=== PATIENT | male | born 1970 | race African-American/Black ===

== ENCOUNTER 2018-12-15 03:52 | Emergency (ER) | payer OTHER, SELFPAY ==
[2018-12-15] MEDS ORDERED: CYCLOBENZAPRINE 10 MG TAB ONE (04:42)
[2018-12-15] MEDS ORDERED: MEPERIDINE HCL 50 MG/ML ONE (04:42)
[2018-12-15] MEDS ORDERED: dexAMETHasone 10 MG/ML VIAL ONE (04:43)
--- NOTE | 2018-12-15 05:56 | ER ---
Nurse's Notes [facility] Name: Al Rawls Age: 48 yrs Sex: Male : 1970 Arrival Date: 12/15/2018 Time: 03:55 Bed 6 Private MD: Diagnosis: Low back pain;Muscle spasm of back Presentation: 12/15 04:19 Presenting complaint: Patient states: low back pain x 4 days. Denies injury. Transition aa1 of care: patient was not received from another setting of care. Onset of symptoms was December 11, 2018. Risk Assessment: Do you want to hurt yourself or someone else? Patient reports no desire to harm self or others. Initial Sepsis Screen: Does the patient meet any 2 criteria? No. Patient's initial sepsis screen is negative. Does the patient have a suspected source of infection? No. Patient's initial sepsis screen is negative. Care prior to arrival: None. 04:19 Method Of Arrival: Ambulatory aa1 04:19 Acuity: BRANDYN 4 aa1 Triage Assessment: 04:19 General: Appears in no apparent distress. comfortable, Behavior is calm, cooperative, aa1 appropriate for age. Historical: - Allergies: 04:26 Lisinopril; aa1 - PMHx: 04:26 chronic bronchitis; Hypertension; Rheumatoid Arthritis; Atrial Fib; aa1 - PSHx: 04:26 Left Knee; Hernia repair; aa1 - Immunization history:: Flu vaccine is not up to date. - Social history:: Smoking status: Patient/guardian denies using tobacco. - Ebola Screening: : No symptoms or risks identified at this time. - Family history:: not pertinent. - Hospitalizations: : Patient was recently seen at. Screenin:30 Abuse screen: Denies threats or abuse. Nutritional screening: No deficits noted. ea Tuberculosis screening: No symptoms or risk factors identified. Fall Risk None identified. Assessment: 04:27 Reassessment: pt stated his girlfriend dropped him off at the ER, Dr. Scott informed. . ak1 04:37 General: Appears uncomfortable, Behavior is calm, cooperative, appropriate for age. ea Pain: Complains of pain in coccyx, left lower back and right lower back. Neuro: Level of Consciousness is awake, alert, obeys commands, Oriented to person, place, time, situation. Cardiovascular: Patient's skin is warm and dry. Respiratory: Airway is patent Respiratory effort is even, unlabored, Respiratory pattern is regular, symmetrical. GI: No signs and/or symptoms were reported involving the gastrointestinal system. Derm: Skin is pink, warm \T\ dry. 05:08 Reassessment: Patient and/or family updated on plan of care and expected duration. Pain ea level reassessed. Patient is alert, oriented x 3, equal unlabored respirations, skin warm/dry/pink. 06:06 Reassessment: Patient and/or family updated on plan of care and expected duration. Pain ea level reassessed. Patient is alert, oriented x 3, equal unlabored respirations, skin warm/dry/pink. Discharge instruction given to patient, verbalized the understanding of instruction. Pt awaiting on to pick him up. Vital Signs: 04:19 BP 113 / 90; Pulse 50; Resp 20; Temp 97; Pulse Ox 98% on R/A; Weight 122.92 kg; Height aa1 6 ft. 0 in. (182.88 cm); Pain 10/10; 06:01 BP 111 / 99; Pulse 79; Resp 18; Pulse Ox 98% on R/A; ak1 04:19 Body Mass Index 36.75 (122.92 kg, 182.88 cm) aa1 ED Course: 03:55 Patient arrived in ED. es 04:00 Jefferson Scott MD is Attending Physician. rn 04:19 Arm band placed on right wrist. Patient placed in an exam room, on a stretcher. aa1 04:20 Triage completed. aa1 04:30 Patty Parikh, KIRSTEN is Primary Nurse. ea 04:38 Patient has correct armband on for positive identification. Bed in low position. Call ea light in reach. 06:07 No provider procedures requiring assistance completed. Patient did not have IV access ea during this emergency room visit. Administered Medications: 04:51 Drug: Demerol 50 mg {Note: RASS 0.} Route: IM; Site: right gluteus; ea 05:53 Follow up: Response: No adverse reaction; Pain is decreased; RASS: Alert and Calm (0) ea 04:51 Drug: Flexeril 10 mg Route: PO; ea 05:54 Follow up: Response: No adverse reaction ea 04:51 Drug: Decadron 10 mg Route: IM; Site: left gluteus; ea 05:54 Follow up: Response: No adverse reaction ea Outcome: 05:56 Discharge ordered by . rn 06:07 Condition: stable ea 06:07 Discharge instructions given to patient, Instructed on discharge instructions, follow up and referral plans. medication usage, Demonstrated understanding of instructions, follow-up care, medications. 06:09 Discharged to home via wheelchair, with significant other. ea 06:10 Patient left the ED. ea Signatures: Bruna Mccall RN RN aa1 Dorie Riley Roman, MD MD rn Krenek, Amber, RN RN ak1 Patty Parikh RN RN ea
--- NOTE | 2018-12-15 05:56 | EDPHYS ---
Physician Documentation [facility] Name: Al Rawls Age: 48 yrs Sex: Male : 1970 Arrival Date: 12/15/2018 Time: 03:55 Bed 6 Private MD: ED Physician Jefferson Scott HPI: 12/15 04:26 This 48 yrs old Black Male presents to ER via Ambulatory with complaints of Low Back rn Pain. 04:26 The patient presents with pain that is acute. The symptoms are located in the low back. rn The pain does not radiate. The problem was sustained from unknown cause. Onset: The symptoms/episode began/occurred 3 day(s) ago. Modifying factors: The patient symptoms are alleviated by remaining still, rest, specific position, the patient symptoms are aggravated by any movement, bending. Associated signs and symptoms: Pertinent positives: none Pertinent negatives: abdominal pain, dysuria, fever, hematuria, incontinence, nausea, numbness, tingling, urinary retention, vomiting, weakness. Severity of symptoms: At their worst the symptoms were moderate, in the emergency department the symptoms are unchanged. The patient has experienced a previous episode. The patient has been recently seen by a physician:. Reports low back pain, began 3 days ago, no known injury, slow coming, now moderate pain, worse with movement and walking, better when laying down and not moving. No fever/chest pain/sob/abd pain. NO bowel/bladder incontinence or retention. No radiation to legs. No weakness. . Historical: - Allergies: 04:26 Lisinopril; aa1 - PMHx: 04:26 chronic bronchitis; Hypertension; Rheumatoid Arthritis; Atrial Fib; aa1 - PSHx: 04:26 Left Knee; Hernia repair; aa1 - Immunization history:: Flu vaccine is not up to date. - Social history:: Smoking status: Patient/guardian denies using tobacco. - Ebola Screening: : No symptoms or risks identified at this time. - Family history:: not pertinent. - Hospitalizations: : Patient was recently seen at. ROS: 04:26 Constitutional: Negative for fever, chills, and weight loss, Eyes: Negative for injury, rn pain, redness, and discharge, Neck: Negative for injury, pain, and swelling, Cardiovascular: Negative for chest pain, palpitations, and edema, Respiratory: Negative for shortness of breath, cough, wheezing, and pleuritic chest pain, Abdomen/GI: Negative for abdominal pain, nausea, vomiting, diarrhea, and constipation, Back: + low back pain MS/Extremity: Negative for injury and deformity, Skin: Negative for injury, rash, and discoloration, Neuro: Negative for headache, weakness, numbness, tingling, and seizure. Exam: 04:26 Constitutional: This is a well developed, well nourished patient who is awake, alert, rn appears uncomfortable, but ambulatory to room without assistance. Head/Face: Normocephalic, atraumatic. Eyes: Pupils equal round and reactive to light, extra-ocular motions intact. Lids and lashes normal. Conjunctiva and sclera are non-icteric and not injected. Cornea within normal limits. Periorbital areas with no swelling, redness, or edema. ENT: MMM Cardiovascular: Irregularly irregular, no murmur, distal pulses equal and intact Respiratory: No increased work of breathing, no retractions or nasal flaring. Abdomen/GI: soft, non-tender, no masses or pulsatile masses Back: No spinal tenderness, + painful twisting and palpation or perilumbar muscles. MS/ Extremity: Pulses equal, no cyanosis. Neurovascular intact. Full, normal range of motion. Equal circumference. Neuro: Awake and alert, GCS 15, oriented to person, place, time, and situation. Cranial nerves II-XII grossly intact. Motor strength 5/5 in all extremities. Sensory grossly intact. Cerebellar exam normal. Normal gait. Vital Signs: 04:19 BP 113 / 90; Pulse 50; Resp 20; Temp 97; Pulse Ox 98% on R/A; Weight 122.92 kg; Height aa1 6 ft. 0 in. (182.88 cm); Pain 10/10; 06:01 BP 111 / 99; Pulse 79; Resp 18; Pulse Ox 98% on R/A; ak1 04:19 Body Mass Index 36.75 (122.92 kg, 182.88 cm) aa1 MDM: 04:00 Patient medically screened. rn 05:01 ED course: Reports has happened once before and attributes back pain to bad bed, rn reports uses bricks and broken box spring to keep mattress off of floor. Denies drug use. No focal spinal tenderness. Some improvement with meds, seems more comfortable. . 05:55 Differential diagnosis: arthritis, sciatica, Herniated disc UTI, muscle spasm. Data rn reviewed: vital signs, nurses notes, lab test result(s), and as a result, I will discharge patient. Counseling: I had a detailed discussion with the patient and/or guardian regarding: the historical points, exam findings, and any diagnostic results supporting the discharge/admit diagnosis, lab results, the need for outpatient follow up, to return to the emergency department if symptoms worsen or persist or if there are any questions or concerns that arise at home. Response to treatment: the patient's symptoms have mildly improved after treatment, and as a result, I will discharge patient. 12/15 05:51 Order name: Urine Dipstick--Ancillary (enter results) [facility] 12/15 04:25 Order name: Urine Dipstick-Ancillary (obtain specimen); Complete Time: 05:54 rn Administered Medications: 04:51 Drug: Demerol 50 mg {Note: RASS 0.} Route: IM; Site: right gluteus; ea 05:53 Follow up: Response: No adverse reaction; Pain is decreased; RASS: Alert and Calm (0) ea 04:51 Drug: Flexeril 10 mg Route: PO; ea 05:54 Follow up: Response: No adverse reaction ea 04:51 Drug: Decadron 10 mg Route: IM; Site: left gluteus; ea 05:54 Follow up: Response: No adverse reaction ea Disposition: 12/15/18 05:56 Discharged to Home. Impression: Low back pain, Muscle spasm of back. - Condition is Stable. - Discharge Instructions: Back Pain, Adult, Muscle Cramps and Spasms, Back Exercises, [id number]. - Prescriptions for Tylenol- Codeine #3 300-30 mg Oral Tablet - take 2 tablets by ORAL route every 6 hours As needed; 20 tablet. Cyclobenzaprine 10 mg Oral Tablet - take 1 tablet by ORAL route every 8 hours As needed; 20 tablet. Medrol (Nuno) 4 mg Oral Tablets, Dose Pack - take 1 tablet by ORAL route as directed - follow package instructions; 1 packet. - Medication Reconciliation Form, Thank You Letter, Antibiotic Education, Prescription Opioid Use form. - Follow up: Private Physician; When: As needed; Reason: Recheck today's complaints, Re-evaluation by your physician. - Problem is new. - Symptoms have improved. Signatures: Dispatcher [employer] Bruna Coronado RN RN aa1 Jefferson Scott MD MD rn Antunez, Elena, RN RN ea Corrections: (The following items were deleted from the chart) 06:10 05:56 12/15/2018 05:56 Discharged to Home. Impression: Low back pain; Muscle spasm of ea back. Condition is Stable. Forms are Medication Reconciliation Form, Thank You Letter, Antibiotic Education, Prescription Opioid Use. Follow up: Private Physician; When: As needed; Reason: Recheck today's complaints, Re-evaluation by your physician. Problem is new. Symptoms have improved. rn
[2018-12-15 06:17] VITALS: TEMP 97; O2SAT 98
[2018-12-15 06:18] VITALS: BP 111/99
[2018-12-15 06:43] LABS: Urine Blood NEGATIVE (NEG); Urine Glucose NEGATIVE (NEG); Urine Protein NEGATIVE (NEG)
== END 2018-12-15 06:10 | disposition home or self-care (01) ==
LOC: ER 03:52
DX: M62.830 Muscle spasm of back (principal); I10 Essential (primary) hypertension; Z88.8 Allergy status to other drugs, medicaments and biological substances
CPT/HCPCS: 81003; 96372; 99283; J1100; J2175

== ENCOUNTER 2019-03-06 14:59 | Emergency (ER) | payer OTHER ==
--- OUTSIDE RECORDS SUMMARY | 2019-03-06 15:02 | XMS REPORT ---
:1970 Author Organization [facility] Address [address] [place] [address] Dr. Blackburn [address] [place] [id number] Care Team Providers Name Role Phone Unavailable Unavailable Unavailable Problems This patient has no known problems. Allergies, Adverse Reactions, Alerts This patient has no known allergies or adverse reactions. Medications This patient has no known medications.
--- NOTE | 2019-03-06 16:17 | RAD REPORT ---
EXAM DESCRIPTION: Grecia Pa And Lat (2 Views)03/06/2019 3:49 pm CLINICAL HISTORY: Cough COMPARISON: 2018 FINDINGS: Patchy right lateral basilar opacity. Left lung is clear. The heart is normal size IMPRESSION: Patchy right lateral basilar opacity likely pneumonia. This should be followed until it is clear to exclude a post obstructive process/underlying mass
[2019-03-06] MEDS ORDERED: IPRATROPIUM BROM 0.5MG/2.5ML ONE (16:25)
[2019-03-06] MEDS ORDERED: LEVALBUTEROL 1.25 MG/3 ML NEB ONE (16:25)
[2019-03-06] MEDS ORDERED: METOPROLOL TARTRATE 5 MG/5 ML INJ IV ONE (16:26)
[2019-03-06] MEDS ORDERED: NA CHLORIDE 0.9% 1,000 ML ONE (16:26)
[2019-03-06 17:03] LABS: Absolute Lymphocytes (CBC) 2.6 K/uL (0.7-4.9); Lymphocytes % 60.8 % (15.3-44.8); RBC Red Blood Cell Count 4.34 M/uL (4.33-5.43)
[2019-03-06 17:21] LABS: Potassium 4.1 mmol/L (3.5-5.1)
[2019-03-06] MEDS ORDERED: CEFTRIAXONE/SWI 1gm 1 GM/10 ML SYR ONE (17:31)
--- NOTE | 2019-03-06 17:31 | EDPHYS ---
Physician Documentation [facility] Name: Al Rawls Age: 48 yrs Sex: Male : 1970 Arrival Date: 03/06/2019 Time: 15:01 Bed 15 Private MD: ED Physician Stanley Hernandez HPI: 03/06 16:45 This 48 yrs old Black Male presents to ER via Ambulatory with complaints of Flu kb Symptoms. 16:45 The patient or guardian reports cough, that is intermittent, described as moderate, kb with no sputum, flu symptoms, low-grade fever, myalgias. Onset: The symptoms/episode began/occurred 5 day(s) ago. Severity of symptoms: At their worst the symptoms were moderate, in the emergency department the symptoms are unchanged. Modifying factors: The symptoms are alleviated by nothing, the symptoms are aggravated by nothing. Associated signs and symptoms: Pertinent positives: fever. The patient has not experienced similar symptoms in the past. The patient has not recently seen a physician. Historical: - Allergies: 15:22 Lisinopril; tw2 - Home Meds: 15:22 clonidine HCl 0.1 mg Oral tab 1 tab 2 times per day [Active]; Hydrochlorothiazide Oral tw2 [Active]; "a bunch of other medicines i cant think of" [Active]; - PMHx: 15:22 Atrial Fib; chronic bronchitis; Hypertension; Rheumatoid Arthritis; tw2 - PSHx: 15:22 Left Knee; Hernia repair; tw2 - Immunization history:: Adult Immunizations. - Social history:: Smoking status: Smoking status: Patient/guardian denies using tobacco, the patient reports quitting approximately .5 years ago. - Ebola Screening: : Patient denies travel to an Ebola-affected area in the 21 days before illness onset. ROS: 16:41 ENT: Negative for injury, pain, and discharge, Neck: Negative for injury, pain, and kb swelling, Cardiovascular: Negative for chest pain, palpitations, and edema, Abdomen/GI: Negative for abdominal pain, nausea, vomiting, diarrhea, and constipation, Back: Negative for injury and pain, MS/Extremity: Negative for injury and deformity, Skin: Negative for injury, rash, and discoloration, Neuro: Negative for headache, weakness, numbness, tingling, and seizure. 16:41 Constitutional: Positive for body aches, chills, fatigue, fever, malaise. 16:41 Respiratory: Positive for cough, with no reported sputum. Exam: 16:42 Constitutional: This is a well developed, well nourished patient who is awake, alert, kb and in no acute distress. Head/Face: Normocephalic, atraumatic. Neck: Trachea midline, no thyromegaly or masses palpated, and no cervical lymphadenopathy. Supple, full range of motion without nuchal rigidity, or vertebral point tenderness. No Meningismus. Chest/axilla: Normal chest wall appearance and motion. Nontender with no deformity. No lesions are appreciated. Respiratory: Lungs have equal breath sounds bilaterally, clear to auscultation and percussion. No rales, rhonchi or wheezes noted. No increased work of breathing, no retractions or nasal flaring. Abdomen/GI: Soft, non-tender, with normal bowel sounds. No distension or tympany. No guarding or rebound. No evidence of tenderness throughout. Back: No spinal tenderness. No costovertebral tenderness. Full range of motion. Skin: Warm, dry with normal turgor. Normal color with no rashes, no lesions, and no evidence of cellulitis. MS/ Extremity: Pulses equal, no cyanosis. Neurovascular intact. Full, normal range of motion. Neuro: Awake and alert, GCS 15, oriented to person, place, time, and situation. Cranial nerves II-XII grossly intact. Motor strength 5/5 in all extremities. Sensory grossly intact. Cerebellar exam normal. Normal gait. 16:42 ENT: Posterior pharynx: Airway: normal, Uvula: normal, midline, swelling, is not appreciated, erythema, that is moderate. 16:42 Cardiovascular: Rate: tachycardic, Rhythm: irregularly irregular, Pulses: no pulse deficits are appreciated. 16:43 ECG was reviewed by the Attending Physician. kb Vital Signs: 15:20 BP 132 / 99; Pulse 133; Resp 18; Temp 97.4(TE); Pulse Ox 96% on R/A; Weight 108.86 kg tw2 (R); Height 6 ft. 0 in. (182.88 cm); Pain 10/10; 15:55 BP 133 / 106; Pulse 123; Resp 16 S; Pulse Ox 99% on R/A; ca1 16:32 BP 139 / 94; Pulse 125; Resp 15 S; Pulse Ox 95% on R/A; ca1 16:56 BP 124 / 89; Pulse 127; Resp 16 S; Pulse Ox 96% on R/A; ca1 17:32 BP 111 / 74; Pulse 122; Resp 18 S; Temp 98.3(O); Pulse Ox 98% on R/A; ca1 15:20 Body Mass Index 32.55 (108.86 kg, 182.88 cm) tw2 MDM: 15:38 Patient medically screened. kb 16:41 Data reviewed: vital signs, nurses notes. Data interpreted: Pulse oximetry: on room air kb is 96 %. Interpretation: normal. 16:44 ED course: Heart rate 120s to 140s. Pt has history of a.fib and is scheduled for an kb ablasion on 03/14/19. . 17:26 Counseling: I had a detailed discussion with the patient and/or guardian regarding: the kb historical points, exam findings, and any diagnostic results supporting the discharge/admit diagnosis, lab results, radiology results, the need for outpatient follow up, a family practitioner, to return to the emergency department if symptoms worsen or persist or if there are any questions or concerns that arise at home. ED course: Pt reports he is feeling better. States his heart rate is always high and that is why he is going to have the ablasion. Now reports he has been using his son's albuterol at home as well. Rate is now in the 120s. 03/06 15:28 Order name: Flu; Complete Time: 16:40 kb 03/06 16:10 Order name: Strep kb 03/06 16:10 Order name: CBC with Diff kb 03/06 16:10 Order name: Basic Metabolic Panel; Complete Time: 17:21 kb 03/06 17:16 Order name: CBC Smear Scan EDMS 03/06 15:28 Order name: Chest Pa And Lat (2 Views) XRAY; Complete Time: 17:01 kb 03/06 16:10 Order name: IV Start; Complete Time: 16:51 kb 03/06 16:10 Order name: EKG; Complete Time: 16:11 kb 03/06 16:10 Order name: EKG - Nurse/Tech; Complete Time: 16:45 kb EC:43 Rate is 129 beats/min. Rhythm is irregularly irregular. QRS [place] is Normal. QRS kb interval is normal at 100 msec. QT interval is normal at 272 msec. Administered Medications: 16:25 Drug: Xopenex (3) 1.25 mg Route: Inhalation; ca1 16:25 Drug: AtroVENT Aerosol 0.5 mg Route: Inhalation; ca1 16:30 Drug: NS 0.9% 1000 ml Route: IV; Rate: 1000 ml; Site: right antecubital; ca1 17:32 Follow up: Response: No adverse reaction; IV Status: Completed infusion ca1 16:31 Drug: Lopressor 5 mg Route: IVP; Site: right antecubital; ca1 17:27 Follow up: Response: No adverse reaction ca1 17:31 Drug: Rocephin 1 grams Route: IV; Rate: calculated rate; Site: right antecubital; ca1 17:42 Follow up: Response: No adverse reaction; IV Status: Completed infusion ca1 Disposition: 03/07 07:04 Co-signature as Attending Physician, Stanley Hernandez MD I agree with the assessment and abbi plan of care. Disposition: 03/06/19 17:27 Discharged to Home. Impression: Influenza due to identified novel influenza A virus, Pneumonia, unspecified organism. - Condition is Stable. - Discharge Instructions: Community-Acquired Pneumonia, Adult, [id number], Influenza, Adult, [id number]. - Prescriptions for Albuterol Sulfate 90 mcg/actuation - inhale 1-2 puff by INHALATION route every 4-6 hours; 1 Inhaler. Zithromax 500 mg Oral Tablet - take 1 tablet by ORAL route once daily for 5 days; 5 tablet. - Medication Reconciliation Form, Thank You Letter, Antibiotic Education, Prescription Opioid Use form. - Follow up: Emergency Department; When: As needed; Reason: Worsening of condition. Follow up: Private Physician; When: 2 - 3 days; Reason: Recheck today's complaints, Continuance of care, Re-evaluation by your physician. Signatures: Dispatcher [employer] Esperanza Cui, Stanley George MD MD cha Wise, Tara, RN RN tw2 Chayito Cid RN RN ca1 Corrections: (The following items were deleted from the chart) 03/06 17:48 17:27 03/06/2019 17:27 Discharged to Home. Impression: Influenza due to identified ca1 novel influenza A virus; Pneumonia, unspecified organism. Condition is Stable. Forms are Medication Reconciliation Form, Thank You Letter, Antibiotic Education, Prescription Opioid Use. Follow up: Emergency Department; When: As needed; Reason: Worsening of condition. Follow up: Private Physician; When: 2 - 3 days; Reason: Recheck today's complaints, Continuance of care, Re-evaluation by your physician. kb
--- NOTE | 2019-03-06 17:31 | ER ---
Nurse's Notes [facility] Name: Al Rawls Age: 48 yrs Sex: Male : 1970 Arrival Date: 03/06/2019 Time: 15:01 Bed 15 Private MD: Diagnosis: Influenza due to identified novel influenza A virus;Pneumonia, unspecified organism Presentation: 03/06 15:18 Presenting complaint: Patient states: i have chills and body aches and at night i start tw2 coughing real bad, this has been going on 5 days now. Transition of care: patient was not received from another setting of care. Onset of symptoms was March 06, 2019. Risk Assessment: Do you want to hurt yourself or someone else? Patient reports no desire to harm self or others. Initial Sepsis Screen: Does the patient meet any 2 criteria? No. Patient's initial sepsis screen is negative. Does the patient have a suspected source of infection? No. Patient's initial sepsis screen is negative. Care prior to arrival: None. 15:18 Method Of Arrival: Ambulatory tw2 15:18 Acuity: BRANDYN 3 tw2 Triage Assessment: 15:19 General: Appears in no apparent distress. obese, Behavior is calm, cooperative, tw2 appropriate for age. Pain: Complains of pain in body aches. Historical: - Allergies: 15:22 Lisinopril; tw2 - Home Meds: 15:22 clonidine HCl 0.1 mg Oral tab 1 tab 2 times per day [Active]; Hydrochlorothiazide Oral tw2 [Active]; "a bunch of other medicines i cant think of" [Active]; - PMHx: 15:22 Atrial Fib; chronic bronchitis; Hypertension; Rheumatoid Arthritis; tw2 - PSHx: 15:22 Left Knee; Hernia repair; tw2 - Immunization history:: Adult Immunizations. - Social history:: Smoking status: Smoking status: Patient/guardian denies using tobacco, the patient reports quitting approximately .5 years ago. - Ebola Screening: : Patient denies travel to an Ebola-affected area in the 21 days before illness onset. Screenin:50 Abuse screen: Denies threats or abuse. Denies injuries from another. Nutritional ca1 screening: No deficits noted. Tuberculosis screening: No symptoms or risk factors identified. Fall Risk None identified. Assessment: 15:50 General: Appears in no apparent distress. comfortable, Behavior is calm, cooperative, ca1 appropriate for age. Pain: Denies pain. Neuro: Level of Consciousness is awake, alert, obeys commands, Oriented to person, place, time, situation, Appropriate for age. Cardiovascular: Heart tones S1 S2 present Capillary refill < 3 seconds Patient's skin is warm and dry. Respiratory: Reports cough that is dry, since 5 days ago Airway is patent Respiratory effort is even, unlabored, Respiratory pattern is regular, symmetrical, Breath sounds are clear bilaterally. GI: Abdomen is round non-distended, Bowel sounds present X 4 quads. Abd is soft and non tender X 4 quads. : No deficits noted. No signs and/or symptoms were reported regarding the genitourinary system. EENT: Throat is pink has enlarged tonsils bilaterally Reports nasal congestion since 5 days ago. Derm: Skin is intact, is healthy with good turgor, Skin is pink, warm \\T\\ dry. Musculoskeletal: Circulation, motion, and sensation intact. Capillary refill < 3 seconds, Range of motion: intact in all extremities. 16:56 Reassessment: Patient appears in no apparent distress at this time. Patient is alert, ca1 oriented x 3, equal unlabored respirations, skin warm/dry/pink. Cardiovascular: Rhythm is atrial fibrillation. 17:32 Reassessment: Patient appears in no apparent distress at this time. Patient is alert, ca1 oriented x 3, equal unlabored respirations, skin warm/dry/pink. Vital Signs: 15:20 BP 132 / 99; Pulse 133; Resp 18; Temp 97.4(TE); Pulse Ox 96% on R/A; Weight 108.86 kg tw2 (R); Height 6 ft. 0 in. (182.88 cm); Pain 10/10; 15:55 BP 133 / 106; Pulse 123; Resp 16 S; Pulse Ox 99% on R/A; ca1 16:32 BP 139 / 94; Pulse 125; Resp 15 S; Pulse Ox 95% on R/A; ca1 16:56 BP 124 / 89; Pulse 127; Resp 16 S; Pulse Ox 96% on R/A; ca1 17:32 BP 111 / 74; Pulse 122; Resp 18 S; Temp 98.3(O); Pulse Ox 98% on R/A; ca1 15:20 Body Mass Index 32.55 (108.86 kg, 182.88 cm) tw2 ED Course: 15:01 Patient arrived in ED. as 15:03 Esperanza Steele [facility]C [facility]. kb 15:03 Stanley Hernandez MD is Attending Physician. kb 15:18 Triage completed. tw2 15:20 Arm band placed on. tw2 15:50 Patient has correct armband on for positive identification. Bed in low position. Call ca1 light in reach. Side rails up X 1. Pulse ox on. NIBP on. Warm blanket given. 15:50 No provider procedures requiring assistance completed. ca1 15:52 Chayito Cid, RN is Primary Nurse. ca1 16:01 Chest Pa And Lat (2 Views) XRAY In Process Unspecified. EDMS 16:28 Initial lab(s) drawn, by me, sent to lab. Inserted saline lock: 20 gauge in right ca1 antecubital area, using aseptic technique. Blood collected. 16:45 EKG done, by ED staff, reviewed by Esperanza DALE. em1 17:47 IV discontinued, intact, bleeding controlled, No redness/swelling at site. Pressure ca1 dressing applied. Administered Medications: 16:25 Drug: Xopenex (3) 1.25 mg Route: Inhalation; ca1 16:25 Drug: AtroVENT Aerosol 0.5 mg Route: Inhalation; ca1 16:30 Drug: NS 0.9% 1000 ml Route: IV; Rate: 1000 ml; Site: right antecubital; ca1 17:32 Follow up: Response: No adverse reaction; IV Status: Completed infusion ca1 16:31 Drug: Lopressor 5 mg Route: IVP; Site: right antecubital; ca1 17:27 Follow up: Response: No adverse reaction ca1 17:31 Drug: Rocephin 1 grams Route: IV; Rate: calculated rate; Site: right antecubital; ca1 17:42 Follow up: Response: No adverse reaction; IV Status: Completed infusion ca1 Outcome: 17:27 Discharge ordered by . kb 17:47 Discharged to home ambulatory. ca1 17:47 Condition: stable 17:47 Discharge instructions given to patient, Instructed on discharge instructions, follow up and referral plans. medication usage, Demonstrated understanding of instructions, follow-up care, medications, Prescriptions given X 2. 17:48 Patient left the ED. ca1 Signatures: Dispatcher [employer] EDMS Cedric Esperanza, FORMULA MAKER-C FORMULA MAKER-Marni Sow Eric em1 Nuvia Valadez RN RN tw2 Chayito Cid RN RN ca1 Corrections: (The following items were deleted from the chart) 15:19 15:18 Acuity: BRANDYN 4 tw tw
[2019-03-06 18:29] VITALS: BP 111/74
[2019-03-06 18:35] VITALS: TEMP 98.1; O2SAT 100
[2019-03-06 19:33] LABS: Platelet Estimate ADEQ; Urine White Blood Cell Casts OK
[2019-03-06 19:34] LABS: Blood Morphology Comment NOT SEEN (NOT SEEN)
--- NOTE | 2019-03-07 09:00 | EKG ---
Test Date: 2019-03-06 Test Time: 16:42:46 Psych Rn: ARIANNA MEASUREMENT RESULTS: Intervals: Rate: 129 MI: QRSD: 100 QT: 272 QTc: 398 [place]: P: MI: QRS: 5 T: -15 INTERPRETIVE STATEMENTS: Atrial fibrillation with rapid ventricular response Nonspecific ST and T wave abnormality, probably digitalis effect Abnormal ECG Compared to ECG 05/07/2017 19:02:30 ST (T wave) deviation now present Sinus tachycardia no longer present Atrial abnormality no longer present Incomplete right bundle-branch block no longer present T-wave abnormality no longer present Electronically Signed On 03-07-19 08:58:00 ICER MACHINE by Stanford Posada
== END 2019-03-06 17:48 | disposition home or self-care (01) ==
LOC: ER 14:59
DX: J09.X1 Influenza due to identified novel influenza A virus with pneumonia (principal); I10 Essential (primary) hypertension; I48.91 Unspecified atrial fibrillation
CPT/HCPCS: 96361; 93005; 85025; 80048; 36415; 87081; 87804 ×2; 71046; 96375; 96374; 99285; J0696; J7030; 87070

== ENCOUNTER 2019-12-24 11:30 | Emergency (ER) | payer OTHER ==
--- OUTSIDE RECORDS SUMMARY | 2019-12-24 11:33 | XMS REPORT | Continuity of Care Document ---
:1970 Author Organization [facility] t Address [address] [place] [address] [address] [place] [address] Care Team Providers Name Role Phone Doctor Unassigned, Name Attending Clinician Unavailable Van FILM OR TAPE LIBRARIAN Attending Clinician Problems This patient has no known problems. Allergies, Adverse Reactions, Alerts This patient has no known allergies or adverse reactions. Medications This patient has no known medications. Procedures This patient has no known procedures. Encounters Start End Encounter Admission Attending Care Care Encounter Source Date/Time Date/Time Type Type Clinicians Facility Department ID 2019-06-22 2019-06-22 Orders Doctor MYAH [id number] 00:00:00 00:00:00 Only UnassignedMOSHE [id number] [place] [facility] [id number] 2019-05-22 2019-05-22 Telephone Alia Araujo [facility] [id number] 00:00:00 00:00:00 SPECIAL[facility] [id number] [place] [id number] [place] [id number] Results This patient has no known results.
[2019-12-24] MEDS ORDERED: METOPROLOL TAR 50 MG TAB ONE (12:11)
--- NOTE | 2019-12-24 12:20 | RAD REPORT ---
EXAM DESCRIPTION: RAD - Chest Single View - 12/24/2019 12:12 pm CLINICAL HISTORY: COUGH, chronic since March COMPARISON: Two-view chest March 2019 TECHNIQUE: AP portable chest image was obtained 12/24/2019 12:12 pm . FINDINGS: Lungs are clear. Heart and vasculature are normal. No measurable pleural effusion and no p neumothorax. No acute bony abnormality seen. No acute aortic findings suspected. IMPRESSION: No acute cardiopulmonary process. No worrisome change from comparison.
[2019-12-24 12:57] LABS: Absolute Lymphocytes (CBC) 1.4 K/uL (0.7-4.9); Basophils % 1.2 % (0-1.3); Hematocrit 46.9 % (39.6-49.0); Lymphocytes % 29.2 % (15.3-44.8); MPV 10.1 fL (7.6-11.3); RBC Red Blood Cell Count 5.13 M/uL (4.33-5.43)
[2019-12-24 13:24] LABS: Potassium 4.6 mmol/L (3.5-5.1)
[2019-12-24] MEDS ORDERED: NA CHLORIDE 0.9% 500 ML ONE (13:53)
[2019-12-24] MEDS ORDERED: INSULIN -REGULAR HUMAN 50 UNIT/0.5 ML ML ONE ×2 (13:53→15:54)
--- NOTE | 2019-12-24 16:54 | ER ---
Nurse's Notes [facility] Name: Al Rawls Age: 49 yrs Sex: Male : 1970 Arrival Date: 12/24/2019 Time: 11:33 Bed 17 Private MD: Diagnosis: Hyperglycemia, unspecified;Bronchitis, not specified as acute or chronic;Tachycardia, unspecified Presentation: 12/23 11:48 Chief complaint: Cough since March, worse over the last month. Coronavirus screen: hb cough unrelated to allergies, Client presents with at least one sign or symptom that may indicate coronavirus-19. Standard/surgical mask placed on the client. Provider contacted for isolation considerations. Ebola Screen: No symptoms or risks identified at this time. Initial Sepsis Screen: Does the patient meet any 2 criteria? No. Patient's initial sepsis screen is negative. Does the patient have a suspected source of infection? No. Patient's initial sepsis screen is negative. Risk Assessment: Do you want to hurt yourself or someone else? Patient reports no desire to harm self or others. Onset of symptoms is unknown. 11:48 Method Of Arrival: Ambulatory hb 11:48 Acuity: BRANDYN 3 hb 11:54 Acuity: BRANDYN 2 hb Historical: - Allergies: 11:52 Lisinopril; hb - Home Meds: 11:52 "a bunch of other medicines i cant think of" [Active]; clonidine HCl 0.1 mg Oral tab 1 hb tab 2 times per day [Active]; Hydrochlorothiazide Oral [Active]; - PMHx: 11:52 Atrial Fib; chronic bronchitis; Hypertension; Rheumatoid Arthritis; hb - PSHx: 11:52 Left Knee; Hernia repair; hb - Immunization history:: Adult Immunizations up to date. - Social history:: Smoking status: Patient denies any tobacco usage or history of. - Family history:: not pertinent. - Hospitalizations: : No recent hospitalization is reported. Screenin:22 Abuse screen: Denies threats or abuse. Denies injuries from another. Nutritional ph screening: No deficits noted. Tuberculosis screening: No symptoms or risk factors identified. Fall Risk None identified. Assessment: 12:16 Reassessment: upon obtaining triage vitals pt noted to be tachycardic at \\T\\ 140 bpm, pt ph asymptomatic, denies palpations, chest pain or SOB. Pt states, " My heart rate is always high, I take a lot of medicine for my heart rate and blood pressure." When questioned about what HR is normally pt states, " I don't know but it's always high." Reports that he takes Metoprolol and other unknown medications. ERP aware of HR and pt hx. General: Appears in no apparent distress. comfortable, Behavior is calm, cooperative, appropriate for age, Denies fever. Pain: Denies pain. Neuro: Level of Consciousness is awake, alert, obeys commands, Oriented to person, place, time, situation. Cardiovascular: Capillary refill < 3 seconds in bilateral fingers Patient's skin is warm and dry. Respiratory: Reports cough that is since March Airway is patent Respiratory effort is even, unlabored, Respiratory pattern is regular, symmetrical, Denies labored breathing, pain with cough. GI: No signs and/or symptoms were reported involving the gastrointestinal system. Derm: Skin is intact, is healthy with good turgor, Skin is pink, warm \\T\\ dry. Musculoskeletal: Circulation, motion, and sensation intact. Range of motion: intact in all extremities. 13:32 Reassessment: Patient appears in no apparent distress at this time. Patient and/or ph family updated on plan of care and expected duration. Pain level reassessed. Patient is alert, oriented x 3, equal unlabored respirations, skin warm/dry/pink. Lab results show that glucose level is high, pt states that he has not taken his Metformin for 2 days, see MAR for orders. 15:30 Reassessment: Patient and/or family updated on plan of care and expected duration. Pain zb level reassessed. Patient is alert, oriented x 3, equal unlabored respirations, skin warm/dry/pink. 16:47 Reassessment: Patient and/or family updated on plan of care and expected duration. Pain zb level reassessed. Patient is alert, oriented x 3, equal unlabored respirations, skin warm/dry/pink. Pt BGL rechecked. Vital Signs: 11:48 BP 157 / 118; Pulse 142; Resp 18; Temp 97.3(TE); Pulse Ox 95% on R/A; Pain 0/10; hb 12:55 BP 127 / 99; Pulse 140; Resp 16; Pulse Ox 95% on R/A; zb 13:48 BP 115 / 79; Pulse 136; Resp 20; Pulse Ox 97% on R/A; zb 14:50 BP 122 / 87; Pulse 136; Resp 16 S; Pulse Ox 97% on R/A; zb 15:30 BP 132 / 106; Pulse 150; Resp 16; Pulse Ox 98% ; zb 16:47 BP 144 / 113; Pulse 143; Resp 14; Pulse Ox 97% ; zb 17:14 BP 145 / 93; Pulse 124; Resp 18; Temp 97.8; Pulse Ox 99% on R/A; ph ED Course: 11:33 Patient arrived in ED. ds1 11:40 Elba Schroeder, RN is Primary Nurse. sv 11:41 Jefferson Scott MD is Attending Physician. rn 11:41 Lou Chase, RN is Primary Nurse. ph 11:50 Triage completed. hb 11:54 Arm band placed on. EKG completed in triage. Results shown to MD. EKG completed in hb triage. Results shown to MD. 12:05 EKG done, by ED staff, reviewed by Jefferson Scott MD. jp3 12:05 Patient maintains SpO2 saturation greater than 95% on room air. jp3 12:10 Flu and/or RSV swab sent to lab. X-ray(s) taken. Pt swabbed for COVID-19. jp3 12:11 XRAY Chest (1 view) In Process Unspecified. EDMS 12:22 Patient has correct armband on for positive identification. Bed in low position. Call ph light in reach. Side rails up X 1. quality assurance monitor final on. Pulse ox on. NIBP on. Door closed. Noise minimized. Warm blanket given. 12:36 Inserted saline lock: 20 gauge in right antecubital area, using aseptic technique. zb 15:17 Notified ED physician of a critical lab result(s). fingerstick BGL reading high. zb notified MD scott. 17:13 No provider procedures requiring assistance completed. IV discontinued, intact, ph bleeding controlled, No redness/swelling at site. Pressure dressing applied. Administered Medications: 12:13 Drug: Metoprolol TARTRATE (Lopressor) 50 mg Route: PO; zb 13:47 Follow up: Response: No adverse reaction; Blood pressure is lowered ph 13:46 Drug: Insulin Regular Human 10 units {Co-Signature: kayla (Tatum Brown RN).} Route: ph IVP; Site: right antecubital; 14:30 Follow up: Response: No adverse reaction ph 13:46 Drug: NS 0.9% 500 ml Route: IV; Rate: bolus; Site: right antecubital; ph 15:00 Follow up: Response: No adverse reaction; IV Status: Completed infusion; IV Intake: ph 500ml 13:47 Drug: Insulin Regular Human 10 units {Co-Signature: kayla (Tatum Huitron RN).} Route: ph Sub-Q; Site: right lower abdomen; 14:30 Follow up: Response: No adverse reaction ph 15:45 Drug: Insulin Regular Human 10 units {Co-Signature: mt (Kim Garcia RN).} Route: ph Sub-Q; Site: right upper arm; 16:30 Follow up: Response: No adverse reaction ph Intake: 15:00 IV: 500ml; Total: 500ml. ph Outcome: 16:54 Discharge ordered by MD. rn 17:13 Discharged to home ambulatory. ph 17:13 Condition: improved 17:13 Discharge instructions given to patient, Instructed on discharge instructions, follow up and referral plans. medication usage, Demonstrated understanding of instructions, follow-up care, medications, Prescriptions given X 2. 17:15 Patient left the ED. ph Addendum: 12/27/2019 13:05 Addendum: COVID-19 Result: Negative result given to RN to notify pt. Notified pt of s s negative COVID 19 swab results. Pt advised that even with a negative test result they should remain in isolation until symptom free for 3 days without medication. Pt also advised to return to the ED for worsening symptoms. Signatures: Dispatcher [employer] EDMS Elba Schroeder RN Cyndy Tyler ds1 Jefferson Scott MD MD rn Smirch, Shelby, RN RN ss Hall, Patricia, RN RN ph Baxter, Heather, RN RN hb Pisarski, Jacob jp3 Tatum Huitron RN RN zb Zipporah Brown RN zb Heather Baxter RN hb Corrections: (The following items were deleted from the chart) 12/23 11:54 11:48 BP 157 / 118; Resp 18bpm; Pulse Ox 95%; Temp 97.3F Temporal; Pain 0/10; hb hb
--- NOTE | 2019-12-24 16:54 | EDPHYS ---
Physician Documentation [facility] Name: Al Rawls Age: 49 yrs Sex: Male : 1970 Arrival Date: 12/24/2019 Time: 11:33 Bed 17 Private MD: ED Physician Jefferson Scott HPI: 12/23 12:06 This 49 yrs old Black Male presents to ER via Ambulatory with complaints of Cough. rn 12:06 The patient or guardian reports cough, described as mild, with no sputum. Onset: The rn symptoms/episode began/occurred 1 month(s) ago. Severity of symptoms: At their worst the symptoms were mild, in the emergency department the symptoms are unchanged. Modifying factors: The symptoms are alleviated by nothing, the symptoms are aggravated by nothing. The patient has experienced similar episodes in the past. Reports cough for about a month, no fever, doesn't think he has COVID, reports compliant with BP and CHF meds, but cannot tell me names of them. No hemoptysis. Reports feels similar to when had bronchitis. Requests that he be given abx. . Historical: - Allergies: 11:52 Lisinopril; hb - Home Meds: 11:52 "a bunch of other medicines i cant think of" [Active]; clonidine HCl 0.1 mg Oral tab 1 hb tab 2 times per day [Active]; Hydrochlorothiazide Oral [Active]; - PMHx: 11:52 Atrial Fib; chronic bronchitis; Hypertension; Rheumatoid Arthritis; hb - PSHx: 11:52 Left Knee; Hernia repair; hb - Immunization history:: Adult Immunizations up to date. - Social history:: Smoking status: Patient denies any tobacco usage or history of. - Family history:: not pertinent. - Hospitalizations: : No recent hospitalization is reported. ROS: 12:06 Constitutional: Negative for fever, chills, and weight loss, Eyes: Negative for injury, rn pain, redness, and discharge, Cardiovascular: Negative for chest pain, palpitations, and edema, Respiratory: + cough Abdomen/GI: Negative for abdominal pain, nausea, vomiting, diarrhea, and constipation, MS/Extremity: Negative for injury and deformity, Skin: Negative for injury, rash, and discoloration, Neuro: Negative for headache, weakness, numbness, tingling, and seizure. Exam: 12:06 Constitutional: Overweight male, no acute distress Head/Face: Normocephalic, rn atraumatic. ENT: No stridor Cardiovascular: Tachycardic, regular Respiratory: Speaking full sentences, unlabored Abdomen/GI: soft, non-tender Skin: Warm, dry MS/ Extremity: Pulses equal, no cyanosis. Neurovascular intact. Full, normal range of motion. Equal circumference. Neuro: Awake and alert, GCS 15, oriented to person, place, time, and situation. Cranial nerves II-XII grossly intact. Motor strength 5/5 in all extremities. Sensory grossly intact. Cerebellar exam normal. Normal gait. 13:08 ECG was reviewed by the Attending Physician. rn Vital Signs: 11:48 BP 157 / 118; Pulse 142; Resp 18; Temp 97.3(TE); Pulse Ox 95% on R/A; Pain 0/10; hb 12:55 BP 127 / 99; Pulse 140; Resp 16; Pulse Ox 95% on R/A; zb 13:48 BP 115 / 79; Pulse 136; Resp 20; Pulse Ox 97% on R/A; zb 14:50 BP 122 / 87; Pulse 136; Resp 16 S; Pulse Ox 97% on R/A; zb 15:30 BP 132 / 106; Pulse 150; Resp 16; Pulse Ox 98% ; zb 16:47 BP 144 / 113; Pulse 143; Resp 14; Pulse Ox 97% ; zb 17:14 BP 145 / 93; Pulse 124; Resp 18; Temp 97.8; Pulse Ox 99% on R/A; ph MDM: 11:41 Patient medically screened. rn 12:51 ED course: Pt reports that his "heart rate is always high". Looked back at last several rn visits and seems like he is right, averaging 120s-130s each visit. Given his metoprolol and BP improved but HR did not change much. No chest pain or cardiac symptoms. Will continue evaluation for infectious etiology and anticipate dc home if everything looks ok, even with tachycardia. . 13:32 Differential Diagnosis: Bronchitis Influenza Upper Respiratory Infection Viral Syndrome rn Pneumonia. Data reviewed: vital signs, nurses notes, lab test result(s), radiologic studies. ED course: Pt with elevated blood glucose, no acidosis, reports hasn't been taking his metformin, has run out. . 16:53 Counseling: I had a detailed discussion with the patient and/or guardian regarding: the rn historical points, exam findings, and any diagnostic results supporting the discharge/admit diagnosis, lab results, radiology results, the need for outpatient follow up, to return to the emergency department if symptoms worsen or persist or if there are any questions or concerns that arise at home. Response to treatment: the patient's symptoms have mildly improved after treatment, and as a result, I will discharge patient. 16:53 ED course: Glucose < 400, still tachycardic, but seems to stay that way every visit, rn will refill metformin. . 12/23 11:50 Order name: Flu; Complete Time: 13:25 rn 12/23 11:50 Order name: Strep; Complete Time: 13:25 rn 12/23 11:50 Order name: COVID-19 rn 12/23 12:04 Order name: CBC with Diff; Complete Time: 13:25 rn 12/23 12:04 Order name: Basic Metabolic Panel; Complete Time: 13:28 rn 12/23 12:04 Order name: Procalcitonin; Complete Time: 14:56 rn 12/23 11:50 Order name: XRAY Chest (1 view); Complete Time: 12:25 rn 12/23 12:04 Order name: BNP; Complete Time: 13:28 rn 12/23 12:44 Order name: Throat Culture EDUT 12/23 15:17 Order name: Glucose; Complete Time: 16:27 ph 12/23 15:27 Order name: Glucose, Ancillary Testing; Complete Time: 15:48 EDUT 12/23 16:39 Order name: Glucose, Ancillary Testing EDUT 12/23 12:03 Order name: EKG - Nurse/Tech; Complete Time: 12:08 rn 12/23 12:04 Order name: IV Start; Complete Time: 13:13 rn EC:08 Rate is 142 beats/min. Rhythm is regular. QRS [place] is Normal. TN interval is normal. No rn Q waves. T waves are Normal. No ST changes noted. Clinical impression: Sinus tachycardia. Interpreted by me. Reviewed by me. Administered Medications: 12:13 Drug: Metoprolol TARTRATE (Lopressor) 50 mg Route: PO; zb 13:47 Follow up: Response: No adverse reaction; Blood pressure is lowered ph 13:46 Drug: Insulin Regular Human 10 units {Co-Signature: kayla Huitron RN).} Route: ph IVP; Site: right antecubital; 14:30 Follow up: Response: No adverse reaction ph 13:46 Drug: NS 0.9% 500 ml Route: IV; Rate: bolus; Site: right antecubital; ph 15:00 Follow up: Response: No adverse reaction; IV Status: Completed infusion; IV Intake: ph 500ml 13:47 Drug: Insulin Regular Human 10 units {Co-Signature: kayla Huitron RN).} Route: ph Sub-Q; Site: right lower abdomen; 14:30 Follow up: Response: No adverse reaction ph 15:45 Drug: Insulin Regular Human 10 units {Co-Signature: mt Garcia RN).} Route: ph Sub-Q; Site: right upper arm; 16:30 Follow up: Response: No adverse reaction ph Disposition: 12/24/19 16:54 Discharged to Home. Impression: Hyperglycemia, unspecified, Bronchitis, not specified as acute or chronic, Tachycardia, unspecified. - Condition is Stable. - Discharge Instructions: Hyperglycemia, Blood Glucose Monitoring, Adult, Cough, Adult. - Prescriptions for Metformin 1,000 mg Oral Tablet - take 1 tablet by ORAL route every 12 hours with morning and evening meals; 60 tablet. Zithromax Z- Nuno 250 mg Oral Tablet - take 1 tablet by ORAL route as directed for 5 days Day 1 - take two (2) tablets one time. Day 2, 3, 4 , 5 take one (1) tablet once daily.; 6 tablet. - Medication Reconciliation Form, Thank You Letter, Antibiotic Education, Prescription Opioid Use form. - Follow up: Private Physician; When: As needed; Reason: Recheck today's complaints, Re-evaluation by your physician. - Problem is new. - Symptoms have improved. Signatures: Dispatcher [employer] EDMS Jefferson Scott MD MD rn Hall, Patricia, RN RN ph Baxter, Heather, RN RN hb Brown, Zipporah, RN RN zb Zipporah Brown RN zb Heather Baxter RN hb Corrections: (The following items were deleted from the chart) 17:15 16:54 12/24/2019 16:54 Discharged to Home. Impression: Hyperglycemia, unspecified; ph Bronchitis, not specified as acute or chronic; Tachycardia, unspecified. Condition is Stable. Discharge Instructions: Hyperglycemia, Blood Glucose Monitoring, Adult, Cough, Adult. Prescriptions for Metformin 1,000 mg Oral Tablet - take 1 tablet by ORAL route every 12 hours with morning and evening meals; 60 tablet, Zithromax Z-Nuno 250 mg Oral Tablet - take 1 tablet by ORAL route as directed for 5 days Day 1 - take two (2) tablets one time. Day 2, 3, 4 , 5 take one (1) tablet once daily.; 6 tablet. and Forms are Medication Reconciliation Form, Thank You Letter, Antibiotic Education, Prescription Opioid Use. Follow up: Private Physician; When: As needed; Reason: Recheck today's complaints, Re-evaluation by your physician. Problem is new. Symptoms have improved. rn
[2019-12-24 17:37] VITALS: BP 145/93; TEMP 97.8; O2SAT 99
--- NOTE | 2019-12-26 10:11 | EKG ---
Test Date: 2019-12-24 Test Time: 12:03:16 Geology Professor: FRENCH MEASUREMENT RESULTS: Intervals: Rate: 142 MI: 128 QRSD: 168 QT: 312 QTc: 479 [place]: P: MI: 128 QRS: -27 T: 264 INTERPRETIVE STATEMENTS: Sinus tachycardia Left ventricular hypertrophy with QRS widening Abnormal ECG Compared to ECG 03/06/2019 16:42:46 Left ventricular hypertrophy now present Atrial fibrillation no longer present ST (T wave) deviation no longer present Electronically Signed On 12-26-19 10:06:58 CDT by Stanford Posada
== END 2019-12-24 17:15 | disposition home or self-care (01) ==
LOC: ER 11:30
DX: J40 Bronchitis, not specified as acute or chronic (principal); Z20.828 Contact with and (suspected) exposure to other viral communicable diseases; R73.9 Hyperglycemia, unspecified; R00.0 Tachycardia, unspecified; I10 Essential (primary) hypertension; Z88.8 Allergy status to other drugs, medicaments and biological substances
CPT/HCPCS: 96361; 93005; 87070; 85025; 80048; 36415; 82947 ×3; 87081; 84145; 83880; 87804 ×2; 71045; 96372; 96374; 99285; U0002; J7040

== ENCOUNTER 2019-12-28 13:13 | Inpatient (IN) | payer OTHER ==
--- OUTSIDE RECORDS SUMMARY | 2019-12-28 13:51 | XMS REPORT | Continuity of Care Document ---
:1970 Author Organization [facility] t Address [address] [place] [address] Care Team Providers Name Role Phone Doctor Unassigned, Name Attending Clinician Unavailable Van PARKING ENFORCEMENT OFFICER Attending Clinician Problems This patient has no known problems. Allergies, Adverse Reactions, Alerts This patient has no known allergies or adverse reactions. Medications This patient has no known medications. Procedures This patient has no known procedures. Encounters Start End Encounter Admission Attending Care Care Encounter Source Date/Time Date/Time Type Type Clinicians Facility Department ID 2019-06-22 2019-06-22 Orders Doctor MYAH [id number] 00:00:00 00:00:00 Only UnassignedMOSHE [id number] [facility] [id number] 2019-05-22 2019-05-22 Telephone Alia Araujo [id number] 00:00:00 00:00:00 SPECIALTY [id number] [place] [id number] [place] [id number] Results This patient has no known results.
[2019-12-28 14:11] LABS: Arterial Blood Carboxyhemoglob 1.6 % (0-1.5); Blood Gas Oxyhemoglobin 92.9 % (94-97); Blood O2 Saturation 95.4 % (92-98.5)
[2019-12-28 14:16] LABS: Absolute Lymphocytes (CBC) 1.8 K/uL (0.7-4.9); Basophils % 1.2 % (0-1.3); Hematocrit 47.6 % (39.6-49.0); Lymphocytes % 46.6 % (15.3-44.8); MPV 10.1 fL (7.6-11.3); RBC Red Blood Cell Count 5.22 M/uL (4.33-5.43)
[2019-12-28] MEDS ORDERED: INSULIN -REGULAR HUMAN 50 UNIT/0.5 ML ML ONE ×2 (14:29→20:55)
[2019-12-28] MEDS ORDERED: NA CHLORIDE 0.9% 1,000 ML ONE ×2 (14:29→20:56)
[2019-12-28 14:42] LABS: Albumin 4.1 g/dL (3.4-5.0); Bilirubin Total 1.1 mg/dL (0.2-1.0); Potassium 4.1 mmol/L (3.5-5.1)
--- NOTE | 2019-12-28 15:18 | EDPHYS ---
Physician Documentation [facility] Name: Al Rawls Age: 49 yrs Sex: Male : 1970 Arrival Date: 12/28/2019 Time: 13:14 Bed 2 Private MD: ED Physician Dhiraj Vogel HPI: 12/27 13:48 This 49 yrs old Black Male presents to ER via Wheelchair with complaints of High Blood jmm Sugar. 13:48 Onset: The symptoms/episode began/occurred gradually, 4 day(s) ago. Associated signs jmm and symptoms: Pertinent positives: polydipsia. This is a 49 year old male with a history of atrial fibrillation, RA, HTN that presents to the ED with complaints of elevated blood glucose. Patient states having a cough which was evaluated this past Wednesday. Patient stated he was prescribed metformin and has been taking it as directed. Patient states he is unable to get BGL down. Denies chest pain, shortness of breath, abdominal pain. . Historical: - Allergies: 13:24 Lisinopril; sv - PMHx: 13:24 Atrial Fib; chronic bronchitis; Hypertension; Rheumatoid Arthritis; Diabetes - NIDDM; sv - PSHx: 13:24 Left Knee; Hernia repair; sv - Immunization history:: Adult Immunizations up to date. - Social history:: Smoking status: Patient denies any tobacco usage or history of. ROS: 13:48 Constitutional: Negative for fever, chills, and weight loss, Cardiovascular: Negative jmm for chest pain, palpitations, and edema, Respiratory: Negative for shortness of breath, cough, wheezing, and pleuritic chest pain, Abdomen/GI: Negative for abdominal pain, nausea, vomiting, diarrhea, and constipation, Neuro: Negative for headache, weakness, numbness, tingling, and seizure. 13:48 All other systems are negative. Exam: 13:48 Constitutional: This is a well developed, well nourished patient who is awake, alert, jmm and in no acute distress. Head/Face: atraumatic. Eyes: EOMI, no conjunctival erythema appreciated ENT: Moist Mucus Membranes Neck: Trachea midline, Supple Chest/axilla: Normal chest wall appearance and motion. Cardiovascular: Regular rate and rhythm. No edema appreciated Respiratory: Normal respirations, no respiratory distress appreciated 13:48 Back: Normal ROM Skin: General appearance color normal MS/ Extremity: Moves all extremities, no obvious deformities appreciated, no edema noted to the lower extremities Neuro: Awake and alert, normal gait Psych: Behavior is normal, Mood is normal, Patient is cooperative and pleasant 13:48 Abdomen/GI: Inspection: abdomen appears normal, Bowel sounds: normal, Palpation: soft, nontender, in all quadrants. Vital Signs: 13:21 BP 94 / 61; Pulse 103; Resp 20; Temp 98.7; Pulse Ox 99% ; Height 5 ft. 11 in. (180.34 sv cm); 15:12 BP 110 / 74; Pulse 90; Resp 20; Pulse Ox 98% on R/A; ph 16:28 BP 116 / 77; Pulse 82; Resp 16; Pulse Ox 98% on R/A; ph 17:59 BP 119 / 97; Pulse 95; Resp 18; Temp 98.2; Pulse Ox 98% on R/A; ph MDM: 13:42 Patient medically screened. [facility] 15:08 Data reviewed: vital signs, nurses notes. Counseling: I had a detailed discussion with trina the patient and/or guardian regarding: the historical points, exam findings, and any diagnostic results supporting the discharge/admit diagnosis, lab results, the need for outpatient follow up, to return to the emergency department if symptoms worsen or persist or if there are any questions or concerns that arise at home. ED course: Patient is alert and non toxi. 12/27 13:48 Order name: CBC with Diff; Complete Time: 15:04 [facility] 12/27 13:48 Order name: CMP; Complete Time: 15:04 [facility] 12/27 13:48 Order name: ABG; Complete Time: 14:29 [facility] 12/27 13:49 Order name: Glucose, Ancillary Testing; Complete Time: 13:51 EDMS 12/27 16:12 Order name: Glucose, Ancillary Testing; Complete Time: 16:30 EDKS 12/27 18:10 Order name: Glucose, Ancillary Testing; Complete Time: 18:14 EDMS 12/27 13:48 Order name: Saline Lock; Complete Time: 13:58 [facility] 12/27 17:56 Order name: RAD; Complete Time: 17:59 EDMS Administered Medications: 14:20 Drug: NS 0.9% 1000 ml Route: IV; Rate: 1 bolus; Site: left antecubital; ph 18:52 Follow up: Response: No adverse reaction; IV Status: Completed infusion; IV Intake: ph 1000ml 14:20 Drug: Insulin Regular Human 10 units {Co-Signature: ll1 (Mario Vargas RN).} Route: IVP; ph Site: left antecubital; 18:52 Follow up: Response: No adverse reaction ph Disposition: 12/28 15:58 Co-signature as Attending Physician, Dhiraj Vogel MD I agree with the assessment and kdr plan of care. Disposition: 12/28/19 15:16 Hospitalization ordered by Sid Scott for Inpatient Admission. Preliminary diagnosis is Diabetes mellitus due to underlying condition with ketoacidosis. - Bed requested for Telemetry/MedSurg (Inpatient). - Status is Inpatient Admission. hb - Condition is Stable. - Problem is new. - Symptoms are unchanged. Signatures: Dispatcher [employer] EDMS Elba Schroeder RN RN sv Rittger, Kevin, MD MD [facility] Lawson Felton PA PA [facility] Lou Chase RN RN Kim Garcia RN RN Mario Vargas RN ll1 Corrections: (The following items were deleted from the chart) 12/27 18:43 15:16 Hospitalization Ordered by Sid Scott MD for Inpatient Admission. Preliminary hb diagnosis is Diabetes mellitus due to underlying condition with ketoacidosis. Bed requested for Telemetry/MedSurg (Inpatient). Status is Inpatient Admission. Condition is Stable. Problem is new. Symptoms are unchanged. nurys
--- NOTE | 2019-12-28 15:18 | ER ---
Nurse's Notes [facility] Name: Al Rawls Age: 49 yrs Sex: Male : 1970 Arrival Date: 12/28/2019 Time: 13:14 Bed 2 Private MD: Diagnosis: Diabetes mellitus due to underlying condition with ketoacidosis Presentation: 12/27 13:21 Chief complaint: Patient states: hyperglycemia since Wednesday. Was seen here on Wednesday sv for a cough and they found his BS was in the 600s. His friend next door gave him a injection of their fast acting insulin c/o fatigue. Coronavirus screen: Client denies travel out of the [place] in the last 14 days. At this time, the client does not indicate any symptoms associated with coronavirus-19. Ebola Screen: No symptoms or risks identified at this time. Risk Assessment: Do you want to hurt yourself or someone else? Patient reports no desire to harm self or others. Onset of symptoms was December 24, 2019. 13:21 Method Of Arrival: Wheelchair sv 13:21 Acuity: BRANDYN 2 sv 13:21 Initial Sepsis Screen: Does the patient meet any 2 criteria? HR > 90 bpm. No. Patient's sv initial sepsis screen is negative. Does the patient have a suspected source of infection? No. Patient's initial sepsis screen is negative. Historical: - Allergies: 13:24 Lisinopril; sv - PMHx: 13:24 Atrial Fib; chronic bronchitis; Hypertension; Rheumatoid Arthritis; Diabetes - NIDDM; sv - PSHx: 13:24 Left Knee; Hernia repair; sv - Immunization history:: Adult Immunizations up to date. - Social history:: Smoking status: Patient denies any tobacco usage or history of. Screenin:11 Abuse screen: Denies threats or abuse. Denies injuries from another. Nutritional ph screening: No deficits noted. Tuberculosis screening: No symptoms or risk factors identified. Fall Risk None identified. Assessment: 14:30 General: Appears in no apparent distress. comfortable, Behavior is calm, cooperative, ph appropriate for age, Reports fatigue for 1-2 days, Denies fever. Pain: Denies pain. Neuro: Level of Consciousness is awake, alert, obeys commands, Oriented to person, place, time, situation, Reports weakness in "all over". Cardiovascular: Reports fatigue, nausea, Denies chest pain, shortness of breath, vomiting, Capillary refill < 3 seconds in bilateral fingers Patient's skin is warm and dry. Respiratory: Airway is patent Respiratory effort is even, unlabored, Respiratory pattern is regular, symmetrical, Denies shortness of breath. GI: Abdomen is round non-distended, Reports nausea, Patient currently denies abdominal pain, diarrhea, vomiting. Derm: Skin is intact, is healthy with good turgor, Skin is pink, warm \\T\\ dry. Musculoskeletal: Circulation, motion, and sensation intact. Range of motion: intact in all extremities. 15:31 Reassessment: Patient appears in no apparent distress at this time. Patient and/or ph family updated on plan of care and expected duration. Pain level reassessed. Patient is alert, oriented x 3, equal unlabored respirations, skin warm/dry/pink. Dr Scott at bedside to speak w/ pt, awaiting d/c orders. 16:26 Reassessment: Patient appears in no apparent distress at this time. Patient and/or ph family updated on plan of care and expected duration. Pain level reassessed. Patient is alert, oriented x 3, equal unlabored respirations, skin warm/dry/pink. Pt resting comfortably, awaiting room assignment. 17:30 Reassessment: Patient appears in no apparent distress at this time. Patient and/or ph family updated on plan of care and expected duration. Pain level reassessed. Patient is alert, oriented x 3, equal unlabored respirations, skin warm/dry/pink. 18:41 Reassessment: Patient appears in no apparent distress at this time. Patient and/or ph family updated on plan of care and expected duration. Pain level reassessed. Patient is alert, oriented x 3, equal unlabored respirations, skin warm/dry/pink. Vital Signs: 13:21 BP 94 / 61; Pulse 103; Resp 20; Temp 98.7; Pulse Ox 99% ; Height 5 ft. 11 in. (180.34 sv cm); 15:12 BP 110 / 74; Pulse 90; Resp 20; Pulse Ox 98% on R/A; ph 16:28 BP 116 / 77; Pulse 82; Resp 16; Pulse Ox 98% on R/A; ph 17:59 BP 119 / 97; Pulse 95; Resp 18; Temp 98.2; Pulse Ox 98% on R/A; ph ED Course: 13:14 Patient arrived in ED. ds1 13:21 Arm band placed on. sv 13:23 Triage completed. 13:26 Lawson Felton PA is PHCP. [facility] 13:26 Dhiraj Vogel MD is Attending Physician. [facility] 13:45 Initial lab(s) drawn, by ma, sent to lab. Inserted saline lock: 20 gauge in left dh3 antecubital area, using aseptic technique. Blood collected. 14:11 Lou Chase, RN is Primary Nurse. ph 14:11 Patient has correct armband on for positive identification. Placed in gown. Bed in low ph position. Call light in reach. Side rails up X 1. music specialist on. Pulse ox on. NIBP on. Door closed. Noise minimized. Warm blanket given. 15:15 No provider procedures requiring assistance completed. Patient admitted, IV remains in ph place. 15:16 Sid Scott MD is Hospitalizing Provider. [facility] Administered Medications: 14:20 Drug: NS 0.9% 1000 ml Route: IV; Rate: 1 bolus; Site: left antecubital; ph 18:52 Follow up: Response: No adverse reaction; IV Status: Completed infusion; IV Intake: ph 1000ml 14:20 Drug: Insulin Regular Human 10 units {Co-Signature: ll1 (Mario Vargas RN).} Route: IVP; ph Site: left antecubital; 18:52 Follow up: Response: No adverse reaction ph Intake: 18:52 IV: 1000ml; Total: 1000ml. ph Outcome: 15:16 Decision to Hospitalize by Provider. [facility] 18:41 Admitted to ICU accompanied by nurse, accompanied by tech, room 10, on monitor, with ph chart. 18:41 Condition: stable 18:41 Instructed on the need for admit. 18:43 Patient left the ED. hb Signatures: Elba Schroeder RN RN Lawson Felton PA PA Cyndy Peralta ds1 Lou Chase RN RN Kim Garcia RN RN [place]a George [facility] Mario Vargas RN ll1 Corrections: (The following items were deleted from the chart) 13:28 13:21 Chief complaint: Patient states: hyperglycemia since Wednesday. Was seen here on wednesday for a cough and they found his BS was in the 600s. His friend next door gave him a injection of their fast acting insulin sv 13:28 13:21 Acuity: BRANDYN 3
--- NOTE | 2019-12-28 16:01 | P.HP ---
Certification for Inpatient Patient admitted to: Inpatient With expected LOS: >2 Midnights Practitioner: I am a practitioner with admitting privileges, knowledge of patient current condition, hospital course, and medical plan of care. Services: Services provided to patient in accordance with Admission requirements found in Title 42 Section 412.3 of the Code of Federal Regulations Patient History Date of Service: 12/28/19 Primary Care Provider: Dr. Oneal Reason for admission: DKA History of Present Illness: 49yo male, PMH: DM2 (non-insulin dependent), HTN, Afib on Eliquis, RA who presents to ED with several days of progressively worsening fatigue, dizziness, and increased urination. He presented to ED a few days ago for cough, was noted to have hyperglycemia - pt stated at that time he ran out of metformin and was drinking lots of soda and juice. He was given insulin with improvement and discharged home with azithromycin. At home, he continued to have elevated glucose readings despite taking metformin and trying to avoid soda/juice. He states his cough has improved over the past few days, denies any fevers/chills, abdominal pain. In the ED, patient was noted to be acidotic) 7.29), bicarb 17, glucose: 456, elevated creatinine of 2.31 with anion gap of 16. He was given IV fluids. Potassium and IV insulin. Allergies No Known Allergies Allergy (Unverified 10/26/14 14:13) - Past Medical/Surgical History -: HTN -: DM2 - noninsulin dependent -: Afib -: RA -: L knee surgery - Family History Family History: Reviewed- Non-Contributory - Social History Smoking Status: Never smoker Place of Residence: Home Review of Systems 10-point ROS is otherwise unremarkable Physical Examination - Physical Exam General: Alert, In no apparent distress, Oriented x3 HEENT: Other (dry mucous membrane), Sclerae nonicteric Neck: Supple Respiratory: Clear to auscultation bilaterally Cardiovascular: No edema, Normal S1 S2 Gastrointestinal: Soft and benign, Non-distended, No tenderness Musculoskeletal: No tenderness Integumentary: No rashes Neurological: Normal speech, Normal affect - Studies Laboratory Data (last 24 hrs) 12/28/19 13:45: Sodium 131 L, Potassium 4.1, BUN 35 H, Creatinine 2.31 H, Glucose 456 H*, Total Bilirubin 1.1 H, AST 14 L, ALT 36, Alkaline Phosphatase 71 12/28/19 13:45: WBC 3.9 L D, Hgb 16.0, Hct 47.6, Plt Count 336 Assessment and Plan - Advance Directives Does patient have a Living Will: No Does patient have a Durable POA for Healthcare: No Physician Review Additional Text: Hyperglycemia, DKA DM2 - non-insulin dependent HTN Afib RA -admit to ICU, Insulin drip, D51/2NS + KCL -monitor closely, glc q1hr -BMP/electrolytes q4hr -no evidence of infection / sepsis -check CXR, UA -obtain and continue home medications -hypotensive / borderline, in ED, pt does report h/o difficult to control HTN, will restart as appropriate -nephrology consulted for BRIANNA - likely prerenal, but possibility of some CKD, baseline Cr: ~1.2 VTE: home eliquis Code: Full Dispo: anticipate dc home, hospitalization > 2days Time Spent Managing Pts Care (In Minutes): 55
[2019-12-28] MEDS ORDERED: INSULIN -REGULAR HUMAN 100 UNIT in NA CHLORIDE 0.9% 100 ML IV SCH (16:59)
[2019-12-28] MEDS ORDERED: NACHLORIDE 0.45% 1,000 ML with POTASSIUM CL 20 MEQ IV SCH ×2 (16:59)
--- NOTE | 2019-12-28 17:53 | RAD REPORT ---
EXAM DESCRIPTION: RAD - Chest Single View - 12/28/2019 5:22 pm CLINICAL HISTORY: chronic cough COMPARISON: Portable December 23 TECHNIQUE: AP portable chest image was obtained 12/28/2019 5:22 pm . FINDINGS: Lungs are clear. Heart and vasculature are normal. No measurable pleural effusion and no p neumothorax. No acute bony abnormality seen. No acute aortic findings suspected. IMPRESSION: No acute cardiopulmonary process. No significant interval change.
[2019-12-28] MEDS ORDERED: GLUCAGON 1 MG/VIAL IM PRN (20:21)
[2019-12-28] MEDS ORDERED: D50W 25 GM/50 ML SYRINGE/VIAL IV PRN (20:21)
[2019-12-28] MEDS ORDERED: NA CHLORIDE 0.9% 1,000 ML IV ONE (20:26)
[2019-12-28] MEDS: INSULIN -REGULAR HUMAN 50 UNIT/0.5 ML ML SQ SCH (20:48)
[2019-12-28] MEDS: INSULIN GLARGINE 100 UNITS/ML SQ SCH (20:48)
[2019-12-28] MEDS ORDERED: INSULIN GLARGINE 100 UNITS/ML SQ ONE (20:54)
[2019-12-28] MEDS ORDERED: NACHLORIDE 0.45% 1,000 ML IV ONE (20:56)
[2019-12-28] MEDS: NACHLORIDE 0.45% 1,000 ML IV SCH (22:26)
[2019-12-29] MEDS: INSULIN -REGULAR HUMAN 50 UNIT/0.5 ML ML SQ SCH ×13 (00:19→22:36)
[2019-12-29] MEDS ORDERED: INSULIN -REGULAR HUMAN 50 UNIT/0.5 ML ML ONE ×5 (00:31→20:42)
[2019-12-29 00:58] LABS: Urine Appearance CLEAR; Urine Blood NEGATIVE (NEG); Urine Color YELLOW; Urine Glucose 3+ (NEG); Urine Protein TRACE (NEG); Urine Specific Gravity 1.025 (1.005-1.030); Urine Urobilinogen 0.2 mg/dL (0.2-1.0); Urine pH 5.5 (5.0-7.0)
[2019-12-29 01:10] LABS: Urine Bilirubin NEGATIVE (NEG); Urine Microscopic Reflex ORDER UMIC
[2019-12-29 01:24] LABS: Potassium 4.2 mmol/L (3.5-5.1)
[2019-12-29 01:28] LABS: Urine Bacteria 20-50 /HPF (NONE SEEN); Urine Culture Reflex Order REFLEXED; Urine Mucus 2+ /HPF (NONE SEEN); Urine RBC <5 /HPF (NONE SEEN)
[2019-12-29] MEDS ORDERED: NACHLORIDE 0.45% 1,000 ML IV ONE (01:57)
[2019-12-29] MEDS: NACHLORIDE 0.45% 1,000 ML IV SCH ×3 (04:46→10:47)
[2019-12-29 05:19] LABS: Absolute Lymphocytes (CBC) 1.9 K/uL (0.7-4.9); Basophils % 1.4 % (0-1.3); Hematocrit 44.2 % (39.6-49.0); Lymphocytes % 55.5 % (15.3-44.8); MPV 9.5 fL (7.6-11.3); RBC Red Blood Cell Count 4.88 M/uL (4.33-5.43)
[2019-12-29 05:41] LABS: Albumin 3.6 g/dL (3.4-5.0); Bilirubin Total 0.9 mg/dL (0.2-1.0); Magnesium 1.9 mg/dL (1.8-2.4); Phosphorus 2.7 mg/dL (2.5-4.9); Potassium 3.3 mmol/L (3.5-5.1); Protein, Total 7.2 g/dL (6.4-8.2)
[2019-12-29] MEDS ORDERED: POTASSIUM 25 MEQ EFFERV TAB PO ONE (06:02)
[2019-12-29] MEDS ORDERED: INSULIN GLARGINE 100 UNITS/ML SQ ONE ×2 (08:07→20:41)
--- NOTE | 2019-12-29 08:16 | P.PN ---
Subjective Date of Service: 12/29/19 Primary Care Provider: Dr. Oneal Chief Complaint: DKA Subjective: Improving (Patient reports feeling much better today, denies cough, denies shortness of breath, denies dizziness No acute events overnight. Patient was never started on insulin drip) Review of Systems 10-point ROS is otherwise unremarkable Physical Examination - Vital Signs Temperature: 98.0 F Blood Pressure: 125/85 Pulse: 84 Respirations: 15 Pulse Ox (%): 96 - Physical Exam General: Alert, In no apparent distress, Oriented x3 HEENT: Sclerae nonicteric Respiratory: Clear to auscultation bilaterally Cardiovascular: No edema, Regular rate/rhythm Gastrointestinal: Soft and benign, Non-distended, No tenderness Musculoskeletal: No tenderness Integumentary: No rashes Neurological: Normal speech, Normal affect - Studies Laboratory Data (last 24 hrs) 12/28/19 13:45: Sodium 131 L, Potassium 4.1, BUN 35 H, Creatinine 2.31 H, Glucose 456 H*, Total Bilirubin 1.1 H, AST 14 L, ALT 36, Alkaline Phosphatase 71 12/28/19 13:45: WBC 3.9 L D, Hgb 16.0, Hct 47.6, Plt Count 336 Assessment & Plan Physician Review Additional Text: Hyperglycemia, DKA DM2 - non-insulin dependent HTN Afib -never received insulin drip, anion gap corrected after IV insulin was given in the ED, so he was started on subcutaneous insulin -insulin increasing now, will add additional 10 mg Lantus this morning with breakfast continue aggressive sliding scale and frequent glucose checks -no evidence of infection / sepsis -hypotensive / borderline, in ED, pt does report h/o difficult to control HTN, restarted on partial medications -nephrology consulted for BRIANNA - likely prerenal, but possibility of some CKD, baseline Cr: ~1.2; improving with IV fluid hydration -A1c 11.7, patient will need insulin on discharge VTE: home eliquis Code: Full Dispo: anticipate dc home in 24 - 48 hrs Time Spent Managing Pts Care (In Minutes): 35
[2019-12-29] MEDS: HYDRALAZINE HCL 25 MG TABLET PO SCH ×3 (09:36→20:30)
[2019-12-29] MEDS: APIXABAN 5 MG TABLET PO SCH ×2 (09:36→20:31)
[2019-12-29] MEDS: AMLODIPINE 10 MG TAB PO SCH (09:36)
[2019-12-29] MEDS ORDERED: INFLUENZA VACCINE (for 3y+) 0.5 ML DOSE IMVAC ONE (10:00)
[2019-12-29] MEDS ORDERED: PNEUMOCOCCAL VACCINE 0.5 ML IMVAC ONE (10:00)
[2019-12-29] MEDS ORDERED: POTASSIUM CL SA 10 MEQ TAB PO ONE (10:24)
[2019-12-29] MEDS ORDERED: D50W 25 GM/50 ML SYRINGE/VIAL IV PRN ×2 (10:34→13:47)
[2019-12-29] MEDS ORDERED: GLUCAGON 1 MG/VIAL IM PRN ×2 (10:34→13:47)
[2019-12-29] MEDS ORDERED: INSULIN -REGULAR HUMAN 50 UNIT/0.5 ML ML SQ SCH (10:45)
--- NOTE | 2019-12-29 11:03 | CON ---
Date of Consultation: 12/29/2019 Reason For Consult: Acute renal failure. History Of Present Illness: Mr. Rawls is a 49-year-old male with past medical hist ory significant for history of diabetes, hypertension, and congestive heart failure, who presented to [facility] after he was found to have severe hyperglycemia. The patient sta ann that he was previously diabetic and was on metformin, but he reports some noncompliance with it s econdary to some financial issues. He presented to the hospital with severe hypertension, shortness of breath as well as increased polyuria and polydipsia. He was found to have severe diabetic ketoaci dosis with blood sugar in the 456 range. He was admitted to the hospital for further evaluation and started on IV fluids with potassium. The patient states that he feels much better at this time. He was noted to have acute renal failure with creatinine of 2.31, which is improving to 1.46. Nephrolog y is being consulted for further evaluation. Past Medical History: Significant for history of type 2 diabetes on metformin, history of chronic co ngestive heart failure, hypertension and hyperlipidemia, history of left knee surgery, atrial fibrill ation. Family History: Significant for history of diabetes in some of his family members. Social History: The patient lives at home with his . Denies any history of smoking, alcohol use . Physical Examination: Vital Signs: At this time are showing temperature of 98.0, pulse rate of 84, respiratory rate of 15, and blood pressure 125/85. General: He appears in no acute distress. Lungs: Clear to auscultation with diminished breath sounds at bases. Abdomen: Soft and nontender. Extremities: Showed no evidence of edema. Laboratory Data: At this time are showing sodium of 136, potassium of 3.3, chloride of 101, BUN of 2 3, and creatinine of 1.46. Anion gap has improved and triglycerides were elevated to 298 and total c holesterol of 210. Current medications have been reviewed. CBC showed stable hemoglobin, hematocrit , and platelet count. Current Medications: Have been reviewed in detail. Impression: 1.Acute renal failure secondary to dehydration from diabetic ketoacidosis. 2.Acute diabetic ketoacidosis secondary to noncompliance with diet and medication. The patient was counseled on good diabetes control in order to prevent further worsening of his renal insufficiency. 3.Hypokalemia. 4.Chronic congestive heart failure, seems compensated. 5.Atrial fibrillation. Currently on anticoagulation with Xarelto. Plan: Overall patient is doing okay. We will decrease the rate of his IV fluids to prevent volume o verload and also we will give him potassium supplementation. Renal function is improving. The patie nt will possibly need a better diabetic control as an outpatient. He may benefit from SGLT2 inhibito rs or Victoza to improve his cardiac output. However, at this time most likely he will be unable to afford any other medication. He possibly would benefit from discharge on insulin. Continue to monit or closely. VV/MODL Voice ID: [id number] Report ID: [id number]
[2019-12-29] MEDS ORDERED: INSULIN -REGULAR HUMAN 50 UNIT/0.5 ML ML IV ONE (13:47)
[2019-12-29] MEDS: INSULIN GLARGINE 100 UNITS/ML SQ SCH (20:31)
[2019-12-29 21:51] VITALS: O2SAT 98
[2019-12-30] MEDS: INSULIN -REGULAR HUMAN 50 UNIT/0.5 ML ML SQ SCH ×2 (02:18→05:55)
[2019-12-30] MEDS: NACHLORIDE 0.45% 1,000 ML IV SCH (02:18)
[2019-12-30] MEDS ORDERED: NACHLORIDE 0.45% 1,000 ML IV ONE (02:30)
[2019-12-30 04:40] LABS: Absolute Lymphocytes (CBC) 2.1 K/uL (0.7-4.9); Basophils % 0.6 % (0-1.3); Hematocrit 43.7 % (39.6-49.0); Lymphocytes % 51.3 % (15.3-44.8); MPV 9.6 fL (7.6-11.3); RBC Red Blood Cell Count 4.89 M/uL (4.33-5.43)
[2019-12-30 04:57] LABS: Phosphorus 3.7 mg/dL (2.5-4.9); Potassium 3.2 mmol/L (3.5-5.1)
[2019-12-30 05:59] VITALS: BMI 37.4
[2019-12-30 06:02] VITALS: TEMP 98
[2019-12-30] MEDS ORDERED: INSULIN -REGULAR HUMAN 50 UNIT/0.5 ML ML ONE (06:08)
[2019-12-30] MEDS ORDERED: POTASSIUM 25 MEQ EFFERV TAB PO ONE (08:00)
[2019-12-30] MEDS: AMLODIPINE 10 MG TAB PO SCH (08:42)
[2019-12-30] MEDS: HYDRALAZINE HCL 25 MG TABLET PO SCH (08:43)
[2019-12-30] MEDS: APIXABAN 5 MG TABLET PO SCH (08:43)
[2019-12-30] MEDS ORDERED: INSULIN GLARGINE 100 UNITS/ML SQ ONE (08:52)
[2019-12-30] MEDS ORDERED: POTASSIUM 25 MEQ EFFERV TAB ONE (08:53)
[2019-12-30] MEDS ORDERED: AMLODIPINE 10 MG TAB ONE (08:53)
--- NOTE | 2019-12-30 08:59 | P.PN ---
Subjective Date of Service: 12/30/19 Primary Care Provider: Dr. Oneal Chief Complaint: DKA Subjective: Improving (transferred to ICU yesteday due to elevated glc (>400) for more frequent checks / insulin feeling better now, glc better controlled, without complaints) Review of Systems 10-point ROS is otherwise unremarkable Physical Examination - Vital Signs Temperature: 98 F Blood Pressure: 104/65 Pulse: 80 Respirations: 20 Pulse Ox (%): 98 - Physical Exam General: Alert, In no apparent distress, Oriented x3 HEENT: Mucous membr. moist/pink, Sclerae nonicteric Neck: Supple Respiratory: Clear to auscultation bilaterally, Normal air movement Cardiovascular: No edema, Regular rate/rhythm, Normal S1 S2 Gastrointestinal: Soft and benign, Non-distended, No tenderness Musculoskeletal: No tenderness Integumentary: No rashes Neurological: Normal speech, Normal affect Assessment & Plan Physician Review Additional Text: Hyperglycemia, DKA DM2 - non-insulin dependent HTN Afib -anion gap corrected after IV insulin x1 was given in the ED, so he was started on subcutaneous insulin -glc increased yesterday, difficult to manage and requiring q1hr, so was transferred to ICU for closer monitoring/adjustments -on lantus 10u BID -no evidence of infection / sepsis -hypotensive / borderline, in ED, pt does report h/o difficult to control HTN, restarted on partial medications -nephrology consulted for BRIANNA - likely prerenal, but possibility of some CKD, baseline Cr: ~1.2; improved, dc IVF -A1c 11.7, patient will need insulin on discharge VTE: home eliquis Code: Full Dispo: possible dc home today, pending continued glc control Time Spent Managing Pts Care (In Minutes): 35
[2019-12-30] MEDS ORDERED: INSULIN GLARGINE 100 UNITS/ML SQ SCH (09:00)
[2019-12-30 09:16] VITALS: BP 128/88
[2019-12-30] MEDS ORDERED: INSULIN -REGULAR HUMAN 50 UNIT/0.5 ML ML SQ SCH (11:30)
--- NOTE | 2019-12-30 12:44 | P.DS ---
Admission Date: 12/28/19 Discharge Date: 12/30/19 Primary Care Provider: Dr. Oneal Disposition: ROUTINE DISCHARGE Discharge Condition: GOOD Reason for Admission: DKA Procedures: CXR (12/27): No acute cardiopulmonary process. Problem List Hyperglycemia, DKA, resolved DM2 - previously non-insulin dependent BRIANNA, resolved HTN Paroxysmal Afib Brief History of Present Illness: 49yo male, PMH: DM2 (non-insulin dependent), HTN, Afib on Eliquis, RA who presents to ED with several days of progressively worsening fatigue, dizziness, and increased urination. He presented to ED a few days ago for cough, was noted to have hyperglycemia - pt stated at that time he ran out of metformin and was drinking lots of soda and juice. He was given insulin with improvement and discharged home with azithromycin. At home, he continued to have elevated glucose readings despite taking metformin and trying to avoid soda/juice. He states his cough has improved over the past few days, denies any fevers/chills, abdominal pain. In the ED, patient was noted to be acidotic) 7.29), bicarb 17, glucose: 456, elevated creatinine of 2.31 with anion gap of 16. He was given IV fluids. Potassium and IV insulin. Hospital Course: Patient was given IV insulin in the ED and had quick improvement of his hyperglycemia, so insulin drip was never started. He was transferred to the floor where his glucose continued to increase up to ~400. He was then restarted on q1hr checks and transferred to the ICU, where he again quickly improved with a significant amount of insulin. His A1c was 11.7. On day of discharge his glucose remained <250, he was tolerating a diabetic diet, and felt back to his normal self. He was discharged with NPH (Novolin) 25units BID. He was instructed to f/u with his PCP within 3-5 days, to check his glucose BID and keep a log to take to his PCP's office. He presented with an BRIANNA that quickly resolved with IVF resuscitation and returned to baseline. Patient's BP ranged from 100-130/60-70s during his hospitalization (continued on norvasc and hydralazine), but his losartan and HCTZ were held and he was advised to continue to hold them until he follow's up with his PCP. Vital Signs/Physical Exam: Temp Pulse Resp BP Pulse Ox 98 F 88 17 128/88 98 12/30/19 08:59 12/30/19 09:00 12/30/19 09:00 12/30/19 09:00 12/30/19 08:59 General: Alert, In no apparent distress, Oriented x3 HEENT: Mucous membr. moist/pink, Sclerae nonicteric Respiratory: Clear to auscultation bilaterally, Normal air movement Cardiovascular: No edema, Regular rate/rhythm, Normal S1 S2 Gastrointestinal: Soft and benign, Non-distended, No tenderness Musculoskeletal: No tenderness Integumentary: No rashes Neurological: Normal speech, Normal affect Laboratory Data at Discharge: WBC 4.2 K/uL (4.3-10.9) L D 12/30/19 04:16 Hgb 15.1 g/dL (13.6-17.9) 12/30/19 04:16 Hct 43.7 % (39.6-49.0) 12/30/19 04:16 Plt Count 287 K/uL (152-406) 12/30/19 04:16 Sodium 139 mmol/L (136-145) 12/30/19 04:16 Potassium 3.2 mmol/L (3.5-5.1) L 12/30/19 04:16 BUN 17 mg/dL (7-18) 12/30/19 04:16 Creatinine 1.18 mg/dL (0.55-1.3) 12/30/19 04:16 Glucose 138 mg/dL (74-106) H 12/30/19 04:16 Phosphorus 3.7 mg/dL (2.5-4.9) 12/30/19 04:16 Magnesium 2.0 mg/dL (1.8-2.4) 12/30/19 04:16 Total Bilirubin 0.9 mg/dL (0.2-1.0) 12/29/19 04:53 AST 16 U/L (15-37) 12/29/19 04:53 ALT 32 U/L (12-78) 12/29/19 04:53 Alkaline Phosphatase 56 U/L (45-117) 12/29/19 04:53 Triglycerides 298 mg/dL (<150) H 12/29/19 04:53 Cholesterol 210 mg/dL (<200) H 12/29/19 04:53 HDL Cholesterol 31 mg/dL (40-60) L 12/29/19 04:53 Cholesterol/HDL Ratio 6.77 12/29/19 04:53 Home Medications: Amlodipine [Norvasc*] 10 mg PO DAILY 12/28/19 Apixaban [Eliquis] 5 mg PO BID 12/28/19 Hydralazine HCl [Apresoline] 100 mg PO TID 30 Days #90 12/30/19 NPH, Human Insulin Isophane [Humulin N] 25 unit SQ BID #10 ml 12/30/19 New Medications: Hydralazine HCl [Apresoline] 100 mg PO TID 30 Days #90 NPH, Human Insulin Isophane [Humulin N] 25 unit SQ BID #10 ml Patient Discharge Instructions: Follow up with PCP within 3-5 days. New Medications: Insulin NPH: take 25 units twice a day (morning and bedtime). increase your dose by 2 units if your fasting blood glucose in the morning is > 200 Diet: ADA Activity: Ad deedee Followup: SASCHA CAICEDO [Primary Care Provider] - Time spent managing pt's care (in minutes): 35
== END 2019-12-30 14:15 | disposition home or self-care (01) | DRG 638 ==
LOC: ER 13:13 → ERHOLD 16:14 → 2ND 12-29 05:48 → ERHOLD 12-29 14:54
PROVIDERS: ADMIT Hospitalist; ATTEND Hospitalist
DX: E11.10 Type 2 diabetes mellitus with ketoacidosis without coma (principal); N17.9 Acute kidney failure, unspecified; I10 Essential (primary) hypertension; I48.0 Paroxysmal atrial fibrillation; M06.9 Rheumatoid arthritis, unspecified; E78.5 Hyperlipidemia, unspecified; E86.0 Dehydration; E87.6 Hypokalemia; T38.3X6A Underdosing of insulin and oral hypoglycemic [antidiabetic] drugs, initial encounter; Z79.899 Other long term (current) drug therapy; Z91.11 Patient's noncompliance with dietary regimen; Z91.120 Patient's intentional underdosing of medication regimen due to financial hardship; Z79.01 Long term (current) use of anticoagulants; Z88.8 Allergy status to other drugs, medicaments and biological substances; Z23 Encounter for immunization
CPT/HCPCS: 36415; 71045; 80048; 80053; 80061; 81003; 81015; 82805; 82947; 83036; 83735; 83930; 84100; 84132; 85025; 87086; 87088; 90471; 90732; 96361; 96374; 99285; J1815; J3480; J7030; Q2035

== ENCOUNTER 2020-04-22 23:10 | Observation (INO) | payer OTHER ==
--- OUTSIDE RECORDS SUMMARY | 2020-04-22 23:12 | XMS REPORT | Continuity of Care Document ---
:1970 Author Organization [facility] t Address [address] [place] [address] Care Team Providers Name Role Phone Lab, Fam Pob I Attending Clinician Unavailable Lab, Covid Attending Clinician Unavailable Doctor Unassigned, Name Attending Clinician Unavailable Van WAGNER Attending Clinician Problems This patient has no known problems. Allergies, Adverse Reactions, Alerts This patient has no known allergies or adverse reactions. Medications This patient has no known medications. Procedures This patient has no known procedures. Encounters Start End Encounter Admission Attending Care Care Encounter Source Date/Time Date/Time Type Type Clinicians Facility Department ID 2020-04-22 2020-04-22 Laboratory Lab, Adc [facility] [id number] 09:42:08 10:02:08 Only Fam Pob I Health [id number] [place] [id number] Professio [phone] nal [address] 2020-04-22 2020-04-22 Letter Lab, Pcp [facility] [id number] 00:00:00 00:00:00 (Out) Covid Health [id number] [place] [id number] Professio [phone] nal [address] 2020-04-22 2020-04-22 Letter Doctor MYAH [id number] 00:00:00 00:00:00 (Out) [facility]ass[facility] field [id number] Tea [facility] [id number] 2020-03-29 2020-03-29 Telephone Alia Araujo [place] [id number] 00:00:00 [address]:00:[id number] [facility] [id number] UNIT [id number] 2020-03-08 2020-03-08 Telephone Alia Araujo [place] [id number] 00:00:00 [address]:00:[id number] [facility] [id number] UNIT [id number] Results This patient has no known results.
[2020-04-23] MEDS ORDERED: ONDANSETRON 4 MG/2 ML VIAL ONE (00:11)
[2020-04-23] MEDS ORDERED: NA CHLORIDE 0.9% 1,000 ML ONE (00:12)
[2020-04-23 00:23] LABS: Absolute Lymphocytes (CBC) 1.6 K/uL (0.7-4.9); Basophils % 1.5 % (0-1.3); Hematocrit 41.8 % (39.6-49.0); Lymphocytes % 30.6 % (15.3-44.8); MPV 9.3 fL (7.6-11.3); RBC Red Blood Cell Count 4.46 M/uL (4.33-5.43)
[2020-04-23 00:38] LABS: Bilirubin Direct 0.3 mg/dL (0-0.2); Bilirubin Total 0.7 mg/dL (0.2-1.0); Potassium 3.6 mmol/L (3.5-5.1); Protein, Total 5.9 g/dL (6.4-8.2)
[2020-04-23] MEDS ORDERED: dilTIAZem HCL 25 MG/5 ML VIAL IV ONE ×2 (01:24→05:07)
--- NOTE | 2020-04-23 04:46 | EDPHYS ---
Physician Documentation [facility] Name: Al Rawls Age: 49 yrs Sex: Male : 1970 Arrival Date: 04/22/2020 Time: 23:13 Bed 26 Private MD: ED Physician Davin Grove HPI: 04/23 00:33 This 49 yrs old Black Male presents to ER via Ambulatory with complaints of Vomiting, tw4 unable to sleep, FEELS DEHYDRATED. 00:33 The patient presents to the emergency department with nausea, that is moderate, tw4 vomiting, that is intermittent. Onset: The symptoms/episode began/occurred 3 day(s) ago. Possible causes: unknown. The symptoms are aggravated by nothing. The symptoms are alleviated by nothing. Associated signs and symptoms: The patient has no apparent associated signs or symptoms. The patient has not experienced similar symptoms in the past. Historical: - Allergies: 04/22 23:29 Lisinopril; bb - Home Meds: 23:29 hydralazine 100 mg Oral tab 1 tab 3 times per day [Active]; Eliquis 5 mg oral tab 1 tab bb 2 times per day [Active]; metoprolol tartrate 100 mg Oral tab 1 tab 2 times per day [Active]; amlodipine 10 mg tab 1 tab once daily [Active]; - PMHx: 23:29 Atrial Fib; chronic bronchitis; Diabetes - NIDDM; Hypertension; Rheumatoid Arthritis; bb - PSHx: 23:29 Left Knee; Hernia repair; bb - Immunization history:: Adult Immunizations up to date. - Social history:: Smoking status: Patient/guardian denies using tobacco, Patient uses alcohol, but reports only rare drinking. ROS: 04/23 00:33 Constitutional: Negative for fever, chills, and weight loss, Eyes: Negative for injury, tw4 pain, redness, and discharge, Cardiovascular: Negative for chest pain, palpitations, and edema, Respiratory: Negative for shortness of breath, cough, wheezing, and pleuritic chest pain. MS/Extremity: Negative for injury and deformity, Skin: Negative for injury, rash, and discoloration, Neuro: Negative for headache, weakness, numbness, tingling, and seizure. Abdomen/GI: Positive for nausea, vomiting, Negative for abdominal pain, nausea and vomiting, nausea, vomiting, and diarrhea, diarrhea, constipation, abdominal cramps, abdominal distension, anorexia, dysphagia, hematemesis, black/tarry stool, rectal pain, rectal bleeding. Exam: 00:33 Constitutional: This is a well developed, well nourished patient who is awake, alert, tw4 and in no acute distress. Head/Face: Normocephalic, atraumatic. Chest/axilla: Normal chest wall appearance and motion. Nontender with no deformity. No lesions are appreciated. Cardiovascular: Regular rate and rhythm with a normal S1 and S2. No gallops, murmurs, or rubs. Normal PMI, no JVD. No pulse deficits. Respiratory: Lungs have equal breath sounds bilaterally, clear to auscultation and percussion. No rales, rhonchi or wheezes noted. No increased work of breathing, no retractions or nasal flaring. Abdomen/GI: Soft, non-tender, with normal bowel sounds. No distension or tympany. No guarding or rebound. No evidence of tenderness throughout. Back: No spinal tenderness. No costovertebral tenderness. Full range of motion. Skin: Warm, dry with normal turgor. Normal color with no rashes, no lesions, and no evidence of cellulitis. MS/ Extremity: Pulses equal, no cyanosis. Neurovascular intact. Full, normal range of motion. Neuro: Awake and alert, GCS 15, oriented to person, place, time, and situation. Cranial nerves II-XII grossly intact. Motor strength 5/5 in all extremities. Sensory grossly intact. Cerebellar exam normal. Normal gait. Vital Signs: 04/22 23:25 BP 134 / 77; Pulse 140; Resp 16 S; Temp 97.9(O); Pulse Ox 100% on R/A; Weight 108.86 kg bb (R); Height 6 ft. 0 in. (182.88 cm) (R); Pain 8/10; 04/23 00:00 BP 108 / 86; Pulse 135; Resp 16; Pulse Ox 95% on R/A; jb4 01:00 BP 106 / 83; Pulse 136; Resp 16; Pulse Ox 96% on R/A; jb4 01:28 Pulse 105; jb4 02:30 BP 105 / 93; Pulse 100; Resp 12; Pulse Ox 98% on R/A; jb4 03:30 BP 100 / 73; Pulse 113; Resp 20; Pulse Ox 98% on R/A; jb4 04:30 BP 120 / 86; Pulse 120; Resp 19; Pulse Ox 96% on R/A; jb4 05:00 BP 98 / 83; Pulse 109; Resp 17; Pulse Ox 97% on R/A; jb4 06:00 BP 141 / 87; Pulse 113; Resp 18; Pulse Ox 98% on R/A; jb4 04/22 23:25 Body Mass Index 32.55 (108.86 kg, 182.88 cm) bb MDM: 04/22 23:43 Patient medically screened. tw4 04/23 04:47 Data reviewed: vital signs, nurses notes. Data interpreted: Pulse oximetry: tw4 Interpretation:. Counseling: I had a detailed discussion with the patient and/or guardian regarding: the historical points, exam findings, and any diagnostic results supporting the discharge/admit diagnosis, lab results, radiology results. Physician consultation: Mirella Negrete MD regarding admission, to the telemetry unit. patient's condition, and will see patient in ED. 04/22 23:42 Order name: Basic Metabolic Panel [facility] 04/22 23:42 Order name: CBC with Diff tw 04/22 23:42 Order name: Hepatic Function tw 04/22 23:42 Order name: Lipase tw 04/22 23:43 Order name: Basic Metabolic Panel [facility] 04/22 23:43 Order name: CBC with Automated Diff [facility] 04/23 01:49 Order name: Troponin (emerg Dept Use Only) [facility] 04/23 01:50 Order name: Troponin (Emerg Dept Use Only) [facility] 04/23 05:46 Order name: Comprehensive Metabolic Panel [facility] 04/23 05:46 Order name: Comprehensive Metabolic Panel [facility] 04/23 05:47 Order name: Digoxin Level [facility] 04/23 05:47 Order name: NT PRO-BNP [facility] 04/23 05:47 Order name: CBC with Automated Diff [facility] 04/23 05:47 Order name: CBC with Automated Diff [facility] 04/23 05:47 Order name: Lipid Profile [facility] 04/23 05:47 Order name: Lipid Profile [facility] 04/23 05:47 Order name: Troponin I [facility] 04/23 05:47 Order name: Troponin I [facility] 04/23 05:47 Order name: Troponin I [facility] 04/23 06:26 Order name: COVID-19 : Document "Date of Symptom Onset" if Symptomatic. [facility] 04/23 08:10 Order name: Glucose, Ancillary Testing [facility] 04/23 08:59 Order name: Hemoglobin A1c [facility] 04/23 09:13 Order name: US [facility] 04/23 09:36 Order name: CORONAVIRUS [facility] 04/23 10:16 Order name: SARS-COV-2 RT PCR [facility] 04/22 23:42 Order name: IV Saline Lock; Complete Time: 00:12 tw4 04/22 23:42 Order name: Labs collected and sent; Complete Time: 00:12 tw4 04/23 01:01 Order name: EKG - Nurse/Tech; Complete Time: 01:01 jb4 04/23 05:47 Order name: CONS Pharmacy Consult [facility] 04/23 05:47 Order name: CONS Physician Consult [facility] 04/23 05:47 Order name: CONS Physician Consult [facility] 04/23 05:47 Order name: Consistent Carb (ADA) [address] [facility] Administered Medications: 00:10 Drug: NS 0.9% 1000 ml Route: IV; Rate: 1 bolus; Site: right forearm; jb4 01:00 Follow up: Response: No adverse reaction; IV Status: Completed infusion; IV Intake: jb4 1000ml 00:10 Drug: Zofran (Ondansetron) 4 mg Route: IVP; Site: right forearm; jb4 00:40 Follow up: Response: No adverse reaction; Nausea is decreased; Vomiting decreased jb4 01:12 Drug: Cardizem 20 mg Route: IVP; Site: right forearm; jb4 01:28 Follow up: Pulse 105 bpm; Response: No adverse reaction jb4 04:51 Not Given (Other Intervention Used): Cardizem 20 mg IVP once; Over 2 minutes jb4 04:57 Drug: Cardizem 10 mg Route: IVP; Site: right forearm; jb4 06:27 Not Given (Hemodynamic Parameters): Lopressor 5 mg IVP once; Hold for SBP <100 or HR jb4 <60. Disposition: 04/23/20 04:45 Hospitalization ordered by Mirella Negrete for Inpatient Admission. Preliminary diagnosis are Non-ST elevation (NSTEMI) myocardial infarction, Atrial fibrillation and flutter. - Bed requested for Telemetry/MedSurg (Inpatient). - Status is Inpatient Admission. tw2 - Condition is Stable. - Problem is new. - Symptoms have improved. Signatures: Dispatcher [employer] [facility] Jennyfer Dick, RN RN Yamileth Meredith, RN RN ss Nuvia Valadez, RN RN tw2 Daniel Hurtado, RN RN jb4 Emmanuel Cherry, RN RN ja1 Davin Grove MD MD tw4 Corrections: (The following items were deleted from the chart) 01:55 01:50 Troponin (Emerg Dept Use Only) ordered. [facility] 03:53 01:55 Troponin (Emerg Dept Use Only) ordered. [facility] 09:20 04:45 Hospitalization Ordered by Mirella Negrete MD for Inpatient Admission. Preliminary ss diagnosis is Non-ST elevation (NSTEMI) myocardial infarction; Atrial fibrillation and flutter. Bed requested for Telemetry/MedSurg (Inpatient). Status is Inpatient Admission. Condition is Stable. Problem is new. Symptoms have improved. tw4 10:55 09:20 04/23/2020 04:45 Hospitalization Ordered by Mirella Negrete MD for Inpatient ja1 Admission. Preliminary diagnosis is Non-ST elevation (NSTEMI) myocardial infarction; Atrial fibrillation and flutter. Bed requested for [facility] ER HOLD. Status is Inpatient Admission. Condition is Stable. Problem is new. Symptoms have improved. 12:10 10:55 04/23/2020 04:45 Hospitalization Ordered by Mirella Negrete MD for Inpatient tw2 Admission. Preliminary diagnosis is Non-ST elevation (NSTEMI) myocardial infarction; Atrial fibrillation and flutter. Bed requested for Telemetry/MedSurg (Inpatient). Status is Inpatient Admission. Condition is Stable. Problem is new. Symptoms have improved. ja1
--- NOTE | 2020-04-23 04:46 | ER ---
Nurse's Notes [facility] Name: Al Rawls Age: 49 yrs Sex: Male : 1970 Arrival Date: 04/22/2020 Time: 23:13 Bed 26 Private MD: Diagnosis: Non-ST elevation (NSTEMI) myocardial infarction;Atrial fibrillation and flutter Presentation: 04/22 23:25 Chief complaint: Patient states: "I am dehydrated" he is vomiting x 2 days and has not bb been able to sleep x 3 nights. Coronavirus screen: vomiting. Client presents with at least one sign or symptom that may indicate coronavirus-19. Standard/surgical mask placed on the client. The client indicates previous COVID test results are pending. Date of collection: April 22, 2020. Ebola Screen: No symptoms or risks identified at this time. Initial Sepsis Screen: Does the patient meet any 2 criteria? No. Patient's initial sepsis screen is negative. Does the patient have a suspected source of infection? No. Patient's initial sepsis screen is negative. Risk Assessment: Do you want to hurt yourself or someone else? Patient reports no desire to harm self or others. Onset of symptoms was April 22, 2020. 23:25 Method Of Arrival: Ambulatory bb 23:25 Acuity: BRANDYN 2 bb Triage Assessment: 23:29 General: Appears in no apparent distress. uncomfortable, Behavior is calm, cooperative. bb Pain: Complains of pain in abdomen Pain currently is 8 out of 10 on a pain scale. Respiratory: Airway is patent Respiratory effort is even, unlabored, Respiratory pattern is regular. GI: Abdomen is obese, Reports lower abdominal pain, vomiting. Musculoskeletal: Circulation, motion, and sensation intact. Historical: - Allergies: 23:29 Lisinopril; bb - Home Meds: 23:29 hydralazine 100 mg Oral tab 1 tab 3 times per day [Active]; Eliquis 5 mg oral tab 1 tab bb 2 times per day [Active]; metoprolol tartrate 100 mg Oral tab 1 tab 2 times per day [Active]; amlodipine 10 mg tab 1 tab once daily [Active]; - PMHx: 23:29 Atrial Fib; chronic bronchitis; Diabetes - NIDDM; Hypertension; Rheumatoid Arthritis; bb - PSHx: 23:29 Left Knee; Hernia repair; bb - Immunization history:: Adult Immunizations up to date. - Social history:: Smoking status: Patient/guardian denies using tobacco, Patient uses alcohol, but reports only rare drinking. Screenin:45 Abuse screen: Denies threats or abuse. Nutritional screening: No deficits noted. jb4 Tuberculosis screening: No symptoms or risk factors identified. Fall Risk None identified. Assessment: 23:45 General: Appears in no apparent distress. uncomfortable, Behavior is calm, cooperative, jb4 appropriate for age. Pain: Complains of pain in abdomen Pain does not radiate. Pain currently is 8 out of 10 on a pain scale. Neuro: Level of Consciousness is awake, alert, obeys commands, Oriented to person, place, time, situation. Cardiovascular: Patient's skin is warm and dry. Respiratory: Airway is patent Respiratory effort is even, unlabored, Respiratory pattern is regular, symmetrical. GI: Abdomen is non-distended, obese, Reports lower abdominal pain, nausea, vomiting. : No signs and/or symptoms were reported regarding the genitourinary system. EENT: No signs and/or symptoms were reported regarding the EENT system. Derm: Skin is intact, Skin is pink, warm \\T\\ dry. Musculoskeletal: Circulation, motion, and sensation intact. Range of motion: intact in all extremities. 04/23 01:01 Reassessment: Patient appears in no apparent distress at this time. Patient and/or jb4 family updated on plan of care and expected duration. Pain level reassessed. Patient is alert, oriented x 3, equal unlabored respirations, skin warm/dry/pink. Informed provider that the pt's heart rate remains 136-150 , recived verbal order for EKG. 02:30 Reassessment: Patient appears in no apparent distress at this time. Patient and/or jb4 family updated on plan of care and expected duration. Pain level reassessed. Patient is alert, oriented x 3, equal unlabored respirations, skin warm/dry/pink. 03:30 Reassessment: Patient appears in no apparent distress at this time. Patient and/or jb4 family updated on plan of care and expected duration. Pain level reassessed. Patient is alert, oriented x 3, equal unlabored respirations, skin warm/dry/pink. 04:36 Reassessment: Patient appears in no apparent distress at this time. Patient and/or jb4 family updated on plan of care and expected duration. Pain level reassessed. Patient is alert, oriented x 3, equal unlabored respirations, skin warm/dry/pink. Provider notified of troponin of 1.09. 05:00 Reassessment: Patient appears in no apparent distress at this time. Patient and/or jb4 family updated on plan of care and expected duration. Pain level reassessed. Patient is alert, oriented x 3, equal unlabored respirations, skin warm/dry/pink. Hospitalist at the bedside discussing POC. 06:27 Reassessment: Patient appears in no apparent distress at this time. Patient and/or jb4 family updated on plan of care and expected duration. Pain level reassessed. Patient is alert, oriented x 3, equal unlabored respirations, skin warm/dry/pink. Vital Signs: 04/22 23:25 BP 134 / 77; Pulse 140; Resp 16 S; Temp 97.9(O); Pulse Ox 100% on R/A; Weight 108.86 kg bb (R); Height 6 ft. 0 in. (182.88 cm) (R); Pain 8/10; 04/23 00:00 BP 108 / 86; Pulse 135; Resp 16; Pulse Ox 95% on R/A; jb4 01:00 BP 106 / 83; Pulse 136; Resp 16; Pulse Ox 96% on R/A; jb4 01:28 Pulse 105; jb4 02:30 BP 105 / 93; Pulse 100; Resp 12; Pulse Ox 98% on R/A; jb4 03:30 BP 100 / 73; Pulse 113; Resp 20; Pulse Ox 98% on R/A; jb4 04:30 BP 120 / 86; Pulse 120; Resp 19; Pulse Ox 96% on R/A; jb4 05:00 BP 98 / 83; Pulse 109; Resp 17; Pulse Ox 97% on R/A; jb4 06:00 BP 141 / 87; Pulse 113; Resp 18; Pulse Ox 98% on R/A; jb4 04/22 23:25 Body Mass Index 32.55 (108.86 kg, 182.88 cm) bb ED Course: 04/22 23:13 Patient arrived in ED. cf2 23:27 Triage completed. bb 23:29 Arm band placed on Patient placed in an exam room, on a stretcher, on pulse oximetry. bb 23:42 Davin Grove MD is Attending Physician. tw4 23:45 Patient has correct armband on for positive identification. Bed in low position. Call jb4 light in reach. Side rails up X 1. Pulse ox on. NIBP on. 23:45 Initial lab(s) drawn, by me, sent to lab. Inserted saline lock: 18 gauge in right jb4 forearm, using aseptic technique. Blood collected. Missed attempt(s): 18 gauge in right antecubital area. Bleeding controlled, band aid applied, catheter tip intact. 23:48 Daniel Hurtado, RN is Primary Nurse. jb4 04/23 04:43 Mirella Negrete MD is Hospitalizing Provider. tw4 07:17 Primary Nurse role handed off by Daniel Hurtado RN 08:37 Nuvia Valadez, KIRSTEN is Primary Nurse. tw2 Administered Medications: 00:10 Drug: NS 0.9% 1000 ml Route: IV; Rate: 1 bolus; Site: right forearm; jb4 01:00 Follow up: Response: No adverse reaction; IV Status: Completed infusion; IV Intake: jb4 1000ml 00:10 Drug: Zofran (Ondansetron) 4 mg Route: IVP; Site: right forearm; jb4 00:40 Follow up: Response: No adverse reaction; Nausea is decreased; Vomiting decreased jb4 01:12 Drug: Cardizem 20 mg Route: IVP; Site: right forearm; jb4 01:28 Follow up: Pulse 105 bpm; Response: No adverse reaction jb4 04:51 Not Given (Other Intervention Used): Cardizem 20 mg IVP once; Over 2 minutes jb4 04:57 Drug: Cardizem 10 mg Route: IVP; Site: right forearm; jb4 06:27 Not Given (Hemodynamic Parameters): Lopressor 5 mg IVP once; Hold for SBP <100 or HR jb4 <60. Intake: 01:00 IV: 1000ml; Total: 1000ml. jb4 Outcome: 04:45 Decision to Hospitalize by Provider. tw4 12:10 Patient left the ED. tw2 Signatures: Inge Morales Brenda, RN RN bb Nuvia Valadez RN RN tw2 Daniel Hurtado RN RN jb4 Davin Grove MD MD tw4 Joseph Daly cf2 Corrections: (The following items were deleted from the chart) 04:02 04/22 23:25 Acuity: BRANDYN 3 bb bb
[2020-04-23] MEDS ORDERED: METOPROLOL TARTRATE 5 MG/5 ML INJ IV ONE (05:06)
--- NOTE | 2020-04-23 05:30 | P.HP ---
Certification for Inpatient Patient admitted to: Observation With expected LOS: <2 Midnights Patient will require the following post-hospital care: None Practitioner: I am a practitioner with admitting privileges, knowledge of patient current condition, hospital course, and medical plan of care. Services: Services provided to patient in accordance with Admission requirements found in Title 42 Section 412.3 of the Code of Federal Regulations Patient History Date of Service: 04/23/20 Reason for admission: Palpitation, chest congestion and vomiting History of Present Illness: 49-year-old male past medical history of hypertension, atrial fibrillation paroxysmal status post for 3 episodes of cardiac shock in the past, ski scheduled for cardiac ablation next month follows with Cardiology Dr. bernal in [place], recently diagnosed diabetes mellitus on insulin, admitted because of onset of palpitation with feeling of chest flutter. Patient denies any shortness of breath but felt some nausea and 1 episode of vomiting after drinking Gatorade. He also felt some abdominal cramps. He presented to the ED where he was noted with elevated heart rate to the 140s. His cardiac rhythm was atrial fibrillation. He was given IV Cardizem with improvement in his rate to 95. His rate is fluctuating 110-1 120s now. He states his nausea abdominal cramps and chest discomfort has all resolved. He denies cardiac catheterization in the past. but state he has a stress test about a year ago that was negative. His initial troponin was elevated at 1.09. He has been admitted for AFib with RVR with rule out acute coronary syndrome. There is no family history of CAD. He admits to occasional tobacco use. Allergies lisinopril Allergy (Verified 12/28/19 23:50) Shortness of breath Home medications list reviewed: Yes Home Medications: Amlodipine [Norvasc*] 10 mg PO DAILY 12/28/19 Apixaban [Eliquis] 5 mg PO BID 12/28/19 Hydralazine HCl [Apresoline] 100 mg PO TID 30 Days #90 12/30/19 NPH, Human Insulin Isophane [Humulin N] 25 unit SQ BID #10 ml 12/30/19 - Past Medical/Surgical History Diabetic: Yes -: HTN -: DM2 - noninsulin dependent -: Afib -: RA -: L knee surgery -: Hernia surgery - Social History Smoking Status: Current some day smoker Counseled patient to stop smoking for: less than 10 minutes Smoking therapy provided: Yes Patient receptive to therapy: Yes Alcohol use: No CD- Drugs: No Caffeine use: No Place of Residence: Home Review of Systems 10-point ROS is otherwise unremarkable Physical Examination - Physical Exam General: Alert, In no apparent distress, Oriented x3 HEENT: Atraumatic, Normocephalic, PERRLA Neck: Supple, 2+ carotid pulse no bruit, JVD not distended Respiratory: Clear to auscultation bilaterally, Normal air movement Cardiovascular: Normal pulses, Normal S1 S2, Edema, Irregular heart rate/rhythm Capillary refill: <2 Seconds Gastrointestinal: Normal bowel sounds, Soft and benign, Non-distended, No ascites Musculoskeletal: No clubbing, No swelling Integumentary: No rashes, No breakdown Neurological: Normal gait, Normal speech, Normal strength at 5/5 x4 extr, Normal tone - Studies Laboratory Data (last 24 hrs) 04/22/20 23:59: WBC 5.30, Hgb 13.6, Hct 41.8, Plt Count 278 04/22/20 23:59: Sodium 144, Potassium 3.6, BUN 28 H, Creatinine 1.39 H, Glucose 121 H, Total Bilirubin 0.7, AST 71 H, ALT 133 H, Alkaline Phosphatase 58, Lipase 107 Assessment and Plan - Problems (Diagnosis) (1) Paroxysmal A-fib Current Visit: Yes Status: Acute (2) Atrial fibrillation with RVR Current Visit: Yes Status: Acute (3) Hypertension Current Visit: Yes Status: Acute (4) Diabetes mellitus Current Visit: Yes Status: Acute (5) Elevated troponin Current Visit: Yes Status: Acute - Advance Directives Does patient have a Living Will: No Does patient have a Durable POA for Healthcare: No Physician Review: Patient Assessed, Agree with Above Assessment and Plan Physician Review Additional Text: Atrial fib with RVR-Suman mild elevated heart rates -blood pressure trending down with Cardizem doses -we do digoxin loading -will consult Cardiology -RVR may be etiology of demand mediated ischemia -follow troponin trend post ventricular rate control -obtain magnesium, tsh # elevated troponin-may be demand mediated from AFib -follow serial set of cardiac enzyme -start statin/continue metoprolol/Lovenox Q 12 -obtain lipid profile, start empirical statin Follow cardiology consult # Acute kidney injury-Renal consults Address for contrast nephropathy if cardiac catheterization is done need renal prophylaxis # diabetes mellitus-start insulin sliding scale with Levemir # DVT prophylaxis-as above # advanced directives-full code # tobacco use-counseling done, start nicotine patch Disposition-possible hospital stay for 24-48 hr Time Spent Managing Pts Care (In Minutes): 70
[2020-04-23] MEDS ORDERED: ALBUTEROL 2.5 MG/3 ML NEB SOL NEB PRN (05:35)
[2020-04-23] MEDS ORDERED: ONDANSETRON 4 MG/2 ML VIAL IV PRN (05:35)
[2020-04-23] MEDS ORDERED: ZOLPIDEM TARTRATE 5 MG TABLET PO PRN (05:35)
[2020-04-23] MEDS ORDERED: ACETAMINOPHEN 500 MG TAB PO PRN (05:35)
[2020-04-23] MEDS ORDERED: ASPIRIN 325 MG TAB PO ONE (05:35)
[2020-04-23] MEDS ORDERED: MORPHINE 2 MG/ML SYR IV PRN (05:35)
[2020-04-23] MEDS: DILTIAZEM HCL 60 MG TAB PO SCH ×3 (06:00→17:34)
[2020-04-23] MEDS: METOPROLOL XL 100 MG TAB PO SCH ×2 (06:00→17:36)
[2020-04-23] MEDS: DIGOXIN 0.25 MG/ML AMP IV SCH ×2 (06:00→12:47)
[2020-04-23] MEDS: FUROSEMIDE 40 MG/4 ML VIAL IV SCH ×2 (06:00→17:35)
[2020-04-23] MEDS ORDERED: ASPIRIN 325 MG TAB ONE (06:47)
[2020-04-23] MEDS ORDERED: DIGOXIN 0.25 MG/ML AMP ONE (06:47)
[2020-04-23] MEDS ORDERED: METOPROLOL XL 50 MG TAB PO ONE (06:47)
[2020-04-23] MEDS ORDERED: FUROSEMIDE 40 MG/4 ML VIAL ONE (06:47)
[2020-04-23] MEDS: INSULIN -REGULAR HUMAN 50 UNIT/0.5 ML ML SQ SCH ×4 (07:30→21:00)
--- NOTE | 2020-04-23 07:39 | P.CNS ---
Date of Consult: 04/23/20 Reason for Consult: evaluation of CKD and contrast exposure prophylaxis. Requesting Physician: Mirella Negrete Chief Complaint: Palpitation, chest congestion and vomiting History of Present Illness: 49 y o male pt with hx of HTN, DM type 2, HLD, A fib admitted for management of rapid A fib. He also had congestion in the lung saini. he was found to have elevatd troponin and he was deemed to have ACS. His labs also showed elevated creatinine of 1.35 and he was asked to be evaluated for possible contrast exposure insetting of priyanka vs ckd due to possible LHC procedure. he denied NSAIDs use. he feels better since rate control meds and diuretics were started. Allergies lisinopril Allergy (Verified 12/28/19 23:50) Shortness of breath Home Medications: Amlodipine [Norvasc*] 10 mg PO DAILY 12/28/19 Apixaban [Eliquis] 5 mg PO BID 12/28/19 Hydralazine HCl [Apresoline] 100 mg PO TID 30 Days #90 12/30/19 NPH, Human Insulin Isophane [Humulin N] 25 unit SQ BID #10 ml 12/30/19 - Past Medical/Surgical History Diabetic: Yes -: HTN -: DM2 - noninsulin dependent -: Afib -: RA -: L knee surgery -: Hernia surgery - Social History Smoking Status: Current some day smoker Alcohol use: No CD- Drugs: No Caffeine use: No Place of Residence: Home Review of Systems General: Unremarkable Eyes: Unremarkable ENT: Unremarkable Respiratory: Shortness of Breath, SOB with Excertion Cardiovascular: Palpitations, Orthopnea, Paroxysmal Noc. Dyspnea, Edema Gastrointestinal: Unremarkable Genitourinary: Unremarkable Musculoskeletal: Unremarkable Neurological: Unremarkable Physical Examination Temp Pulse Resp BP Pulse Ox 123 H 123/92 H 04/23/20 06:00 04/23/20 06:00 General: Alert, Oriented x3 HEENT: Atraumatic, Normocephalic, PERRLA Neck: Supple Respiratory: Diminished Cardiovascular: Normal S1 S2, Edema, Irregular heart rate/rhythm Gastrointestinal: Soft and benign Musculoskeletal: Swelling Integumentary: No rashes Neurological: Normal speech, Normal strength at 5/5 x4 extr, Cranial nerves 3-12 intact Laboratory Data (last 24 hrs) 04/22/20 23:59: WBC 5.30, Hgb 13.6, Hct 41.8, Plt Count 278 04/22/20 23:59: Sodium 144, Potassium 3.6, BUN 28 H, Creatinine 1.39 H, Glucose 121 H, Total Bilirubin 0.7, AST 71 H, ALT 133 H, Alkaline Phosphatase 58, Lipase 107 Conclusions/Impression: 1.CKD stage 2/3-eGFR of 50 -70s in the last few years. we will dose meds for eGFR and avoid nephrotoxin exposure. we will obtain urine protein/creatinine and renal US to evaluate. in view of possible contrast exposure, we will have him on mucomyst at 600mg PO BID for 2 days. we have discussed issues related to contrast exposure with him and he verbalized understanding. 2.Elevated troponin-maybe due to demand from tachycardia. cardiology to evaluate. we will follow trend closely. 3.Hypertension-antihypertensive meds to be continued. 4.Diabetes type 2-will obtain A1C and use SSI for glucose control. 5.A fib-on rate control with diltiazem.w e will continue telemetry. cardiology following. 6.Volume overload-lasix 40mg IV BID started. we will monitor i/O closely. low sodium diet to be continued.
[2020-04-23 08:11] VITALS: BMI 32.5
[2020-04-23] MEDS: APIXABAN 5 MG TABLET PO SCH ×2 (09:00→21:06)
[2020-04-23] MEDS: ASPIRIN EC 81 MG TAB PO SCH (09:00)
[2020-04-23] MEDS: DIGOXIN 0.25 MG TABLET PO SCH (09:00)
[2020-04-23] MEDS: NPH (HUMAN) 100 UNITS/ML INSULIN SQ SCH ×2 (09:00→21:00)
[2020-04-23] MEDS: ACETYLCYST 6,000 MG/30 ML VIAL PO SCH ×2 (09:00→21:00)
--- NOTE | 2020-04-23 09:13 | RAD REPORT ---
EXAM DESCRIPTION: US - Renal Ultrasound-Complete - 04/23/2020 8:47 am CLINICAL HISTORY: Abdominal pain/chronic renal disease COMPARISON: None FINDINGS: The right kidney measures 10 cm with a normal echotexture. . 4 centimeter cyst The left kidney measures 12 cm with a normal echotexture. Hydronephrosis is not seen. Bladder is distended IMPRESSION: A 4 centimeter right renal cyst. Bladder distention
[2020-04-23] MEDS ORDERED: ASPIRIN EC 81 MG TAB PO ONE (09:42)
[2020-04-23] MEDS ORDERED: APIXABAN 5 MG TABLET ONE (09:42)
[2020-04-23] MEDS ORDERED: DIGOXIN 0.25 MG TABLET ONE (09:42)
[2020-04-23] MEDS ORDERED: NPH (HUMAN) 100 UNITS/ML INSULIN SQ ONE (09:43)
[2020-04-23] MEDS ORDERED: HOME MED 1 EA UNK (Metoprolol Tartrate [Lopressor] 100 MG Tablet) PO SCH (14:00)
--- NOTE | 2020-04-23 17:47 | P.PN ---
Date of Service: 04/23/20 Patient seen and examined. He currently has no complain. Heart rate is in the low 100s. Troponin elevated to 0.6. Patient has a history of cardiac ablation. Diagosis: Elevated troponin Atrial fibrillation with RVR DM type 2 Chronic kidney disease stage III. Plan: Continue Eliquis, digoxin, Cardizem and metoprolol. Cardiology to evaluate. Echocardiogram is pending. Patient has an appointment with his pigment pusher at [facility], tomorrow at 1 pm.
[2020-04-23] MEDS ORDERED: ATORVASTATIN 20 MG TAB PO SCH (21:00)
--- NOTE | 2020-04-23 23:58 | EKG ---
Test Date: 2020-04-23 Test Time: 01:37:24 Hydro Plant Technician: NIKOLE MEASUREMENT RESULTS: Intervals: Rate: 92 LA: QRSD: 106 QT: 396 QTc: 489 [place]: P: LA: QRS: -19 T: 235 INTERPRETIVE STATEMENTS: Atrial fibrillation T wave abnormality, consider anterolateral ischemia Prolonged QT Abnormal ECG Compared to ECG 04/23/2020 00:56:38 Prolonged QT interval now present T-wave abnormality still present Possible ischemia still present Electronically Signed On 04-23-20 23:57:42 DIRECTOR DIGITAL SALES by Stanford Posada
--- NOTE | 2020-04-23 23:58 | EKG ---
Test Date: 2020-04-23 Test Time: 00:56:38 Final Expense Agent: NIKOLE MEASUREMENT RESULTS: Intervals: Rate: 136 [place]: QRSD: 100 QT: 350 QTc: 526 [place]: P: IA: QRS: -25 T: 236 INTERPRETIVE STATEMENTS: Atrial fibrillation with rapid ventricular response T wave abnormality, consider lateral ischemia Abnormal ECG Compared to ECG 12/24/2019 12:03:16 T-wave abnormality now present Possible ischemia now present Sinus tachycardia no longer present Left ventricular hypertrophy no longer present Electronically Signed On 04-23-20 23:57:46 INDUSTRIAL GAS SERVICER HELPER by Stanford Posada
--- NOTE | 2020-04-24 01:07 | CON ---
Date of Consultation: 04/23/2020 Reason For Admission: Atrial fibrillation, vomiting, and dehydration. History Of Present Illness: Mr. Rawls is a 49-year-old male with history of atrial fibrillation, th at is chronic. He takes Eliquis for that. He has a history of hypertension, diabetes, rheumatoid ar thritis, has had an ablation for his atrial fibrillation in the past at [facility]. He takes Norvasc, insu gris, and hydralazine for his hypertension and diabetes respectively. Came in with vomiting, rapid ve ntricular response, atrial fibrillation, thought to be dehydrated. His creatinine is 1.39. He had a n elevated troponin of 1.09. His heart rate was 140. He is now asymptomatic. He has received dilti azem, digoxin, metoprolol, inhalers, and Lasix upon admission. He is anxious to go home. Past Medical History: As stated above. Allergies: HE IS ALLERGIC TO LISINOPRIL. Review of Systems: Negative. Social History: Negative. Family History: Negative. Medications: As listed earlier. Physical Examination: Vital Signs: Stable. Afebrile. He is in atrial fibrillation at a rate of 80. HEENT: Negative. Neck: Supple with no bruit. Chest: Clear. Cardiac: Atrial fibrillation. Abdomen: Benign. Extremities: No clubbing, cyanosis, or edema. Diagnostic Data: As stated earlier. Impression And Plan: Paroxysmal atrial fibrillation, status post ablation. I think he should be goi ng home on Norvasc, Eliquis, insulin, hydralazine. He should be on metoprolol, but not metoprolol, d igoxin, and diltiazem. He should be on metoprolol only in addition to his home medicine. I think a low dose Lasix is reasonable, inhalers are reasonable. His blood pressure, diabetes, and rheumatoid arthritis are fairly stable. An echocardiogram is pending. We will see what that shows before risa shirley further decisions, but from my standpoint, he can go home on his home medication plus metoprolol, a nd he will follow up with the [facility] Cardiology as soon as he possibly can. SUE/MICHELINEL Voice ID: [id number] Report ID: [id number]
[2020-04-24 04:27] VITALS: O2SAT 94
[2020-04-24 04:59] LABS: Absolute Lymphocytes (CBC) 1.7 K/uL (0.7-4.9); Basophils % 1.4 % (0-1.3); Hematocrit 41.9 % (39.6-49.0); Lymphocytes % 36.1 % (15.3-44.8); RBC Red Blood Cell Count 4.55 M/uL (4.33-5.43)
[2020-04-24 05:12] LABS: Bilirubin Total 0.9 mg/dL (0.2-1.0); Potassium 3.7 mmol/L (3.5-5.1); Protein, Total 5.7 g/dL (6.4-8.2)
[2020-04-24] MEDS: FUROSEMIDE 40 MG/4 ML VIAL IV SCH (06:08)
[2020-04-24] MEDS: METOPROLOL XL 100 MG TAB PO SCH (06:09)
[2020-04-24] MEDS: DILTIAZEM HCL 60 MG TAB PO SCH ×2 (06:09)
[2020-04-24] MEDS: INSULIN -REGULAR HUMAN 50 UNIT/0.5 ML ML SQ SCH (07:30)
[2020-04-24 08:17] VITALS: BP 125/111; TEMP 97.3
--- NOTE | 2020-04-24 08:40 | ECHO ---
HEIGHT: 6 ft 0 in WEIGHT: 239 lb 15.923 oz DATE OF STUDY: 04/23/[address]: Stanford Posada MD 2-DIMENSIONAL: YES M.MODE: YES DOPPLER: YES COLOR FLOW: YES TDS: NO PORTABLE: NO DEFINITY: NO BUBBLE STUDY: NO DIAGNOSIS: ATRIAL FIBRILLATION CARDIAC HISTORY: CATHERIZATION: SURGERY: PROSTHETIC VALVE: PACEMAKER: MEASUREMENTS (cm) DIASTOLIC (NORMALS) SYSTOLIC (NORMALS) IVSd 1.2 (0.6-1.2) LA Diam 4.8 (1.9-4.0) LVEF 46% LVIDd 5.9 (3.5-5.7) LVIDs 4.6 (2.0-3.5) %FS 23% LVPWd 1.3 (0.6-1.2) Ao Diam 3.4 (2.0-3.7) 2 DIMENSIONAL ASSESSMENT: RIGHT ATRIUM: NORMAL LEFT ATRIUM: DILATED RIGHT VENTRICLE: NORMAL LEFT VENTRICLE: LEFT VENTRICULAR HYPERTROPHY, LEFT VENTRICULAR DILATATION TRICUSPID VALVE: NORMAL MITRAL VALVE: NORMAL PULMONIC VALVE: NORMAL AORTIC VALVE: NORMAL PERICARDIAL EFFUSION: NONE AORTIC ROOT: NORMAL LEFT VENTRICULAR WALL MOTION: MILD GLOBAL HYPOKINESIS. DOPPLER/COLOR FLOW: MILD TRICUSPID REGURGITATION - NORMAL RIGHT VENTRICULAR SYSTOLIC PRESSURE. COMMENTS: LEFT VENTRICULAR HYPERTROPHY, LEFT ATRIAL ENLARGEMENT, LEFT VENTRICULAR DILATATION. MILD TRICUSPID REGURGITATION - NORMAL RIGHT VENTRICULAR SYSTOLIC PRESSURE. MILD GLOBAL HYPOKINESIS. EJECTION FRACTION 46%. TECHNOLOGIST: LOU COLIN
[2020-04-24] MEDS: ASPIRIN EC 81 MG TAB PO SCH (08:47)
[2020-04-24] MEDS: APIXABAN 5 MG TABLET PO SCH (08:47)
[2020-04-24] MEDS: NPH (HUMAN) 100 UNITS/ML INSULIN SQ SCH (08:47)
[2020-04-24] MEDS: DIGOXIN 0.25 MG TABLET PO SCH (08:48)
[2020-04-24] MEDS: ACETYLCYST 6,000 MG/30 ML VIAL PO SCH (08:49)
--- NOTE | 2020-04-24 09:22 | P.DS ---
Admission Date: 04/23/20 Discharge Date: 04/24/20 Disposition: ROUTINE DISCHARGE Discharge Condition: GOOD Reason for Admission: Palpitation, chest congestion and vomiting Brief History of Present Illness: 49-year-old male with past medical history hypertension, paroxysmal AFib status post Dc cardioversion previously and also scheduled for cardiac ablation next month with [facility] physicians, diagnosed with diabetes mellitus on insulin admitted with palpitations and chest discomfort and fluttering associated with nausea and vomiting after drinking Gatorade. Patient was seen to be in AFib with RVR and was treated with Cardizem with improvement of heart rate Hospital Course: Patient was assessed and monitor under telemetry. cardiology was consulted who recommended adding on beta keanu. patient responded well to the treatment and wanted to go home. 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 Vital Signs/Physical Exam: Temp Pulse Resp BP Pulse Ox 97.3 F 99 H 20 125/111 H 96 04/24/20 08:00 04/24/20 08:00 04/24/20 08:00 04/24/20 08:00 04/24/20 08:00 General: Alert, In no apparent distress HEENT: Atraumatic, Normocephalic Neck: Supple Respiratory: Clear to auscultation bilaterally, Normal air movement Cardiovascular: No edema, Regular rate/rhythm, Normal S1 S2 Capillary refill: <2 Seconds Gastrointestinal: Soft and benign, W/out hepatosplenomegaly Musculoskeletal: No swelling Laboratory Data at Discharge: WBC 4.80 K/uL (4.3-10.9) 04/24/20 04:31 Hgb 14.2 g/dL (13.6-17.9) 04/24/20 04:31 Hct 41.9 % (39.6-49.0) 04/24/20 04:31 Plt Count 266 K/uL (152-406) 04/24/20 04:31 Sodium 143 mmol/L (136-145) 04/24/20 04:31 Potassium 3.7 mmol/L (3.5-5.1) 04/24/20 04:31 BUN 20 mg/dL (7-18) H 04/24/20 04:31 Creatinine 1.14 mg/dL (0.55-1.3) 04/24/20 04:31 Glucose 95 mg/dL (74-106) 04/24/20 04:31 Total Bilirubin 0.9 mg/dL (0.2-1.0) 04/24/20 04:31 AST 52 U/L (15-37) H 04/24/20 04:31 ALT 113 U/L (12-78) H 04/24/20 04:31 Alkaline Phosphatase 50 U/L (45-117) 04/24/20 04:31 Troponin I 0.51 ng/mL (0.0-0.045) H* 04/23/20 12:28 Triglycerides 117 mg/dL (<150) 04/24/20 04:31 Cholesterol 146 mg/dL (<200) 04/24/20 04:31 HDL Cholesterol 27 mg/dL (40-60) L 04/24/20 04:31 Cholesterol/HDL Ratio 5.41 04/24/20 04:31 Lipase 107 U/L (73-393) 04/22/20 23:59 Home Medications: Amlodipine [Norvasc*] 10 mg PO DAILY 12/28/19 Apixaban [Eliquis] 5 mg PO BID 12/28/19 Hydralazine HCl [Apresoline] 100 mg PO TID 30 Days #90 12/30/19 NPH, Human Insulin Isophane [Humulin N] 25 unit SQ BID #10 ml 12/30/19 Metoprolol Tartrate [Lopressor] 100 mg PO BID* #60 04/24/20 New Medications: Metoprolol Tartrate [Lopressor] 100 mg PO BID* #60 Followup: Stanford Posada MD [ACTIVE - CAN ADMIT] - (call to schedule appointment) Time spent managing pt's care (in minutes): 39
--- NOTE | 2020-04-24 09:51 | P.PN ---
Subjective Date of Service: 04/24/20 Chief Complaint: Palpitation, chest congestion and vomiting Subjective: No new changes, Improving Physical Examination - Vital Signs Temperature: 97.3 F Blood Pressure: 125/111 Pulse: 99 Respirations: 20 Pulse Ox (%): 96 - Physical Exam General: Alert, In no apparent distress, Oriented x3, Cooperative HEENT: Atraumatic, Normocephalic Neck: Supple Respiratory: Clear to auscultation bilaterally Cardiovascular: No edema Gastrointestinal: Soft and benign Neurological: Normal speech, Normal strength at 5/5 x4 extr, Sensation intact, Cranial nerves 3-12 intact Assessment And Plan - Plan .CKD stage 2/3-resolved priyanka episode. creatinine is 1.13 today from 1.4 yesterday we will dose meds for eGFR and avoid nephrotoxin exposure. 2.Elevated troponin-still elevated troponin but deemed due to demand ischemia from tachycardia episode. cardiology to evaluate.. 3.Hypertension-antihypertensive meds to be continued. 4.Diabetes type 2-will obtain A1C and use SSI for glucose control. 5.A fib-on rate control with diltiazem.w e will continue telemetry. cardiology following. 6.Volume overload-improved. he will continue low salt diet and follow up with cardiology. Physician Review: Patient Assessed, Agree with Above Assessment and Plan Physician Review Additional Text: Atrial fib with RVR-Suman mild elevated heart rates -blood pressure trending down with Cardizem doses -we do digoxin loading -will consult Cardiology -RVR may be etiology of demand mediated ischemia -follow troponin trend post ventricular rate control -obtain magnesium, tsh # elevated troponin-may be demand mediated from AFib -follow serial set of cardiac enzyme -start statin/continue metoprolol/Lovenox Q 12 -obtain lipid profile, start empirical statin Follow cardiology consult # Acute kidney injury-Renal consults Address for contrast nephropathy if cardiac catheterization is done need renal prophylaxis # diabetes mellitus-start insulin sliding scale with Levemir # DVT prophylaxis-as above # advanced directives-full code # tobacco use-counseling done, start nicotine patch Disposition-possible hospital stay for 24-48 hr
== END 2020-04-24 12:00 | disposition home or self-care (01) ==
LOC: ER 23:10 → ERHOLD 04-23 05:49 → 4TH 04-23 11:28
PROVIDERS: ADMIT Internal Medicine; ATTEND Internal Medicine
DX: I48.0 Paroxysmal atrial fibrillation (principal); I12.9 Hypertensive chronic kidney disease with stage 1 through stage 4 chronic kidney disease, or unspecified chronic kidney disease; E11.22 Type 2 diabetes mellitus with diabetic chronic kidney disease; N18.30 Chronic kidney disease, stage 3 unspecified; N17.9 Acute kidney failure, unspecified; I48.92 Unspecified atrial flutter; R00.0 Tachycardia, unspecified; E87.70 Fluid overload, unspecified; M06.9 Rheumatoid arthritis, unspecified; E78.5 Hyperlipidemia, unspecified; F17.200 Nicotine dependence, unspecified, uncomplicated; Z71.6 Tobacco abuse counseling; Z79.01 Long term (current) use of anticoagulants; Z79.4 Long term (current) use of insulin; Z88.8 Allergy status to other drugs, medicaments and biological substances; Z20.822 Contact with and (suspected) exposure to COVID-19
CPT/HCPCS: 96361; 93005 ×2; 93306; 85025 ×2; 80048; 36415 ×3; 80061; 80162; 82947 ×6; 80076; 83036; 84484 ×3; 83690; 80053; 83880; 82043 ×2; 76770; 96375; 96374; 99284; U0003; J1160 ×2; J1815 ×2; J1940 ×3; G0378 ×3

== ENCOUNTER 2022-08-17 11:54 | Emergency (ER) | payer OTHER ==
--- NOTE | 2022-08-17 12:19 | RAD REPORT ---
EXAM DESCRIPTION: [place] Single View08/17/2022 12:14 pm CLINICAL HISTORY: Abdominal pain COMPARISON: 2019 FINDINGS: The lungs appear clear of acute infiltrate. The heart is normal size IMPRESSION: No acute abnormalities displayed
--- OUTSIDE RECORDS SUMMARY | 2022-08-17 12:36 | XMS REPORT | Continuity of Care Document ---
:1970 Author Organization [facility] t Address [address] [facility] [address] [place] [address] Care Team Providers Name Role Phone Shirley Del Valle Primary Care Physician SHIRLEY ANDERS Attending Clinician Unavailable Ernestina Hidalgo MD Attending Clinician Doctor Unassigned, [place] Attending Clinician Unavailable Shirley Del Valle Attending Clinician Lab, Ang - Db Attending Clinician Unavailable Valery Church RN Attending Clinician GAYLE HARDING Attending Clinician Unavailable GAYLE HARDING Attending Clinician Unavailable Jolynn Rodriguez Attending Clinician Unavailable ERNESTINA HIDALGO Attending Clinician Unavailable Ricky Beasley MD Attending Clinician RICKY BEASLEY Attending Clinician Unavailable Terri Pineda Attending Clinician Pob, Ad[facility] Lab Main Attending Clinician Unavailable DOROTEO CORDERO Attending Clinician Unavailable DOROTEO CORDERO Attending Clinician Unavailable [facility] Attending Clinician Unavailable Jose Becerra DO Attending Clinician JOSE BECERRA Attending Clinician Unavailable Cherelle Parker DO Attending Clinician Jessy Sarah Attending Clinician Unavailable 2, Adc Lab Attending Clinician Unavailable Harpreet Quintanilla MD Attending Clinician HARPREET QUINTANILLA Attending Clinician Unavailable NAT FISCHER Attending Clinician Unavailable DAISHA SHETH Attending Clinician Unavailable WENDY CAMPOS Attending Clinician Unavailable Ana MINOR, Didier Attending Clinician Saad Tim MD, Mariaa Attending Clinician Wendy Campos MD Attending Clinician DIDIER PEREZ Attending Clinician Unavailable Nii Rae MD, Emmanuel Attending Clinician Moreno MINOR, Lita Vizcaino Attending Clinician Elvin MINOR, Katherine Attending Clinician KATHERINE OCONNOR Attending Clinician Unavailable Moni Hilliard LVN Attending Clinician HERMES DE LA VEGA Attending Clinician Unavailable Laney Vilchis DO Attending Clinician Rehan Macias MD Attending Clinician Hermes De La Vega MD Attending Clinician Yeny Mitchell RN Attending Clinician Unavailable DONAL FAUSTIN Attending Clinician Unavailable Ramin Guzman DO Attending Clinician Donal Faustin MD Attending Clinician MAHSA CALIX Attending Clinician Unavailable CALLY PEPE Attending Clinician Unavailable LUIS FERNANDO SMITH Attending Clinician Unavailable HERMINIO CONWAY Attending Clinician Unavailable Lab, Adc Fam Pob I Attending Clinician Unavailable Lab, Pcp Covid Attending Clinician Unavailable Luis Fernando Bolanos Attending Clinician COURTNEY HERNANDEZ Attending Clinician Unavailable AD LEES Attending Clinician Unavailable RICKY BEASLEY Admitting Clinician Unavailable DIDIER PEREZ Admitting Clinician Unavailable Ana MINOR, Didier Admitting Clinician HERMES DE LAV EGA Admitting Clinician Unavailable Hermes De La Vega MD Admitting Clinician ADEN, QIANGJUN Admitting Clinician Unavailable DONAL FAUSTIN Admitting Clinician Unavailable Donal Faustin MD Admitting Clinician AD LEES Admitting Clinician Unavailable Payers Payer Name Policy Type Policy Number Effective Date Expiration Date Anita CALLEJAS [id number] 2020 CARE 00:00:00 Problems Condition Condition Condition Status Onset Resolution Last Treating Co mments Source Name Details Category Date Date Treatment Clinician Date AF AF Disease Active 2021-03 Univers (paroxysma (paroxysma 0-04 it y of l atrial l atrial 00:00: [place] fibrillati fibrillati 00 Me dical on) on) Branch Persistent Persistent Disease Active 2021-03 U nivers atrial atrial 0-04 [place] of fibr[place] fibr[place] Atrial Atrial Disease Active Univers fibrillati fibrillati 4-10 it y of on with on with 00:00: [place] tachycardi tachycardi 00 Me dical c c Branch ventricula ventricula r rate r rate Chronic Chronic Disease Active 2020-03 Univers diastolic diastolic 2-01 ity of heart heart 00:00: [place] failure failure 00 Medical Branch Acute Acute Disease Active 2020-03 Univers right-side right-side 2-01 it y of d CHF d CHF 00:00: [place] (congestiv (congestiv 00 Me dical e heart e heart Branch failure) failure) Morbid Morbid Disease Active 2020-03 Univers obesity obesity 2-01 ity of with body with body 00:00: [facility] s mass index mass index 00 Me dical of of Branch 40.0-49.9 40.0-49.9 A-fib A-fib Disease Active Univers 3-31 ity of 00:00: [place] 00 Medical Branch Hypertensi Hypertensi Disease Active U nivers on on -14 ity of 00:00: [place] 00 Medical Branch Stage 3 Stage 3 Disease Active Univers chronic chronic 9-17 ity of kidney kidney 00:00: [place] disease disease 00 Medical Branch Stage 3a Stage 3a Disease Active Unive rs chronic chronic 9-17 ity of kidney kidney 00:00: [place] disease disease 00 Medical Branch Atrial Atrial Disease Active Univers fibrillati fibrillati 9-16 it y of on with on with 00:00: [place] RVR RVR 00 Medical Branch Cardiomyop Cardiomyop Disease Active U nivers athy athy 9-16 ity of 00:00: [place] 00 Medical Branch Obesity Obesity Disease Active Univers (BMI (BMI 9-16 ity of 30-39.9) 30-39.9) 00:00: [place] 00 Medical Branch Ruptured Ruptured Disease Active Overview: Un loi patellar patellar 09-29 Formattin ity of tendon, tendon, 00:00: g of this [place] right, right, 00 note Medical subsequent subsequent might be Branch encounter encounter different from the original. Added automatic ally from request for surgery [id number] Acquired Acquired Disease Active Unive rs hypothyroi hypothyroi 07-05 it y of dism dism 00:00: [place] 00 Medical Branch Essential Essential Disease Active Uni vers hypertensi hypertensi 06-30 it y of on on 00:00: 00 Medical Branch Bilateral Bilateral Disease Active Uni vers chronic chronic 06-30 it[place] of knee pain knee pain 00:[place] Umbilical Umbilical Disease Active Uni vers hernia hernia 06-30 ity of without without 00:00: [place] obstructio obstructio 00 Me dical n and n and Branch without without gangrene gangrene Allergies, Adverse Reactions, Alerts Allergy Allergy Status Severity Reaction(s) Onset Inactive Treating Comm ents Source Name Type Date Date Clinician LISINOPR DRUG Active COUGH Univers IL INGREDI 06-30 ity of 00:00: [place] [facility] Lisinopr Propensi Active Cough Univer s il ty to 06-30 ity of adverse 00:00: [place] reaction 00 Medical s Branch Social History Social Habit Start Date Stop Date Quantity Comments Source History of Passive smoker University of tobacco use [place] [facility] History [facility] o f Alcohol Frequency [place] M edical Branch History [facility] o f Alcohol Std [place] [facility] Drinks Branch History [facility] o f Alcohol Binge [place] [facility] al Branch Exposure to 2022-06-15 2022-06-25 Not sure [facility] SARS-CoV-2 00:00:00 13:43:00 [place] [facility] (event) Branch Alcohol intake 2022-06-25 2022-06-25 Ex-drinker University of 00:00:00 00:00:00 (finding) [place] [facility] Tobacco use and 2021-12-02 2021-12-02 Former smokeless Uni versity of exposure 00:00:00 00:00:00 tobacco user [place] [facility] l [facility] Tobacco Comment 2021-10-09 2021-10-09 occasional smoker Un iversity of 00:00:00 00:00:00 only when [place] [facility] drinking Branch History [facility] 2019-03-14 2019-03-14 3 University o f Financial 00:00:00 00:00:00 [place] [facility] History [facility] Food 2019-03-14 2019-03-14 1 Univers ity of Worry 00:00:00 00:00:00 [place] [facility] History [facility] Food 2019-03-14 2019-03-14 1 Univers ity of Scarcity 00:00:00 00:00:00 [place] [facility] History [facility] 2019-03-14 2019-03-14 2 University o f Transport Med 00:00:00 00:00:00 [place] Medic al Branch History [facility] 2019-03-14 2019-03-14 2 University o f Transport Non-Med 00:00:00 00:00:00 [facility] edical Branch Education 2019-03-14 2019-03-14 21 [place] of 00:00:00 00:00:00 [facility] Alcohol Comment 2018-10-06 2018-10-06 Occasional Universit y of 00:00:00 00:00:00 Drinker [facility] Sex [birth year] At [birth year] Universit y of 00:00:00 00:00:00 [facility] Smoking Status Start Date Stop Date Source Ex-smoker 2021-12-02 00:00:00 2021-12-02 00:00:00 [facility] of [facility] Medications Ordered Filled Start Stop Current Ordering Indication Dosage Frequency Signature Comments Components Source Medication Medication Date Date Medication? Clinician (SIG) Name Name spironolact Yes [id number] 50mg Take 1 Univers one 50 mg 6-14 tablet by ity o f tablet 00:00: mouth in [place] 00 the Medical morning. Branch metFORMIN Yes [id number] 1000mg Take 1 Univers 1,000 mg 6-14 tablet by ity of tablet 00:00: mouth in [place] 00 the Medical morning Branch and 1 tablet in the evening. Take with meals. empaglifloz 2023-0 Yes [id number] 10mg Take 1 Univers in 4-27 tablet by ity of ([place] 00:[place] 10 [place] 00 the Medical morning. Branch metoprolol 2023-0 Yes [id number] 100mg Take 1 Univers succinate 4-27 tablet by ity o f XL 100 mg 00:00[place] 00 the Medical tablet morning. Branch furosemide 2023-0 Yes [id number] 40mg Take 1 Univers 40 mg 4-27 tablet by ity of tablet 00:00: mouth in [place] 00 the Medical morning. Branch metFORMIN 2023-0 Yes [id number] 1000mg Take 1 Univers 1,000 mg 4-27 tablet by ity of tablet 00:00: mouth in [place] 00 the Medical morning Branch and 1 tablet in the evening. Take with meals. empaglifloz 2023-0 Yes [id number] 10mg Take 1 Univers in 4-27 tablet by ity of ([place]) 00:[place] 10 mg 00 the Medical morning. Branch metoprolol 2023-0 Yes [id number] 100mg Take 1 Univers succinate 4-27 tablet by ity o f XL 100 mg 00:00: [place] the Medical tablet morning. Branch furosemide 2023-0 Yes [id number] 40mg Take 1 Univers 40 mg 4-27 tablet by ity of tablet 00:00: mouth in [place] 00 the Medical morning. Branch metFORMIN 2023-0 Yes [id number] 1000mg Take 1 Univers 1,000 mg 4-27 tablet by ity of tablet 00:00: mouth in [place] 00 the Medical morning Branch and 1 tablet in the evening. Take with meals. empaglifloz 2023-0 Yes [id number] 10mg Take 1 Univers in 4-27 tablet by ity of ([place]) 00:00: [place] 10 mg 00 the Medical morning. Branch metoprolol 2023-0 Yes [id number] 100mg Take 1 Univers succinate 4-27 tablet by ity o f XL 100 mg 00:00: [place] 00 the Medical tablet morning. Branch furosemide 2023-0 Yes [id number] 40mg Take 1 Univers 40 mg 4-27 tablet by ity of tablet 00:00: mouth in [place] 00 the Medical morning. Branch metFORMIN 2023-0 Yes [id number] 1000mg Take 1 Univers 1,000 mg 4-27 tablet by ity of tablet 00:00: mouth in [place] the Medical morning Branch and 1 tablet in the evening. Take with meals. empaglifloz 2023-0 Yes [id number] 10mg Take 1 Univers in 4-27 tablet by ity of ([place]) 00:[place]: [place] 10 [place] 00 the Medical morning. Branch metoprolol 2023-0 Yes [id number] 100mg Take 1 Univers succinate 4-27 tablet by ity o f XL 100 mg 00:00: mouth in [facility] [place] 24 hr 00 the Medical tablet morning. Branch furosemide 2023-0 Yes [id number] 40mg Take 1 Univers 40 mg 4-27 tablet by ity of tablet 00:00: mouth in [place] the Medical morning. Branch metFORMIN 2023-0 Yes [id number] 1000mg Take 1 Univers 1,000 mg 4-27 tablet by ity of tablet 00:00: mouth in [place] the Medical morning Branch and 1 tablet in the evening. Take with meals. empaglifloz 2023-0 Yes [id number] 10mg Take 1 Univers in 4-27 tablet by ity of ([place]) 00:00: [place] 10 mg 00 the Medical morning. Branch metoprolol 2023-0 Yes [id number] 100mg Take 1 Univers succinate 4-27 tablet by ity o f XL 100 mg 00:00: mouth in [facility] [place] 24 hr 00 the Medical tablet morning. Branch furosemide 2023-0 Yes [id number] 40mg Take 1 Univers 40 mg 4-27 tablet by ity of tablet 00:00: mouth in [place] the Medical morning. Branch metFORMIN 2023-0 Yes [id number] 1000mg Take 1 Univers 1,000 mg 4-27 tablet by ity of tablet 00:00: mouth in [place] the Medical morning Branch and 1 tablet in the evening. Take with meals. empaglifloz 2023-0 Yes [id number] 10mg Take 1 Univers in 4-27 tablet by ity of ([place]) 00:00: [place] 10 mg 00 the Medical morning. Branch metoprolol 2023-0 Yes [id number] 100mg Take 1 Univers succinate 4-27 tablet by ity o f XL 100 mg 00:00: [place] 00 the Medical tablet morning. Branch furosemide 2023-0 Yes [id number] 40mg Take 1 Univers 40 mg 4-27 tablet by ity of tablet 00:00: mouth in [place] 00 the Medical morning. Branch metFORMIN 2023-0 Yes [id number] 1000mg Take 1 Univers 1,000 mg 4-27 tablet by ity of tablet 00:00: mouth in [place] 00 the Medical morning Branch and 1 tablet in the evening. Take with meals. empaglifloz 2023-0 Yes [id number] 10mg Take 1 Univers in 4-27 tablet by ity of ([place]) 00:00: [place] 10 mg 00 the Medical morning. Branch metoprolol 2023-0 Yes [id number] 100mg Take 1 Univers succinate 4-27 tablet by ity o f XL 100 mg 00:00: mouth in [facility] [place] 24 hr 00 the Medical tablet morning. Branch furosemide 2023-0 Yes [id number] 40mg Take 1 Univers 40 mg 4-27 tablet by ity of tablet 00:00: mouth in [place] 00 the Medical morning. Branch metFORMIN 2023-0 Yes [id number] 1000mg Take 1 Univers 1,000 mg 4-27 tablet by ity of tablet 00:00: mouth in [place] the Medical morning Branch and 1 tablet in the evening. Take with meals. empaglifloz 2023-0 Yes [id number] 10mg Take 1 Univers in 4-27 tablet by ity of ([place]) 00:00: [place] 10 mg 00 the Medical morning. Branch metoprolol 2023-0 Yes [id number] 100mg Take 1 Univers succinate 4-27 tablet by ity o f XL 100 mg 00:00: [place] 00 the Medical tablet morning. Branch furosemide 2023-0 Yes [id number] 40mg Take 1 Univers 40 mg 4-27 tablet by ity of tablet 00:00: mouth in [place] 00 the Medical morning. Branch metFORMIN 2023-0 Yes [id number] 1000mg Take 1 Univers 1,000 mg 4-27 tablet by ity of tablet 00:00: mouth in [place] the Medical morning Branch and 1 tablet in the evening. Take with meals. empaglifloz 2023-0 Yes [id number] 10mg Take 1 Univers in 4-27 tablet by ity of ([place]) 00:00: [place] 10 [place] 00 the Medical morning. Branch metoprolol Yes [id number] 100mg Take 1 Univers succinate 4-27 tablet by ity o f XL 100 mg 00:00: mouth in [facility] [place] 24 hr 00 the Medical tablet morning. Branch furosemide 2022- Yes [id number] 40mg Take 1 Univers 40 mg 4-27 tablet by ity of tablet 00:00: mouth in [place] 00 the Medical morning. Branch metFORMIN 2022- No [id number] 1000mg Take 1 Univers 1,000 mg 4-27 06-14 tablet by ity o f tablet 00:00: 00:00 mouth in [place] 00 :00 the Medical morning Branch and 1 tablet in the evening. Take with meals. metFORMIN 2022- Yes [id number] 1000mg Take 1 Univers 1,000 mg 4-19 tablet by ity of tablet 00:00: mouth in [place] 00 the Medical morning Branch and 1 tablet in the evening. Take with meals. metFORMIN 2022- Yes [id number] 1000mg Take 1 Univers 1,000 mg 4-19 tablet by ity of tablet 00:00: mouth in [place] 00 the Medical morning Branch and 1 tablet in the evening. Take with meals. metFORMIN 2022-2022- No [id number] 1000mg Take 1 Univers 1,000 mg 4-19 04-27 tablet by ity o f tablet 00:00: 00:00 mouth in [place] 00 :00 the Medical morning Branch and 1 tablet in the evening. Take with meals. metFORMIN 2022- No [id number] 1000mg Take 1 Univers 1,000 mg 4-19 04-27 tablet by ity o f tablet 00:00: 00:00 mouth in [place] 00 :00 the Medical morning Branch and 1 tablet in the evening. Take with meals. insulin NPH Yes inject Univ ers hum/reg 2-15 under the ity of insulin hm 15:24: skin. [place] (INSULIN 11 Medical NPH/REG Branch 70-30 INNOLET SC) insulin NPH Yes inject Univ ers hum/reg 2-15 under the ity of insulin hm 15:24: skin. [place] (INSULIN 11 Medical NPH/REG Branch 70-30 INNOLET SC) insulin NPH Yes inject Univ ers hum/reg 2-15 under the ity of insulin hm 15:24: skin. [place] (INSULIN 11 Medical NPH/REG Branch 70-30 INNOLET SC) insulin NPH 0 Yes inject Univ ers hum/reg 2-15 under the ity of insulin hm 15:24: skin. [place] (INSULIN 11 Medical NPH/REG Branch 70-30 INNOLET SC) insulin NPH Yes inject Univ ers hum/reg 2-15 under the ity of insulin hm 15:24: skin. [place] (INSULIN 11 Medical NPH/REG Branch 70-30 INNOLET SC) insulin NPH 0 Yes inject Univ ers hum/reg 2-15 under the ity of insulin hm 15:24: skin. [place] (INSULIN 11 Medical NPH/REG Branch 70-30 INNOLET SC) insulin NPH Yes inject Univ ers hum/reg 2-15 under the ity of insulin hm 15:24: skin. [place] (INSULIN 11 Medical NPH/REG Branch 70-30 INNOLET SC) insulin NPH Yes inject Univ ers hum/reg 2-15 under the ity of insulin hm 15:24: skin. [place] (INSULIN 11 Medical NPH/REG Branch 70-30 INNOLET SC) insulin NPH Yes inject Univ ers hum/reg 2-15 under the ity of insulin hm 15:24: skin. [place] (INSULIN 11 Medical NPH/REG Branch 70-30 INNOLET SC) insulin NPH Yes inject Univ ers hum/reg 2-15 under the ity of insulin hm 15:24: skin. [place] (INSULIN 11 Medical NPH/REG Branch 70-30 INNOLET SC) insulin NPH Yes inject Univ ers hum/reg 2-15 under the ity of insulin hm 15:24: skin. [place] (INSULIN 11 Medical NPH/REG Branch 70-30 INNOLET SC) insulin NPH 0 Yes inject Univ ers hum/reg 2-15 under the ity of insulin hm 15:24: skin. [place] (INSULIN 11 Medical NPH/REG Branch 70-30 INNOLET SC) insulin NPH 0 Yes inject Univ ers hum/reg 2-15 under the ity of insulin hm 15:24: skin. [place] (INSULIN 11 Medical NPH/REG Branch 70-30 INNOLET SC) insulin NPH 0 Yes inject Univ ers hum/reg 2-15 under the ity of insulin hm 15:24: skin. [place] (INSULIN 11 Medical NPH/REG Branch 70-30 INNOLET SC) insulin NPH Yes inject Univ ers hum/reg 2-15 under the ity of insulin hm 15:24: skin. [place] (INSULIN 11 Medical NPH/REG Branch 70-30 INNOLET SC) insulin NPH Yes inject Univ ers hum/reg 2-15 under the ity of insulin hm 15:24: skin. [place] (INSULIN 11 Medical NPH/REG Branch 70-30 INNOLET SC) insulin NPH Yes inject Univ ers hum/reg 2-15 under the ity of insulin hm 15:24: skin. [place] (INSULIN 11 Medical NPH/REG Branch 70-30 INNOLET SC) insulin NPH Yes inject Univ ers hum/reg 2-15 under the ity of insulin hm 15:24: skin. [place] (INSULIN 11 Medical NPH/REG Branch 70-30 INNOLET SC) insulin NPH Yes inject Univ ers hum/reg 2-15 under the ity of insulin hm 15:24: skin. [place] (INSULIN 11 Medical NPH/REG Branch 70-30 INNOLET SC) insulin NPH Yes inject Univ ers hum/reg 2-15 under the ity of insulin hm 15:24: skin. [place] (INSULIN 11 Medical NPH/REG Branch 70-30 INNOLET SC) insulin NPH Yes inject Univ ers hum/reg 2-15 under the ity of insulin hm 15:24: skin. [place] (INSULIN 11 Medical NPH/REG Branch 70-30 INNOLET SC) insulin NPH Yes inject Univ ers hum/reg 2-15 under the ity of insulin hm 15:24: skin. [place] (INSULIN 11 Medical NPH/REG Branch 70-30 INNOLET SC) insulin NPH Yes inject Univ ers hum/reg 2-15 under the ity of insulin hm 15:24: skin. [place] (INSULIN 11 Medical NPH/REG Branch 70-30 INNOLET SC) insulin NPH 0 Yes inject Univ ers hum/reg 2-15 under the ity of insulin hm 15:24: skin. [place] (INSULIN 11 Medical NPH/REG Branch 70-30 INNOLET SC) insulin NPH Yes inject Univ ers hum/reg 2-15 under the ity of insulin hm 15:24: skin. [place] (INSULIN 11 Medical NPH/REG Branch 70-30 INNOLET SC) insulin NPH 0 Yes inject Univ ers hum/reg 2-15 under the ity of insulin hm 15:24: skin. [place] (INSULIN 11 Medical NPH/REG Branch 70-30 INNOLET SC) insulin NPH 0 Yes inject Univ ers hum/reg 2-15 under the ity of insulin hm 15:24: skin. [place] (INSULIN 11 Medical NPH/REG Branch 70-30 INNOLET SC) insulin NPH 0 Yes inject Univ ers hum/reg 2-15 under the ity of insulin hm 15:24: skin. [place] (INSULIN 11 Medical NPH/REG Branch 70-30 INNOLET SC) insulin NPH 0 Yes inject Univ ers hum/reg 2-15 under the ity of insulin hm 15:24: skin. [place] (INSULIN 11 Medical NPH/REG Branch 70-30 INNOLET SC) insulin NPH Yes inject Univ ers hum/reg 2-15 under the ity of insulin hm 15:24: skin. [place] (INSULIN 11 Medical NPH/REG Branch 70-30 INNOLET SC) insulin NPH Yes inject Univ ers hum/reg 2-15 under the ity of insulin hm 15:24: skin. [place] (INSULIN 11 Medical NPH/REG Branch 70-30 INNOLET SC) insulin NPH 0 Yes inject Univ ers hum/reg 2-15 under the ity of insulin hm 15:24: skin. [place] (INSULIN 11 Medical NPH/REG Branch 70-30 INNOLET SC) insulin NPH Yes inject Univ ers hum/reg 2-15 under the ity of insulin hm 15:24: skin. [place] (INSULIN 11 Medical NPH/REG Branch 70-30 INNOLET SC) insulin NPH 0 Yes inject Univ ers hum/reg 2-15 under the ity of insulin hm 15:24: skin. [place] (INSULIN 11 Medical NPH/REG Branch 70-30 INNOLET SC) furosemide 2022-0 Yes [id number] 40mg Take 1 Univers 40 mg 1-06 tablet by ity of tablet 00:00: mouth in [place] 00 the Medical morning. Branch furosemide 2022-0 Yes [id number] 40mg Take 1 Univers 40 mg 1-06 tablet by ity of tablet 00:00: mouth in [place] 00 the Medical morning. Branch furosemide 2023-0 Yes [id number] 40mg Take 1 Univers 40 mg 1-06 tablet by ity of tablet 00:00: mouth in [place] 00 the Medical morning. Branch furosemide 2023-0 Yes [id number] 40mg Take 1 Univers 40 mg 1-06 tablet by ity of tablet 00:00: mouth in [place] 00 the Medical morning. Branch furosemide 2023-0 Yes [id number] 40mg Take 1 Univers 40 mg 1-06 tablet by ity of tablet 00:00: mouth in [place] the Medical morning. Branch furosemide 2023-0 Yes [id number] 40mg Take 1 Univers 40 mg 1-06 tablet by ity of tablet 00:00: mouth in [place] the Medical morning. Branch furosemide 2023-0 Yes [id number] 40mg Take 1 Univers 40 mg 1-06 tablet by ity of tablet 00:00: mouth in [place] the Medical morning. Branch furosemide 2023-0 Yes [id number] 40mg Take 1 Univers 40 mg 1-06 tablet by ity of tablet 00:00: mouth in [place] the Medical morning. Branch furosemide 2023-0 Yes [id number] 40mg Take 1 Univers 40 mg 1-06 tablet by ity of tablet 00:00: mouth in [place] the Medical morning. Branch furosemide 2023-0 Yes [id number] 40mg Take 1 Univers 40 mg 1-06 tablet by ity of tablet 00:00: mouth in [place] the Medical morning. Branch furosemide 2023-0 Yes [id number] 40mg Take 1 Univers 40 mg 1-06 tablet by ity of tablet 00:00: mouth in [place] the Medical morning. Branch furosemide 2023-0 Yes [id number] 40mg Take 1 Univers 40 mg 1-06 tablet by ity of tablet 00:00: mouth in [place] 00 the Medical morning. Branch furosemide 2023-0 Yes [id number] 40mg Take 1 Univers 40 mg 1-06 tablet by ity of tablet 00:00: mouth in [place] 00 the Medical morning. Branch furosemide 2023-0 Yes [id number] 40mg Take 1 Univers 40 mg 1-06 tablet by ity of tablet 00:00: mouth in [place] 00 the Medical morning. Branch furosemide 2023-0 Yes [id number] 40mg Take 1 Univers 40 mg 1-06 tablet by ity of tablet 00:00: mouth in [place] 00 the Medical morning. Branch furosemide 2023-0 Yes [id number] 40mg Take 1 Univers 40 mg 1-06 tablet by ity of tablet 00:00: mouth in [place] 00 the Medical morning. Branch furosemide 2023-0 Yes [id number] 40mg Take 1 Univers 40 mg 1-06 tablet by ity of tablet 00:00: mouth in [place] 00 the Medical morning. Branch furosemide 2023-0 Yes [id number] 40mg Take 1 Univers 40 mg 1-06 tablet by ity of tablet 00:00: mouth in [place] 00 the Medical morning. Branch furosemide 2023-0 Yes [id number] 40mg Take 1 Univers 40 mg 1-06 tablet by ity of tablet 00:00: mouth in [place] 00 the Medical morning. Branch furosemide 2023-0 Yes [id number] 40mg Take 1 [facility] 40 mg 1-06 tablet by ity of tablet 00:00: mouth in [place] 00 the Medical morning. Branch furosemide 2023-0 Yes [id number] 40mg Take 1 [facility] 40 mg 1-06 tablet by ity of tablet 00:00: mouth in [place] the Medical morning. Branch furosemide 2023-0 Yes [id number] 40mg Take 1 [facility] 40 mg 1-06 tablet by ity of tablet 00:00: mouth in [place] 00 the Medical morning. Branch furosemide 2023-0 Yes [id number] 40mg Take 1 [facility] 40 mg 1-06 tablet by ity of tablet 00:00: mouth in [place] 00 the Medical morning. Branch furosemide 2023-0 Yes [id number] 40mg Take 1 Univers 40 mg 1-06 tablet by ity of tablet 00:00: mouth in [place] 00 the Medical morning. Branch furosemide 2023-0 Yes [id number] 40mg Take 1 [facility] 40 mg 1-06 tablet by [facility] tablet 00:00: mouth in [place] 00 the Medical morning. Branch furosemide 2023-0 Yes [id number] 40mg Take 1 [facility] 40 mg 1-06 tablet by [facility] tablet 00:00: mouth in [place] 00 the Medical morning. Branch furosemide 2023-0 Yes [id number] 40mg Take 1 [facility] 40 mg 1-06 tablet by [facility] tablet 00:00: mouth in [place] 00 the Medical morning. Branch furosemide 2023-0 Yes [id number] 40mg Take 1 [facility] 40 mg 1-06 tablet by [facility] tablet 00:00: mouth in [place] 00 the Medical morning. Branch furosemide 2023-0 Yes [id number] 40mg Take 1 [facility] 40 mg 1-06 tablet by [facility] tablet 00:00: mouth in [place] 00 the Medical morning. Branch furosemide 2023-0 Yes [id number] 40mg Take 1 [facility] 40 mg 1-06 tablet by [facility] tablet 00:00: mouth in [place] 00 the Medical morning. Branch furosemide 2023-0 Yes [id number] 40mg Take 1 [facility] 40 mg 1-06 tablet by [facility] tablet 00:00: mouth in [place] 00 the Medical morning. Branch furosemide 2023-0 Yes [id number] 40mg Take 1 [facility] 40 mg 1-06 tablet by [facility] tablet 00:00: mouth in [place] 00 the Medical morning. Branch furosemide 2023-0 Yes [id number] 40mg Take 1 [facility] 40 mg 1-06 tablet by [facility] tablet 00:00: mouth in [place] 00 the Medical morning. Branch furosemide 2023-0 Yes [id number] 40mg Take 1 [facility] 40 mg 1-06 tablet by [facility] tablet 00:00: mouth in [place] the Medical morning. Branch furosemide 2023-0 Yes [id number] 40mg Take 1 [facility] 40 mg 1-06 tablet by [facility] tablet 00:00: mouth in [place] 00 the Medical morning. Branch furosemide 2023-0 Yes [id number] 40mg Take 1 [facility] 40 mg 1-06 tablet by [facility] tablet 00:00: mouth in [place] 00 the Medical morning. Branch furosemide 2023-0 Yes [id number] 40mg Take 1 [facility] 40 mg 1-06 tablet by [facility] tablet 00:00: mouth in [place] 00 the Medical morning. Branch furosemide 2023-0 Yes [id number] 40mg Take 1 [facility] 40 mg 1-06 tablet by [facility] tablet 00:00: mouth in [place] 00 the Medical morning. Branch furosemide 2023-0 Yes [id number] 40mg Take 1 [facility] 40 mg 1-06 tablet by [facility] tablet 00:00: mouth in [place] 00 the Medical morning. Branch furosemide 2023-0 2023- No [id number] 40mg Take 1 [facility] 40 mg 1-06 04-27 tablet by [facility] tablet 00:00: 00:00 mouth in [place] 00 :00 the Medical morning. [place] furosemide 2022-0 3- No [id number] 40mg Take 1 [facility] 40 mg 03-06 04-27 tablet by [facility] tablet 00:00: 00:00 mouth in [place] 00 :00 the Medical morning. Branch metoprolol 2022-0 Yes [id number] 100mg Take 1 [facility] succinate 1-03 tablet by [facility] o f XL 100 mg 00:00: mouth in [place] 24 hr 00 the Medical tablet morning. Branch metoprolol 2022-0 Yes [id number] 100mg Take 1 [facility] succinate 1-03 tablet by [facility] o f XL 100 mg 00:00: mouth in [place] 24 hr 00 the Medical tablet morning. Branch metoprolol 2022-0 Yes [id number] 100mg Take 1 [facility] succinate 1-03 tablet by [facility] o f XL 100 mg 00:00: mouth in [place] 24 hr 00 the Medical tablet morning. Branch metoprolol 2022-0 Yes [id number] 100mg Take 1 [facility] succinate 1-03 tablet by [facility] o f XL 100 mg 00:00: mouth in [place] 24 hr 00 the Medical tablet morning. Branch metoprolol 2022-0 Yes [id number] 100mg Take 1 [facility] succinate 1-03 tablet by [facility] o f XL 100 mg 00:00: mouth in [place] 24 hr 00 the Medical tablet morning. Branch metoprolol 2022-0 Yes [id number] 100mg Take 1 [facility] succinate 1-03 tablet by [facility] o f XL 100 mg 00:00: mouth in [place] 24 hr 00 the Medical tablet morning. Branch metoprolol 2022-0 Yes [id number] 100mg Take 1 [facility] succinate 1-03 tablet by [facility] o f XL 100 mg 00:00: mouth in [place] 24 hr 00 the Medical tablet morning. Branch metoprolol 2022-0 Yes [id number] 100mg Take 1 [facility] succinate 1-03 tablet by [facility] f XL 100 mg 00:00: mouth [place] 24 [place] 00 the Medical tablet morning. Branch metoprolol 2022-0 Yes [id number] 100mg Take 1 [facility] succinate 1-03 tablet by [facility] o f XL 100 mg 00:00: mouth in [place] 24 hr 00 the Medical tablet morning. Branch metoprolol 2022-0 Yes [id number] 100mg Take 1 [facility] succinate 1-03 tablet by [facility] o f XL 100 mg 00:00: mouth [place] 24 hr 00 the Medical tablet morning. Branch metoprolol 2022-0 Yes [id number] 100mg Take 1 [facility] succinate 1-03 tablet by [facility] o f XL 100 mg 00:00: mouth [place] 24 hr 00 the Medical tablet morning. Branch metoprolol 2022-0 Yes [id number] 100mg Take 1 [facility] succinate 1-03 tablet by [facility] o f XL 100 mg 00:00: mouth [place] 24 hr 00 the Medical tablet morning. Branch metoprolol 2022-0 Yes [id number] 100mg Take 1 [facility] succinate 1-03 tablet by [facility] o f XL 100 mg 00:00: mouth [place] 24 hr 00 the Medical tablet morning. Branch metoprolol 2022-0 Yes [id number] 100mg Take 1 [facility] succinate 1-03 tablet by [facility] o f XL 100 mg 00:00: mouth [place] 24 hr 00 the Medical tablet morning. Branch metoprolol 2022-0 Yes [id number] 100mg Take 1 [facility] succinate 1-03 tablet by [facility] o f XL 100 mg 00:00: mouth [place] 24 hr 00 the Medical tablet morning. Branch metoprolol 2022-0 Yes [id number] 100mg Take 1 [facility] succinate 1-03 tablet by [facility] o f XL 100 mg 00:00: mouth [place] 24 hr 00 the Medical tablet morning. Branch metoprolol 2022-0 Yes [id number] 100mg Take 1 [facility] succinate 1-03 tablet by [facility] o f XL 100 mg 00:00: mouth [place] 24 hr 00 the Medical tablet morning. Branch metoprolol 2022-0 Yes [id number] 100mg Take 1 [facility] succinate 1-03 tablet by [facility] o f XL 100 mg 00:00: mouth [place] 24 hr 00 the Medical tablet morning. Branch metoprolol 2022-0 Yes [id number] 100mg Take 1 [facility] succinate 1-03 tablet by [facility] o f XL 100 mg 00:00: mouth [place] 24 hr 00 the Medical tablet morning. Branch metoprolol 2022-0 Yes [id number] 100mg Take 1 [facility] succinate 1-03 tablet by [facility] o f XL 100 mg 00:00: mouth [place] 24 hr 00 the Medical tablet morning. Branch metoprolol 3-0 Yes [id number] 100mg Take 1 [facility] succinate 1-03 tablet by [facility] o f XL 100 mg 00:00: mouth [place] 24 hr 00 the Medical tablet morning. Branch metoprolol 3-0 Yes [id number] 100mg Take 1 [facility] succinate 1-03 tablet by [facility] o f XL 100 mg 00:00: mouth [place] 24 hr 00 the Medical tablet morning. Branch metoprolol 3-0 Yes [id number] 100mg Take 1 [facility] succinate 1-03 tablet by [facility] o f XL 100 mg 00:00: mouth [place] 24 hr 00 the Medical tablet morning. Branch metoprolol 2022-0 Yes [id number] 100mg Take 1 [facility] succinate 1-03 tablet by [facility] o f XL 100 mg 00:00: mouth [place] 24 hr 00 the Medical tablet morning. Branch metoprolol 2022-0 Yes [id number] 100mg Take 1 [facility] succinate 1-03 tablet by [facility] o f XL 100 mg 00:00: mouth [place] 24 hr 00 the Medical tablet morning. Branch metoprolol 2022-0 Yes [id number] 100mg Take 1 [facility] succinate 1-03 tablet by [facility] o f XL 100 mg 00:00: mouth [place] 24 hr 00 the Medical tablet morning. Branch metoprolol 2022-0 Yes [id number] 100mg Take 1 [facility] succinate 1-03 tablet by [facility] o f XL 100 mg 00:00: mouth [place] 24 hr 00 the Medical tablet morning. Branch metoprolol 3-0 Yes [id number] 100mg Take 1 [facility] succinate 1-03 tablet by [facility] o f XL 100 mg 00:00: mouth [place] 24 hr 00 the Medical tablet morning. Branch metoprolol 3-0 Yes [id number] 100mg Take 1 [facility] succinate 1-03 tablet by [facility] o f XL 100 mg 00:00: mouth [place] 24 hr 00 the Medical tablet morning. Branch metoprolol 3-0 Yes [id number] 100mg Take 1 [facility] succinate 1-03 tablet by [facility] o f XL 100 mg 00:00: mouth [place] 24 hr 00 the Medical tablet morning. Branch metoprolol 2022-0 Yes [id number] 100mg Take 1 [facility] succinate 1-03 tablet by [facility] o f XL 100 mg 00:00: mouth [place] 24 hr 00 the Medical tablet morning. Branch metoprolol 2022-0 Yes [id number] 100mg Take 1 [facility] succinate 1-03 tablet by [facility] o f XL 100 mg 00:00: mouth [place] 24 hr 00 the Medical tablet morning. Branch metoprolol 2022-0 Yes [id number] 100mg Take 1 [facility] succinate 1-03 tablet by [facility] o f XL 100 mg 00:00: mouth [place] 24 hr 00 the Medical tablet morning. Branch metoprolol 2022-0 Yes [id number] 100mg Take 1 [facility] succinate 1-03 tablet by [facility] o f XL 100 mg 00:00: mouth [place] 24 hr 00 the Medical tablet morning. Branch metoprolol 2022-0 Yes [id number] 100mg Take 1 [facility] succinate 1-03 tablet by [facility] o f XL 100 mg 00:00: mouth [place] 24 hr 00 the Medical tablet morning. Branch metoprolol 2022-0 Yes [id number] 100mg Take 1 [facility] succinate 1-03 tablet by [facility] o f XL 100 mg 00:00: mouth [place] 24 hr 00 the Medical tablet morning. Branch metoprolol 2022-0 Yes [id number] 100mg Take 1 [facility] succinate 1-03 tablet by [facility] o f XL 100 mg 00:00: mouth [place] 24 hr 00 the Medical tablet morning. Branch metoprolol 2022-0 Yes [id number] 100mg Take 1 [facility] succinate 1-03 tablet by [facility] o f XL 100 mg 00:00: mouth [place] 24 hr 00 the Medical tablet morning. Branch metoprolol 2022-0 Yes [id number] 100mg Take 1 [facility] succinate 1-03 tablet by [facility] o f XL 100 mg 00:00: mouth [place] 24 hr 00 the Medical tablet morning. Branch metoprolol 2022-0 Yes [id number] 100mg Take 1 [facility] succinate 1-03 tablet by [facility] o f XL 100 mg 00:00: mouth [place] 24 hr 00 the Medical tablet morning. Branch metoprolol 2022-0 Yes [id number] 100mg Take 1 [facility] succinate 1-03 tablet by [facility] o f XL 100 mg 00:00: mouth [place] 24 hr 00 the Medical tablet morning. Branch metoprolol 2022-0 Yes [id number] 100mg Take 1 [facility] succinate 1-03 tablet by [facility] o f XL 100 mg 00:00: mouth [place] 24 hr 00 the Medical tablet morning. Branch metoprolol 2022-0 Yes [id number] 100mg Take 1 [facility] succinate 1-03 tablet by [facility] o f XL 100 mg 00:00: mouth [place] 24 hr 00 the Medical tablet morning. Branch metoprolol 2022-0 Yes [id number] 100mg Take 1 [facility] succinate 1-03 tablet by [facility] o f XL 100 mg 00:00: mouth [place] 24 hr 00 the Medical tablet morning. Branch metoprolol 2022-0 Yes [id number] 100mg Take 1 [facility] succinate 1-03 tablet by [facility] o f XL 100 mg 00:00: mouth [place] 24 hr 00 the Medical tablet morning. Branch metoprolol 2022-0 Yes [id number] 100mg Take 1 [facility] succinate 1-03 tablet by [facility] o f XL 100 mg 00:00: mouth [place] 24 hr 00 the Medical tablet morning. Branch metoprolol 2022-0 3- No [id number] 100mg Take 1 [facility] succinate 1-03 04-27 tablet by [facility] of XL 100 mg 00:00: 00:00 mouth in [place] 24 hr 00 :00 the Medical tablet morning. Branch metoprolol 2022-0 3- No [id number] 100mg Take 1 [facility] succinate 1-03 04-27 tablet by [facility] of XL 100 mg 00:00: 00:00 mouth in [place] 24 hr 00 :00 the Medical tablet morning. Branch furosemide 2021-03 Yes [id number] 40mg Take 1 [facility] 40 mg 1-04 tablet by [facility] of tablet 00:00: mouth [place] 00 every Medical morning Branch and evening. metFORMIN 2021-03 Yes [id number] 1000mg Take 1 [facility] 1,000 mg 1-04 tablet by [facility] of tablet 00:00: mouth in [place] 00 the Medical morning Branch and 1 tablet in the evening. Take with meals. furosemide 2021-03 Yes [id number] 40mg Take 1 [facility] 40 mg 1-04 tablet by [facility] of tablet 00:00: mouth [place] 00 every Medical morning Branch and evening. metFORMIN 2021- Yes [id number] 1000mg Take 1 [facility] 1,000 mg 1-04 tablet by [facility] of tablet 00:00: mouth in [place] 00 the Medical morning Branch and 1 tablet in the evening. Take with meals. furosemide 2021-03 Yes [id number] 40mg Take 1 [facility] 40 mg 1-04 tablet by [facility] of tablet 00:00: mouth [place] 00 every Medical morning Branch and evening. metFORMIN 2021-03 Yes [id number] 1000mg Take 1 [facility] 1,000 mg 1-04 tablet by [facility] of tablet 00:00: mouth in [place] 00 the Medical morning Branch and 1 tablet in the evening. Take with meals. furosemide 2021-03 Yes [id number] 40mg Take 1 [facility] 40 mg 1-04 tablet by [facility] of tablet 00:00: mouth [place] 00 every Medical morning Branch and evening. metFORMIN 2021-03 Yes [id number] 1000mg Take 1 [facility] 1,000 mg 1-04 tablet by [facility] of tablet 00:00: mouth in [place] 00 the Medical morning Branch and 1 tablet in the evening. Take with meals. furosemide 2021-03 Yes [id number] 40mg Take 1 [facility] 40 mg 1-04 tablet by [facility] of tablet 00:00: mouth [place] 00 every Medical morning Branch and evening. metFORMIN 2021-03 Yes [id number] 1000mg Take 1 [facility] 1,000 mg 1-04 tablet by [facility] of tablet 00:00: mouth in [place] 00 the Medical morning Branch and 1 tablet in the evening. Take with meals. furosemide 2021- Yes [id number] 40mg Take 1 [facility] 40 mg 1-04 tablet by [facility] of tablet 00:00: mouth [place] 00 every Medical morning Branch and evening. metFORMIN 2021-03 Yes [id number] 1000mg Take 1 [facility] 1,000 mg 1-04 tablet by [facility] of tablet 00:00: mouth in [place] 00 the Medical morning Branch and 1 tablet in the evening. Take with meals. furosemide 2021- Yes [id number] 40mg Take 1 [facility] 40 mg 1-04 tablet by [facility] tablet 00:00: mouth [place] 00 every Medical morning Branch and evening. metFORMIN 2021- Yes [id number] 1000mg Take 1 [facility] 1,000 mg 1-04 tablet by [facility] of tablet 00:00: mouth in [place] 00 the Medical morning Branch and 1 tablet in the evening. Take with meals. furosemide 2021-03 Yes [id number] 40mg Take 1 [facility] 40 mg 1-04 tablet by [facility] of tablet 00:00: mouth [place] 00 every Medical morning Branch and evening. metFORMIN 2021-03 Yes [id number] 1000mg Take 1 [facility] 1,000 mg 1-04 tablet by [facility] of tablet 00:00: mouth in [place] 00 the Medical morning Branch and 1 tablet in the evening. Take with meals. furosemide 2021-03 Yes [id number] 40mg Take 1 [facility] 40 mg 1-04 tablet by [facility] of tablet 00:00: mouth [place] 00 every Medical morning Branch and evening. metFORMIN 2021-03 Yes [id number] 1000mg Take 1 [facility] 1,000 mg 1-04 tablet by [facility] of tablet 00:00: mouth in [place] 00 the Medical morning Branch and 1 tablet in the evening. Take with meals. furosemide 2021-03 Yes [id number] 40mg Take 1 [facility] 40 mg 1-04 tablet by [facility] of tablet 00:00: mouth [place] 00 every Medical morning Branch and evening. metFORMIN 2021-03 Yes [id number] 1000mg Take 1 [facility] 1,000 mg 1-04 tablet by [facility] of tablet 00:00: mouth in [place] 00 the Medical morning Branch and 1 tablet in the evening. Take with meals. metFORMIN 2021-03 Yes [id number] 1000mg Take 1 [facility] 1,000 mg 1-04 tablet by [facility] of tablet 00:00: mouth in [place] 00 the Medical morning Branch and 1 tablet in the evening. Take with meals. metFORMIN 2021-03 Yes [id number] 1000mg Take 1 [facility] 1,000 mg 1-04 tablet by [facility] of tablet 00:00: mouth in [place] 00 the Medical morning Branch and 1 tablet in the evening. Take with meals. metFORMIN 2021-03 Yes [id number] 1000mg Take 1 [facility] 1,000 mg 1-04 tablet by [facility] of tablet 00:00: mouth in [place] 00 the Medical morning Branch and 1 tablet in the evening. Take with meals. metFORMIN 2021-03 Yes [id number] 1000mg Take 1 [facility] 1,000 mg 1-04 tablet by [facility] of tablet 00:00: mouth in [place] [address] the Medical morning Branch and 1 tablet in the evening. Take with meals. metFORMIN 2021- Yes [id number] 1000mg Take 1 [facility] 1,000 mg 1-04 tablet by [facility] of tablet 00:00: mouth in [address] morning [place] and 1 tablet in the evening. Take with meals. metFORMIN 2021- Yes [id number] 1000mg Take 1 [facility] 1,000 mg 1-04 tablet by [facility] of tablet 00:00: mouth in [address] and 1 tablet in the evening. Take with meals. metFORMIN 2021-1 Yes [id number] 1000mg Take 1 [facility] 1,000 mg 1-04 tablet by [facility] of tablet 00:00: mouth in [address] and 1 tablet in the evening. Take with meals. metFORMIN 2021- Yes [id number] 1000mg Take 1 [facility] 1,000 mg 1-04 tablet by [facility] of tablet 00:00: mouth in [address] and 1 tablet in the evening. Take with meals. metFORMIN 2021-1 Yes [id number] 1000mg Take 1 [facility] 1,000 mg 1-04 tablet by [facility] of tablet 00:00: mouth in [address] and 1 tablet in the evening. Take with meals. metFORMIN 2021- Yes [id number] 1000mg Take 1 [facility] 1,000 mg 1-04 tablet by [facility] of tablet 00:00: mouth in [address] and 1 tablet in the evening. Take with meals. metFORMIN 2021-1 Yes [id number] 1000mg Take 1 [facility] 1,000 mg 1-04 tablet by [facility] of tablet 00:00: mouth in [address] and 1 tablet in the evening. Take with meals. metFORMIN 2021-1 Yes [id number] 1000mg Take 1 [facility] 1,000 mg 1-04 tablet by [facility] of tablet 00:00: mouth in [address] and 1 tablet in the evening. Take with meals. metFORMIN 2021-1 Yes [id number] 1000mg Take 1 [facility] 1,000 mg 1-04 tablet by [facility] of tablet 00:00: mouth in [address] and 1 tablet in the evening. Take with meals. metFORMIN 2021-1 Yes [id number] 1000mg Take 1 [facility] 1,000 mg 1-04 tablet by [facility] of tablet 00:00: mouth in [address] and 1 tablet in the evening. Take with meals. metFORMIN 2021-1 Yes [id number] 1000mg Take 1 [facility] 1,000 mg 1-04 tablet by [facility] of tablet 00:00: mouth in [address] morning [place] and 1 tablet in the evening. Take with meals. metFORMIN 2021- Yes [id number] 1000mg Take 1 [facility] 1,000 mg 1-04 tablet by [facility] of tablet 00:00: mouth in [address] and 1 tablet in the evening. Take with meals. metFORMIN 2021-1 Yes [id number] 1000mg Take 1 [facility] 1,000 mg 1-04 tablet by [facility] of tablet 00:00: mouth in [address] and 1 tablet in the evening. Take with meals. metFORMIN 2021- Yes [id number] 1000mg Take 1 [facility] 1,000 mg 1-04 tablet by [facility] of tablet 00:00: mouth in [address] and 1 tablet in the evening. Take with meals. metFORMIN 2021-1 Yes [id number] 1000mg Take 1 [facility] 1,000 mg 1-04 tablet by [facility] of tablet 00:00: mouth in [address] and 1 tablet in the evening. Take with meals. metFORMIN 2021- Yes [id number] 1000mg Take 1 [facility] 1,000 mg 1-04 tablet by [facility] of tablet 00:00: mouth in [address] and 1 tablet in the evening. Take with meals. metFORMIN 2021-1 Yes [id number] 1000mg Take 1 [facility] 1,000 mg 1-04 tablet by [facility] of tablet 00:00: mouth in [address] and 1 tablet in the evening. Take with meals. metFORMIN 2021-1 Yes [id number] 1000mg Take 1 [facility] 1,000 mg 1-04 tablet by [facility] of tablet 00:00: mouth in [address] and 1 tablet in the evening. Take with meals. metFORMIN 2021-1 Yes [id number] 1000mg Take 1 [facility] 1,000 mg 1-04 tablet by [facility] of tablet 00:00: mouth in [address] and 1 tablet in the evening. Take with meals. metFORMIN 2021-1 Yes [id number] 1000mg Take 1 [facility] 1,000 mg 1-04 tablet by [facility] of tablet 00:00: mouth in [address] and 1 tablet in the evening. Take with meals. metFORMIN 2021-1 Yes [id number] 1000mg Take 1 [facility] 1,000 mg 1-04 tablet by [facility] of tablet 00:00: mouth in [address] morning [place] and 1 tablet in the evening. Take with meals. metFORMIN 2021- Yes [id number] 1000mg Take 1 [facility] 1,000 mg 1-04 tablet by [facility] of tablet 00:00: mouth in [address] and 1 tablet in the evening. Take with meals. metFORMIN 2021-1 Yes [id number] 1000mg Take 1 [facility] 1,000 mg 1-04 tablet by [facility] of tablet 00:00: mouth in [address] and 1 tablet in the evening. Take with meals. metFORMIN 2021- Yes [id number] 1000mg Take 1 [facility] 1,000 mg 1-04 tablet by [facility] of tablet 00:00: mouth in [address] and 1 tablet in the evening. Take with meals. metFORMIN 2021-1 Yes [id number] 1000mg Take 1 [facility] 1,000 mg 1-04 tablet by [facility] of tablet 00:00: mouth in [address] and 1 tablet in the evening. Take with meals. metFORMIN 2021- Yes [id number] 1000mg Take 1 [facility] 1,000 mg 1-04 tablet by [facility] of tablet 00:00: mouth in [address] and 1 tablet in the evening. Take with meals. metFORMIN 2021-1 Yes [id number] 1000mg Take 1 [facility] 1,000 mg 1-04 tablet by [facility] of tablet 00:00: mouth in [address] and 1 tablet in the evening. Take with meals. metFORMIN 2021-1 Yes [id number] 1000mg Take 1 [facility] 1,000 mg 1-04 tablet by [facility] of tablet 00:00: mouth in [address] and 1 tablet in the evening. Take with meals. metFORMIN 2021-1 Yes [id number] 1000mg Take 1 [facility] 1,000 mg 1-04 tablet by [facility] of tablet 00:00: mouth in [address] and 1 tablet in the evening. Take with meals. metFORMIN 2021-1 Yes [id number] 1000mg Take 1 [facility] 1,000 mg 1-04 tablet by [facility] of tablet 00:00: mouth in [address] and 1 tablet in the evening. Take with meals. metFORMIN 2021-1 Yes [id number] 1000mg Take 1 [facility] 1,000 mg 1-04 tablet by [facility] of tablet 00:00: mouth in [place] 00 the Medical morning Branch and 1 tablet in the evening. Take with meals. metFORMIN 2021-03 Yes [id number] 1000mg Take 1 [facility] 1,000 mg 1-04 tablet by [facility] of tablet 00:00: mouth in [place] 00 the Medical morning Branch and 1 tablet in the evening. Take with meals. metFORMIN 2021-03 Yes [id number] 1000mg Take 1 [facility] 1,000 mg 1-04 tablet by [facility] of tablet 00:00: mouth in [place] 00 the Medical morning Branch and 1 tablet in the evening. Take with meals. metFORMIN 2021-03 Yes [id number] 1000mg Take 1 [facility] 1,000 mg 1-04 tablet by [facility] of tablet 00:00: mouth in [place] 00 the Medical morning Branch and 1 tablet in the evening. Take with meals. metFORMIN 2021-03- No [id number] 1000mg Take 1 [facility] 1,000 mg 1-04 04-19 tablet by [facility] o f tablet 00:00: 00:00 mouth in [place] 00 :00 the Medical morning Branch and 1 tablet in the evening. Take with meals. furosemide 2021-03- No [id number] 40mg Take 1 [facility] 40 mg 1-04 01-06 tablet by [facility] of tablet 00:00: 00:00 mouth [place] 00 :00 every Medical morning Branch and evening. furosemide 2021-03- No [id number] 40mg Take 1 [facility] 40 mg 1-04 01-06 tablet by [facility] of tablet 00:00: 00:00 mouth [place] 00 :00 every Medical morning Branch and evening. furosemide 2021-03- No [id number] 40mg Take 1 [facility] 40 mg 1-04 01-06 tablet by [facility] of tablet 00:00: 00:00 mouth [place] 00 :00 every Medical morning Branch and evening. empaglifloz 2021- Yes [id number] 10mg Take 1 [facility] in 0-10 tablet by [facility] of ([place]) 00:00: mouth in [place] 10 mg 00 the Medical morning. Branch empaglifloz 2021- Yes [id number] 10mg Take 1 [facility] in 0-10 tablet by [facility] of ([place]) 00:00: mouth in [place] 10 mg 00 the Medical morning. Branch empaglifloz 2022-1 Yes [id number] 10mg Take 1 [facility] in 0-10 tablet by [facility] of ([place]) 00:00: mouth in [place] 10 mg 00 the Medical morning. Branch empaglifloz 2021- Yes [id number] 10mg Take 1 [facility] in 0-10 tablet by [facility] of ([place]) 00:00: mouth in [place] 10 mg 00 the Medical morning. Branch empaglifloz 2021- Yes [id number] 10mg Take 1 [facility] in 0-10 tablet by [facility] of ([place]) 00:00: mouth in [place] 10 mg 00 the Medical morning. Branch empaglifloz 2021- Yes [id number] 10mg Take 1 [facility] in 0-10 tablet by [facility] of ([place]) 00:00: mouth in [place] 10 mg 00 the Medical morning. Branch empaglifloz 2021- Yes [id number] 10mg Take 1 [facility] in 0-10 tablet by [facility] of ([place]) 00:00: mouth in [place] 10 mg 00 the Medical morning. Branch empaglifloz 2021- Yes [id number] 10mg Take 1 [facility] in 0-10 tablet by [facility] of ([place]) 00:00: mouth in [place] 10 mg 00 the Medical morning. Branch empaglifloz 2021- Yes [id number] 10mg Take 1 [facility] in 0-10 tablet by [facility] of ([place]) 00:00: mouth in [place] 10 mg 00 the Medical morning. Branch empaglifloz 2- Yes [id number] 10mg Take 1 [facility] in 0-10 tablet by [facility] of ([place]) 00:00: mouth in [place] 10 mg 00 the Medical morning. Branch empaglifloz 2021- Yes [id number] 10mg Take 1 [facility] in 0-10 tablet by [facility] of ([place]) 00:00: mouth in [place] 10 mg 00 the Medical morning. Branch empaglifloz 2-1 Yes [id number] 10mg Take 1 [facility] in 0-10 tablet by [facility] of ([place]) 00:00: mouth in [place] 10 mg 00 the Medical morning. Branch empaglifloz 2- Yes [id number] 10mg Take 1 [facility] in 0-10 tablet by [facility] of ([place]) 00:00: mouth in [place] 10 mg 00 the Medical morning. Branch empaglifloz 2021- Yes [id number] 10mg Take 1 [facility] in 0-10 tablet by [facility] of ([place]) 00:00: mouth in [place] 10 mg 00 the Medical morning. Branch empaglifloz 2-1 Yes [id number] 10mg Take 1 [facility] in 0-10 tablet by [facility] of ([place]) 00:00: mouth in [place] 10 mg 00 the Medical morning. Branch empaglifloz 2- Yes [id number] 10mg Take 1 [facility] in 0-10 tablet by [facility] of ([place]) 00:00: mouth in [place] 10 mg 00 the Medical morning. Branch empaglifloz 2021- Yes [id number] 10mg Take 1 [facility] in 0-10 tablet by [facility] of ([place]) 00:00: mouth in [place] 10 mg 00 the Medical morning. Branch empaglifloz 2021- Yes [id number] 10mg Take 1 [facility] in 0-10 tablet by [facility] of ([place]) 00:00: mouth in [place] 10 mg 00 the Medical morning. Branch empaglifloz 2- Yes [id number] 10mg Take 1 [facility] in 0-10 tablet by [facility] of ([place]) 00:00: mouth in [place] 10 mg 00 the Medical morning. Branch empaglifloz 2-1 Yes [id number] 10mg Take 1 [facility] in 0-10 tablet by [facility] of (JARDIANCE) 00:00: mouth in [place] 10 mg 00 the Medical morning. Branch empaglifloz 2-1 Yes [id number] 10mg Take 1 [facility] in 0-10 tablet by ity of (JARDIANCE) 00:00: mouth in [place] 10 mg 00 the Medical morning. Branch empaglifloz 2-1 Yes [id number] 10mg Take 1 [facility] in 0-10 tablet by ity of (JARDIANCE) 00:00: mouth in [place] 10 mg 00 the Medical morning. Branch empaglifloz 2-1 Yes [id number] 10mg Take 1 [facility] in 0-10 tablet by ity of (JARDIANCE) 00:00: mouth in [place] 10 mg 00 the Medical morning. Branch empaglifloz 2021- Yes [id number] 10mg Take 1 [facility] in 0-10 tablet by ity of (JARDIANCE) 00:00: mouth in [place] 10 mg 00 the Medical morning. Branch empaglifloz 2-1 Yes [id number] 10mg Take 1 [facility] in 0-10 tablet by ity of (JARDIANCE) 00:00: mouth in [place] 10 mg 00 the Medical morning. Branch empaglifloz 2-1 Yes [id number] 10mg Take 1 [facility] in 0-10 tablet by ity of (JARDIANCE) 00:00: mouth in [place] 10 mg 00 the Medical morning. Branch empaglifloz 2021- Yes [id number] 10mg Take 1 [facility] in 0-10 tablet by ity of (JARDIANCE) 00:00: mouth in [place] 10 mg 00 the Medical morning. Branch empaglifloz 2- Yes [id number] 10mg Take 1 [facility] in 0-10 tablet by ity of (JARDIANCE) 00:00: mouth in [place] 10 mg 00 the Medical morning. Branch empaglifloz 2021- Yes [id number] 10mg Take 1 [facility] in 0-10 tablet by ity of (JARDIANCE) 00:00: mouth in [place] 10 mg 00 the Medical morning. Branch empaglifloz 2021- Yes [id number] 10mg Take 1 [facility] in 0-10 tablet by ity of (JARDIANCE) 00:00: mouth in [place] 10 mg 00 the Medical morning. Branch empaglifloz 2-1 Yes [id number] 10mg Take 1 [facility] in 0-10 tablet by ity of (JARDIANCE) 00:00: mouth in [place] 10 mg 00 the Medical morning. Branch empaglifloz 2-1 Yes [id number] 10mg Take 1 [facility] in 0-10 tablet by ity of (JARDIANCE) 00:00: mouth in [place] 10 mg 00 the Medical morning. Branch empaglifloz 2-1 Yes [id number] 10mg Take 1 [facility] in 0-10 tablet by ity of (JARDIANCE) 00:00: mouth in [place] 10 mg 00 the Medical morning. Branch empaglifloz 2-1 Yes [id number] 10mg Take 1 [facility] in 0-10 tablet by ity of (J[place]IANCE) 00:00: mouth in [place] 10 mg 00 the Medical morning. Branch empaglifloz 2021- Yes [id number] 10mg Take 1 [facility] in 0-10 tablet by ity of (JARDIANCE) 00:00: mouth in [place] 10 mg 00 the Medical morning. Branch empaglifloz 2-1 Yes [id number] 10mg Take 1 [facility] in 0-10 tablet by ity of (J[place]IANCE) 00:00: mouth in [place] 10 mg 00 the Medical morning. Branch empaglifloz 2- Yes [id number] 10mg Take 1 [facility] in 0-10 tablet by ity of (J[facility]IANCE) 00:00: mouth in [place] 10 mg 00 the Medical morning. Branch empaglifloz 2-1 Yes [id number] 10mg Take 1 [facility] in 0-10 tablet by ity of (J[facility]IANCE) 00:00: mouth in [place] 10 mg 00 the Medical morning. Branch empaglifloz 2-1 Yes [id number] 10mg Take 1 [facility] in 0-10 tablet by ity of (J[facility]IANCE) 00:00: mouth in [place] 10 mg 00 the Medical morning. Branch empaglifloz 2021-1 Yes [id number] 10mg Take 1 [facility] in 0-10 tablet by ity of (J[facility]IANCE) 00:00: mouth in [place] 10 mg 00 the Medical morning. Branch empaglifloz 2-1 Yes [id number] 10mg Take 1 [facility] in 0-10 tablet by ity of (J[place]IANCE) 00:00: mouth in [place] 10 mg 00 the Medical morning. Branch empaglifloz 2-1 Yes [id number] 10mg Take 1 [facility] in 0-10 tablet by ity of ([facility]) 00:00: mouth in [place] 10 mg 00 the Medical morning. Branch empaglifloz 2-1 Yes [id number] 10mg Take 1 [facility] in 0-10 tablet by ity of (JARDIANCE) 00:00: mouth in [place] 10 mg 00 the Medical morning. Branch empaglifloz 2-1 Yes [id number] 10mg Take 1 [facility] in 0-10 tablet by ity of (J[facility]IANCE) 00:00: mouth in [place] 10 mg 00 the Medical morning. Branch empaglifloz 2-1 Yes [id number] 10mg Take 1 [facility] in 0-10 tablet by ity of (J[facility]IANCE) 00:00: mouth in [place] 10 mg 00 the Medical morning. Branch empaglifloz 2-1 Yes [id number] 10mg Take 1 [facility] in 0-10 tablet by ity of ([facility]IANCE) 00:00: mouth in [place] 10 mg 00 the Medical morning. Branch empaglifloz 2-1 Yes [id number] 10mg Take 1 [facility] in 0-10 tablet by ity of (J[facility]IANCE) 00:00: mouth in [place] 10 mg 00 the Medical morning. Branch empaglifloz 2-1 Yes [id number] 10mg Take 1 [facility] in 0-10 tablet by ity of (J[facility]IANCE) 00:00: mouth in [place] 10 mg 00 the Medical morning. Branch empaglifloz 2-1 Yes [id number] 10mg Take 1 [facility] in 0-10 tablet by ity of ([facility]) 00:00: mouth in [place] 10 mg 00 the Medical morning. Branch empaglifloz 2021- Yes [id number] 10mg Take 1 [facility] in 0-10 tablet by ity of ([facility]) 00:00: mouth in [place] 10 mg 00 the Medical morning. Branch empaglifloz 2-1 Yes [id number] 10mg Take 1 [facility] in 0-10 tablet by ity of (J[facility]IANCE) 00:00: mouth in [place] 10 mg 00 the Medical morning. Branch empaglifloz 2-1 Yes [id number] 10mg Take 1 [facility] in 0-10 tablet by ity of (J[facility]IANCE) 00:00: mouth in [place] 10 mg 00 the Medical morning. Branch empaglifloz 2-1 Yes [id number] 10mg Take 1 [facility] in 0-10 tablet by ity of (J[facility]IANCE) 00:00: mouth in [place] 10 mg 00 the Medical morning. Branch empaglifloz 2-1 Yes [id number] 10mg Take 1 [facility] in 0-10 tablet by ity of ([facility]IANCE) 00:00: mouth in [place] 10 mg 00 the Medical morning. Branch empaglifloz 2-1 Yes [id number] 10mg Take 1 [facility] in 0-10 tablet by ity of ([facility]) 00:00: mouth in [place] 10 mg 00 the Medical morning. Branch empaglifloz 2021-03 Yes [id number] 10mg Take 1 [facility] in 0-10 tablet by ity of ([facility]) 00:00: mouth in [place] 10 mg 00 the Medical morning. Branch empaglifloz 2021-03 Yes [id number] 10mg Take 1 [facility] in 0-10 tablet by ity of ([facility]) 00:00: mouth in [place] 10 mg 00 the Medical morning. Branch empaglifloz 2021-03 Yes [id number] 10mg Take 1 [facility] in 0-10 tablet by ity of ([facility]) 00:00: mouth in [place] 10 mg 00 the Medical morning. Branch empaglifloz 2021-03 Yes [id number] 10mg Take 1 [facility] in 0-10 tablet by ity of ([facility]) 00:00: mouth in [place] 10 mg 00 the Medical morning. Branch empaglifloz 2021-03 Yes [id number] 10mg Take 1 [facility] in 0-10 tablet by ity of ([facility]) 00:00: mouth in [place] 10 mg 00 the Medical morning. Branch empaglifloz 2021-03- No [id number] 10mg Take 1 [facility] in 0-10 04-27 tablet by ity of (JARDIANCE) 00:00: 00:00 mouth in [place] 10 mg 00 :00 the Medical morning. Branch empaglifloz 2021-03- No [id number] 10mg Take 1 [facility] in 0-10 04-27 tablet by ity of (JARDIANCE) 00:00: 00:00 mouth in [place] 10 mg 00 :00 the Medical morning. Branch metoprolol 2021-03 Yes 100mg 100 mg, Uni vers succinate 0-06 Oral, ity of XL (TOPROL 14:00: DAILY, [place] XL) tablet 00 First dose Med ical 100 mg (after Branch last modificati on) on [place] 12/04/21 at 0900, Until Discontinu ed, Routine metoprolol 2021-03- No 100mg 100 mg, Un loi succinate 0-06 10-05 Oral, ity of XL (TOPROL 14:00: 21:30 DAILY, [place] XL[place] tablet 00 :57 First dose Med ical 100 mg (after Branch last modificati on) on Wed12/04/21 at 0900, Until Discontinu ed, Routine diltiazem 2021-03 Yes 120mg 120 mg, Univ ers XR 0-06 Oral, BID, ity of (DILT-XR) 01:00: First dose [place] capsule 120 00 (after Medica l mg last Branch modificati on) on Wed12/03/21 at 2000, Until Discontinu ed, Routine diltiazem 2021-03- No 120mg 120 mg, Uni vers XR 0-06 10-05 Oral, BID, ity of (DILT-XR) 01:00: 21:30 First dose [place] capsule 120 00 :57 (after Medica l mg last Branch modificati on) on Wed12/03/21 at 1999, Until Discontinu ed, Routine metoprolol 2021-03- No [id number] 100mg Take 1 [facility] succinate 0-06 12-06 tablet by ity of XL 100 mg 00:00: 05:59 mouth in [place] 24 hr 00 :00 the Medical tablet morning Branch for 60 days. metoprolol 2021-03- No [id number] 100mg Take 1 [facility] succinate 0-06 12-06 tablet by ity of XL 100 mg 00:00: 05:59 mouth in [place] 24 hr 00 :00 the Medical tablet morning Branch for 60 days. metoprolol 2021-03- No [id number] 100mg Take 1 [facility] succinate 0-06 12-06 tablet by ity of XL 100 mg 00:00: 05:59 mouth in [place] 24 hr 00 :00 the Medical tablet morning Branch for 60 days. metoprolol 2021-03- No [id number] 100mg Take 1 [facility] succinate 0-06 12-06 tablet by ity of XL 100 mg 00:00: 05:59 mouth in [place] 24 hr 00 :00 the Medical tablet morning Branch for 60 days. metoprolol 2021-03- No [id number] 100mg Take 1 [facility] succinate 0-06 12-06 tablet by ity of XL 100 mg 00:00: 05:59 mouth in [place] 24 hr 00 :00 the Medical tablet morning Branch for 60 days. metoprolol 2021-03- No [id number] 100mg Take 1 [facility] succinate 0-06 12-06 tablet by ity of XL 100 mg 00:00: 05:59 mouth in [place] 24 hr 00 :00 the Medical tablet morning Branch for 60 days. metoprolol 2021-03- No [id number] 100mg Take 1 [facility] succinate 0-06 12-06 tablet by ity of XL 100 mg 00:00: 05:59 mouth in [place] 24 hr 00 :00 the Medical tablet morning Branch for 60 days. metoprolol 2021-03- No [id number] 100mg Take 1 [facility] succinate 0-06 12-06 tablet by ity of XL 100 mg 00:00: 05:59 mouth in [place] 24 hr 00 :00 the Medical tablet morning Branch for 60 days. metoprolol 2021-03- No [id number] 100mg Take 1 [facility] succinate 0-06 12-06 tablet by ity of XL 100 mg 00:00: 05:59 mouth in [place] 24 hr 00 :00 the Medical tablet morning Branch for 60 days. metoprolol 2021-03- No [id number] 100mg Take 1 [facility] succinate 0-06 12-06 tablet by ity of XL 100 mg 00:00: 05:59 mouth in [place] 24 hr 00 :00 the Medical tablet morning Branch for 60 days. metoprolol 2021-03- No [id number] 100mg Take 1 [facility] succinate 0-06 12-06 tablet by ity of XL 100 mg 00:00: 05:59 mouth in [place] 24 hr 00 :00 the Medical tablet morning Branch for 60 days. metoprolol 2021-03- No [id number] 100mg Take 1 [facility] succinate 0-06 12-06 tablet by ity of XL 100 mg 00:00: 05:59 mouth in [place] 24 hr 00 :00 the Medical tablet morning Branch for 60 days. metoprolol 2021-03- No [id number] 100mg Take 1 [facility] succinate 0-06 12-06 tablet by ity of XL 100 mg 00:00: 05:59 mouth in [place] 24 hr 00 :00 the Medical tablet morning Branch for 60 days. metoprolol 2021-03- No [id number] 100mg Take 1 [facility] succinate 0-06 12-06 tablet by ity of XL 100 mg 00:00: 05:59 mouth in [place] 24 hr 00 :00 the Medical tablet morning Branch for 60 days. metoprolol 2021-03- No [id number] 100mg Take 1 [facility] succinate 0-06 12-06 tablet by ity of XL 100 mg 00:00: 05:59 mouth in [place] 24 hr 00 :00 the Medical tablet morning Branch for 60 days. metoprolol 2021-03- No [id number] 100mg Take 1 [facility] succinate 0-06 12-06 tablet by ity of XL 100 mg 00:00: 05:59 mouth in [place] 24 hr 00 :00 the Medical tablet morning Branch for 60 days. metoprolol 2021-03- No [id number] 100mg Take 1 [facility] succinate 0-06 12-06 tablet by ity of XL 100 mg 00:00: 05:59 mouth in [place] 24 hr 00 :00 the Medical tablet morning Branch for 60 days. omeprazole 2021-03- No [id number] 40mg Take 1 Univers 40 mg 0-06 11-06 capsule by ity of capsule 00:00: 04:59 mouth in [place] 00 :00 the Medical morning Branch for 30 days. omeprazole 2021-03- No [id number] 40mg Take 1 Univers 40 mg 0-06 11-06 capsule by ity of capsule 00:00: 04:59 mouth in [place] 00 :00 the Medical morning Branch for 30 days. omeprazole 2021-03- No [id number] 40mg Take 1 Univers 40 mg 0-06 11-06 capsule by ity of capsule 00:00: 04:59 mouth in [place] 00 :00 the Medical morning Branch for 30 days. omeprazole 2021-03- No [id number] 40mg Take 1 [facility] 40 mg 0-06 11-06 capsule by ity of capsule 00:00: 04:59 mouth in [place] 00 :00 the Medical morning Branch for 30 days. omeprazole 2021-03- No [id number] 40mg Take 1 [facility] 40 mg 0-06 11-06 capsule by ity of capsule 00:00: 04:59 mouth in [place] 00 :00 the Medical morning Branch for 30 days. omeprazole 2021-03- No [id number] 40mg Take 1 [facility] 40 mg 0-06 11-06 capsule by ity of capsule 00:00: 04:59 mouth in [place] 00 :00 the [facility] morning Branch for 30 days. omeprazole 2021-03- No [id number] 40mg Take 1 Univers 40 mg 0-06 11-06 capsule by ity of capsule 00:00: 04:59 mouth in [place] 00 :00 the [facility] morning Branch for 30 days. omeprazole 2021-03- No [id number] 40mg Take 1 Univers 40 mg 0-06 11-06 capsule by ity of capsule 00:00: 04:59 mouth in [place] 00 :00 the [facility] morning Branch for 30 days. omeprazole 2021-03- No [id number] 40mg Take 1 Univers 40 mg 0-06 11-06 capsule by ity of capsule 00:00: 04:59 mouth in [place] 00 :00 the [facility] morning Branch for 30 days. omeprazole 2021-03- No [id number] 40mg Take 1 Univers 40 mg 0-06 11-06 capsule by ity of capsule 00:00: 04:59 mouth in [place] 00 :00 the [facility] morning [place] for 30 days. omeprazole 2021-03- No [id number] 40mg Take 1 Univers 40 mg 0-06 11-06 capsule by ity of capsule 00:00: 04:59 mouth in [place] 00 :00 the [facility] morning Branch for 30 days. omeprazole 2021-03- No [id number] 40mg Take 1 Univers 40 mg 0-06 11-06 capsule by ity of capsule 00:00: 04:59 mouth in [place] 00 :00 the [facility] morning [place] for 30 days. omeprazole 2021-03- No [id number] 40mg Take 1 Univers 40 mg 0-06 11-06 capsule by ity of capsule 00:00: 04:59 mouth in [place] 00 :00 the [facility] morning Branch for 30 days. omeprazole 2021-03- No [id number] 40mg Take 1 Univers 40 mg 0-06 11-06 capsule by ity of capsule 00:00: 04:59 mouth in [place] 00 :00 the [facility] morning Branch for 30 days. spironolact 2022-1 Yes 50mg 50 mg, Univ ers one 0-05 Oral, ity of (ALDACTONE) 14:00: [place]ILY, [place] tablet 50 00 First dose Medi steve mg on Wed Branch 12/03/21 at 0900, Until Discontinu ed, Routine sennosides- 2021-03 Yes 1{tbl} 1 tablet, Univers docusate 0-05 Oral, ity of sodium 14:00: DAILY, [place] (SENOKOT-S) 00 First dose Me dical 8.6-50 mg on Wed Branch per tablet 12/03/21 at 1 tablet 0900, Until Discontinu ed, Routine digoxin 2021-03- No 125ug 125 mcg, [facility] ers (LANOXIN) 0-05 10-05 Oral, ity of tablet 125 14:00: 13:48 DAILY, [place] mcg 00 :31 First dose Medical on Wed Branch 12/03/21 at 0900, Until Discontinu ed spironolact 2021-03- No 50mg 50 mg, [facility] vers one 0-05 10-05 Oral, ity of (ALDACTONE) 14:00: 21:30 DAILY, [place] tablet 50 00 :57 First dose Medi steve mg on Wed Branch 12/03/21 at 0900, Until Discontinu ed, Routine digoxin 2021-03- No 125ug 125 mcg, [facility] (LANOXIN) 0-05 10-05 Oral, ity of tablet 125 14:00: 13:48 DAILY, [place] mcg 00 :31 First dose Medical on Wed Branch 12/03/21 at 0900, Until Discontinu ed sennosides- 2021-03- No 1{tbl} 1 tablet, Univers docusate 0-05 10-05 Oral, ity of sodium 14:00: 21:30 DAILY, [place] (SENOKOT-S) 00 :57 First dose Me dical 8.6-50 mg on Wed per tablet 12/03/21 at 1 tablet 0900, Until Discontinu ed, Routine sucralfate 2021-03 Yes 1g 1 g, Oral, U nivers (CARAFATE) 0-05 AC+HS, ity of tablet 1 g 02:00: First dose [place] 00 on [facility] 12/02/21 at Branch 2100, Until Discontinu ed, Routine Sliding 2021-03 Yes Subcutaneo Univ ers Scale 0-05 us, TID ity of Insulin - 02:00: MEALS+HS, [place] Lispro 00 First dose Medical (HumaLOG) + on [facility] 12/02/21 at Testing 2100, Until Discontinu ed, Routine apixaban 2021-03 Yes 1358 5mg 5 mg, Univers (ELIQUIS) 0-05 Oral, BID, ity of tablet 5 mg 02:00: First dose [place] 00 on [facility] 12/02/21 at Branch 2100, Until Discontinu ed, Routine
Indicatio ns: Non-Valvul ar Atrial Fibrillati on sucralfate 2021-03- No 1g 1 g, Oral, Univers (CARAFATE) 0-05 10-05 AC+HS, ity of tablet 1 g 02:00: 21:30 First dose [place] 00 :57 on [facility] 12/02/21 at Branch 2100, Until Discontinu ed, Routine Sliding 2021-03 No Subcutaneo Uni vers Scale 0-05 10-05 us, TID ity of Insulin - 02:00: 21:30 MEALS+HS, [place] Lispro 00 :57 First dose Medical (HumaLOG) + on [facility] 12/02/21 at Testing 2100, Until Discontinu ed, Routine apixaban 2021-03- No 1358 5mg 5 mg, Univers (ELIQUIS) 0-05 10-05 Oral, BID, ity of tablet 5 mg 02:00: 21:30 First dose [place] 00 :57 on [facility] 12/02/21 at Branch 2100, Until Discontinu ed, Routine
Indicatio ns: Non-Valvul ar Atrial Fibrillati on amiodarone 2021-03 Yes 200mg 200 mg, Uni vers (PACERONE) 0-05 Oral, BID, ity of tablet 200 01:00: First dose [place] mg 00 on [facility] 12/02/21 at Branch 2000, Until Discontinu ed, Routine diltiazem 2021-03- No 180mg 180 mg, Uni vers XR 0-05 10-05 Oral, BID, ity of (DILT-XR) 01:00: 16:28 First dose [place] capsule 180 00 :22 on [facility] Medica l mg 12/02/21 at [place] [address], Until Discontinu ed, Routine metoprolol 2021-03 No 125mg 125 mg, Un loi succinate 0-05 10-05 Oral, BID, ity of XL (TOPROL 01:00: 16:28 First dose [place] XL) tablet 00 :22 on On License Of [facility] Medical 125 mg 12/02/21 at [place] [address], Until Discontinu ed, Routine amiodarone 2021-03 No 200mg 200 mg, Un loi (PACERONE) 0-05 10-05 Oral, BID, it y of tablet 200 01:00: 21:30 First dose [place] mg 00 :57 on On License Of [facility] Medical 12/02/21 at [place] 1999, Until Discontinu ed, Routine diltiazem 2021-03 No 180mg 180 mg, Uni vers XR 0-05 10-05 Oral, BID, ity of (DILT-XR) 01:00: 16:28 First dose [place] capsule 180 00 :22 on Tue Medica l mg 12/02/21 at [place] 1999, Until Discontinu ed, Routine metoprolol 2021-03 No 125mg 125 mg, Un loi succinate 0-05 10-05 Oral, BID, ity of XL (TOPROL 01:00: 16:28 First dose [place] XL) tablet 00 :22 on On License Of [facility] Medical 125 mg 12/02/21 at [place] 1999, Until Discontinu ed, Routine diltiazem 2021-03- No [id number] 120mg Take 1 Univers XR 120 mg 0-05 12-05 capsule by ity of 24 hr 00:00: 05:59 mouth in [place] capsule 00 :00 the [facility] and 1 capsule in the evening. Do all this for 60 days. diltiazem 2021-03- No [id number] 120mg Take 1 Univers XR 120 mg 0-05 12-05 capsule by ity of 24 hr 00:00: 05:59 mouth in [place] capsule 00 :00 the [place] and 1 capsule in the evening. Do all this for 60 days. diltiazem 2021-03- No [id number] 120mg Take 1 Univers XR 120 mg 0-05 12-05 capsule by ity of 24 hr 00:00: 05:59 mouth in [place] capsule 00 :00 the Medical morning Branch and 1 capsule in the evening. Do all this for 60 days. diltiazem 2021-03- No [id number] 120mg Take 1 Univers XR 120 mg 0-05 12-05 capsule by ity of 24 hr 00:00: 05:59 mouth in [place] capsule 00 :00 the Medical morning Branch and 1 capsule in the evening. Do all this for 60 days. diltiazem 2021-03- No [id number] 120mg Take 1 Univers XR 120 mg 0-05 12-05 capsule by ity of 24 hr 00:00: 05:59 mouth in [place] capsule 00 :00 the Medical morning Branch and 1 capsule in the evening. Do all this for 60 days. diltiazem 2021-03- No [id number] 120mg Take 1 Univers XR 120 mg 0-05 12-05 capsule by ity of 24 hr 00:00: 05:59 mouth in [place] capsule 00 :00 the Medical morning Branch and 1 capsule in the evening. Do all this for 60 days. diltiazem 2021-03- No [id number] 120mg Take 1 Univers XR 120 mg 0-05 12-05 capsule by ity of 24 hr 00:00: 05:59 mouth in [place] capsule 00 :00 the Medical morning Branch and 1 capsule in the evening. Do all this for 60 days. diltiazem 2021-03- No [id number] 120mg Take 1 Univers XR 120 mg 0-05 12-05 capsule by ity of 24 hr 00:00: 05:59 mouth in [place] capsule 00 :00 the Medical morning Branch and 1 capsule in the evening. Do all this for 60 days. diltiazem 2021-03- No [id number] 120mg Take 1 Univers XR 120 mg 0-05 12-05 capsule by ity of 24 hr 00:00: 05:59 mouth in [place] capsule 00 :00 the Medical morning Branch and 1 capsule in the evening. Do all this for 60 days. diltiazem 2021-03- No [id number] 120mg Take 1 Univers XR 120 mg 0-05 12-05 capsule by ity of 24 hr 00:00: 05:59 mouth in [place] capsule 00 :00 the Medical morning Branch and 1 capsule in the evening. Do all this for 60 days. diltiazem 2021-03- No [id number] 120mg Take 1 Univers XR 120 mg 0-05 12-05 capsule by ity of 24 hr 00:00: 05:59 mouth in [place] capsule 00 :00 the Medical morning Branch and 1 capsule in the evening. Do all this for 60 days. diltiazem 2021-03- No [id number] 120mg Take 1 Univers XR 120 mg 0-05 12-05 capsule by ity of 24 hr 00:00: 05:59 mouth in [place] capsule 00 :00 the Medical morning Branch and 1 capsule in the evening. Do all this for 60 days. diltiazem 2021-03- No [id number] 120mg Take 1 Univers XR 120 mg 0-05 12-05 capsule by ity of 24 hr 00:00: 05:59 mouth in [place] capsule 00 :00 the Medical morning Branch and 1 capsule in the evening. Do all this for 60 days. diltiazem 2021-03- No [id number] 120mg Take 1 Univers XR 120 mg 0-05 12-05 capsule by ity of 24 hr 00:00: 05:59 mouth in [place] capsule 00 :00 the Medical morning Branch and 1 capsule in the evening. Do all this for 60 days. diltiazem 2021-03- No [id number] 120mg Take 1 Univers XR 120 mg 0-05 12-05 capsule by ity of 24 hr 00:00: 05:59 mouth in [place] capsule 00 :00 the Medical morning Branch and 1 capsule in the evening. Do all this for 60 days. diltiazem 2021-03- No [id number] 120mg Take 1 Univers XR 120 mg 0-05 12-05 capsule by ity of 24 hr 00:00: 05:59 mouth in [place] capsule 00 :00 the Medical morning Branch and 1 capsule in the evening. Do all this for 60 days. diltiazem 2021-03- No [id number] 120mg Take 1 Univers XR 120 mg 0-05 12-05 capsule by ity of 24 hr 00:00: 05:59 mouth in [place] capsule 00 :00 the Medical morning Branch and 1 capsule in the evening. Do all this for 60 days. amiodarone 2021-03- No [id number] 200mg Take 1 Univers 200 mg 0-05 11-05 tablet by ity of tablet 00:00: 04:59 mouth in [place] 00 :00 the Medical morning Branch for 30 days. sucralfate 2021-03- No [id number] 1g Take 1 Univers 1 gram 0-05 11-05 tablet by ity of tablet 00:00: 04:59 mouth [place] 00 :00 before Medical meals and Branch at bedtime for 30 days. insulin NPH 2021-03- No [id number] 15U inject 15 Univers and regular 0-05 11-05 Units ity of human 70-30 00:00: 04:59 under the [place] 100 unit/mL 00 :00 skin 2 Medica l (70-30) (two) Branch injection times daily before breakfast and dinner for 30 days. furosemide 2021-03- No [id number] 40mg Take 1 Univers 40 mg 0-05 11-05 tablet by ity of tablet 00:00: 04:59 mouth [place] 00 :00 every Medical morning Branch and evening for 30 days. amiodarone 2021-03- No [id number] 200mg Take 1 Univers 200 mg 0-05 11-05 tablet by ity of tablet 00:00: 04:59 mouth in [place] 00 :00 the Medical morning Branch for 30 days. sucralfate 2021-03- No [id number] 1g Take 1 Univers 1 gram 0-05 11-05 tablet by ity of tablet 00:00: 04:59 mouth [place] 00 :00 before Medical meals and Branch at bedtime for 30 days. insulin NPH 2021-03- No [id number] 15U inject 15 Univers and regular 0-05 11-05 Units ity of human 70-30 00:00: 04:59 under the [place] 100 unit/mL 00 :00 skin 2 Medica l (70-30) (two) Branch injection times daily before breakfast and dinner for 30 days. furosemide 2021-03- No [id number] 40mg Take 1 Univers 40 mg 0-05 11-05 tablet by ity of tablet 00:00: 04:59 mouth [place] 00 :00 every Medical morning Branch and evening for 30 days. amiodarone 2021-03- No [id number] 200mg Take 1 Univers 200 mg 0-05 11-05 tablet by ity of tablet 00:00: 04:59 mouth in [place] 00 :00 the Medical morning Branch for 30 days. sucralfate 2021-03- No [id number] 1g Take 1 Univers 1 gram 0-05 11-05 tablet by ity of tablet 00:00: 04:59 mouth [place] 00 :00 before Medical meals and Branch at bedtime for 30 days. insulin NPH 2021-03- No [id number] 15U inject 15 Univers and regular 0-05 11-05 Units ity of human 70-30 00:00: 04:59 under the [place] 100 unit/mL 00 :00 skin 2 Medica l (70-30) (two) Branch injection times daily before breakfast and dinner for 30 days. furosemide 2021-03 No [id number] 40mg Take 1 Univers 40 mg 0-05 11-05 tablet by ity of tablet 00:00: 04:59 mouth [place] 00 :00 every Medical morning Branch and evening for 30 days. amiodarone 2021-03 No [id number] 200mg Take 1 Univers 200 mg 0-05 11-05 tablet by ity of tablet 00:00: 04:59 mouth in [place] 00 :00 the Medical morning Branch for 30 days. sucralfate 2021-03- No [id number] 1g Take 1 Univers 1 gram 0-05 11-05 tablet by ity of tablet 00:00: 04:59 mouth [place] 00 :00 before Medical meals and Branch at bedtime for 30 days. insulin NPH 2021-03- No [id number] 15U inject 15 Univers and regular 0-05 11-05 Units ity of human 70-30 00:00: 04:59 under the [place] 100 unit/mL 00 :00 skin 2 Medica l (70-30) (two) Branch injection times daily before breakfast and dinner for 30 days. furosemide 2021-03- No [id number] 40mg Take 1 [facility] 40 mg 0-05 11-05 tablet by ity of tablet 00:00: 04:59 mouth [place] 00 :00 every Medical morning Branch and evening for 30 days. amiodarone 2021-03- No [id number] 200mg Take 1 [facility] 200 mg 0-05 11-05 tablet by ity of tablet 00:00: 04:59 mouth in [place] 00 :00 the Medical morning Branch for 30 days. sucralfate 2021-03- No [id number] 1g Take 1 [facility] 1 gram 0-05 11-05 tablet by ity of tablet 00:00: 04:59 mouth [place] 00 :00 before Medical meals and Branch at bedtime for 30 days. insulin NPH 2021-03- No [id number] 15U inject 15 [facility] and regular 0-05 11-05 Units ity of human 70-30 00:00: 04:59 under the [place] 100 unit/mL 00 :00 skin 2 Medica l (70-30) (two) Branch injection times daily before breakfast and dinner for 30 days. furosemide 2021-03- No [id number] 40mg Take 1 [facility] 40 mg 0-05 11-05 tablet by ity of tablet 00:00: 04:59 mouth [place] 00 :00 every Medical morning Branch and evening for 30 days. amiodarone 2021-03- No [id number] 200mg Take 1 [facility] 200 mg 0-05 11-05 tablet by ity of tablet 00:00: 04:59 mouth in [place] 00 :00 the Medical morning Branch for 30 days. sucralfate 2021-03- No [id number] 1g Take 1 [facility] 1 gram 0-05 11-05 tablet by ity of tablet 00:00: 04:59 mouth [place] 00 :00 before Medical meals and Branch at bedtime for 30 days. insulin NPH 2021-03- No [id number] 15U inject 15 [facility] and regular 0-05 11-05 Units ity of human 70-30 00:00: 04:59 under the [place] 100 unit/mL 00 :00 skin 2 Medica l (70-30) (two) Branch injection times daily before breakfast and dinner for 30 days. furosemide 2021-03- No [id number] 40mg Take 1 [facility] 40 mg 0-05 11-05 tablet by ity of tablet 00:00: 04:59 mouth [place] 00 :00 every Medical morning Branch and evening for 30 days. amiodarone 2021-03- No [id number] 200mg Take 1 [facility] 200 mg 0-05 11-05 tablet by ity of tablet 00:00: 04:59 mouth in [place] 00 :00 the Medical morning Branch for 30 days. sucralfate 2021-03- No [id number] 1g Take 1 [facility] 1 gram 0-05 11-05 tablet by ity of tablet 00:00: 04:59 mouth [place] 00 :00 before Medical meals and Branch at bedtime for 30 days. insulin NPH 2021-03- No [id number] 15U inject 15 [facility] and regular 0-05 11-05 Units ity of human 70-30 00:00: 04:59 under the [place] 100 unit/mL 00 :00 skin 2 Medica l (70-30) (two) Branch injection times daily before breakfast and dinner for 30 days. furosemide 2021-03- No [id number] 40mg Take 1 [facility] 40 mg 0-05 11-05 tablet by ity of tablet 00:00: 04:59 mouth [place] 00 :00 every Medical morning Branch and evening for 30 days. amiodarone 2021-03- No [id number] 200mg Take 1 [facility] 200 mg 0-05 11-05 tablet by ity of tablet 00:00: 04:59 mouth in [place] 00 :00 the Medical morning Branch for 30 days. sucralfate 2021-03- No [id number] 1g Take 1 [facility] 1 gram 0-05 11-05 tablet by ity of tablet 00:00: 04:59 mouth [place] 00 :00 before Medical meals and Branch at bedtime for 30 days. insulin NPH 2021-03- No [id number] 15U inject 15 [facility] and regular 0-05 11-05 Units ity of human 70-30 00:00: 04:59 under the [place] 100 unit/mL 00 :00 skin 2 Medica l (70-30) (two) Branch injection times daily before breakfast and dinner for 30 days. furosemide 2021-03- No [id number] 40mg Take 1 [facility] 40 mg 0-05 11-05 tablet by ity of tablet 00:00: 04:59 mouth [place] 00 :00 every Medical morning Branch and evening for 30 days. amiodarone 2021-03- No [id number] 200mg Take 1 [facility] 200 mg 0-05 11-05 tablet by ity of tablet 00:00: 04:59 mouth in [place] 00 :00 the Medical morning Branch for 30 days. sucralfate 2021-03- No [id number] 1g Take 1 [facility] 1 gram 0-05 11-05 tablet by ity of tablet 00:00: 04:59 mouth [place] 00 :00 before Medical meals and Branch at bedtime for 30 days. insulin NPH 2021-03- No [id number] 15U inject 15 [facility] and regular 0-05 11-05 Units ity of human 70-30 00:00: 04:59 under the [place] 100 unit/mL 00 :00 skin 2 Medica l (70-30) (two) Branch injection times daily before breakfast and dinner for 30 days. furosemide 2021-03- No [id number] 40mg Take 1 [facility] 40 mg 0-05 11-05 tablet by ity of tablet 00:00: 04:59 mouth [place] 00 :00 every Medical morning Branch and evening for 30 days. amiodarone 2021-03- No [id number] 200mg Take 1 [facility] 200 mg 0-05 11-05 tablet by ity of tablet 00:00: 04:59 mouth in [place] 00 :00 the Medical morning Branch for 30 days. sucralfate 2021-03- No [id number] 1g Take 1 [facility] 1 gram 0-05 11-05 tablet by ity of tablet 00:00: 04:59 mouth [place] 00 :00 before Medical meals and Branch at bedtime for 30 days. insulin NPH 2021-03- No [id number] 15U inject 15 [facility] and regular 0-05 11-05 Units ity of human 70-30 00:00: 04:59 under the [place] 100 unit/mL 00 :00 skin 2 Medica l (70-30) (two) Branch injection times daily before breakfast and dinner for 30 days. furosemide 2021-03- No [id number] 40mg Take 1 [facility] 40 mg 0-05 11-05 tablet by ity of tablet 00:00: 04:59 mouth [place] 00 :00 every Medical morning Branch and evening for 30 days. amiodarone 2021-03- No [id number] 200mg Take 1 [facility] 200 mg 0-05 11-05 tablet by ity of tablet 00:00: 04:59 mouth in [place] 00 :00 the Medical morning Branch for 30 days. sucralfate 2021-03- No [id number] 1g Take 1 [facility] 1 gram 0-05 11-05 tablet by ity of tablet 00:00: 04:59 mouth [place] 00 :00 before Medical meals and Branch at bedtime for 30 days. insulin NPH 2021-03- No [id number] 15U inject 15 [facility] and regular 0-05 11-05 Units ity of human 70-30 00:00: 04:59 under the [place] 100 unit/mL 00 :00 skin 2 Medica l (70-30) (two) Branch injection times daily before breakfast and dinner for 30 days. furosemide 2021-03- No [id number] 40mg Take 1 [facility] 40 mg 0-05 11-05 tablet by ity of tablet 00:00: 04:59 mouth [place] 00 :00 every Medical morning Branch and evening for 30 days. amiodarone 2021-03- No [id number] 200mg Take 1 [facility] 200 mg 0-05 11-05 tablet by ity of tablet 00:00: 04:59 mouth in [place] 00 :00 the Medical morning Branch for 30 days. sucralfate 2021-03- No [id number] 1g Take 1 [facility] 1 gram 0-05 11-05 tablet by ity of tablet 00:00: 04:59 mouth [place] 00 :00 before Medical meals and Branch at bedtime for 30 days. insulin NPH 2021-03- No [id number] 15U inject 15 [facility] and regular 0-05 11-05 Units ity of human 70-30 00:00: 04:59 under the [place] 100 unit/mL 00 :00 skin 2 Medica l (70-30) (two) Branch injection times daily before breakfast and dinner for 30 days. furosemide 2021-03- No [id number] 40mg Take 1 [facility] 40 mg 0-05 11-05 tablet by ity of tablet 00:00: 04:59 mouth [place] 00 :00 every Medical morning Branch and evening for 30 days. amiodarone 2021-03- No [id number] 200mg Take 1 [facility] 200 mg 0-05 11-05 tablet by ity of tablet 00:00: 04:59 mouth in [place] 00 :00 the Medical morning Branch for 30 days. sucralfate 2021-03- No [id number] 1g Take 1 [facility] 1 gram 0-05 11-05 tablet by ity of tablet 00:00: 04:59 mouth [place] 00 :00 before Medical meals and Branch at bedtime for 30 days. insulin NPH 2021-03- No [id number] 15U inject 15 [facility] and regular 0-05 11-05 Units ity of human 70-30 00:00: 04:59 under the [place] 100 unit/mL 00 :00 skin 2 Medica l (70-30) (two) Branch injection times daily before breakfast and dinner for 30 days. amiodarone 2021-03- No [id number] 200mg Take 1 [facility] 200 mg 0-05 11-05 tablet by ity of tablet 00:00: 04:59 mouth in [place] 00 :00 the Medical morning Branch for 30 days. sucralfate 2021-03- No [id number] 1g Take 1 [facility] 1 gram 0-05 11-05 tablet by ity of tablet 00:00: 04:59 mouth [place] 00 :00 before Medical meals and Branch at bedtime for 30 days. insulin NPH 2021-03- No [id number] 15U inject 15 [facility] and regular 0-05 11-05 Units ity of human 70-30 00:00: 04:59 under the [place] 100 unit/mL 00 :00 skin 2 Medica l (70-30) (two) Branch injection times daily before breakfast and dinner for 30 days. furosemide 2021-03- No [id number] 40mg Take 1 [facility] 40 mg 0-05 11-05 tablet by ity of tablet 00:00: 04:59 mouth [place] 00 :00 every Medical morning Branch and evening for 30 days. furosemide 2021-03- No [id number] 40mg Take 1 [facility] 40 mg 0-05 11-04 tablet by ity of tablet 00:00: 00:00 mouth [place] 00 :00 every Medical morning Branch and evening for 30 days. metoprolol 2021-03- No [id number] 100mg Take 1 [facility] succinate 0-05 10-05 tablet by ity of XL 100 mg 00:00: 00:00 mouth in [place] 24 hr 00 :00 the Medical tablet morning Branch and 1 tablet in the evening. Do all this for 60 days. metoprolol 2021-03 No [id number] 100mg Take 1 [facility] succinate 0-05 10-05 tablet by ity of XL 100 mg 00:00: 00:00 mouth in [place] 24 hr 00 :00 the Medical tablet morning Branch and 1 tablet in the evening. Do all this for 60 days. omeprazole 2021-03 Yes 40mg 40 mg, Unive rs (PRILOSEC) 0-04 Oral, ity of capsule 40 23:30: DAILY, [place] mg 00 First dose Medical on [facility] 12/02/21 at 1830, Until Discontinu ed, Routine insulin NPH 2021-03 Yes 15U 15 Units, U nivers and regular 0-04 Subcutaneo it y of human 7030 23:30: [place], [place] (7030 00 First dose Medical U-100 (after Branch INSULIN) last 100 unit/mL modificati (70-30) on) on injection 12/02/21 at 15 Units 1830, Until Discontinu ed, Routine furosemide 2021-03 Yes 40mg 40 mg, Unive rs (LASIX) 0-04 Oral, ity of tablet 40 23:30: QAM+PM, [place] mg 00 First dose Medical on [facility] 12/02/21 at 1830, Until Discontinu ed, Routine omeprazole 2021-03 No 40mg 40 mg, Univ ers (PRILOSEC) 0-04 10-05 Oral, ity of capsule 40 23:30: 21:30 DAILY, [place] mg 00 :57 First dose Medical on [facility] 12/02/21 at 1830, Until Discontinu ed, Routine insulin NPH 2021-03 No 15U 15 Units, Univers and regular 0-04 10-05 Subcutaneo i ty of human 7030 23:30: 21:30 , [place], [place] (30 00 :57 First dose Medical U-100 (after Branch INSULIN) last 100 unit/mL modificati (70-30) on) on injection 12/02/21 at 15 Units 1830, Until Discontinu ed, Routine furosemide 2021-03 No 40mg 40 mg, Univ ers (LASIX) 0-04 10-05 Oral, ity of tablet 40 23:30: 21:30 QAM+PM, [place] mg 00 :57 First dose Medical on 12/02/21 at 1830, Until Discontinu ed, Routine dextrose 2021-03 Yes 250mL 250 mL, IV Un loi 10% (D10W) 0-04 Infusion, ity of bolus 23:20: PRN - SEE [place] infusion 32 INSTRUCTIO Medic al 250 mL NS, Branch Administer over 60 Minutes, Other, If blood glucose is < or = 70 mg/dL and patient is unable to swallow or has mental status changes, Starting on Wed12/02/21 at 1820
If blood glucose is < or = 70 mg/dL and patient is unable to swallow or has mental status changes (Give glucagon order if patient needs fluid restrictio n): IF IV access available: Dextrose 10%. 1. 125 mL (? bag) of D10W IV infusion - equivalent to 12.5 g dextrose 2. Blood glucose - draw blood glucose 15 minutes after D10W Administra tion. 3. If blood glucose is < 80 mg/dL, repeat.
dextrose 2021-03- No 250mL 250 mL, IV U nivers 10% (D10W) 0-04 10-05 Infusion, ity of bolus 23:20: 21:30 PRN - SEE [place] infusion 32 :57 INSTRUCTIO Medic al 250 mL NS, Branch Administer over 60 Minutes, Other, If blood glucose is < or = 70 mg/dL and patient is unable to swallow or has mental status changes, Starting on Wed12/02/21 at 1820
If blood glucose is < or = 70 mg/dL and patient is unable to swallow or has mental status changes (Give glucagon order if patient needs fluid restrictio n): IF IV access available: Dextrose 10%. 1. 125 mL (? bag) of D10W IV infusion - equivalent to 12.5 g dextrose 2. Blood glucose - draw blood glucose 15 minutes after D10W Administra tion. 3. If blood glucose is < 80 mg/dL, repeat.
glucagon 2021-03 Yes 1mg 1 mg, Univers (GLUCAGEN 0-04 Intramuscu ity of DIAGNOSTIC 23:20: [place], PRN, [place] KIT) 30 Starting Medical injection 1 on [facility] mg 12/02/21 at 1820, Until Discontinu ed, EUSEBIO, Blood Glucose < or = 70 mg/dL and patient is unable to swallow or has mental changes. glucagon 2021-03- No 1mg 1 mg, Univers (GLUCAGEN 0-04 10-05 Intramuscu ity of DIAGNOSTIC 23:20: 21:30 lar, PRN, [place] KIT) 30 :57 Starting Medical injection 1 on [facility] Branch mg 12/02/21 at 1820, Until Wed12/03/21 at 1630, EUSEBIO, Blood Glucose < or = 70 mg/dL and patient is unable to swallow or has mental changes. acetaminoph 2021-03 Yes 650mg 650 mg, Un oli en 0-04 Oral, ity of (TYLENOL) 23:13: Q6HPRN, [place] tablet 650 43 Starting Medic al mg on [facility] 12/02/21 at 1813, Until Discontinu ed, Routine, Pain (scale 1-3) acetaminoph 2021-03- No 650mg 650 mg, U nivers en 0-04 1005 Oral, ity of (TYLENOL) 23:13: 21:30 Q6HPRN, [place] tablet 650 43 :57 Starting Medic al mg on [facility] 12/02/21 at 1813, Until Wed12/03/21 at 1630, Routine, Pain (scale 1-3) lidocaine 2021-03- No ONCE INTRA U nivers 1% (PF) 0-04 10 PROCEDURE, ity o f (XYLOCAINE) 17:46: 22:10 Starting [place] injection 08 :29 on [facility] 12/02/21 at Branch 1246, Until Wed12/02/21 at 1710, Routine, CV Intraproce dure iopamidol 2021-03- No [id number] 80mL 80 mL, Univers (ISOVUE 0-04 10- Intravenou ity o f 370-500 mL) 13:49: 13:49 s, ONCE, 1 [place] injection 00 :00 dose, On Medica l 80 mL Keyno Ardon 12/02/21 at 0915, Routine digoxin 125 2022-0 Yes .125mg Take 1 Un loi mcg tablet 9-06 tablet by ity of 00:00: mouth in [place] 00 the Medical morning. Branch digoxin 125 2022-0 Yes .125mg Take 1 Un loi mcg tablet 9-06 tablet by ity of 00:00: mouth in [place] 00 the Medical morning. Branch digoxin 125 2022-0 Yes .125mg Take 1 Un loi mcg tablet 9-06 tablet by ity of 00:00: mouth in [place] 00 the Medical morning. Branch digoxin 125 2022-0 Yes .125mg Take 1 Un loi mcg tablet 9-06 tablet by ity of 00:00: mouth in [place] 00 the Medical morning. Branch digoxin 125 2022-0 Yes .125mg Take 1 Un loi mcg tablet 9-06 tablet by ity of 00:00: mouth in [place] 00 the Medical morning. Branch digoxin 125 2022-0 Yes .125mg Take 1 Un loi mcg tablet 9-06 tablet by ity of 00:00: mouth in [place] 00 the Medical morning. Branch digoxin 125 2022-0 Yes .125mg Take 1 Un loi mcg tablet 9-06 tablet by ity of 00:00: mouth in [place] 00 the Medical morning. Branch digoxin 125 2022-0 Yes .125mg Take 1 Un loi mcg tablet 9-06 tablet by ity of 00:00: mouth in [place] 00 the Medical morning. Branch digoxin 125 2022-0 Yes .125mg Take 1 Un loi mcg tablet 9-06 tablet by ity of 00:00: mouth in [place] 00 the Medical morning. Branch digoxin 125 2022-0 Yes .125mg Take 1 Un loi mcg tablet 9-06 tablet by ity of 00:00: mouth in [place] 00 the Medical morning. Branch digoxin 125 2022-0 Yes .125mg Take 1 Un loi mcg tablet 9-06 tablet by ity of 00:00: mouth in [place] 00 the Medical morning. Branch digoxin 125 2022-0 Yes .125mg Take 1 Un loi mcg tablet 9-06 tablet by ity of 00:00: mouth in [place] 00 the Medical morning. Branch digoxin 125 2022-0 Yes .125mg Take 1 Un loi mcg tablet 9-06 tablet by ity of 00:00: mouth in [place] 00 the Medical morning. Branch digoxin 125 2022-0 2022- No .125mg Take 1 U nivers mcg tablet 11-04 10-05 tablet by ity of 00:00: 00:00 mouth in [place] 00 :00 the Medical morning. Branch metFORMIN 2-0 Yes [id number] 1000mg Take 1 [facility] 1,000 mg 6-06 tablet by ity of tablet 00:00: mouth [place] (two) Medical times Branch daily with meals. metFORMIN 2022-0 Yes [id number] 1000mg Take 1 [facility] 1,000 mg 6-06 tablet by ity of tablet 00:00: mouth [place] ([facility]) Medical times Branch daily with meals. metFORMIN 2022-0 Yes [id number] 1000mg Take 1 [facility] 1,000 mg 6-06 tablet by ity of tablet 00:00: mouth [place] ([facility]) Medical times Branch daily with meals. metFORMIN 2021-0 Yes [id number] 1000mg Take 1 [facility] 1,000 mg 6-06 tablet by ity of tablet 00:00: mouth [place] ([facility]) Medical times Branch daily with meals. metFORMIN 2-0 Yes [id number] 1000mg Take 1 [facility] 1,000 mg 6-06 tablet by ity of tablet 00:00: mouth [place] ([facility]) Medical times Branch daily with meals. metFORMIN 2022-0 Yes [id number] 1000mg Take 1 [facility] 1,000 mg 6-06 tablet by ity of tablet 00:00: mouth [place] ([facility]) Medical times Branch daily with meals. metFORMIN 2022-0 Yes [id number] 1000mg Take 1 [facility] 1,000 mg 6-06 tablet by ity of tablet 00:00: mouth [place] ([facility]) Medical times Branch daily with meals. metFORMIN 2022-0 Yes [id number] 1000mg Take 1 [facility] 1,000 mg 6-06 tablet by ity of tablet 00:00: mouth [place] ([facility]) Medical times Branch daily with meals. metFORMIN 2022-0 Yes [id number] 1000mg Take 1 [facility] 1,000 mg 6-06 tablet by ity of tablet 00:00: mouth [place] ([facility]) Medical times Branch daily with meals. metFORMIN 2022-0 Yes [id number] 1000mg Take 1 [facility] 1,000 mg 6-06 tablet by ity of tablet 00:00: mouth (two) Medical times Branch daily with meals. metFORMIN 2022-0 Yes [id number] 1000mg Take 1 [facility] 1,000 mg 6-06 tablet by ity of tablet 00:00: mouth (two) Medical times Branch daily with meals. metFORMIN 2022-0 Yes [id number] 1000mg Take 1 [facility] 1,000 mg 6-06 tablet by ity of tablet 00:00: mouth (two) Medical times Branch daily with meals. metFORMIN 2022-0 Yes [id number] 1000mg Take 1 [facility] 1,000 mg 6-06 tablet by ity of tablet 00:00: mouth (two) Medical times Branch daily with meals. metFORMIN 2022-0 Yes [id number] 1000mg Take 1 [facility] 1,000 mg 6-06 tablet by ity of tablet 00:00: mouth (two) Medical times Branch daily with meals. metFORMIN 2022-0 Yes [id number] 1000mg Take 1 [facility] 1,000 mg 6-06 tablet by ity of tablet 00:00: mouth (two) Medical times Branch daily with meals. metFORMIN 2022-0 Yes [id number] 1000mg Take 1 [facility] 1,000 mg 6-06 tablet by ity of tablet 00:00: mouth (two) Medical times Branch daily with meals. metFORMIN 2022-0 Yes [id number] 1000mg Take 1 [facility] 1,000 mg 6-06 tablet by ity of tablet 00:00: mouth (two) Medical times Branch daily with meals. metFORMIN 2022-0 Yes [id number] 1000mg Take 1 [facility] 1,000 mg 6-06 tablet by ity of tablet 00:00: mouth (two) Medical times Branch daily with meals. metFORMIN 2022-0 Yes [id number] 1000mg Take 1 [facility] 1,000 mg 6-06 tablet by ity of tablet 00:00: mouth (two) Medical times Branch daily with meals. metFORMIN 2022-0 Yes [id number] 1000mg Take 1 [facility] 1,000 mg 6-06 tablet by ity of tablet 00:00: mouth (two) Medical times Branch daily with meals. metFORMIN 2022-0 Yes [id number] 1000mg Take 1 [facility] 1,000 mg 6-06 tablet by ity of tablet 00:00: mouth (two) Medical times Branch daily with meals. metFORMIN 2022-0 Yes [id number] 1000mg Take 1 [facility] 1,000 mg 6-06 tablet by ity of tablet 00:00: mouth (two) Medical times Branch daily with meals. metFORMIN 2022-0 Yes [id number] 1000mg Take 1 [facility] 1,000 mg 6-06 tablet by ity of tablet 00:00: mouth (two) Medical times Branch daily with meals. metFORMIN 2022-0 Yes [id number] 1000mg Take 1 [facility] 1,000 mg 6-06 tablet by ity of tablet 00:00: mouth (two) Medical times Branch daily with meals. metFORMIN 2022-0 Yes [id number] 1000mg Take 1 [facility] 1,000 mg 6-06 tablet by ity of tablet 00:00: mouth (two) Medical times Branch daily with meals. metFORMIN 2022-0 Yes [id number] 1000mg Take 1 [facility] 1,000 mg 6-06 tablet by ity of tablet 00:00: mouth (two) Medical times Branch daily with meals. metFORMIN 2022-0 Yes [id number] 1000mg Take 1 [facility] 1,000 mg 6-06 tablet by ity of tablet 00:00: mouth (two) Medical times Branch daily with meals. metFORMIN 2022-0 Yes [id number] 1000mg Take 1 [facility] 1,000 mg 6-06 tablet by ity of tablet 00:00: mouth (two) Medical times Branch daily with meals. metFORMIN 2022-0 Yes [id number] 1000mg Take 1 [facility] 1,000 mg 6-06 tablet by ity of tablet 00:00: mouth (two) Medical times Branch daily with meals. metFORMIN 2022-0 Yes [id number] 1000mg Take 1 [facility] 1,000 mg 6-06 tablet by ity of tablet 00:00: mouth (two) Medical times Branch daily with meals. metFORMIN 2022-0 Yes [id number] 1000mg Take 1 [facility] 1,000 mg 6-06 tablet by ity of tablet 00:00: mouth (two) Medical times Branch daily with meals. metFORMIN 2022-0 Yes [id number] 1000mg Take 1 [facility] 1,000 mg 6-06 tablet by ity of tablet 00:00: mouth 2 [place] 00 (two) Medical times Branch daily with meals. metFORMIN 2021-0 Yes [id number] 1000mg Take 1 [facility] 1,000 mg 6-06 tablet by ity of tablet 00:00: mouth 2 00 (two) Medical times Branch daily with meals. metFORMIN 2021-0 Yes [id number] 1000mg Take 1 [facility] 1,000 mg 6-06 tablet by ity of tablet 00:00: mouth 2 [place] 00 (two) Medical times Branch daily with meals. metFORMIN 2021-0 2021- No [id number] 1000mg Take 1 [facility] 1,000 mg 6-06 11-04 tablet by ity o f tablet 00:00: 00:00 mouth 2 [place] 00 :00 (two) Medical times Branch daily with meals. metoprolol Yes [id number] 125mg Take 2.5 [facility] succinate 5-24 tablets by ity of XL 50 mg 24 00:00: mouth 2 [place] hr tablet 00 (two) Medical times Branch daily. digoxin 125 0 Yes .125mg Take 1 Un loi mcg tablet 5-24 tablet by ity of 00:00: mouth 00 daily. Medical Branch diltiazem 0 Yes [id number] 180mg Take 1 U nivers (CARDIZEM 5-24 capsule by ity of CD) 180 mg 00:00: mouth 2 [place] 24 [place] 00 (two) Medical capsule times Branch daily. spironolact 0 Yes [id number] 50mg Take 1 [facility] one 50 mg 5-24 tablet by ity o f tablet 00:00: mouth 00 daily. Medical Branch furosemide 2021-0 Yes [id number] 40mg in AM Univers 40 mg 5-24 02 20mg in PM ity of tablet 00:00: [place] 00 Medical Branch metoprolol 2021-0 Yes [id number] 125mg Take 2.5 [facility] succinate 5-24 tablets by ity of XL 50 mg 24 00:00: mouth 2 [place] hr tablet 00 (two) Medical times Branch daily. digoxin 125 2021-0 Yes .125mg Take 1 Un loi mcg tablet 5-24 tablet by ity of 00:00: mouth [place] 00 daily. Medical Branch diltiazem 0 Yes [id number] 180mg Take 1 U nivers (CARDIZEM 5-24 capsule by ity of CD) 180 mg 00:00: mouth 2 [place] 24 [place] 00 (two) Medical capsule times Branch daily. spironolact 2021-0 Yes [id number] 50mg Take 1 [facility] one 50 mg 5-24 tablet by ity o f tablet 00:00: mouth [place] 00 daily. Medical Branch furosemide 2021-0 Yes [id number] 40mg in AM Univers 40 mg 5-24 02 20mg in PM ity of tablet 00:00: [place] 00 Medical Branch metoprolol 2021-0 Yes [id number] 125mg Take 2.5 [facility] succinate 5-24 tablets by ity of XL 50 mg 24 00:00: mouth 2 [place] hr tablet 00 (two) Medical times Branch daily. digoxin 125 2021-0 Yes .125mg Take 1 Un loi mcg tablet 5-24 tablet by ity of 00:00: mouth [place] 00 daily. Medical Branch diltiazem 2021-0 Yes [id number] 180mg Take 1 U nivers (CARDIZEM 5-24 capsule by ity of CD) 180 mg 00:00: mouth 2 [place] 24 [place] 00 (two) Medical capsule times Branch daily. spironolact 2021-0 Yes [id number] 50mg Take 1 [facility] one 50 mg 5-24 tablet by ity o f tablet 00:00: mouth 00 daily. Medical Branch furosemide 2021-0 Yes [id number] 40mg in AM Univers 40 mg 5-24 02 20mg in PM ity of tablet 00:00: [place] 00 Medical Branch metoprolol 2021-0 Yes [id number] 125mg Take 2.5 [facility] succinate 5-24 tablets by ity of XL 50 mg 24 00:00: mouth 2 [place] hr tablet 00 (two) Medical times Branch daily. digoxin 125 2021-0 Yes .125mg Take 1 Un loi mcg tablet 5-24 tablet by ity of 00:00: mouth [place] 00 daily. Medical Branch diltiazem 2021-0 Yes [id number] 180mg Take 1 U nivers (CARDIZEM 5-24 capsule by ity of CD) 180 mg 00:00: mouth 2 [place] 24 [place] 00 (two) Medical capsule times Branch daily. spironolact 2021-0 Yes [id number] 50mg Take 1 [facility] one 50 mg 5-24 tablet by ity o f tablet 00:00: mouth [place] 00 daily. Medical Branch furosemide 2021-0 Yes [id number] 40mg in AM Univers 40 mg 5-24 02 20mg in PM ity of tablet 00:00: 00 Medical Branch metoprolol 2021-0 Yes [id number] 125mg Take 2.5 [facility] succinate 5-24 tablets by ity of XL 50 mg 24 00:00: mouth 2 [place] hr tablet 00 (two) Medical times Branch daily. diltiazem 2021-0 Yes [id number] 180mg Take 1 U nivers (CARDIZEM 5-24 capsule by ity of CD) 180 mg 00:00: mouth 2 [place] 24 [place] 00 (two) Medical capsule times Branch daily. spironolact 2021-0 Yes [id number] 50mg Take 1 [facility] one 50 mg 5-24 tablet by ity o f tablet 00:00: mouth daily. Medical Branch furosemide 2021-0 Yes [id number] 40mg in AM [facility] 40 mg 5-24 02 20mg in PM ity of tablet 00:00: Medical Branch metoprolol 2021-0 Yes [id number] 125mg Take 2.5 [facility] succinate 5-24 tablets by ity of XL 50 mg 24 00:00: mouth 2 [place] hr tablet 00 (two) Medical times Branch daily. diltiazem 2021-0 Yes [id number] 180mg Take 1 U nivers (CARDIZEM 5-24 capsule by ity of CD) 180 mg 00:00: mouth 2 [place] 24 [place] 00 (two) Medical capsule times Branch daily. spironolact 2021-0 Yes [id number] 50mg Take 1 [facility] one 50 mg 5-24 tablet by [facility] o f tablet 00:00: mouth daily. [facility] furosemide 2021-0 Yes [id number] 40mg in AM [facility] 40 mg 5-24 02 20mg in PM [facility] tablet 00:00: 00 [facility] metoprolol 2021-0 Yes [id number] 125mg Take 2.5 [facility] succinate 5-24 tablets by [facility] of XL 50 mg 24 00:00: mouth 2 [place] tablet 00 (two) Medical times [facility] daily. diltiazem 2021-0 Yes [id number] 180mg Take 1 [facility] (CARDIZEM 5-24 capsule by [facility] CD) 180 mg 00:00: [place] 00 (two) [facility] capsule times [facility] daily. spironolact 2021-0 Yes [id number] 50mg Take 1 [facility] one 50 mg 5-24 tablet by [facility] o f tablet 00:00: mouth [place] 00 daily. [facility] furosemide 2021-0 Yes [id number] 40mg in AM [facility] 40 mg 5-24 02 20mg in PM [facility] tablet 00:00: 00 [facility] metoprolol 2021-0 Yes [id number] 125mg Take 2.5 [facility] succinate 5-24 tablets by [facility] of XL 50 mg 24 00:00: mouth 2 [place] tablet 00 (two) Medical times [facility] daily. diltiazem 2021-0 Yes [id number] 180mg Take 1 [facility] (CARDIZEM 5-24 capsule by [facility] ) 180 mg 00:00: mouth [place] 00 (two) [facility] capsule times [facility] daily. spironolact 2021-0 Yes [id number] 50mg Take 1 [facility] one 50 mg 5-24 tablet by [facility] o f tablet 00:00: mouth 00 daily. [facility] furosemide 2021-0 Yes [id number] 40mg in AM [facility] 40 mg 5-24 02 20mg in PM [facility] tablet 00:00: 00 [facility] metoprolol 2021-0 Yes [id number] 125mg Take 2.5 [facility] succinate 5-24 tablets by [facility] of XL 50 mg 24 00:00: mouth 2 [place] tablet 00 (two) Medical times [facility] daily. diltiazem 2021-0 Yes [id number] 180mg Take 1 [facility] (CARDIZEM 5-24 capsule by [facility] ) 180 mg 00:00: mouth 2 [place] 00 (two) [facility] capsule times [facility] daily. spironolact 2021-0 Yes [id number] 50mg Take 1 [facility] one 50 mg 5-24 tablet by [facility] o f tablet 00:00: mouth 00 daily. [facility] furosemide 2021-0 Yes [id number] 40mg in AM [facility] 40 mg 5-24 02 20mg in PM [facility] tablet 00:00: 00 [facility] metoprolol 2021-0 Yes [id number] 125mg Take 2.5 [facility] succinate 5-24 tablets by [facility] of XL 50 mg 24 00:00: mouth 2 [place] tablet 00 (two) Medical times [facility] daily. diltiazem 2021-0 Yes [id number] 180mg Take 1 [facility] (CARDIZEM 5-24 capsule by [facility] CD) 180 mg 00:00: mouth 2 [place] 00 (two) [facility] capsule times [facility] daily. spironolact 2021-0 Yes [id number] 50mg Take 1 [facility] one 50 mg 5-24 tablet by [facility] o f tablet 00:00: mouth [place] 00 daily. [facility] furosemide 2021-0 Yes [id number] 40mg in AM [facility] 40 mg 5-24 02 20mg in PM [facility] tablet 00:00: 00 [facility] metoprolol 2021-0 Yes [id number] 125mg Take 2.5 [facility] succinate 5-24 tablets by [facility] of XL 50 mg 24 00:00: mouth 2 [place] tablet 00 (two) Medical times [facility] daily. diltiazem 2021-0 Yes [id number] 180mg Take 1 [facility] (CARDIZEM 5-24 capsule by [facility] CD) 180 mg 00:00: mouth 2 [place] 00 (two) [facility] capsule times [facility] daily. spironolact 2021-0 Yes [id number] 50mg Take 1 [facility] one 50 mg 5-24 tablet by [facility] o f tablet 00:00: mouth 00 daily. [facility] furosemide 2021-0 Yes [id number] 40mg in AM [facility] 40 mg 5-24 02 20mg in PM [facility] tablet 00:00: 00 [facility] metoprolol 2021-0 Yes [id number] 125mg Take 2.5 [facility] succinate 5-24 tablets by [facility] XL 50 mg 24 00:00: mouth 2 [place] tablet 00 (two) Medical times [facility] daily. diltiazem 2021-0 Yes [id number] 180mg Take 1 [facility] (CARDIZEM 5-24 capsule by [facility] CD) 180 mg 00:00: mouth 2 [place] 24 [place] 00 (two) Medical capsule times [facility] daily. spironolact 2021-0 Yes [id number] 50mg Take 1 [facility] one 50 mg 5-24 tablet by [facility] o f tablet 00:00: mouth [place] 00 daily. [facility] furosemide 2021-0 Yes [id number] 40mg in AM [facility] 40 mg 5-24 02 20mg in PM [facility] tablet 00:00: 00 [facility] metoprolol 2021-0 Yes [id number] 125mg Take 2.5 [facility] succinate 5-24 tablets by [facility] of XL 50 mg 24 00:00: mouth 2 [place] tablet 00 (two) Medical times [facility] daily. diltiazem 2021-0 Yes [id number] 180mg Take 1 [facility] (CARDIZEM 5-24 capsule by [facility] of CD) 180 mg 00:00: mouth 2 [place] 24 [place] 00 (two) Medical capsule times [facility] daily. spironolact 2021-0 Yes [id number] 50mg Take 1 [facility] one 50 mg 5-24 tablet by [facility] o f tablet 00:00: mouth 00 daily. [facility] furosemide 2021-0 Yes [id number] 40mg in AM [facility] 40 mg 5-24 02 20mg in PM [facility] tablet 00:00: 00 [facility] metoprolol 2021-0 Yes [id number] 125mg Take 2.5 [facility] succinate 5-24 tablets by [facility] of XL 50 mg 24 00:00: mouth 2 [place] tablet 00 (two) Medical times [facility] daily. diltiazem 2021-0 Yes [id number] 180mg Take 1 [facility] (CARDIZEM 5-24 capsule by [facility] of CD) 180 mg 00:00: mouth 2 [place] 00 (two) Medical capsule times [facility] daily. spironolact 2021-0 Yes [id number] 50mg Take 1 [facility] one 50 mg 5-24 tablet by [facility] o f tablet 00:00: mouth daily. [facility] furosemide 2021-0 Yes [id number] 40mg in AM [facility] 40 mg 5-24 02 20mg in PM [facility] tablet 00:00: 00 [facility] metoprolol 2021-0 Yes [id number] 125mg Take 2.5 [facility] succinate 5-24 tablets by [facility] of XL 50 mg 24 00:00: mouth 2 [place] tablet 00 (two) Medical times [facility] daily. diltiazem 2021-0 Yes [id number] 180mg Take 1 [facility] (CARDIZEM 5-24 capsule by [facility] of CD) 180 mg 00:00: mouth 2 [place] 24 [place] 00 (two) Medical capsule times [facility] daily. spironolact 2021-0 Yes [id number] 50mg Take 1 [facility] one 50 mg 5-24 tablet by [facility] o f tablet 00:00: mouth 00 daily. [facility] furosemide 2021-0 Yes [id number] 40mg in AM [facility] 40 mg 5-24 02 20mg in PM [facility] tablet 00:00: 00 [facility] metoprolol 2021-0 Yes [id number] 125mg Take 2.5 [facility] succinate 5-24 tablets by [facility] of XL 50 mg 24 00:00: mouth 2 [place] hr tablet 00 (two) Medical times [facility] daily. diltiazem 2021-0 Yes [id number] 180mg Take 1 [facility] (CARDIZEM 5-24 capsule by [facility] of CD) 180 mg 00:00: mouth 2 [place] 24 [place] 00 (two) Medical capsule times [facility] daily. spironolact 2021-0 Yes [id number] 50mg Take 1 [facility] one 50 mg 5-24 tablet by [facility] o f tablet 00:00: mouth 00 daily. [facility] furosemide 2021-0 Yes [id number] 40mg in AM [facility] 40 mg 5-24 02 20mg in PM [facility] of tablet 00:00: 00 [facility] metoprolol 2021-0 Yes [id number] 125mg Take 2.5 [facility] succinate 5-24 tablets by [facility] of XL 50 mg 24 00:00: mouth 2 [place] hr tablet 00 (two) Medical times [facility] daily. diltiazem 2021-0 Yes [id number] 180mg Take 1 [facility] (CARDIZEM 5-24 capsule by [facility] of CD) 180 mg 00:00: mouth 2 [place] 24 [place] 00 (two) Medical capsule times [facility] daily. spironolact 2021-0 Yes [id number] 50mg Take 1 [facility] one 50 mg 5-24 tablet by [facility] o f tablet 00:00: mouth 00 daily. [facility] furosemide 2021-0 Yes [id number] 40mg in AM [facility] 40 mg 5-24 02 20mg in PM [facility] of tablet 00:00: 00 [facility] metoprolol 2021-0 Yes [id number] 125mg Take 2.5 [facility] succinate 5-24 tablets by [facility] of XL 50 mg 24 00:00: mouth 2 [place] hr tablet 00 (two) Medical times [facility] daily. diltiazem 2021-0 Yes [id number] 180mg Take 1 [facility] (CARDIZEM 5-24 capsule by [facility] of CD) 180 mg 00:00: mouth 2 [place] 24 [place] 00 (two) Medical capsule times [facility] daily. spironolact 2021-0 Yes [id number] 50mg Take 1 [facility] one 50 mg 5-24 tablet by [facility] o f tablet 00:00: mouth [place] 00 daily. [facility] furosemide 2021-0 Yes [id number] 40mg in AM [facility] 40 mg 5-24 02 20mg in PM [facility] of tablet 00:00: [place] 00 [facility] metoprolol 2021-0 Yes [id number] 125mg Take 2.5 [facility] succinate 5-24 tablets by [facility] of XL 50 mg 24 00:00: mouth 2 [place] hr tablet 00 (two) Medical times [facility] daily. diltiazem 2021-0 Yes [id number] 180mg Take 1 [facility] (CARDIZEM 5-24 capsule by [facility] of ) 180 mg 00:00: mouth 2 [place] 24 hr 00 (two) Medical capsule times Branch daily. spironolact 2021-0 Yes [id number] 50mg Take 1 [facility] one 50 mg 5-24 tablet by [facility] o f tablet 00:00: mouth [place] 00 daily. [facility] furosemide 2021-0 Yes [id number] 40mg in AM [facility] 40 mg 5-24 02 20mg in PM [facility] of tablet 00:00: [place] 00 [facility] spironolact 2021-0 Yes [id number] 50mg Take 1 [facility] one 50 mg 5-24 tablet by [facility] o f tablet 00:00: mouth [place] 00 daily. [facility] spironolact 2021-0 Yes [id number] 50mg Take 1 [facility] one 50 mg 5-24 tablet by it[facility] o f tablet 00:00: mouth [place] 00 daily. [facility] spironolact 2021-0 Yes [id number] 50mg Take 1 [facility] one 50 mg 5-24 tablet by [facility] o f tablet 00:00: mouth [place] 00 daily. [facility] spironolact 2021-0 Yes [id number] 50mg Take 1 [facility] one 50 mg 5-24 tablet by ity o f tablet 00:00: mouth [place] 00 daily. [facility] spironolact 2021-0 Yes [id number] 50mg Take 1 [facility] one 50 mg 5-24 tablet by ity o f tablet 00:00: mouth [place] 00 daily. [facility] spironolact 2021-0 Yes [id number] 50mg Take 1 [facility] one 50 mg 5-24 tablet by ity o f tablet 00:00: mouth [place] 00 daily. [facility] spironolact 2021-0 Yes [id number] 50mg Take 1 [facility] one 50 mg 5-24 tablet by ity o f tablet 00:00: mouth [place] 00 daily. [facility] spironolact 2021-0 Yes [id number] 50mg Take 1 [facility] one 50 mg 5-24 tablet by ity o f tablet 00:00: mouth [place] 00 daily. [facility] spironolact 2021-0 Yes [id number] 50mg Take 1 [facility] one 50 mg 5-24 tablet by ity o f tablet 00:00: mouth [place] 00 daily. [facility] spironolact Yes [id number] 50mg Take 1 [facility] one 50 mg 5-24 tablet by ity o f tablet 00:00: mouth [place] 00 daily. [facility] spironolact 0 Yes [id number] 50mg Take 1 [facility] one 50 mg 5-24 tablet by ity o f tablet 00:00: mouth [place] 00 daily. [facility] spironolact 2021-0 Yes [id number] 50mg Take 1 [facility] one 50 mg 5-24 tablet by ity o f tablet 00:00: mouth [place] 00 daily. [facility] spironolact 2021-0 Yes [id number] 50mg Take 1 [facility] one 50 mg 5-24 tablet by ity o f tablet 00:00: mouth [place] 00 daily. [facility] spironolact 2021-0 Yes [id number] 50mg Take 1 [facility] one 50 mg 5-24 tablet by ity o f tablet 00:00: mouth [place] 00 daily. [facility] spironolact 2021-0 Yes [id number] 50mg Take 1 [facility] one 50 mg 5-24 tablet by ity o f tablet 00:00: mouth [place] 00 daily. [facility] spironolact 2021-0 Yes [id number] 50mg Take 1 [facility] one 50 mg 5-24 tablet by ity o f tablet 00:00: mouth [place] 00 daily. [facility] spironolact 2021-0 Yes [id number] 50mg Take 1 [facility] one 50 mg 5-24 tablet by ity o f tablet 00:00: mouth [place] 00 daily. [facility] spironolact 2021-0 Yes [id number] 50mg Take 1 [facility] one 50 mg 5-24 tablet by ity o f tablet 00:00: mouth [place] 00 daily. [facility] spironolact 2021-0 Yes [id number] 50mg Take 1 [facility] one 50 mg 5-24 tablet by ity o f tablet 00:00: mouth [place] 00 daily. [facility] spironolact 2021-0 Yes [id number] 50mg Take 1 [facility] one 50 mg 5-24 tablet by ity o f tablet 00:00: mouth [place] 00 daily. [facility] spironolact 2021-0 Yes [id number] 50mg Take 1 [facility] one 50 mg 5-24 tablet by ity o f tablet 00:00: mouth [place] 00 daily. [facility] spironolact 0 Yes [id number] 50mg Take 1 [facility] one 50 mg 5-24 tablet by ity o f tablet 00:00: mouth [place] 00 daily. [facility] spironolact 0 Yes [id number] 50mg Take 1 [facility] one 50 mg 5-24 tablet by ity o f tablet 00:00: mouth [place] 00 daily. [facility] spironolact 2021-0 Yes [id number] 50mg Take 1 [facility] one 50 mg 5-24 tablet by ity o f tablet 00:00: mouth [place] 00 daily. [facility] spironolact 2021-0 Yes [id number] 50mg Take 1 [facility] one 50 mg 5-24 tablet by ity o f tablet 00:00: mouth [place] 00 daily. [facility] spironolact 2021-0 Yes [id number] 50mg Take 1 [facility] one 50 mg 5-24 tablet by ity o f tablet 00:00: mouth [place] 00 daily. [facility] spironolact 2021-0 Yes [id number] 50mg Take 1 [facility] one 50 mg 5-24 tablet by ity o f tablet 00:00: mouth [place] 00 daily. [facility] spironolact 2021-0 Yes [id number] 50mg Take 1 [facility] one 50 mg 5-24 tablet by ity o f tablet 00:00: mouth [place] 00 daily. [facility] spironolact 2021-0 Yes [id number] 50mg Take 1 [facility] one 50 mg 5-24 tablet by ity o f tablet 00:00: mouth [place] 00 daily. [facility] spironolact 2021-0 Yes [id number] 50mg Take 1 [facility] one 50 mg 5-24 tablet by ity o f tablet 00:00: mouth [place] 00 daily. [facility] spironolact 2021-0 Yes [id number] 50mg Take 1 [facility] one 50 mg 5-24 tablet by ity o f tablet 00:00: mouth [place] 00 daily. [facility] spironolact 2021-0 Yes [id number] 50mg Take 1 [facility] one 50 mg 5-24 tablet by ity o f tablet 00:00: mouth [place] 00 daily. [facility] spironolact 2021-0 Yes [id number] 50mg Take 1 [facility] one 50 mg 5-24 tablet by ity o f tablet 00:00: mouth [place] 00 daily. [facility] spironolact 2021-0 Yes [id number] 50mg Take 1 [facility] one 50 mg 5-24 tablet by ity o f tablet 00:00: mouth [place] 00 daily. [facility] spironolact 2021-0 Yes [id number] 50mg Take 1 [facility] one 50 mg 5-24 tablet by ity o f tablet 00:00: mouth [place] 00 daily. [facility] spironolact 2021-0 Yes [id number] 50mg Take 1 [facility] one 50 mg 5-24 tablet by ity o f tablet 00:00: mouth [place] 00 daily. [facility] spironolact 2021-0 Yes [id number] 50mg Take 1 [facility] one 50 mg 5-24 tablet by ity o f tablet 00:00: mouth [place] 00 daily. [facility] spironolact 2021-0 Yes [id number] 50mg Take 1 [facility] one 50 mg 5-24 tablet by ity o f tablet 00:00: mouth [place] 00 daily. [facility] spironolact 2021-0 Yes [id number] 50mg Take 1 [facility] one 50 mg 5-24 tablet by ity o f tablet 00:00: mouth [place] 00 daily. [facility] spironolact 2021-0 Yes [id number] 50mg Take 1 [facility] one 50 mg 5-24 tablet by ity o f tablet 00:00: mouth [place] 00 daily. [facility] spironolact 2021-0 Yes [id number] 50mg Take 1 [facility] one 50 mg 5-24 tablet by ity o f tablet 00:00: mouth [place] 00 daily. [facility] spironolact 2021-0 Yes [id number] 50mg Take 1 [facility] one 50 mg 5-24 tablet by ity o f tablet 00:00: mouth [place] 00 daily. [facility] spironolact 2021-0 Yes [id number] 50mg Take 1 [facility] one 50 mg 5-24 tablet by ity o f tablet 00:00: mouth [place] 00 daily. [facility] spironolact 2021-0 Yes [id number] 50mg Take 1 [facility] one 50 mg 5-24 tablet by ity o f tablet 00:00: mouth [place] 00 daily. [facility] spironolact 2021-0 Yes [id number] 50mg Take 1 [facility] one 50 mg 5-24 tablet by ity o f tablet 00:00: mouth [place] 00 daily. [facility] spironolact 2021-0 Yes [id number] 50mg Take 1 [facility] one 50 mg 5-24 tablet by ity o f tablet 00:00: mouth [place] 00 daily. [facility] spironolact 2021-0 Yes [id number] 50mg Take 1 [facility] one 50 mg 5-24 tablet by ity o f tablet 00:00: mouth [place] 00 daily. [facility] spironolact 2021-0 Yes [id number] 50mg Take 1 [facility] one 50 mg 5-24 tablet by ity o f tablet 00:00: mouth [place] 00 daily. [facility] spironolact 2021-0 Yes [id number] 50mg Take 1 [facility] one 50 mg 5-24 tablet by ity o f tablet 00:00: mouth [place] 00 daily. [facility] spironolact 2021-0 Yes [id number] 50mg Take 1 [facility] one 50 mg 5-24 tablet by ity o f tablet 00:00: mouth [place] 00 daily. [facility] spironolact 2021-0 Yes [id number] 50mg Take 1 [facility] one 50 mg 5-24 tablet by ity o f tablet 00:00: mouth [place] 00 daily. [facility] spironolact 2021-0 Yes [id number] 50mg Take 1 [facility] one 50 mg 5-24 tablet by ity o f tablet 00:00: mouth [place] 00 daily. [facility] spironolact 2021-0 Yes [id number] 50mg Take 1 [facility] one 50 mg 5-24 tablet by ity o f tablet 00:00: mouth [place] 00 daily. [facility] spironolact 2021-0 Yes [id number] 50mg Take 1 [facility] one 50 mg 5-24 tablet by ity o f tablet 00:00: mouth [place] 00 daily. [facility] spironolact 2021-0 Yes [id number] 50mg Take 1 [facility] one 50 mg 5-24 tablet by ity o f tablet 00:00: mouth [place] 00 daily. [facility] spironolact 2021-0 Yes [id number] 50mg Take 1 [facility] one 50 mg 5-24 tablet by ity o f tablet 00:00: mouth [place] 00 daily. [facility] spironolact 2021-0 Yes [id number] 50mg Take 1 [facility] one 50 mg 5-24 tablet by ity o f tablet 00:00: mouth [place] 00 daily. [facility] spironolact 2021-0 Yes [id number] 50mg Take 1 [facility] one 50 mg 5-24 tablet by ity o f tablet 00:00: mouth [place] 00 daily. [facility] spironolact 2021-0 Yes [id number] 50mg Take 1 [facility] one 50 mg 5-24 tablet by [facility]y o f tablet 00:00: mouth [place] 00 daily. [facility] spironolact 2021-0 Yes [id number] 50mg Take 1 [facility] one 50 mg 5-24 tablet by ity o f tablet 00:00: mouth [place] 00 daily. [facility] spironolact 2021-0 Yes [id number] 50mg Take 1 [facility] one 50 mg 5-24 tablet by [facility]y o f tablet 00:00: mouth [place] 00 daily. [facility] spironolact 2021-0 Yes [id number] 50mg Take 1 [facility] one 50 mg 5-24 tablet by ity o f tablet 00:00: mouth [place] 00 daily. [facility] spironolact 2021-0 Yes [id number] 50mg Take 1 [facility] one 50 mg 5-24 tablet by ity o f tablet 00:00: mouth [place] 00 daily. [facility] spironolact 2021-0 Yes [id number] 50mg Take 1 [facility] one 50 mg 5-24 tablet by ity o f tablet 00:00: mouth [place] 00 daily. [facility] spironolact 2021-0 Yes [id number] 50mg Take 1 [facility] one 50 mg 5-24 tablet by ity o f tablet 00:00: mouth [place] 00 daily. [facility] spironolact 2021-0 Yes [id number] 50mg Take 1 [facility] one 50 mg 5-24 tablet by ity o f tablet 00:00: mouth [place] 00 daily. [facility] spironolact 2021-0 Yes [id number] 50mg Take 1 [facility] one 50 mg 5-24 tablet by ity o f tablet 00:00: mouth [place] 00 daily. [facility] Branch spironolact 2021-0 Yes [id number] 50mg Take 1 [facility] one 50 mg 5-24 tablet by ity o f tablet 00:00: mouth [place] 00 daily. [facility] Branch spironolact 2021-0 Yes [id number] 50mg Take 1 [facility] one 50 mg 5-24 tablet by ity o f tablet 00:00: mouth [place] 00 daily. [facility] spironolact 2021-0 Yes [id number] 50mg Take 1 [facility] one 50 mg 5-24 tablet by ity o f tablet 00:00: mouth [place] 00 daily. [facility] spironolact 2021-0 Yes [id number] 50mg Take 1 [facility] one 50 mg 5-24 tablet by ity o f tablet 00:00: mouth [place] 00 daily. [facility] Branch spironolact 2021-0 Yes [id number] 50mg Take 1 [facility] one 50 mg 5-24 tablet by ity o f tablet 00:00: mouth [place] 00 daily. [facility] spironolact 2021-0 Yes [id number] 50mg Take 1 [facility] one 50 mg 5-24 tablet by ity o f tablet 00:00: mouth [place] 00 daily. [facility] Branch spironolact 2021-0 Yes [id number] 50mg Take 1 [facility] one 50 mg 5-24 tablet by ity o f tablet 00:00: mouth [place] 00 daily. [facility] spironolact 2021-0 Yes [id number] 50mg Take 1 [facility] one 50 mg 5-24 tablet by ity o f tablet 00:00: mouth [place] 00 daily. [facility] Branch spironolact 2022- No [id number] 50mg Take 1 [facility] one 50 mg 5-24 06-14 tablet by [facility]y of tablet 00:00: 00:00 mouth [place] 00 :00 daily. [facility] Branch metoprolol 2021- No [id number] 125mg Take 2.5 [facility] succinate 5-24 10-05 tablets by [facility]y of XL 50 mg 24 00:00: 00:00 mouth 2 [place] hr tablet 00 :00 (two) Medical times Branch daily. diltiazem 2021- No [id number] 180mg Take 1 [facility] (CARDIZEM 5-24 10-05 capsule by ity of CD) 180 mg 00:00: 00:00 mouth 2 [place] 24 hr 00 :00 (two) Medical capsule times Branch daily. furosemide No [id number] 40mg in AM [facility] 40 mg 5-24 10-05 02 20mg in PM [facility] of tablet 00:00: 00:00 [place] 00 :00 Medical [facility] metoprolol No [id number] 125mg Take 2.5 [facility] succinate 5-24 10-05 tablets by ity of XL 50 mg 24 00:00: 00:00 mouth 2 [place] hr tablet 00 :00 (two) Medical times [facility] daily. diltiazem No [id number] 180mg Take 1 [facility] (CARDIZEM 5-24 10-05 capsule by ity of CD) 180 mg 00:00: 00:00 mouth 2 [place] 24 hr 00 :00 (two) Medical capsule times Branch daily. furosemide No [id number] 40mg in AM [facility] 40 mg 5-24 10-05 02 20mg in PM [facility] of tablet 00:00: 00:00 [place] 00 :00 [facility] metoprolol 2021- No [id number] 125mg Take 2.5 [facility] succinate 5-24 10-05 tablets by ity of XL 50 mg 24 00:00: 00:00 mouth 2 [place] hr tablet 00 :00 (two) Medical times Branch daily. diltiazem 2021- No [id number] 180mg Take 1 [facility] (CARDIZEM 5-24 10-05 capsule by ity of CD) 180 mg 00:00: 00:00 mouth 2 [place] 24 hr 00 :00 (two) Medical capsule times Branch daily. furosemide 2021- No [id number] 40mg in AM [facility] 40 mg 07-22 02 20mg in PM [facility] of tablet 00:00: 00:00 [place] 00 :00 Medical [facility] digoxin 125 2- No .125mg Take 1 [facility] n[facility] mcg tablet 07-22 tablet by ity of 00:00: 00:00 mouth [place] 00 :00 daily. [facility] digoxin 125 2021- No .125mg Take 1 [facility] nivers mcg tablet 07-22 tablet by ity of 00:00: 00:00 mouth [place] 00 :00 daily. [facility] digoxin 125 2021- No .125mg Take 1 [facility] nivers mcg tablet 07-22 tablet by ity of 00:00: 00:00 mouth [place] 00 :00 daily. [facility] Branch digoxin 125 2021- No .125mg Take 1 [facility] nivers mcg tablet 07-22 tablet by ity of 00:00: 00:00 mouth [place] 00 :00 daily. Medical Branch insulin NPH Yes [id number] 10U inject 10 [facility] and regular 5-17 Units ity of human 70-30 00:00: under the [place] 100 unit/mL 00 skin 2 Medica l (70-30) (two) Branch injection times daily before breakfast and dinner. insulin NPH Yes [id number] 10U inject 10 [facility] and regular 5-17 Units ity of human 70-30 00:00: under the [place] 100 unit/mL 00 skin 2 [facility] l (70-30) (two) Branch injection times daily before breakfast and dinner. insulin NPH Yes [id number] 10U inject 10 [facility] and regular 5-17 Units ity of human 70-30 00:00: under the [place] 100 unit/mL 00 skin 2 [facility] l (70-30) (two) Branch injection times daily before breakfast and dinner. insulin NPH Yes [id number] 10U inject 10 [facility] and regular 5-17 Units ity of human 70-30 00:00: under the [place] 100 unit/mL 00 skin 2 [facility] (70-30) (two) Branch injection times daily before breakfast and dinner. insulin NPH Yes [id number] 10U inject 10 [facility] and regular 5-17 Units ity of human 70-30 00:00: under the [place] 100 unit/mL 00 skin 2 [facility] l (70-30) (two) Branch injection times daily before breakfast and dinner. insulin NPH 0 Yes [id number] 10U inject 10 [facility] and regular 5-17 Units ity of human 70-30 00:00: under the [place] 100 unit/mL 00 skin 2 [facility] (70-30) (two) Branch injection times daily before breakfast and dinner. insulin NPH Yes [id number] 10U inject 10 [facility] and regular 5-17 Units ity of human 70-30 00:00: under the [place] 100 unit/mL 00 skin 2 [facility] l (70-30) (two) Branch injection times daily before breakfast and dinner. insulin NPH Yes [id number] 10U inject 10 [facility] and regular 5-17 Units ity of human 70-30 00:00: under the [place] 100 unit/mL 00 skin 2 [facility] l (70-30) (two) Branch injection times daily before breakfast and dinner. insulin NPH Yes [id number] 10U inject 10 [facility] and regular 5-17 Units ity of human 70-30 00:00: under the [place] 100 unit/mL 00 skin 2 Med[facility] l (70-30) (two) Branch injection times daily before breakfast and dinner. insulin NPH Yes [id number] 10U inject 10 [facility] and regular 5-17 Units ity of human 70-30 00:00: under the [place] 100 unit/mL 00 skin 2 [facility] (70-30) (two) Branch injection times daily before breakfast and dinner. insulin NPH 0 Yes [id number] 10U inject 10 [facility] and regular 5-17 Units ity of human 70-30 00:00: under the [place] 100 unit/mL 00 skin 2 [facility] l (70-30) (two) Branch injection times daily before breakfast and dinner. insulin NPH Yes [id number] 10U inject 10 [facility] and regular 5-17 Units ity of human 70-30 00:00: under the [place] 100 unit/mL 00 skin 2 Med[facility] l (70-30) (two) Branch injection times daily before breakfast and dinner. insulin NPH 0 Yes [id number] 10U inject 10 [facility] and regular 5-17 Units ity of human 70-30 00:00: under the [place] 100 unit/mL 00 skin 2 Med[facility] l (70-30) (two) Branch injection times daily before breakfast and dinner. insulin NPH 0 Yes [id number] 10U inject 10 [facility] and regular 5-17 Units ity of human 70-30 00:00: under the [place] 100 unit/mL 00 skin 2 [facility] (70-30) (two) Branch injection times daily before breakfast and dinner. insulin NPH 0 Yes [id number] 10U inject 10 [facility] and regular 5-17 Units ity of human 70-30 00:00: under the [place] 100 unit/mL 00 skin 2 Med[facility] l (70-30) (two) Branch injection times daily before breakfast and dinner. insulin NPH 0 Yes [id number] 10U inject 10 [facility] and regular 5-17 Units ity of human 70-30 00:00: under the [place] 100 unit/mL 00 skin 2 Med[facility] l (70-30) (two) Branch injection times daily before breakfast and dinner. insulin NPH 0 Yes [id number] 10U inject 10 [facility] and regular 5-17 Units [facility] of human 70-30 00:00: under the [place] 100 unit/mL 00 skin 2 [facility] (70-30) (two) Branch injection times daily before breakfast and dinner. insulin NPH 0 Yes [id number] 10U inject 10 [facility] and regular 5-17 Units [facility] of human 70-30 00:00: [facility] the [place] 100 unit/mL 00 skin 2 [facility] (70-30) (two) Branch injection times daily before breakfast and dinner. insulin NPH 0 Yes [id number] 10U inject 10 [facility] and regular 5-17 Units [facility] of human 70-30 00:00: under the [place] 100 unit/mL 00 skin 2 [facility] (70-30) (two) Branch injection times daily before breakfast and dinner. insulin NPH 2021-2021- No [id number] 10U inject 10 [facility] and regular 5-17 10-05 Units ity of human 70-30 00:00: 00:00 under the [place] 100 unit/mL 00 :00 skin 2 Med[facility] l (70-30) (two) Branch injection times daily before breakfast and dinner. insulin NPH 2021-2021- No [id number] 10U inject 10 [facility] and regular 5-17 10-05 Units [facility]y of human 70-30 00:00: 00:00 under the [place] 100 unit/mL 00 :00 skin 2 Med[facility] (70-30) (two) Branch injection times daily before breakfast and dinner. insulin NPH 2021-2021- No [id number] 10U inject 10 [facility] and regular 5-17 10-05 Units [facility]y of human 70-30 00:00: 00:00 under the [place] 100 unit/mL 00 :00 skin 2 Med[facility] (70-30) (two) Branch injection times daily before breakfast and dinner. apixaban 5 2021-0 Yes 1358 5mg Take 1 [facility] mg tablet 2-02 tablet by ity o f 00:00: mouth 2 00 (two) Medical times Branch daily. Indication s: atrial fibrillati on apixaban 2021-0 Yes 1358 5mg Take 1 [facility] mg tablet 2-02 tablet by ity o f 00:00: mouth 2 00 (two) Medical times Branch daily. Indication s: atrial fibrillati on apixaban 2021-0 Yes 1358 5mg Take 1 [facility] mg tablet 2-02 tablet by [facility]y o f 00:00: mouth 2 (two) Medical times Branch daily. Indication s: atrial fibrillati on apixaban 2021-0 Yes 1358 5mg Take 1 [facility] mg tablet 2-02 tablet by [facility]y o f 00:00: mouth 2 00 (two) Medical times Branch daily. Indication s: atrial fibrillati on apixaban 2021-0 Yes 1358 5mg Take 1 [facility] mg tablet 2-02 tablet by [facility]y o f 00:00: mouth 2 00 (two) Medical times Branch daily. Indication s: atrial fibrillati on apixaban 5 2021-0 Yes 1358 5mg Take 1 [facility] mg tablet 2-02 tablet by ity o f 00:00: mouth 2 [place] 00 (two) Medical times Branch daily. Indication s: atrial fibrillati on apixaban 2021-0 Yes 1358 5mg Take 1 [facility] mg tablet 2-02 tablet by ity o f 00:00: mouth 2 [place] 00 (two) Medical times Branch daily. Indication s: atrial fibrillati on apixaban 2021-0 Yes 1358 5mg Take 1 [facility] mg tablet 2-02 tablet by ity o f 00:00: mouth 2 [place] 00 (two) Medical times Branch daily. Indication s: atrial fibrillati on apixaban 2021-0 Yes 1358 5mg Take 1 [facility] mg tablet 2-02 tablet by [facility]y o f 00:00: mouth 2 00 (two) Medical times Branch daily. Indication s: atrial fibrillati on apixaban 2021-0 Yes 1358 5mg Take 1 [facility] mg tablet 2-02 tablet by [facility]y o f 00:00: mouth 2 00 (two) Medical times Branch daily. Indication s: atrial fibrillati on apixaban 2021-0 Yes 1358 5mg Take 1 [facility] mg tablet 2-02 tablet by [facility]y o f 00:00: mouth 2 00 (two) Medical times Branch daily. Indication s: atrial fibrillati on apixaban 2021-0 Yes 1358 5mg Take 1 [facility] mg tablet 2-02 tablet by [facility]y o f 00:00: mouth 2 00 (two) Medical times Branch daily. Indication s: atrial fibrillati on apixaban 2021-0 Yes 1358 5mg Take 1 [facility] mg tablet 2-02 tablet by ity o f 00:00: mouth 2 [place] 00 (two) Medical times Branch daily. Indication s: atrial fibrillati on apixaban 2021-0 Yes 1358 5mg Take 1 [facility] mg tablet 2-02 tablet by ity o f 00:00: mouth 2 [place] 00 (two) Medical times Branch daily. Indication s: atrial fibrillati on apixaban 2021-0 Yes 1358 5mg Take 1 [facility] mg tablet 2-02 tablet by ity o f 00:00: mouth 2 [place] 00 (two) Medical times Branch daily. Indication s: atrial fibrillati on apixaban 5 2021-0 Yes 1358 5mg Take 1 [facility] mg tablet 2-02 tablet by ity o f 00:00: mouth 2 00 (two) Medical times Branch daily. Indication s: atrial fibrillati on apixaban 2021-0 Yes 1358 5mg Take 1 [facility] mg tablet 2-02 tablet by ity o f 00:00: mouth 2 00 (two) Medical times Branch daily. Indication s: atrial fibrillati on apixaban 2021-0 Yes 1358 5mg Take 1 [facility] mg tablet 2-02 tablet by ity o f 00:00: mouth 2 00 (two) Medical times Branch daily. Indication s: atrial fibrillati on apixaban 2021-0 Yes 1358 5mg Take 1 [facility] mg tablet 2-02 tablet by [facility]y o f 00:00: mouth 2 00 (two) Medical times Branch daily. Indication s: atrial fibrillati on apixaban 2021-0 Yes 1358 5mg Take 1 [facility] mg tablet 2-02 tablet by [facility]y o f 00:00: mouth 2 (two) Medical times Branch daily. Indication s: atrial fibrillati on apixaban 2021-0 Yes 1358 5mg Take 1 [facility] mg tablet 2-02 tablet by ity o f 00:00: mouth 2 00 (two) Medical times Branch daily. Indication s: atrial fibrillati on apixaban 2021-0 Yes 1358 5mg Take 1 [facility] mg tablet 2-02 tablet by [facility]y o f 00:00: mouth 2 00 (two) Medical times Branch daily. Indication s: atrial fibrillati on apixaban 2021-0 Yes 1358 5mg Take 1 [facility] mg tablet 2-02 tablet by ity o f 00:00: mouth 2 00 (two) Medical times Branch daily. Indication s: atrial fibrillati on apixaban 5 2021-0 Yes 1358 5mg Take 1 [facility] mg tablet 2-02 tablet by ity o f 00:00: mouth 2 [place] 00 (two) Medical times Branch daily. Indication s: atrial fibrillati on apixaban 2021-0 Yes 1358 5mg Take 1 [facility] mg tablet 2-02 tablet by ity o f 00:00: mouth 2 [place] 00 (two) Medical times Branch daily. Indication s: atrial fibrillati on apixaban 2021-0 Yes 1358 5mg Take 1 [facility] mg tablet 2-02 tablet by ity o f 00:00: mouth 2 [place] 00 (two) Medical times Branch daily. Indication s: atrial fibrillati on apixaban 2021-0 Yes 1358 5mg Take 1 [facility] mg tablet 2-02 tablet by ity o f 00:00: mouth 2 00 (two) Medical times Branch daily. Indication s: atrial fibrillati on apixaban 2021-0 Yes 1358 5mg Take 1 [facility] mg tablet 2-02 tablet by ity o f 00:00: mouth 2 00 (two) Medical times Branch daily. Indication s: atrial fibrillati on apixaban 2021-0 Yes 1358 5mg Take 1 [facility] mg tablet 2-02 tablet by ity o f 00:00: mouth 2 00 (two) Medical times Branch daily. Indication s: atrial fibrillati on apixaban 2021-0 Yes 1358 5mg Take 1 [facility] mg tablet 2-02 tablet by ity o f 00:00: mouth 2 00 (two) Medical times Branch daily. Indication s: atrial fibrillati on apixaban 2021-0 Yes 1358 5mg Take 1 [facility] mg tablet 2-02 tablet by ity o f 00:00: mouth 2 00 (two) Medical times Branch daily. Indication s: atrial fibrillati on apixaban 2021-0 Yes 1358 5mg Take 1 [facility] mg tablet 2-02 tablet by ity o f 00:00: mouth 2 [place] 00 (two) Medical times Branch daily. Indication s: atrial fibrillati on apixaban 2021-0 Yes 1358 5mg Take 1 [facility] mg tablet 2-02 tablet by ity o f 00:00: mouth 2 [place] 00 (two) Medical times Branch daily. Indication s: atrial fibrillati on apixaban 2021-0 Yes 1358 5mg Take 1 [facility] mg tablet 2-02 tablet by ity o f 00:00: mouth 2 [place] 00 (two) Medical times Branch daily. Indication s: atrial fibrillati on apixaban 2021-0 Yes 1358 5mg Take 1 [facility] mg tablet 2-02 tablet by ity o f 00:00: mouth 2 [place] 00 (two) Medical times Branch daily. Indication s: atrial fibrillati on apixaban 2021-0 Yes 1358 5mg Take 1 [facility] mg tablet 2-02 tablet by ity o f 00:00: mouth 2 [place] 00 (two) Medical times Branch daily. Indication s: atrial fibrillati on apixaban 2021-0 Yes 1358 5mg Take 1 [facility] mg tablet 2-02 tablet by ity o f 00:00: mouth 2 [place] 00 (two) Medical times Branch daily. Indication s: atrial fibrillati on apixaban 2021-0 Yes 1358 5mg Take 1 [facility] mg tablet 2-02 tablet by ity o f 00:00: mouth 2 [place] 00 (two) Medical times Branch daily. Indication s: atrial fibrillati on apixaban 2021-0 Yes 1358 5mg Take 1 [facility] mg tablet 2-02 tablet by ity o f 00:00: mouth 2 [place] 00 (two) Medical times Branch daily. Indication s: atrial fibrillati on apixaban 2021-0 Yes 1358 5mg Take 1 [facility] mg tablet 2-02 tablet by ity o f 00:00: mouth 2 [place] 00 (two) Medical times Branch daily. Indication s: atrial fibrillati on apixaban 2021-0 Yes 1358 5mg Take 1 [facility] mg tablet 2-02 tablet by ity o f 00:00: mouth 2 [place] 00 (two) Medical times Branch daily. Indication s: atrial fibrillati on apixaban 2021-0 Yes 1358 5mg Take 1 [facility] mg tablet 2-02 tablet by ity o f 00:00: mouth 2 [place] 00 (two) Medical times Branch daily. Indication s: atrial fibrillati on apixaban 2021-0 Yes 1358 5mg Take 1 [facility] mg tablet 2-02 tablet by ity o f 00:00: mouth 2 [place] 00 (two) Medical times Branch daily. Indication s: atrial fibrillati on apixaban 2021-0 Yes 1358 5mg Take 1 [facility] mg tablet 2-02 tablet by ity o f 00:00: mouth 2 [place] 00 (two) Medical times Branch daily. Indication s: atrial fibrillati on apixaban 2021-0 Yes 1358 5mg Take 1 [facility] mg tablet 2-02 tablet by ity o f 00:00: mouth 2 00 (two) Medical times Branch daily. Indication s: atrial fibrillati on apixaban 2021-0 Yes 1358 5mg Take 1 [facility] mg tablet 2-02 tablet by ity o f 00:00: mouth 2 00 (two) Medical times Branch daily. Indication s: atrial fibrillati on apixaban 2021-0 Yes 1358 5mg Take 1 [facility] mg tablet 2-02 tablet by ity o f 00:00: mouth 2 00 (two) Medical times Branch daily. Indication s: atrial fibrillati on apixaban 2021-0 Yes 1358 5mg Take 1 [facility] mg tablet 2-02 tablet by ity o f 00:00: mouth 2 (two) Medical times Branch daily. Indication s: atrial fibrillati on apixaban 2021-0 Yes 1358 5mg Take 1 [facility] mg tablet 2-02 tablet by ity o f 00:00: mouth 2 (two) Medical times Branch daily. Indication s: atrial fibrillati on apixaban 2021-0 Yes 1358 5mg Take 1 [facility] mg tablet 2-02 tablet by ity o f 00:00: mouth 2 (two) Medical times Branch daily. Indication s: atrial fibrillati on apixaban 2021-0 Yes 1358 5mg Take 1 [facility] mg tablet 2-02 tablet by ity o f 00:00: mouth 2 (two) Medical times Branch daily. Indication s: atrial fibrillati on apixaban 2021-0 Yes 1358 5mg Take 1 [facility] mg tablet 2-02 tablet by ity o f 00:00: mouth 2 00 (two) Medical times Branch daily. Indication s: atrial fibrillati on apixaban 2021-0 Yes 1358 5mg Take 1 [facility] mg tablet 2-02 tablet by ity o f 00:00: mouth 2 00 (two) Medical times Branch daily. Indication s: atrial fibrillati on apixaban 2021-0 Yes 1358 5mg Take 1 [facility] rs mg tablet 2-02 tablet by ity o f 00:00: mouth 2 00 (two) Medical times Branch daily. Indication s: atrial fibrillati on apixaban 5 2021-0 Yes 1358 5mg Take 1 [facility] rs mg tablet 2-02 tablet by ity o f 00:00: mouth 2 [place] 00 (two) Medical times Branch daily. Indication s: atrial fibrillati on apixaban 2021-0 Yes 1358 5mg Take 1 [facility] rs mg tablet 2-02 tablet by ity o f 00:00: mouth 2 [place] 00 (two) Medical times Branch daily. Indication s: atrial fibrillati on apixaban 2021-0 Yes 1358 5mg Take 1 [facility] rs mg tablet 2-02 tablet by ity o f 00:00: mouth 2 00 (two) Medical times Branch daily. Indication s: atrial fibrillati on apixaban 2021-0 Yes 1358 5mg Take 1 [facility] rs mg tablet 2-02 tablet by ity o f 00:00: mouth 2 00 (two) Medical times Branch daily. Indication s: atrial fibrillati on apixaban 2021-0 Yes 1358 5mg Take 1 [facility] rs mg tablet 2-02 tablet by ity o f 00:00: mouth 2 00 (two) Medical times Branch daily. Indication s: atrial fibrillati on apixaban 2021-0 Yes 1358 5mg Take 1 [facility] rs mg tablet 2-02 tablet by ity o f 00:00: mouth 2 00 (two) Medical times Branch daily. Indication s: atrial fibrillati on apixaban 2021-0 Yes 1358 5mg Take 1 [facility] rs mg tablet 2-02 tablet by ity o f 00:00: mouth 2 00 (two) Medical times Branch daily. Indication s: atrial fibrillati on apixaban 2021-0 Yes 1358 5mg Take 1 [facility] rs mg tablet 2-02 tablet by ity o f 00:00: mouth 2 [place] 00 (two) Medical times Branch daily. Indication s: atrial fibrillati on apixaban 2021-0 Yes 1358 5mg Take 1 [facility] rs mg tablet 2-02 tablet by ity o f 00:00: mouth 2 [place] 00 (two) Medical times Branch daily. Indication s: atrial fibrillati on apixaban 5 2022-0 Yes 1358 5mg Take 1 [facility] rs mg tablet 2-02 tablet by ity o f 00:00: mouth 2 [place] 00 (two) Medical times Branch daily. Indication s: atrial fibrillati on apixaban 2021-0 Yes 1358 5mg Take 1 [facility] rs mg tablet 2-02 tablet by ity o f 00:00: mouth 2 [place] 00 (two) Medical times Branch daily. Indication s: atrial fibrillati on apixaban 0 Yes 1358 5mg Take 1 [facility] rs mg tablet 2-02 tablet by ity o f 00:00: mouth 2 [place] 00 (two) Medical times Branch daily. Indication s: atrial fibrillati on apixaban 0 Yes 1358 5mg Take 1 [facility] rs mg tablet 2-02 tablet by ity o f 00:00: mouth 2 [place] 00 (two) Medical times Branch daily. Indication s: atrial fibrillati on apixaban Yes 1358 5mg Take 1 [facility] rs mg tablet 2-02 tablet by ity o f 00:00: mouth 2 [place] 00 (two) Medical times Branch daily. Indication s: atrial fibrillati on apixaban 0 Yes 1358 5mg Take 1 [facility] rs mg tablet 2-02 tablet by ity o f 00:00: mouth 2 [place] 00 (two) Medical times Branch daily. Indication s: atrial fibrillati on apixaban 0 Yes 1358 5mg Take 1 [facility] rs mg tablet 2-02 tablet by ity o f 00:00: mouth 2 [place] 00 (two) Medical times Branch daily. Indication s: atrial fibrillati on apixaban 0 Yes 1358 5mg Take 1 [facility] rs mg tablet 2-02 tablet by ity o f 00:00: mouth 2 [place] 00 (two) Medical times Branch daily. Indication s: atrial fibrillati on apixaban 2021-0 Yes 1358 5mg Take 1 [facility] rs mg tablet 2-02 tablet by ity o f 00:00: mouth 2 [place] 00 (two) Medical times Branch daily. Indication s: atrial fibrillati on apixaban 2021-0 Yes 1358 5mg Take 1 [facility] rs mg tablet 2-02 tablet by ity o f 00:00: mouth 2 [place] 00 (two) Medical times Branch daily. Indication s: atrial fibrillati on apixaban 2021-0 Yes 1358 5mg Take 1 [facility] rs mg tablet 2-02 tablet by ity o f 00:00: mouth 2 00 (two) Medical times Branch daily. Indication s: atrial fibrillati on apixaban 2021-0 Yes 1358 5mg Take 1 [facility] rs mg tablet 2-02 tablet by ity o f 00:00: mouth 2 00 (two) Medical times Branch daily. Indication s: atrial fibrillati on apixaban 2021-0 Yes 1358 5mg Take 1 [facility] rs mg tablet 2-02 tablet by ity o f 00:00: mouth 2 00 (two) Medical times Branch daily. Indication s: atrial fibrillati on apixaban 2021-0 Yes 1358 5mg Take 1 [facility] rs mg tablet 2-02 tablet by ity o f 00:00: mouth 2 00 (two) Medical times Branch daily. Indication s: atrial fibrillati on apixaban 2021-0 Yes 1358 5mg Take 1 [facility] mg tablet 2-02 tablet by ity o f 00:00: mouth 2 (two) Medical times Branch daily. Indication s: atrial fibrillati on apixaban 2021-0 Yes 1358 5mg Take 1 [facility] mg tablet 2-02 tablet by ity o f 00:00: mouth 2 00 (two) Medical times Branch daily. Indication s: atrial fibrillati on apixaban 2021-0 Yes 1358 5mg Take 1 [facility] rs mg tablet 2-02 tablet by ity o f 00:00: mouth 2 00 (two) Medical times Branch daily. Indication s: atrial fibrillati on apixaban 2021-0 Yes 1358 5mg Take 1 [facility] rs mg tablet 2-02 tablet by ity o f 00:00: mouth 2 00 (two) Medical times Branch daily. Indication s: atrial fibrillati on apixaban 2021-0 Yes 1358 5mg Take 1 [facility] rs mg tablet 2-02 tablet by ity o f 00:00: mouth 2 00 (two) Medical times Branch daily. Indication s: atrial fibrillati on apixaban 2021-0 Yes 1358 5mg Take 1 [facility] rs mg tablet 2-02 tablet by ity o f 00:00: mouth 2 [place] 00 (two) Medical times Branch daily. Indication s: atrial fibrillati on apixaban 5 2021-0 Yes 1358 5mg Take 1 [facility] rs mg tablet 2-02 tablet by ity o f 00:00: mouth 2 [place] 00 (two) Medical times Branch daily. Indication s: atrial fibrillati on apixaban 5 2021-0 Yes 1358 5mg Take 1 [facility] rs mg tablet 2-02 tablet by ity o f 00:00: mouth 2 [place] 00 (two) Medical times Branch daily. Indication s: atrial fibrillati on apixaban 2021-0 Yes 1358 5mg Take 1 [facility] rs mg tablet 2-02 tablet by ity o f 00:00: mouth 2 [place] 00 (two) Medical times Branch daily. Indication s: atrial fibrillati on apixaban 2021-0 Yes 1358 5mg Take 1 [facility] rs mg tablet 2-02 tablet by ity o f 00:00: mouth 2 00 (two) Medical times Branch daily. Indication s: atrial fibrillati on apixaban 2021-0 Yes 1358 5mg Take 1 [facility] mg tablet 2-02 tablet by ity o f 00:00: mouth 2 00 (two) Medical times Branch daily. Indication s: atrial fibrillati on apixaban 2021-0 Yes 1358 5mg Take 1 [facility] rs mg tablet 2-02 tablet by ity o f 00:00: mouth 2 00 (two) Medical times Branch daily. Indication s: atrial fibrillati on apixaban 2021-0 Yes 1358 5mg Take 1 [facility] rs mg tablet 2-02 tablet by ity o f 00:00: mouth 2 [place] 00 (two) Medical times Branch daily. Indication s: atrial fibrillati on apixaban 5 2021-0 Yes 1358 5mg Take 1 [facility] rs mg tablet 2-02 tablet by ity o f 00:00: mouth 2 [place] 00 (two) Medical times Branch daily. Indication s: atrial fibrillati on apixaban 2021-0 Yes 1358 5mg Take 1 [facility] rs mg tablet 2-02 tablet by ity o f 00:00: mouth 2 [place] 00 (two) Medical times Branch daily. Indication s: atrial fibrillati on apixaban 5 2021-0 Yes 1358 5mg Take 1 [facility] mg tablet 2-02 tablet by ity o f 00:00: mouth 2 00 (two) Medical times Branch daily. Indication s: atrial fibrillati on apixaban 5 2021-0 Yes 1358 5mg Take 1 [facility] mg tablet 2-02 tablet by [facility] o f 00:00: mouth 2 00 (two) Medical times Branch daily. Indication s: atrial fibrillati on apixaban 5 2021-0 Yes 1358 5mg Take 1 [facility] mg tablet 2-02 tablet by ity o f 00:00: mouth 2 00 (two) Medical times Branch daily. Indication s: atrial fibrillati on Immunizations Ordered Filled Immunization Date Status Comments [facility] Immunization Name Name Influenza Virus 2021-12-01 Completed [facility], 00[facility]00:00 [place] [facility] Preserv and ABX Branch Free 6 MO-64 YRS Influenza Virus 2021-12-01 Completed [facility], 00:00:00 [place] [facility] Preserv and ABX Branch Free 6 MO-64 YRS Influenza Virus 2021-12-01 Completed [facility], 00:00:00 [place] [facility] Preserv and ABX Branch Free 6 MO-64 YRS Influenza Virus 2021-12-01 Completed [facility], 00:00:00 [place] [facility] Preserv and ABX Branch Free 6 MO-64 YRS Influenza Virus 2021-12-01 Completed [facility], 00:00:00 [place] [facility] Preserv and ABX Branch Free 6 MO-64 YRS Influenza Virus 2021-12-01 Completed [facility], 00:00:00 [place] [facility] Preserv and ABX Branch Free 6 MO-64 YRS Influenza Virus 2021-12-01 Completed [facility], 00:00:00 [place] [facility] Preserv and ABX Branch Free 6 MO-64 YRS Influenza Virus 2021-12-01 Completed [facility], 00:00:00 [place] [facility] Preserv and ABX Branch Free 6 MO-64 YRS Influenza Virus 2021-12-01 Completed [facility], 00:00:00 [place] [facility] Preserv and ABX Branch Free 6 MO-64 YRS Influenza Virus 2021-12-01 Completed [facility], 00:00:00 [place] [facility] Preserv and ABX Branch Free 6 MO-64 YRS Influenza Virus 2021-12-01 Completed [facility], 00:00:00 [place] [facility] Preserv and ABX Branch Free 6 MO-64 YRS Influenza Virus 2021-12-01 Completed [facility], 00:00:00 [place] [facility] Preserv and ABX Branch Free 6 MO-64 YRS Influenza Virus 2021-12-01 Completed [facility], 00:00:00 [place] [facility] Preserv and ABX Branch Free 6 MO-64 YRS Influenza Virus 2021-12-01 Completed [facility], 00:00:00 [place] [facility] Preserv and ABX Branch Free 6 MO-64 YRS Influenza Virus 2021-12-01 Completed [facility], 00:00:00 [place] [facility] Preserv and ABX Branch Free 6 MO-64 YRS Influenza Virus 2021-12-01 Completed [facility], 00:00:00 [place] [facility] Preserv and ABX Branch Free 6 MO-64 YRS Influenza Virus 2021-12-01 Completed [facility], 00:00:00 [place] [facility] Preserv and ABX Branch Free 6 MO-64 YRS Influenza Virus 2021-12-01 Completed [facility], 00:00:00 [place] [facility] Preserv and ABX Branch Free 6 MO-64 YRS Influenza Virus 2021-12-01 Completed [facility], 00:00:00 [place] [facility] Preserv and ABX Branch Free 6 MO-64 YRS Influenza Virus 2021-12-01 Completed [facility], 00:00:00 [place] [facility] Preserv and ABX Branch Free 6 MO-64 YRS Influenza Virus 2021-12-01 Completed [facility], 00:00:00 [place] [facility] Preserv and ABX Branch Free 6 MO-64 YRS Influenza Virus 2021-12-01 Completed [facility], 00:00:00 [place] [facility] Preserv and ABX Branch Free 6 MO-64 YRS Influenza Virus 2021-12-01 Completed [facility], 00:00:00 [place] [facility] Preserv and ABX Branch Free 6 MO-64 YRS Influenza Virus 2021-12-01 Completed [facility], 00:00:00 [place] [facility] Preserv and ABX Branch Free 6 MO-64 YRS Influenza Virus 2021-12-01 Completed [facility], 00:00:00 [place] [facility] Preserv and ABX Branch Free 6 MO-64 YRS Influenza Virus 2021-12-01 Completed [facility], 00:00:00 [place] [facility] Preserv and ABX Branch Free 6 MO-64 YRS Influenza Virus 2021-12-01 Completed [facility], 00:00:00 [place] [facility] Preserv and ABX Branch Free 6 MO-64 YRS Influenza Virus 2021-12-01 Completed [facility], 00:00:00 [place] [facility] Preserv and ABX Branch Free 6 MO-64 YRS Influenza Virus 2021-12-01 Completed [facility], 00:00:00 [place] [facility] Preserv and ABX Branch Free 6 MO-64 YRS Influenza Virus 2021-12-01 Completed [facility], 00:00:00 [place] [facility] Preserv and ABX Branch Free 6 MO-64 YRS Influenza Virus 2021-12-01 Completed [facility], 00:00:00 [place] [facility] Preserv and ABX Branch Free 6 MO-64 YRS Influenza Virus 2021-12-01 Completed [facility], 00:00:00 [place] [facility] Preserv and ABX Branch Free 6 MO-64 YRS Influenza Virus 2021-12-01 Completed [facility], 00:00:00 [place] [facility] Preserv and ABX Branch Free 6 MO-64 YRS Influenza Virus 2021-12-01 Completed [facility], 00:00:00 [place] [facility] Preserv and ABX Branch Free 6 MO-64 YRS Influenza Virus 2021-12-01 Completed [facility], 00:00:00 [place] [facility] Preserv and ABX Branch Free 6 MO-64 YRS Influenza Virus 2021-12-01 Completed [facility], 00:00:00 [place] [facility] Preserv and ABX Branch Free 6 MO-64 YRS Influenza Virus 2021-12-01 Completed [facility], 00:00:00 [place] [facility] Preserv and ABX Branch Free 6 MO-64 YRS Influenza Virus 2021-12-01 Completed [facility], 00:00:00 [place] [facility] Preserv and ABX Branch Free 6 MO-64 YRS Influenza Virus 2021-12-01 Completed [facility], 00:00:00 [place] [facility] Preserv and ABX Branch Free 6 MO-64 YRS Influenza Virus 2021-12-01 Completed [facility], 00:00:00 [place] [facility] Preserv and ABX Branch Free 6 MO-64 YRS Influenza Virus 2021-12-01 Completed [facility], 00:00:00 [place] [facility] Preserv and ABX Branch Free 6 MO-64 YRS Influenza Virus 2021-12-01 Completed [facility], 00:00:00 [place] [facility] Preserv and ABX Branch Free 6 MO-64 YRS Influenza Virus 2021-12-01 Completed [facility], 00:00:00 [place] [facility] Preserv and ABX Branch Free 6 MO-64 YRS Influenza Virus 2021-12-01 Completed [facility], 00:00:00 [place] [facility] Preserv and ABX Branch Free 6 MO-64 YRS Influenza Virus 2021-12-01 Completed [facility], 00:00:00 [place] [facility] Preserv and ABX Branch Free 6 MO-64 YRS Influenza Virus 2021-12-01 Completed [facility], 00:00:00 [place] [facility] Preserv and ABX Branch Free 6 MO-64 YRS Influenza Virus 2021-12-01 Completed [facility], 00:00:00 [place] [facility] Preserv and ABX Branch Free 6 MO-64 YRS Influenza Virus 2021-12-01 Completed [facility], 00:00:00 [place] [facility] Preserv and ABX Branch Free 6 MO-64 YRS Influenza Virus 2021-12-01 Completed [facility], 00:00:00 [place] [facility] Preserv and ABX Branch Free 6 MO-64 YRS Influenza Virus 2021-12-01 Completed [facility], 00:00:00 [place] [facility] Preserv and ABX Branch Free 6 MO-64 YRS Influenza Virus 2021-12-01 [facility]pleted [facility]00 [place] [facility] ABX Branch Free 6 MO-64 YRS Influenza Virus 2021-12-01 Completed [facility], 00:00:00 [place] [facility] ABX Branch Free 6 MO-64 YRS Influenza Virus 2021-12-01 Completed [facility], 00:00:00 [place] [facility] ABX Branch Free 6 MO-64 YRS Influenza Virus 2021-12-01 Completed [facility], 00:00:00 [place] [facility] ABX Branch Free 6 MO-64 YRS Influenza Virus 2021-12-01 Completed [facility], 00:00:00 [place] [facility] ABX Branch Free 6 MO-64 YRS Influenza Virus 2021-12-01 Completed [facility], 00:00:00 [place] [facility] ABX Branch Free 6 MO-64 YRS Influenza Virus 2021-12-01 Completed [facility], 00:00:00 [place] [facility] ABX Branch Free 6 MO-64 YRS Influenza Virus 2021-12-01 Completed [facility], 00:00:00 [place] [facility] ABX Branch Free 6 MO-64 YRS Influenza Virus 2021-12-01 Completed [facility], 00:00:00 [place] [facility] ABX Branch Free 6 MO-64 YRS Influenza Virus 2021-12-01 Completed [facility], 00:00:00 [place] [facility] ABX Branch Free 6 MO-64 YRS Influenza Virus 2021-12-01 Completed [facility], 00:00:00 [place] [facility] ABX Branch Free 6 MO-64 YRS Influenza Virus 2021-12-01 Completed [facility], 00:00:00 [place] [facility] ABX Branch Free 6 MO-64 YRS Influenza Virus 2021-12-01 Completed [facility], 00:00:00 [place] [facility] ABX Branch Free 6 MO-64 YRS Influenza Virus 2021-12-01 Completed [facility], 00:00:00 [place] [facility] ABX Branch Free 6 MO-64 YRS Influenza Virus 2021-12-01 Completed [facility], 00:00:00 [place] [facility] ABX Branch Free 6 MO-64 YRS Influenza Virus 2021-12-01 Completed [facility], 00:00:00 [place] [facility] ABX Branch Free 6 MO-64 YRS Influenza Virus 2021-12-01 Completed [facility], 00:00:00 [place] [facility] Pres[facility] ABX Branch Free 6 MO-64 YRS Influenza Virus 2021-12-01 Completed [facility], 00:00:00 [place] [facility] Pres[facility] ABX Branch Free 6 MO-64 YRS Influenza Virus 2021-12-01 Completed [facility], 00:00:00 [place] [facility] Pres[facility] ABX Branch Free 6 MO-64 YRS Influenza Virus 2021-12-01 Completed [facility], 00:00:00 [place] [facility] ABX Branch Free 6 MO-64 YRS Influenza Virus 2021-12-01 Completed [facility], 00:00:00 [place] [facility] ABX Branch Free 6 MO-64 YRS Influenza Virus 2021-12-01 Completed [facility], 00:00:00 [place] [facility] ABX Branch Free 6 MO-64 YRS Influenza Virus 2021-12-01 Completed [facility], 00:00:00 [place] [facility] ABX Branch Free 6 MO-64 YRS Influenza Virus 2021-12-01 Completed [facility], 00:00:00 [place] [facility] ABX Branch Free 6 MO-64 YRS Influenza Virus 2021-12-01 Completed [facility], 00:00:00 [place] [facility] ABX Branch Free 6 MO-64 YRS Influenza Virus 2021-12-01 Completed [facility], 00:00:00 [place] [facility] ABX Branch Free 6 MO-64 YRS Influenza Virus 2021-12-01 Completed [facility], 00:00:00 [place] [facility] ABX Branch Free 6 MO-64 YRS Influenza Virus 2021-12-01 Completed [facility], 00:00:00 [place] [facility] ABX Branch Free 6 MO-64 YRS Influenza Virus 2021-12-01 Completed [facility], 00:00:00 [place] [facility] ABX Branch Free 6 MO-64 YRS Influenza Virus 2021-12-01 Completed [facility], 00:00:00 [place] [facility] ABX Branch Free 6 MO-64 YRS Influenza Virus 2021-12-01 Completed [facility], 00:00:00 [place] [facility] Pres[facility] ABX Branch Free 6 MO-64 YRS Influenza Virus 2021-12-01 Completed [facility], 00:00:00 [place] [facility] Pres[facility] ABX Branch Free 6 MO-64 YRS Influenza Virus 2021-12-01 Completed [facility], 00:00:00 [place] [facility] ABX Branch Free 6 MO-64 YRS DTAP 2021-06-04 Completed [facility] 00:00:00 [facility] DTAP 2021-06-04 Completed [facility] 00:00:00 [facility] DTAP 2021-06-04 Completed [facility] 00:00:00 [facility] DTAP 2021-06-04 Completed [facility] 00:00:00 [facility] DTAP 2021-06-04 Completed [facility] 00:00:00 [facility] DTAP 2021-06-04 Completed [facility] 00:00:00 [facility] DTAP 2021-06-04 Completed [facility] 00[facility]00:00 [facility] DTAP 2021-06-04 Completed [facility] 00[facility]00:00 [facility] DTAP 2021-06-04 Completed [facility] 00:00:00 [facility] DTAP 2021-06-04 Completed [facility] 00:00:00 [facility] DTAP 2021-06-04 Completed [facility] 00:00:00 [facility] DTAP 2021-06-04 Completed [facility] 00:00:00 [facility] DTAP 2021-06-04 Completed [facility] 00:00:00 [facility] DTAP 2021-06-04 Completed [facility] 00:00:00 [facility] DTAP 2021-06-04 Completed [facility] 00:00:00 [facility] DTAP 2021-06-04 Completed [facility] 00:00:00 [facility] DTAP 2021-06-04 Completed [facility] 00:00:00 [facility] DTAP 2021-06-04 Completed [facility] 00:00:00 [facility] DTAP 2021-06-04 Completed [facility] 00:00:00 [facility] DTAP 2021-06-04 Completed [facility] 00:00:00 [facility] DTAP 2021-06-04 Completed [facility] 00:00:00 [facility] DTAP 2021-06-04 Completed [facility] 00:00:00 [facility] DTAP 2021-06-04 Completed [facility] 00:00:00 [facility] DTAP 2021-06-04 Completed [facility] 00:00:00 [facility] DTAP 2021-06-04 Completed [facility] 00:00:00 [facility] DTAP 2021-06-04 Completed [facility] 00:00:00 [facility] DTAP 2021-06-04 Completed [facility] 00:00:00 [facility] DTAP 2021-06-04 Completed [facility] 00:00:00 [facility] DTAP 2021-06-04 Completed [facility] 00:00:00 [facility] DTAP 2021-06-04 Completed [facility] 00:00:00 [facility] DTAP 2021-06-04 Completed [facility] 00:00:00 [facility] DTAP 2021-06-04 Completed [facility] 00:00:00 [facility] DTAP 2021-06-04 Completed [facility] 00:00:00 [facility] DTAP 2021-06-04 Completed [facility] 00:00:00 [facility] DTAP 2021-06-04 Completed [facility] 00:00:00 [facility] DTAP 2021-06-04 Completed [facility] 00:00:00 [facility] DTAP 2021-06-04 Completed [facility] 00:00:00 [facility] DTAP 2021-06-04 Completed [facility] 00:00:00 [facility] DTAP 2021-06-04 Completed [facility] 00:00:00 [facility] DTAP 2021-06-04 Completed [facility] 00:00:00 [facility] DTAP 2021-06-04 Completed [facility] 00:00:00 [facility] DTAP 2021-06-04 Completed [facility] 00:00:00 [facility] DTAP 2021-06-04 Completed [facility] 00:00:00 [facility] DTAP 2021-06-04 Completed [facility] 00:00:00 [facility] DTAP 2021-06-04 Completed [facility] 00:00:00 [facility] DTAP 2021-06-04 Completed [facility] 00:00:00 [facility] DTAP 2021-06-04 Completed [facility] 00:00:00 [facility] DTAP 2021-06-04 Completed [facility] 00:00:00 [facility] DTAP 2021-06-04 Completed [facility] 00:00:00 [facility] DTAP 2021-06-04 Completed [facility] 00:00:00 [facility] DTAP 2021-06-04 Completed [facility] 00:00:00 [facility] DTAP 2021-06-04 Completed [facility] 00:00:00 [facility] DTAP 2021-06-04 Completed [facility] 00:00:00 [facility] DTAP 2021-06-04 Completed [facility] 00:00:00 [facility] DTAP 2021-06-04 Completed [facility] 00:00:00 [facility] DTAP 2021-06-04 Completed [facility] 00:00:00 [facility] DTAP 2021-06-04 Completed [facility] 00:00:00 [facility] DTAP 2021-06-04 Completed [facility] 00:00:00 [facility] DTAP 2021-06-04 Completed [facility] 00:00:00 [facility] DTAP 2021-06-04 Completed [facility] 00:00:00 [facility] DTAP 2021-06-04 Completed [facility] 00:00:00 [facility] DTAP 2021-06-04 Completed [facility] 00:00:00 [facility] DTAP 2021-06-04 Completed [facility] 00:00:00 [facility] DTAP 2021-06-04 Completed [facility] 00:00:00 [facility] DTAP 2021-06-04 Completed [facility] 00:00:00 [facility] DTAP 2021-06-04 Completed [facility] 00:00:00 [facility] DTAP 2021-06-04 Completed [facility] 00:00:00 [facility] DTAP 2021-06-04 Completed [facility] 00:00:00 [facility] DTAP 2021-06-04 Completed [facility] 00:00:00 [facility] DTAP 2021-06-04 Completed [facility] 00:00:00 [facility] DTAP 2021-06-04 Completed [facility] 00:00:00 [facility] DTAP 2021-06-04 Completed [facility] 00:00:00 [facility] DTAP 2021-06-04 Completed [facility] 00:00:00 [facility] DTAP 2021-06-04 Completed [facility] 00:00:00 [facility] DTAP 2021-06-04 Completed [facility] 00:00:00 [facility] DTAP 2021-06-04 Completed [facility] 00:00:00 [facility] DTAP 2021-06-04 Completed [facility] 00:00:00 [facility] DTAP 2021-06-04 Completed [facility] 00:00:00 [facility] DTAP 2021-06-04 Completed [facility] 00:00:00 [facility] DTAP 2021-06-04 Completed [facility] 00:00:00 [facility] DTAP 2021-06-04 Completed [facility] 00:00:00 [facility] DTAP 2021-06-04 Completed [facility] 00:00:00 [facility] DTAP 2021-06-04 Completed [facility] 00:00:00 [facility] DTAP 2021-06-04 Completed [facility] 00:00:00 [facility] DTAP 2021-06-04 Completed [facility] 00:00:00 [facility] DTAP 2021-06-04 Completed [facility] 00:00:00 [facility] DTAP 2021-06-04 Completed [facility] 00:00:00 [facility] DTAP 2021-06-04 Completed [facility] 00:00:00 [facility] DTAP 2021-06-04 Completed [facility] 00:00:00 [facility] DTAP 2021-06-04 Completed [facility] 00:00:00 [facility] DTAP 2021-06-04 Completed [facility] 00:00:00 [facility] DTAP 2021-06-04 Completed [facility] 00:00:00 [facility] DTAP 2021-06-04 Completed [facility] 00:00:00 [facility] DTAP 2021-06-04 Completed [facility] 00:00:00 [facility] DTAP 2021-06-04 Completed [facility] 00:00:00 [facility] Influenza Virus 2021-01-31 Completed [facility], 00:00:00 [place] [facility] ABX Branch Free 6 MO-64 YRS Influenza Virus 2021-01-31 Completed [facility], 00:00:00 [place] [facility] ABX Branch Free 6 MO-64 YRS Influenza Virus 2021-01-31 Completed [facility], 00:00:00 [place] [facility] Pres[facility] ABX Branch Free 6 MO-64 YRS Influenza Virus 2021-01-31 Completed [facility], 00:00:00 [place] [facility] ABX Branch Free 6 MO-64 YRS Influenza Virus 2021-01-31 Completed [facility], 00:00:00 [place] [facility] ABX Branch Free 6 MO-64 YRS Influenza Virus 2021-01-31 Completed [facility], 00:00:00 [place] [facility] Pres[facility] ABX Branch Free 6 MO-64 YRS Influenza Virus 2021-01-31 Completed [facility], 00:00:00 [place] [facility] Pres[facility] ABX Branch Free 6 MO-64 YRS Influenza Virus 2021-01-31 Completed [facility], 00:00:00 [place] [facility] Pres[facility] ABX Branch Free 6 MO-64 YRS Influenza Virus 2021-01-31 Completed [facility], 00:00:00 [place] [facility] Pres[facility] ABX Branch Free 6 MO-64 YRS Influenza Virus 2021-01-31 Completed [facility], 00:00:00 [place] [facility] Pres[facility] ABX Branch Free 6 MO-64 YRS Influenza Virus 2021-01-31 Completed [facility], 00:00:00 [place] [facility] Pres[facility] ABX Branch Free 6 MO-64 YRS Influenza Virus 2021-01-31 Completed [facility], 00:00:00 [place] [facility] Pres[facility] ABX Branch Free 6 MO-64 YRS Influenza Virus 2021-01-31 Completed [facility], 00:00:00 [place] [facility] Pres[facility] ABX Branch Free 6 MO-64 YRS Influenza Virus 2021-01-31 Completed [facility], 00:00:00 [place] [facility] Pres[facility] and ABX Branch Free 6 MO-64 YRS Influenza Virus 2021-01-31 Completed [facility], 00:00:00 [place] [facility] Pres[facility] and ABX Branch Free 6 MO-64 YRS Influenza Virus 2021-01-31 Completed [facility], 00:00:00 [place] [facility] Pres[facility] and ABX Branch Free 6 MO-64 YRS Influenza Virus 2021-01-31 Completed [facility], 00:00:00 [place] [facility] Pres[facility] and ABX Branch Free 6 MO-64 YRS Influenza Virus 2021-01-31 Completed [facility], 00:00:00 [place] [facility] Pres[facility] and ABX Branch Free 6 MO-64 YRS Influenza Virus 2021-01-31 Completed [facility], 00:00:00 [place] [facility] Pres[facility] and ABX Branch Free 6 MO-64 YRS Influenza Virus 2021-01-31 Completed [facility], 00:00:00 [place] [facility] Pres[facility] and ABX Branch Free 6 MO-64 YRS Influenza Virus 2021-01-31 Completed [facility], 00:00:00 [place] [facility] Pres[facility] and ABX Branch Free 6 MO-64 YRS Influenza Virus 2021-01-31 Completed [facility], 00:00:00 [place] [facility] Pres[facility] and ABX Branch Free 6 MO-64 YRS Influenza Virus 2021-01-31 Completed [facility], 00:00:00 [place] [facility] Pres[facility] and ABX Branch Free 6 MO-64 YRS Influenza Virus 2021-01-31 Completed [facility], 00:00:00 [place] [facility] Pres[facility] and ABX Branch Free 6 MO-64 YRS Influenza Virus 2021-01-31 Completed [facility], 00:00:00 [place] [facility] Pres[facility] and ABX Branch Free 6 MO-64 YRS Influenza Virus 2021-01-31 Completed [facility], 00:00:00 [place] [facility] Pres[facility] and ABX Branch Free 6 MO-64 YRS Influenza Virus 2021-01-31 Completed [facility], 00:00:00 [place] [facility] Pres[facility] and ABX Branch Free 6 MO-64 YRS Influenza Virus 2021-01-31 Completed [facility], 00:00:00 [place] [facility] Pres[facility] and ABX Branch Free 6 MO-64 YRS Influenza Virus 2021-01-31 Completed [facility], 00:00:00 [place] [facility] Pres[facility] and ABX Branch Free 6 MO-64 YRS Influenza Virus 2021-01-31 Completed [facility], 00:00:00 [place] [facility] Pres[facility] and ABX Branch Free 6 MO-64 YRS Influenza Virus 2021-01-31 Completed [facility], 00:00:00 [place] [facility] Pres[facility] and ABX Branch Free 6 MO-64 YRS Influenza Virus 2021-01-31 Completed [facility], 00:00:00 [place] [facility] Pres[facility] and ABX Branch Free 6 MO-64 YRS Influenza Virus 2021-01-31 Completed [facility], 00:00:00 [place] [facility] Pres[facility] and ABX Branch Free 6 MO-64 YRS Influenza Virus 2021-01-31 Completed [facility], 00:00:00 [place] [facility] Pres[facility] and ABX Branch Free 6 MO-64 YRS Influenza Virus 2021-01-31 Completed [facility], 00:00:00 [place] [facility] Pres[facility] and ABX Branch Free 6 MO-64 YRS Influenza Virus 2021-01-31 Completed [facility], 00:00:00 [place] [facility] Pres[facility] and ABX Branch Free 6 MO-64 YRS Influenza Virus 2021-01-31 Completed [facility], 00:00:00 [place] [facility] Pres[facility] and ABX Branch Free 6 MO-64 YRS Influenza Virus 2021-01-31 Completed [facility], 00:00:00 [place] [facility] Pres[facility] and ABX Branch Free 6 MO-64 YRS Influenza Virus 2021-01-31 Completed [facility], 00:00:00 [place] [facility] Pres[facility] and ABX Branch Free 6 MO-64 YRS Influenza Virus 2021-01-31 Completed [facility], 00:00:00 [place] [facility] Pres[facility] and ABX Branch Free 6 MO-64 YRS Influenza Virus 2021-01-31 Completed [facility], 00:00:00 [place] [facility] Pres[facility] and ABX Branch Free 6 MO-64 YRS Influenza Virus 2021-01-31 Completed [facility], 00:00:00 [place] [facility] Pres[facility] and ABX Branch Free 6 MO-64 YRS Influenza Virus 2021-01-31 Completed [facility], 00:00:00 [place] [facility] Pres[facility] and ABX Branch Free 6 MO-64 YRS Influenza Virus 2021-01-31 Completed [facility], 00:00:00 [place] [facility] Pres[facility] and ABX Branch Free 6 MO-64 YRS Influenza Virus 2021-01-31 Completed [facility], 00:00:00 [place] [facility] Pres[facility] and ABX Branch Free 6 MO-64 YRS Influenza Virus 2021-01-31 Completed [facility], 00:00:00 [place] [facility] Pres[facility] and ABX Branch Free 6 MO-64 YRS Influenza Virus 2021-01-31 Completed [facility], 00:00:00 [place] [facility] Pres[facility] and ABX Branch Free 6 MO-64 YRS Influenza Virus 2021-01-31 Completed [facility], 00:00:00 [place] [facility] Pres[facility] and ABX Branch Free 6 MO-64 YRS Influenza Virus 2021-01-31 Completed [facility], 00:00:00 [place] [facility] Pres[facility] and ABX Branch Free 6 MO-64 YRS Influenza Virus 2021-01-31 Completed [facility], 00:00:00 [place] [facility] Pres[facility] and ABX Branch Free 6 MO-64 YRS Influenza Virus 2021-01-31 Completed [facility], 00:00:00 [place] [facility] Pres[facility] and ABX Branch Free 6 MO-64 YRS Influenza Virus 2021-01-31 Completed [facility], 00:00:00 [place] [facility] Pres[facility] and ABX Branch Free 6 MO-64 YRS Influenza Virus 2021-01-31 Completed [facility], 00:00:00 [place] [facility] Pres[facility] and ABX Branch Free 6 MO-64 YRS Influenza Virus 2021-01-31 Completed [facility], 00:00:00 [place] [facility] Pres[facility] and ABX Branch Free 6 MO-64 YRS Influenza Virus 2021-01-31 Completed [facility], 00:00:00 [place] [facility] Pres[facility] and ABX Branch Free 6 MO-64 YRS Influenza Virus 2021-01-31 Completed [facility], 00:00:00 [place] [facility] Pres[facility] and ABX Branch Free 6 MO-64 YRS Influenza Virus 2021-01-31 Completed [facility], 00:00:00 [place] [facility] Pres[facility] and ABX Branch Free 6 MO-64 YRS Influenza Virus 2021-01-31 Completed [facility], 00:00:00 [place] [facility] Pres[facility] and ABX Branch Free 6 MO-64 YRS Influenza Virus 2021-01-31 Completed [facility], 00:00:00 [place] [facility] Pres[facility] and ABX Branch Free 6 MO-64 YRS Influenza Virus 2021-01-31 Completed [facility], 00:00:00 [place] [facility] Pres[facility] and ABX Branch Free 6 MO-64 YRS Influenza Virus 2021-01-31 Completed [facility], 00:00:00 [place] [facility] Pres[facility] and ABX Branch Free 6 MO-64 YRS Influenza Virus 2021-01-31 Completed [facility], 00:00:00 [place] [facility] Pres[facility] and ABX Branch Free 6 MO-64 YRS Influenza Virus 2021-01-31 Completed [facility], 00:00:00 [place] [facility] Pres[facility] and ABX Branch Free 6 MO-64 YRS Influenza Virus 2021-01-31 Completed [facility], 00:00:00 [place] [facility] Pres[facility] and ABX Branch Free 6 MO-64 YRS Influenza Virus 2021-01-31 Completed [facility], 00:00:00 [place] [facility] Pres[facility] and ABX Branch Free 6 MO-64 YRS Influenza Virus 2021-01-31 Completed [facility], 00:00:00 [place] [facility] Pres[facility] ABX Branch Free 6 MO-64 YRS Influenza Virus 2021-01-31 Completed [facility], 00:00:00 [place] [facility] Pres[facility] ABX Branch Free 6 MO-64 YRS Influenza Virus 2021-01-31 Completed [facility], 00:00:00 [place] [facility] Pres[facility] ABX Branch Free 6 MO-64 YRS Influenza Virus 2021-01-31 Completed [facility], 00:00:00 [place] [facility] Pres[facility] ABX Branch Free 6 MO-64 YRS Influenza Virus 2021-01-31 Completed [facility], 00:00:00 [place] [facility] Pres[facility] ABX Branch Free 6 MO-64 YRS Influenza Virus 2021-01-31 Completed [facility], 00:00:00 [place] [facility] Pres[facility] ABX Branch Free 6 MO-64 YRS Influenza Virus 2021-01-31 Completed [facility], 00:00:00 [place] [facility] Pres[facility] ABX Branch Free 6 MO-64 YRS Influenza Virus 2021-01-31 Completed [facility], 00:00:00 [place] [facility] Pres[facility] and ABX Branch Free 6 MO-64 YRS Influenza Virus 2021-01-31 Completed [facility], 00:00:00 [place] [facility] Pres[facility] and ABX Branch Free 6 MO-64 YRS Influenza Virus 2021-01-31 Completed [facility], 00:00:00 [place] [facility] Pres[facility] and ABX Branch Free 6 MO-64 YRS Influenza Virus 2021-01-31 Completed [facility], 00:00:00 [place] [facility] Pres[facility] and ABX Branch Free 6 MO-64 YRS Influenza Virus 2021-01-31 Completed [facility], 00:00:00 [place] [facility] Pres[facility] ABX Branch Free 6 MO-64 YRS Influenza Virus 2021-01-31 Completed [facility], 00:00:00 [place] [facility] Pres[facility] ABX Branch Free 6 MO-64 YRS Influenza Virus 2021-01-31 Completed [facility], 00:00:00 [place] [facility] Pres[facility] ABX Branch Free 6 MO-64 YRS Influenza Virus 2021-01-31 Completed [facility], 00:00:00 [place] [facility] Pres[facility] ABX Branch Free 6 MO-64 YRS Influenza Virus 2021-01-31 Completed [facility], 00:00:00 [place] [facility] Pres[facility] ABX Branch Free 6 MO-64 YRS Influenza Virus 2021-01-31 Completed [facility], 00:00:00 [place] [facility] Pres[facility] ABX Branch Free 6 MO-64 YRS Influenza Virus 2021-01-31 Completed [facility], 00:00:00 [place] [facility] ABX Branch Free 6 MO-64 YRS Influenza Virus 2021-01-31 Completed [facility], 00:00:00 [place] [facility] ABX Branch Free 6 MO-64 YRS Influenza Virus 2021-01-31 Completed [facility], 00:00:00 [place] [facility] ABX Branch Free 6 MO-64 YRS Influenza Virus 2021-01-31 Completed [facility], 00:00:00 [place] [facility] ABX Branch Free 6 MO-64 YRS Influenza Virus 2021-01-31 Completed [facility], 00:00:00 [place] [facility] ABX Branch Free 6 MO-64 YRS Influenza Virus 2021-01-31 Completed [facility], 00:00:00 [place] [facility] ABX Branch Free 6 MO-64 YRS Influenza Virus 2021-01-31 Completed [facility], 00:00:00 [place] [facility] ABX Branch Free 6 MO-64 YRS Influenza Virus 2021-01-31 Completed [facility], 00:00:00 [place] [facility] ABX Branch Free 6 MO-64 YRS Influenza Virus 2021-01-31 Completed [facility], 00:00:00 [place] [facility] Pres[facility] ABX Branch Free 6 MO-64 YRS Influenza Virus 2021-01-31 Completed [facility], 00:00:00 [place] [facility] ABX Branch Free 6 MO-64 YRS Influenza Virus 2021-01-31 Completed [facility], 00:00:00 [place] [facility] ABX Branch Free 6 MO-64 YRS Influenza Virus 2021-01-31 Completed [facility], 00:00:00 [place] [facility] ABX Branch Free 6 MO-64 YRS Influenza Virus 2021-01-31 Completed [facility], 00:00:00 [place] [facility] ABX Branch Free 6 MO-64 YRS Pneumococcal 2020-06-01 Completed [facility], [facility]00 [place] [facility] PPSV23 (PNEUMOVAX) [facility] Pneumococcal 2020-06-01 Completed [facility], 00:[facility]:00 [place] [facility] PPSV23 (PNEUMOVAX) [facility] Pneumococcal 2020-06-01 Completed [facility], 00:00:00 [place] [facility] PPSV23 (PNEUMOVAX) [facility] Pneumococcal 2020-06-01 Completed [facility], 00:00:00 [place] [facility] PPSV23 (PNEUMOVAX) [facility] Pneumococcal 2020-06-01 Completed [facility], 00:00:00 [place] [facility] PPSV23 (PNEUMOVAX) [facility] Pneumococcal 2020-06-01 Completed [facility], 00:00:00 [place] [facility] PPSV23 (PNEUMOVAX) [facility] Pneumococcal 2020-06-01 Completed [facility], 00:00:00 [place] [facility] PPSV23 (PNEUMOVAX) [facility] Pneumococcal 2020-06-01 Completed [facility], 00:00:00 [place] [facility] PPSV23 (PNEUMOVAX) [facility] Pneumococcal 2020-06-01 Completed [facility], 00:00:00 [place] [facility] PPSV23 (PNEUMOVAX) [facility] Pneumococcal 2020-06-01 Completed [facility] Pol[facility], 00:00:00 [place] [facility] PPSV23 (PNEUMOVAX) [facility] Pneumococcal 2020-06-01 Completed [facility] Pol[facility]accharide, 00:00:00 [place] [facility] PPSV23 (PNEUMOVAX) [facility] Pneumococcal 2020-06-01 Completed [facility] Pol[facility]accharide, 00:00:00 [place] [facility] PPSV23 (PNEUMOVAX) [facility] Pneumococcal 2020-06-01 Completed [facility] Pol[facility]accharide, 00:00:00 [place] [facility] PPSV23 (PNEUMOVAX) [facility] Pneumococcal 2020-06-01 Completed [facility] Pol[facility]accharide, 00:00:00 [place] [facility] PPSV23 (PNEUMOVAX) [facility] Pneumococcal 2020-06-01 Completed [facility] Pol[facility]accharide, 00:00:00 [place] [facility] PPSV23 (PNEUMOVAX) [facility] Pneumococcal 2020-06-01 Completed [facility] Pol[facility]accharide, 00:00:00 [place] [facility] PPSV23 (PNEUMOVAX) [facility] Pneumococcal 2020-06-01 Completed [facility] Pol[facility]accharide, 00:00:00 [place] [facility] PPSV23 (PNEUMOVAX) [facility] Pneumococcal 2020-06-01 Completed [facility] Pol[facility]accharide, 00:00:00 [place] [facility] PPSV23 (PNEUMOVAX) [facility] Pneumococcal 2020-06-01 Completed [facility] Pol[facility]accharide, 00:00:00 [place] [facility] PPSV23 (PNEUMOVAX) [facility] Pneumococcal 2020-06-01 Completed [facility] Pol[facility]accharide, 00:00:00 [place] [facility] PPSV23 (PNEUMOVAX) [facility] Pneumococcal 2020-06-01 Completed [facility] Pol[facility]accharide, 00:00:00 [place] [facility] PPSV23 (PNEUMOVAX) [facility] Pneumococcal 2020-06-01 Completed [facility] Pol[facility]accharide, 00:00:00 [place] [facility] PPSV23 (PNEUMOVAX) [facility] Pneumococcal 2020-06-01 Completed [facility] Pol[facility]accharide, 00:00:00 [place] [facility] PPSV23 (PNEUMOVAX) Branch Pneumococcal 2020-06-01 Completed [facility] Pol[facility]accharide, 00:00:00 [place] [facility] PPSV23 (PNEUMOVAX) [facility] Pneumococcal 2020-06-01 Completed [facility] Pol[facility]accharide, 00:00:00 [place] [facility] PPSV23 (PNEUMOVAX) Branch Pneumococcal 2020-06-01 Completed [facility] Pol[facility]accharide, 00:00:00 [place] [facility] PPSV23 (PNEUMOVAX) Branch Pneumococcal 2020-06-01 Completed [facility] Pol[facility]accharide, 00:00:00 [place] [facility] PPSV23 (PNEUMOVAX) [facility] Pneumococcal 2020-06-01 Completed [facility] Pol[facility]accharide, 00:00:00 [place] [facility] PPSV23 (PNEUMOVAX) [facility] Pneumococcal 2020-06-01 Completed [facility] Pol[facility]accharide, 00:00:00 [place] [facility] PPSV23 (PNEUMOVAX) [facility] Pneumococcal 2020-06-01 Completed [facility] Pol[facility]accharide, 00:00:00 [place] [facility] PPSV23 (PNEUMOVAX) [facility] Pneumococcal 2020-06-01 Completed [facility] Pol[facility], 00:00:00 [place] [facility] PPSV23 (PNEUMOVAX) [facility] Pneumococcal 2020-06-01 Completed [facility] Pol[facility]accharide, 00:00:00 [place] [facility] PPSV23 (PNEUMOVAX) Branch Pneumococcal 2020-06-01 Completed [facility] Pol[facility]accharide, 00:00:00 [place] [facility] PPSV23 (PNEUMOVAX) Branch Pneumococcal 2020-06-01 Completed [facility] Pol[facility]accharide, 00:00:00 [place] [facility] PPSV23 (PNEUMOVAX) Branch Pneumococcal 2020-06-01 Completed [facility] Pol[facility]accharide, 00:00:00 [place] [facility] PPSV23 (PNEUMOVAX) Branch Pneumococcal 2020-06-01 Completed [facility] Pol[facility]accharide, 00:00:00 [place] [facility] PPSV23 (PNEUMOVAX) Branch Pneumococcal 2020-06-01 Completed [facility] Pol[facility]accharide, 00:00:00 [place] [facility] PPSV23 (PNEUMOVAX) Branch Pneumococcal 2020-06-01 Completed [facility] Pol[facility]accharide, 00:00:00 [place] [facility] PPSV23 (PNEUMOVAX) Branch Pneumococcal 2020-06-01 Completed [facility] Pol[facility]accharide, 00:00:00 [place] [facility] PPSV23 (PNEUMOVAX) Branch Pneumococcal 2020-06-01 Completed [facility] Pol[facility]accharide, 00:00:00 [place] [facility] PPSV23 (PNEUMOVAX) Branch Pneumococcal 2020-06-01 Completed [facility] Pol[facility]accharide, 00:00:00 [place] [facility] PPSV23 (PNEUMOVAX) Branch Pneumococcal 2020-06-01 Completed [facility] Pol[facility]accharide, 00:00:00 [place] [facility] PPSV23 (PNEUMOVAX) Branch Pneumococcal 2020-06-01 Completed [facility] Pol[facility]accharide, 00:00:00 [place] [facility] PPSV23 (PNEUMOVAX) Branch Pneumococcal 2020-06-01 Completed [facility] Pol[facility]accharide, 00:00:00 [place] [facility] PPSV23 (PNEUMOVAX) Branch Pneumococcal 2020-06-01 Completed [facility] Pol[facility]accharide, 00:00:00 [place] [facility] PPSV23 (PNEUMOVAX) Branch Pneumococcal 2020-06-01 Completed [facility] Pol[facility]accharide, 00:00:00 [place] [facility] PPSV23 (PNEUMOVAX) Branch Pneumococcal 2020-06-01 Completed [facility] Pol[facility]accharide, 00:00:00 [place] [facility] PPSV23 (PNEUMOVAX) [facility] Pneumococcal 2020-06-01 Completed [facility] Pol[facility]accharide, 00:00:00 [place] [facility] PPSV23 (PNEUMOVAX) Branch Pneumococcal 2020-06-01 Completed [facility] Pol[facility]accharide, 00:00:00 [place] [facility] PPSV23 (PNEUMOVAX) Branch Pneumococcal 2020-06-01 Completed [facility] Pol[facility]accharide, 00:00:00 [place] [facility] PPSV23 (PNEUMOVAX) Branch Pneumococcal 2020-06-01 Completed [facility] Pol[facility]accharide, 00:00:00 [place] [facility] PPSV23 (PNEUMOVAX) Branch Pneumococcal 2020-06-01 Completed [facility] Pol[facility]accharide, 00:00:00 [place] [facility] PPSV23 (PNEUMOVAX) Branch Pneumococcal 2020-06-01 Completed [facility] Pol[facility]accharide, 00:00:00 [place] [facility] PPSV23 (PNEUMOVAX) Branch Pneumococcal 2020-06-01 Completed [facility] Pol[facility]accharide, 00:00:00 [place] [facility] PPSV23 (PNEUMOVAX) Branch Pneumococcal 2020-06-01 Completed [facility] Pol[facility]accharide, 00:00:00 [place] [facility] PPSV23 (PNEUMOVAX) Branch Pneumococcal 2020-06-01 Completed [facility] Pol[facility]accharide, 00:00:00 [place] [facility] PPSV23 (PNEUMOVAX) Branch Pneumococcal 2020-06-01 Completed [facility] Pol[facility]accharide, 00:00:00 [place] [facility] PPSV23 (PNEUMOVAX) Branch Pneumococcal 2020-06-01 Completed [facility] Pol[facility], 00:00:00 [place] [facility] PPSV23 (PNEUMOVAX) Branch Pneumococcal 2020-06-01 Completed [facility] Pol[facility], 00:00:00 [place] [facility] PPSV23 (PNEUMOVAX) Branch Pneumococcal 2020-06-01 Completed [facility] Pol[facility], 00:00:00 [place] [facility] PPSV23 (PNEUMOVAX) Branch Pneumococcal 2020-06-01 Completed [facility] Pol[facility], 00:00:00 [place] [facility] PPSV23 (PNEUMOVAX) Branch Pneumococcal 2020-06-01 Completed [facility] Pol[facility]accharide, 00:00:00 [place] [facility] PPSV23 (PNEUMOVAX) Branch Pneumococcal 2020-06-01 Completed [facility] Pol[facility], 00:00:00 [place] [facility] PPSV23 (PNEUMOVAX) Branch Pneumococcal 2020-06-01 Completed [facility] Pol[facility], 00:00:00 [place] [facility] PPSV23 (PNEUMOVAX) Branch Pneumococcal 2020-06-01 Completed [facility] Pol[facility]accharide, 00:00:00 [place] [facility] PPSV23 (PNEUMOVAX) Branch Pneumococcal 2020-06-01 Completed [facility] Pol[facility]accharide, 00:00:00 [place] [facility] PPSV23 (PNEUMOVAX) Branch Pneumococcal 2020-06-01 Completed [facility] Pol[facility]accharide, 00:00:00 [place] [facility] PPSV23 (PNEUMOVAX) Branch Pneumococcal 2020-06-01 Completed [facility] Pol[facility]accharide, 00:00:00 [place] [facility] PPSV23 (PNEUMOVAX) Branch Pneumococcal 2020-06-01 Completed [facility] Pol[facility]accharide, 00:00:00 [place] [facility] PPSV23 (PNEUMOVAX) Branch Pneumococcal 2020-06-01 Completed [facility] Pol[facility]accharide, 00:00:00 [place] [facility] PPSV23 (PNEUMOVAX) Branch Pneumococcal 2020-06-01 Completed [facility] Pol[facility]accharide, 00:00:00 [place] [facility] PPSV23 (PNEUMOVAX) Branch Pneumococcal 2020-06-01 Completed [facility] Pol[facility]accharide, 00:00:00 [place] [facility] PPSV23 (PNEUMOVAX) Branch Pneumococcal 2020-06-01 Completed [facility] Pol[facility]accharide, 00:00:00 [place] [facility] PPSV23 (PNEUMOVAX) Branch Pneumococcal 2020-06-01 Completed [facility] Pol[facility]accharide, 00:00:00 [place] [facility] PPSV23 (PNEUMOVAX) Branch Pneumococcal 2020-06-01 Completed [facility] Pol[facility]accharide, 00:00:00 [place] [facility] PPSV23 (PNEUMOVAX) Branch Pneumococcal 2020-06-01 Completed [facility] Pol[facility]accharide, 00:00:00 [place] [facility] PPSV23 (PNEUMOVAX) Branch Pneumococcal 2020-06-01 Completed [facility] Pol[facility]accharide, 00:00:00 [place] [facility] PPSV23 (PNEUMOVAX) Branch Pneumococcal 2020-06-01 Completed [facility] Pol[facility]accharide, 00:00:00 [place] [facility] PPSV23 (PNEUMOVAX) Branch Pneumococcal 2020-06-01 Completed [facility] Pol[facility]accharide, 00:00:00 [place] [facility] PPSV23 (PNEUMOVAX) Branch Pneumococcal 2020-06-01 Completed [facility] Pol[facility]accharide, 00:00:00 [place] [facility] PPSV23 (PNEUMOVAX) Branch Pneumococcal 2020-06-01 Completed [facility] Pol[facility]accharide, 00:00:00 [place] [facility] PPSV23 (PNEUMOVAX) Branch Pneumococcal 2020-06-01 Completed [facility] Pol[facility]accharide, 00:00:00 [place] [facility] PPSV23 (PNEUMOVAX) Branch Pneumococcal 2020-06-01 Completed [facility] Pol[facility]accharide, 00:00:00 [place] [facility] PPSV23 (PNEUMOVAX) Branch Pneumococcal 2020-06-01 Completed [facility] Pol[facility]accharide, 00:00:00 [place] [facility] PPSV23 (PNEUMOVAX) Branch Pneumococcal 2020-06-01 Completed [facility] Pol[facility]accharide, 00:00:00 [place] [facility] PPSV23 (PNEUMOVAX) Branch Pneumococcal 2020-06-01 Completed [facility] Pol[facility]accharide, 00:00:00 [place] [facility] PPSV23 (PNEUMOVAX) Branch Pneumococcal 2020-06-01 Completed [facility] Pol[facility]accharide, 00:00:00 [place] [facility] PPSV23 (PNEUMOVAX) Branch Pneumococcal 2020-06-01 Completed [facility] Pol[facility]accharide, 00:00:00 [place] [facility] PPSV23 (PNEUMOVAX) Branch Pneumococcal 2020-06-01 Completed [facility] Pol[facility]accharide, 00:00:00 [place] [facility] PPSV23 (PNEUMOVAX) Branch Pneumococcal 2020-06-01 Completed [facility] Pol[facility]accharide, 00:00:00 [place] [facility] PPSV23 (PNEUMOVAX) Branch Pneumococcal 2020-06-01 Completed [facility] Pol[facility]accharide, 00:00:00 [place] [facility] PPSV23 (PNEUMOVAX) Branch Pneumococcal 2020-06-01 Completed [facility] Pol[facility]accharide, 00:00:00 [place] [facility] PPSV23 (PNEUMOVAX) Branch Pneumococcal 2020-06-01 Completed [facility] Pol[facility]accharide, 00:00:00 [place] [facility] PPSV23 (PNEUMOVAX) Branch Pneumococcal 2020-06-01 Completed [facility] Pol[facility]accharide, 00:00:00 [place] [facility] PPSV23 (PNEUMOVAX) Branch Pneumococcal 2020-06-01 Completed [facility] Pol[facility], 00:00:00 [place] [facility] PPSV23 (PNEUMOVAX) [facility] SARS-COV-2 COVID-19 2020-05-18 Completed [facility] PFIZER VACCINE 00:00:[address] [facility] SARS-COV-2 COVID-19 2020-05-18 Completed [facility] of PFIZER VACCINE 00:00:[address] [facility] SARS-COV-2 COVID-19 2020-05-18 Completed [facility] of PFIZER VACCINE 00:00:[address] [facility] SARS-COV-2 COVID-19 2020-05-18 Completed [facility] of PFIZER VACCINE 00:00:[address] [facility] SARS-COV-2 COVID-19 2020-05-18 Completed [facility] of PFIZER VACCINE 00:00:00 [facility] SARS-COV-2 COVID-19 2020-05-18 Completed [facility] of PFIZER VACCINE 00:00:[address] [facility] SARS-COV-2 COVID-19 2020-05-18 Completed [facility] of PFIZER VACCINE 00:00:[address] [facility] SARS-COV-2 COVID-19 2020-05-18 Completed [facility] of PFIZER VACCINE 00:00:[address] [facility] SARS-COV-2 COVID-19 2020-05-18 Completed [facility] of PFIZER VACCINE 00:00:[address] [facility] SARS-COV-2 COVID-19 2020-05-18 Completed [facility] of PFIZER VACCINE 00:00:00 [facility] SARS-COV-2 COVID-19 2020-05-18 Completed [facility] PFIZER VACCINE 00:00:00 [place] [facility] SARS-COV-2 COVID-19 2020-05-18 Completed [facility] of PFIZER VACCINE 00:00:00 [facility] SARS-COV-2 COVID-19 2020-05-18 Completed [facility] of PFIZER VACCINE 00:00:00 [facility] SARS-COV-2 COVID-19 2020-05-18 Completed [facility] of PFIZER VACCINE 00:00:00 [facility] SARS-COV-2 COVID-19 2020-05-18 Completed [facility] of PFIZER VACCINE 00:00:00 [facility] SARS-COV-2 COVID-19 2020-05-18 Completed [facility] of PFIZER VACCINE 00:00:00 [facility] SARS-COV-2 COVID-19 2020-05-18 Completed [facility] of PFIZER VACCINE 00:00:00 [facility] SARS-COV-2 COVID-19 2020-05-18 Completed [facility] of PFIZER VACCINE 00:00:00 [facility] SARS-COV-2 COVID-19 2020-05-18 Completed [facility] of PFIZER VACCINE 00:00:00 [facility] SARS-COV-2 COVID-19 2020-05-18 Completed [facility] of PFIZER VACCINE 00:00:00 [facility] SARS-COV-2 COVID-19 2020-05-18 Completed [facility] of PFIZER VACCINE 00:00:00 [facility] SARS-COV-2 COVID-19 2020-05-18 Completed [facility] of PFIZER VACCINE 00:00:00 [facility] SARS-COV-2 COVID-19 2020-05-18 Completed [facility] of PFIZER VACCINE 00:00:00 [facility] SARS-COV-2 COVID-19 2020-05-18 Completed [facility] of PFIZER VACCINE 00:00:00 [facility] SARS-COV-2 COVID-19 2020-05-18 Completed [facility] of PFIZER VACCINE 00:00:00 [facility] SARS-COV-2 COVID-19 2020-05-18 Completed [facility] of PFIZER VACCINE 00:00:00 [facility] SARS-COV-2 COVID-19 2020-05-18 Completed [facility] of PFIZER VACCINE 00:00:00 [facility] SARS-COV-2 COVID-19 2020-05-18 Completed [facility] of PFIZER VACCINE 00:00:00 [facility] SARS-COV-2 COVID-19 2020-05-18 Completed [facility] of PFIZER VACCINE 00:00:00 [facility] SARS-COV-2 COVID-19 2020-05-18 Completed [facility] of PFIZER VACCINE 00:00:00 [facility] SARS-COV-2 COVID-19 2020-05-18 Completed [facility] of PFIZER VACCINE 00:00:00 [facility] SARS-COV-2 COVID-19 2020-05-18 Completed [facility] of PFIZER VACCINE 00:00:00 [facility] SARS-COV-2 COVID-19 2020-05-18 Completed [facility] PFIZER VACCINE 00:00:00 [facility] SARS-COV-2 COVID-19 2020-05-18 Completed [facility] PFIZER VACCINE 00:00:00 [facility] SARS-COV-2 COVID-19 2020-05-18 Completed [facility] PFIZER VACCINE 00:00:[address] [facility] SARS-COV-2 COVID-19 2020-05-18 Completed [facility] of PFIZER VACCINE 00:00:[address] [facility] SARS-COV-2 COVID-19 2020-05-18 Completed [facility] of PFIZER VACCINE 00:00:00 [facility] SARS-COV-2 COVID-19 2020-05-18 Completed [facility] of PFIZER VACCINE 00:00:00 [facility] SARS-COV-2 COVID-19 2020-05-18 Completed [facility] PFIZER VACCINE 00:00:[address] [facility] SARS-COV-2 COVID-19 2020-05-18 Completed [facility] of PFIZER VACCINE 00:00:[address] [facility] SARS-COV-2 COVID-19 2020-05-18 Completed [facility] PFIZER VACCINE 00:00:00 [place] [facility] SARS-COV-2 COVID-19 2020-05-18 Completed [facility] of PFIZER VACCINE 00:00:00 [facility] SARS-COV-2 COVID-19 2020-05-18 Completed [facility] of PFIZER VACCINE 00:00:00 [facility] SARS-COV-2 COVID-19 2020-05-18 Completed [facility] of PFIZER VACCINE 00:00:00 [facility] SARS-COV-2 COVID-19 2020-05-18 Completed [facility] of PFIZER VACCINE 00:00:00 [facility] SARS-COV-2 COVID-19 2020-05-18 Completed [facility] of PFIZER VACCINE 00:00:00 [facility] SARS-COV-2 COVID-19 2020-05-18 Completed [facility] of PFIZER VACCINE 00:00:00 [facility] SARS-COV-2 COVID-19 2020-05-18 Completed [facility] of PFIZER VACCINE 00:00:00 [facility] SARS-COV-2 COVID-19 2020-05-18 Completed [facility] of PFIZER VACCINE 00:00:00 [facility] SARS-COV-2 COVID-19 2020-05-18 Completed [facility] of PFIZER VACCINE 00:00:00 [facility] SARS-COV-2 COVID-19 2020-05-18 Completed [facility] of PFIZER VACCINE 00:00:00 [facility] SARS-COV-2 COVID-19 2020-05-18 Completed [facility] of PFIZER VACCINE 00:00:00 [facility] SARS-COV-2 COVID-19 2020-05-18 Completed [facility] of PFIZER VACCINE 00:00:00 [facility] SARS-COV-2 COVID-19 2020-05-18 Completed [facility] of PFIZER VACCINE 00:00:00 [facility] SARS-COV-2 COVID-19 2020-05-18 Completed [facility] PFIZER VACCINE 00:00:00 [facility] SARS-COV-2 COVID-19 2020-05-18 Completed [facility] of PFIZER VACCINE 00:00:00 [facility] SARS-COV-2 COVID-19 2020-05-18 Completed [facility] of PFIZER VACCINE 00:00:00 [facility] SARS-COV-2 COVID-19 2020-05-18 Completed [facility] of PFIZER VACCINE 00:00:00 [facility] SARS-COV-2 COVID-19 2020-05-18 Completed [facility] of PFIZER VACCINE 00:00:00 [facility] SARS-COV-2 COVID-19 2020-05-18 Completed [facility] of PFIZER VACCINE 00:00:00 [facility] SARS-COV-2 COVID-19 2020-05-18 Completed [facility] PFIZER VACCINE 00:00:00 [facility] SARS-COV-2 COVID-19 2020-05-18 Completed [facility] of PFIZER VACCINE 00:00:00 [facility] SARS-COV-2 COVID-19 2020-05-18 Completed [facility] of PFIZER VACCINE 00:00:00 [facility] SARS-COV-2 COVID-19 2020-05-18 Completed [facility] of PFIZER VACCINE 00:00:00 [facility] SARS-COV-2 COVID-19 2020-05-18 Completed [facility] of PFIZER VACCINE 00:00:00 [facility] SARS-COV-2 COVID-19 2020-05-18 Completed [facility] of PFIZER VACCINE 00:00:00 [facility] SARS-COV-2 COVID-19 2020-05-18 Completed [facility] PFIZER VACCINE 00:00:00 [facility] SARS-COV-2 COVID-19 2020-05-18 Completed [facility] of PFIZER VACCINE 00:00:00 [facility] SARS-COV-2 COVID-19 2020-05-18 Completed [facility] of PFIZER VACCINE 00:00:00 [facility] SARS-COV-2 COVID-19 2020-05-18 Completed [facility] of PFIZER VACCINE 00:00:00 [facility] SARS-COV-2 COVID-19 2020-05-18 Completed [facility] of PFIZER VACCINE 00:00:00 [facility] SARS-COV-2 COVID-19 2020-05-18 Completed [facility] of PFIZER VACCINE 00:00:00 [facility] SARS-COV-2 COVID-19 2020-05-18 Completed [facility] of PFIZER VACCINE 00:00:00 [facility] SARS-COV-2 COVID-19 2020-05-18 Completed [facility] of PFIZER VACCINE 00:00:00 [facility] SARS-COV-2 COVID-19 2020-05-18 Completed [facility] PFIZER VACCINE 00:00:00 [facility] SARS-COV-2 COVID-19 2020-05-18 Completed [facility] of PFIZER VACCINE 00:00:00 [facility] SARS-COV-2 COVID-19 2020-05-18 Completed [facility] PFIZER VACCINE 00:00:00 [facility] SARS-COV-2 COVID-19 2020-05-18 Completed [facility] of PFIZER VACCINE 00:00:00 [facility] SARS-COV-2 COVID-19 2020-05-18 Completed [facility] of PFIZER VACCINE 00:00:00 [facility] SARS-COV-2 COVID-19 2020-05-18 Completed [facility] of PFIZER VACCINE 00:00:00 [facility] SARS-COV-2 COVID-19 2020-05-18 Completed [facility] PFIZER VACCINE 00:00:00 [facility] SARS-COV-2 COVID-19 2020-05-18 Completed [facility] PFIZER VACCINE 00:00:00 [facility] SARS-COV-2 COVID-19 2020-05-18 Completed [facility] PFIZER VACCINE 00:00:00 [facility] SARS-COV-2 COVID-19 2020-05-18 Completed [facility] PFIZER VACCINE 00:00:00 [facility] SARS-COV-2 COVID-19 2020-05-18 Completed [facility] PFIZER VACCINE 00:00:00 [facility] SARS-COV-2 COVID-19 2020-05-18 Completed [facility] of PFIZER VACCINE 00:00:00 [facility] SARS-COV-2 COVID-19 2020-05-18 Completed [facility] PFIZER VACCINE 00:00:00 [facility] SARS-COV-2 COVID-19 2020-05-18 Completed [facility] PFIZER VACCINE 00:00:00 [facility] SARS-COV-2 COVID-19 2020-05-18 Completed [facility] of PFIZER VACCINE 00:00:00 [facility] SARS-COV-2 COVID-19 2020-05-18 Completed [facility] PFIZER VACCINE 00:00:00 [facility] SARS-COV-2 COVID-19 2020-05-18 Completed [facility] PFIZER VACCINE 00:00:00 [facility] SARS-COV-2 COVID-19 2020-05-18 Completed [facility] of PFIZER VACCINE 00:00:00 [facility] SARS-COV-2 COVID-19 2020-05-18 Completed [facility] of PFIZER VACCINE 00:00:00 [facility] SARS-COV-2 COVID-19 2020-05-18 Completed [facility] of PFIZER VACCINE 00:00:00 [facility] SARS-COV-2 COVID-19 2020-05-18 Completed [facility] PFIZER VACCINE 00:00:00 [facility] SARS-COV-2 COVID-19 2020-04-27 Completed [facility] PFIZER VACCINE 00:00:00 [facility] SARS-COV-2 COVID-19 2020-04-27 Completed [facility] of PFIZER VACCINE 00:00:00 [facility] SARS-COV-2 COVID-19 2020-04-27 Completed [facility] of PFIZER VACCINE 00:00:00 [facility] SARS-COV-2 COVID-19 2020-04-27 Completed [facility] of PFIZER VACCINE 00:00:00 [facility] SARS-COV-2 COVID-19 2020-04-27 Completed [facility] PFIZER VACCINE 00:00:00 [facility] SARS-COV-2 COVID-19 2020-04-27 Completed [facility] PFIZER VACCINE 00:00:00 [facility] SARS-COV-2 COVID-19 2020-04-27 Completed [facility] PFIZER VACCINE 00:00:[address] [facility] SARS-COV-2 COVID-19 2020-04-27 Completed [facility] of PFIZER VACCINE 00:00:00 [facility] SARS-COV-2 COVID-19 2020-04-27 Completed [facility] PFIZER VACCINE 00:00:00 [facility] SARS-COV-2 COVID-19 2020-04-27 Completed [facility] PFIZER VACCINE 00:00:00 [facility] SARS-COV-2 COVID-19 2020-04-27 Completed [facility] PFIZER VACCINE 00:00:00 [facility] SARS-COV-2 COVID-19 2020-04-27 Completed [facility] PFIZER VACCINE 00:00:00 [facility] SARS-COV-2 COVID-19 2020-04-27 Completed [facility] PFIZER VACCINE 00:00:00 [facility] SARS-COV-2 COVID-19 2020-04-27 Completed [facility] PFIZER VACCINE 00:00:00 [facility] SARS-COV-2 COVID-19 2020-04-27 Completed [facility] PFIZER VACCINE 00:00:00 [facility] SARS-COV-2 COVID-19 2020-04-27 Completed [facility] PFIZER VACCINE 00:00:00 [facility] SARS-COV-2 COVID-19 2020-04-27 Completed [facility] PFIZER VACCINE 00:00:00 [facility] SARS-COV-2 COVID-19 2020-04-27 Completed [facility] PFIZER VACCINE 00:00:00 [facility] SARS-COV-2 COVID-19 2020-04-27 Completed [facility] PFIZER VACCINE 00:00:00 [facility] SARS-COV-2 COVID-19 2020-04-27 Completed [facility] PFIZER VACCINE 00:00:00 [facility] SARS-COV-2 COVID-19 2020-04-27 Completed [facility] PFIZER VACCINE 00:00:00 [facility] SARS-COV-2 COVID-19 2020-04-27 Completed [facility] PFIZER VACCINE 00:00:00 [facility] SARS-COV-2 COVID-19 2020-04-27 Completed [facility] PFIZER VACCINE 00:00:00 [facility] SARS-COV-2 COVID-19 2020-04-27 Completed [facility]ive [facility] of PFIZER VACCINE 00:00:00 [facility] SARS-COV-2 COVID-19 2020-04-27 Completed [facility] of PFIZER VACCINE 00:00:00 [facility] SARS-COV-2 COVID-19 2020-04-27 Completed [facility] of PFIZER VACCINE 00:00:00 [facility] SARS-COV-2 COVID-19 2020-04-27 Completed [facility] of PFIZER VACCINE 00:00:00 [facility] SARS-COV-2 COVID-19 2020-04-27 Completed [facility] of PFIZER VACCINE 00:00:00 [facility] SARS-COV-2 COVID-19 2020-04-27 Completed [facility] of PFIZER VACCINE 00:00:00 [facility] SARS-COV-2 COVID-19 2020-04-27 Completed [facility] of PFIZER VACCINE 00:00:00 [facility] SARS-COV-2 COVID-19 2020-04-27 Completed [facility] of PFIZER VACCINE 00:00:00 [facility] SARS-COV-2 COVID-19 2020-04-27 Completed [facility] of PFIZER VACCINE 00:00:00 [facility] SARS-COV-2 COVID-19 2020-04-27 Completed [facility] of PFIZER VACCINE 00:00:00 [facility] SARS-COV-2 COVID-19 2020-04-27 Completed [facility] of PFIZER VACCINE 00:00:00 [facility] SARS-COV-2 COVID-19 2020-04-27 Completed [facility] of PFIZER VACCINE 00:00:00 [facility] SARS-COV-2 COVID-19 2020-04-27 Completed [facility] of PFIZER VACCINE 00:00:00 [facility] SARS-COV-2 COVID-19 2020-04-27 Completed [facility] of PFIZER VACCINE 00:00:00 [facility] SARS-COV-2 COVID-19 2020-04-27 Completed [facility] of PFIZER VACCINE 00:00:00 [facility] SARS-COV-2 COVID-19 2020-04-27 Completed [facility] of PFIZER VACCINE 00:00:00 [facility] SARS-COV-2 COVID-19 2020-04-27 Completed [facility] of PFIZER VACCINE 00:00:00 [facility] SARS-COV-2 COVID-19 2020-04-27 Completed [facility] of PFIZER VACCINE 00:00:00 [facility] SARS-COV-2 COVID-19 2020-04-27 Completed [facility] of PFIZER VACCINE 00:00:00 [facility] SARS-COV-2 COVID-19 2020-04-27 Completed [facility] of PFIZER VACCINE 00:00:00 [facility] SARS-COV-2 COVID-19 2020-04-27 Completed [facility] of PFIZER VACCINE 00:00:00 [facility] SARS-COV-2 COVID-19 2020-04-27 Completed [facility] of PFIZER VACCINE 00:00:00 [facility] SARS-COV-2 COVID-19 2020-04-27 Completed [facility] of PFIZER VACCINE 00:00:00 [facility] SARS-COV-2 COVID-19 2020-04-27 Completed [facility] of PFIZER VACCINE 00:00:00 [facility] SARS-COV-2 COVID-19 2020-04-27 Completed [facility] of PFIZER VACCINE 00:00:00 [facility] SARS-COV-2 COVID-19 2020-04-27 Completed [facility] of PFIZER VACCINE 00:00:00 [facility] SARS-COV-2 COVID-19 2020-04-27 Completed [facility] PFIZER VACCINE 00:00:00 [facility] SARS-COV-2 COVID-19 2020-04-27 Completed [facility] of PFIZER VACCINE 00:00:00 [facility] SARS-COV-2 COVID-19 2020-04-27 Completed [facility] of PFIZER VACCINE 00:00:00 [facility] SARS-COV-2 COVID-19 2020-04-27 Completed [facility] of PFIZER VACCINE 00:00:00 [facility] SARS-COV-2 COVID-19 2020-04-27 Completed [facility] of PFIZER VACCINE 00:00:00 [facility] SARS-COV-2 COVID-19 2020-04-27 Completed [facility] of PFIZER VACCINE 00:00:00 [facility] SARS-COV-2 COVID-19 2020-04-27 Completed [facility] of PFIZER VACCINE 00:00:[address] [facility] SARS-COV-2 COVID-19 2020-04-27 Completed [facility] of PFIZER VACCINE 00:00:[address] [facility] SARS-COV-2 COVID-19 2020-04-27 Completed [facility] of PFIZER VACCINE 00:00:[address] [facility] SARS-COV-2 COVID-19 2020-04-27 Completed [facility] of PFIZER VACCINE 00:00:00 [facility] SARS-COV-2 COVID-19 2020-04-27 Completed [facility] of PFIZER VACCINE 00:00:[address] [facility] SARS-COV-2 COVID-19 2020-04-27 Completed [facility] of PFIZER VACCINE 00:00:[address] [facility] SARS-COV-2 COVID-19 2020-04-27 Completed [facility] of PFIZER VACCINE 00:00:[address] [facility] SARS-COV-2 COVID-19 2020-04-27 Completed [facility] of PFIZER VACCINE 00:00:[address] [facility] SARS-COV-2 COVID-19 2020-04-27 Completed [facility] of PFIZER VACCINE 00:00:[address] [facility] SARS-COV-2 COVID-19 2020-04-27 Completed [facility] of PFIZER VACCINE 00:00:[address] [facility] SARS-COV-2 COVID-19 2020-04-27 Completed [facility] PFIZER VACCINE 00:00:[address] [facility] SARS-COV-2 COVID-19 2020-04-27 Completed [facility] of PFIZER VACCINE 00:00:00 [facility] SARS-COV-2 COVID-19 2020-04-27 Completed [facility] of PFIZER VACCINE 00:00:[address] [facility] SARS-COV-2 COVID-19 2020-04-27 Completed [facility] of PFIZER VACCINE 00:00:[address] [facility] SARS-COV-2 COVID-19 2020-04-27 Completed [facility] PFIZER VACCINE 00:00:[address] [facility] SARS-COV-2 COVID-19 2020-04-27 Completed [facility] PFIZER VACCINE 00:00:00 [facility] SARS-COV-2 COVID-19 2020-04-27 Completed [facility] of PFIZER VACCINE 00:00:00 [facility] SARS-COV-2 COVID-19 2020-04-27 Completed [facility] of PFIZER VACCINE 00:00:00 [facility] SARS-COV-2 COVID-19 2020-04-27 Completed [facility] of PFIZER VACCINE 00:00:00 [facility] SARS-COV-2 COVID-19 2020-04-27 Completed [facility] of PFIZER VACCINE 00:00:00 [facility] SARS-COV-2 COVID-19 2020-04-27 Completed [facility] of PFIZER VACCINE 00:00:00 [facility] SARS-COV-2 COVID-19 2020-04-27 Completed [facility] of PFIZER VACCINE 00:00:00 [facility] SARS-COV-2 COVID-19 2020-04-27 Completed [facility] of PFIZER VACCINE 00:00:00 [facility] SARS-COV-2 COVID-19 2020-04-27 Completed [facility] of PFIZER VACCINE 00:00:00 [facility] SARS-COV-2 COVID-19 2020-04-27 Completed [facility] of PFIZER VACCINE 00:00:00 [facility] SARS-COV-2 COVID-19 2020-04-27 Completed [facility] of PFIZER VACCINE 00:00:00 [facility] SARS-COV-2 COVID-19 2020-04-27 Completed [facility] of PFIZER VACCINE 00:00:00 [facility] SARS-COV-2 COVID-19 2020-04-27 Completed [facility] of PFIZER VACCINE 00:00:00 [facility] SARS-COV-2 COVID-19 2020-04-27 Completed [facility] of PFIZER VACCINE 00:00:00 [facility] SARS-COV-2 COVID-19 2020-04-27 Completed [facility] of PFIZER VACCINE 00:00:[address] [facility] SARS-COV-2 COVID-19 2020-04-27 Completed [facility] of PFIZER VACCINE 00:00:00 [facility] SARS-COV-2 COVID-19 2020-04-27 Completed [facility] of PFIZER VACCINE 00:00:[address] [facility] SARS-COV-2 COVID-19 2020-04-27 Completed [facility] of PFIZER VACCINE 00:00:[address] [facility] SARS-COV-2 COVID-19 2020-04-27 Completed [facility] of PFIZER VACCINE 00:00:[address] [facility] SARS-COV-2 COVID-19 2020-04-27 Completed [facility] of PFIZER VACCINE 00:00:[address] [facility] SARS-COV-2 COVID-19 2020-04-27 Completed [facility] PFIZER VACCINE 00:00:[address] [facility] SARS-COV-2 COVID-19 2020-04-27 Completed [facility] of PFIZER VACCINE 00:00:[address] [facility] SARS-COV-2 COVID-19 2020-04-27 Completed [facility] of PFIZER VACCINE 00:00:[address] [facility] SARS-COV-2 COVID-19 2020-04-27 Completed [facility] of PFIZER VACCINE 00:00:[address] [facility] SARS-COV-2 COVID-19 2020-04-27 Completed [facility] of PFIZER VACCINE 00:00:[address] [facility] Influenza Virus 2020-01-19 Completed [facility] Vaccine 00:00:00 [facility] Influenza Virus 2020-01-19 Completed [facility] of Vaccine 00:00:00 [facility] Influenza Virus 2020-01-19 Completed [facility] of Vaccine 00:00:00 [facility] Influenza Virus 2020-01-19 Completed [facility] Vaccine 00:00:00 [facility] Influenza Virus 2020-01-19 Completed [facility] Vaccine 00:00:00 [facility] Influenza Virus 2020-01-19 Completed [facility] Vaccine 00:00:00 [facility] Influenza Virus 2020-01-19 Completed [facility] Vaccine 00:00:00 [facility] Influenza Virus 2020-01-19 Completed [facility] Vaccine 00:00:00 [facility] Influenza Virus 2020-01-19 Completed [facility] Vaccine 00:00:00 [facility] Influenza Virus 2020-01-19 Completed [facility] Vaccine 00:00:00 [facility] Influenza Virus 2020-01-19 Completed [facility] Vaccine 00:00:00 [facility] Influenza Virus 2020-01-19 Completed [facility] Vaccine 00:00:00 [facility] Influenza Virus 2020-01-19 Completed [facility] Vaccine 00:00:00 [facility] Influenza Virus 2020-01-19 Completed [facility] Vaccine 00:00:00 [facility] Influenza Virus 2020-01-19 Completed [facility] of Vaccine 00:00:00 [facility] Influenza Virus 2020-01-19 Completed [facility] of Vaccine 00:00:00 [facility] Influenza Virus 2020-01-19 Completed [facility] Vaccine 00:00:00 [facility] Influenza Virus 2020-01-19 Completed [facility] of Vaccine 00:00:00 [facility] Influenza Virus 2020-01-19 Completed [facility] Vaccine 00:00:00 [facility] Influenza Virus 2020-01-19 Completed [facility] Vaccine 00:00:00 [facility] Influenza Virus 2020-01-19 Completed [facility] Vaccine 00:00:00 [facility] Influenza Virus 2020-01-19 Completed [facility] Vaccine 00:00:00 [facility] Influenza Virus 2020-01-19 Completed [facility] Vaccine 00:00:00 [facility] Influenza Virus 2020-01-19 Completed [facility] Vaccine 00:00:00 [facility] Influenza Virus 2020-01-19 Completed [facility] Vaccine 00:00:00 [facility] Influenza Virus 2020-01-19 Completed [facility] of Vaccine 00:00:00 [facility] Influenza Virus 2020-01-19 Completed [facility] Vaccine 00:00:00 [facility] Influenza Virus 2020-01-19 Completed [facility] of Vaccine 00:00:00 [facility] Influenza Virus 2020-01-19 Completed [facility] of Vaccine 00:00:00 [facility] Influenza Virus 2020-01-19 Completed [facility] Vaccine 00:00:00 [facility] Influenza Virus 2020-01-19 Completed [facility] Vaccine 00:00:00 [facility] Influenza Virus 2020-01-19 Completed [facility] Vaccine 00:00:00 [facility] Influenza Virus 2020-01-19 Completed [facility] Vaccine 00:00:00 [facility] Influenza Virus 2020-01-19 Completed [facility] Vaccine 00:00:00 [facility] Influenza Virus 2020-01-19 Completed [facility] of Vaccine 00:00:00 [facility] Influenza Virus 2020-01-19 Completed [facility] Vaccine 00:00:00 [facility] Influenza Virus 2020-01-19 Completed [facility] Vaccine 00:00:00 [facility] Influenza Virus 2020-01-19 Completed [facility] Vaccine 00:00:00 [facility] Influenza Virus 2020-01-19 Completed [facility] Vaccine 00:00:00 [facility] Influenza Virus 2020-01-19 Completed [facility] of Vaccine 00:00:00 [facility] Influenza Virus 2020-01-19 Completed [facility] of Vaccine 00:00:00 [facility] Influenza Virus 2020-01-19 Completed [facility] of Vaccine 00:00:00 [facility] Influenza Virus 2020-01-19 Completed [facility] of Vaccine 00:00:00 [facility] Influenza Virus 2020-01-19 Completed [facility] of Vaccine 00:00:00 [facility] Influenza Virus 2020-01-19 Completed [facility] of Vaccine 00:00:00 [facility] Influenza Virus 2020-01-19 Completed [facility] of Vaccine 00:00:00 [facility] Influenza Virus 2020-01-19 Completed [facility] Vaccine 00:00:00 [facility] Influenza Virus 2020-01-19 Completed [facility] of Vaccine 00:00:00 [facility] Influenza Virus 2020-01-19 Completed [facility] Vaccine 00:00:00 [facility] Influenza Virus 2020-01-19 Completed [facility] of Vaccine 00:00:00 [facility] Influenza Virus 2020-01-19 Completed [facility] Vaccine 00:00:00 [facility] Influenza Virus 2020-01-19 Completed [facility] of Vaccine 00:00:00 [facility] Influenza Virus 2020-01-19 Completed [facility] of Vaccine 00:00:00 [facility] Influenza Virus 2020-01-19 Completed [facility] of Vaccine 00:00:00 [facility] Influenza Virus 2020-01-19 Completed [facility] of Vaccine 00:00:00 [facility] Influenza Virus 2020-01-19 Completed [facility] of Vaccine 00:00:00 [facility] Influenza Virus 2020-01-19 Completed [facility] of Vaccine 00:00:00 [facility] Influenza Virus 2020-01-19 Completed [facility] of Vaccine 00:00:00 [facility] Influenza Virus 2020-01-19 Completed [facility] of Vaccine 00:00:00 [facility] Influenza Virus 2020-01-19 Completed [facility] of Vaccine 00:00:00 [facility] Influenza Virus 2020-01-19 Completed [facility] of Vaccine 00:00:00 [facility] Influenza Virus 2020-01-19 Completed [facility] of Vaccine 00:00:00 [facility] Influenza Virus 2020-01-19 Completed [facility] of Vaccine 00:00:00 [facility] Influenza Virus 2020-01-19 Completed [facility] of Vaccine 00:00:00 [facility] Influenza Virus 2020-01-19 Completed [facility] of Vaccine 00:00:00 [facility] Influenza Virus 2020-01-19 Completed [facility] of Vaccine 00:00:00 [facility] Influenza Virus 2020-01-19 Completed [facility] of Vaccine 00:00:00 [facility] Influenza Virus 2020-01-19 Completed [facility] of Vaccine 00:00:00 [facility] Influenza Virus 2020-01-19 Completed [facility] of Vaccine 00:00:00 [facility] Influenza Virus 2020-01-19 Completed [facility] of Vaccine 00:00:00 [facility] Influenza Virus 2020-01-19 Completed [facility] of Vaccine 00:00:00 [facility] Influenza Virus 2020-01-19 Completed [facility] of Vaccine 00:00:00 [facility] Influenza Virus 2020-01-19 Completed [facility] of Vaccine 00:00:00 [facility] Influenza Virus 2020-01-19 Completed [facility] of Vaccine 00:00:00 [facility] Influenza Virus 2020-01-19 Completed [facility] of Vaccine 00:00:00 [facility] Influenza Virus 2020-01-19 Completed [facility] of Vaccine 00:00:00 [facility] Influenza Virus 2020-01-19 Completed [facility] of Vaccine 00:00:00 [facility] Influenza Virus 2020-01-19 Completed [facility] of Vaccine 00:00:00 [facility] Influenza Virus 2020-01-19 Completed [facility] of Vaccine 00:00:00 [facility] Influenza Virus 2020-01-19 Completed [facility] of Vaccine 00:00:00 [facility] Influenza Virus 2020-01-19 Completed [facility] of Vaccine 00:00:00 [facility] Influenza Virus 2020-01-19 Completed [facility] of Vaccine 00:00:00 [facility] Influenza Virus 2020-01-19 Completed [facility] of Vaccine 00:00:00 [facility] Influenza Virus 2020-01-19 Completed [facility] of Vaccine 00:00:00 [facility] Influenza Virus 2020-01-19 Completed [facility] of Vaccine 00:00:00 [facility] Influenza Virus 2020-01-19 Completed [facility] of Vaccine 00:00:00 [facility] Influenza Virus 2020-01-19 Completed [facility] of Vaccine 00:00:00 [facility] Influenza Virus 2020-01-19 Completed [facility] of Vaccine 00:00:00 [facility] Influenza Virus 2020-01-19 Completed [facility] of Vaccine 00:00:00 [facility] Influenza Virus 2020-01-19 Completed [facility] of Vaccine 00:00:00 [facility] Influenza Virus 2020-01-19 Completed [facility] of Vaccine 00:00:00 [facility] Influenza Virus 2020-01-19 Completed [facility] of Vaccine 00:00:00 [facility] Influenza Virus 2020-01-19 Completed [facility] of Vaccine 00:00:00 [facility] Influenza Virus 2020-01-19 Completed [facility] of Vaccine 00:00:00 [facility] Influenza Virus 2020-01-19 Completed [facility] Vaccine 00:00:00 [facility] Vital Signs Vital Name Observation Time Observation Value Comments Source Systolic blood 2022-06-25 19:19:00 111 mm[Hg] [facility] of pressure [facility] Diastolic blood 2022-06-25 19:19:00 77 mm[Hg] [facility] of pressure [facility] Heart rate 2022-06-25 19:19:00 80 /min [facility] Body temperature 2022-06-25 19:19:00 36.56 [facility] ersity [facility] Respiratory rate 2022-06-25 19:19:00 18 /min [facility] 2022-06-25 19:19:00 180.3 cm [facility] Body weight 2022-06-25 19:19:00 114.352 kg [facility] BMI 2022-06-25 19:19:00 35.16 kg/m2 [facility] Oxygen saturation in 2022-06-25 19:19:00 97 /min [facility] Arterial blood by [facility] Systolic blood 2022-04-15 21:02:00 114 mm[Hg] [facility] of pressure [facility] Diastolic blood 2022-04-15 21:02:00 80 mm[Hg] [facility] pressure [facility] Heart rate 2022-04-15 21:02:00 80 /min [facility] Body temperature 2022-04-15 21:00:00 36.17 [facility] Respiratory rate 2022-04-15 21:00:00 18 /min [facility] Body height 2022-04-15 21:00:00 182.9 cm [facility] Body weight 2022-04-15 21:00:00 112.492 kg [facility] BMI 2022-04-15 21:00:00 33.63 kg/m2 [facility] Oxygen saturation in 2022-04-15 21:00:00 97 /min [facility] Arterial blood by [facility] Systolic blood 2022-04-01 20:16:00 114 mm[Hg] [facility] pressure [facility] Diastolic blood 2022-04-01 20:16:00 71 mm[Hg] [facility] pressure [facility] Heart rate 2022-04-01 20:16:00 84 /min [facility] Body temperature 2022-04-01 20:16:00 36.17 [facility] Respiratory rate 2022-04-01 20:16:00 18 /min [facility] Body height 2022-04-01 20:16:00 182.9 cm [facility] Body weight 2022-04-01 20:16:00 110.269 kg [facility] BMI 2022-04-01 20:16:00 32.97 kg/m2 [facility] Oxygen saturation in 2022-04-01 20:16:00 96 /min [facility] Arterial blood by [facility] Systolic blood 2022-03-03 15:11:00 117 mm[Hg] [facility] of pressure [facility] Diastolic blood 2022-03-03 15:11:00 78 mm[Hg] [facility] of pressure [facility] Heart rate 2022-03-03 15:11:00 74 /min [facility] Respiratory rate 2022-03-03 15:11:00 18 /min [facility] Body height 2022-03-03 15:11:00 177.8 cm [facility] Body weight 2022-03-03 15:11:00 113.172 kg [facility] BMI 2022-03-03 15:11:00 35.80 kg/m2 [facility] Oxygen saturation in 2022-03-03 15:11:00 98 /min [facility] Arterial blood by [facility] Systolic blood 2021-12-11 14:53:00 127 mm[Hg] [facility] pressure [facility] Diastolic blood 2021-12-11 14:53:00 85 mm[Hg] [facility] pressure [facility] Heart rate 2021-12-11 14:53:00 68 /min [facility] Body temperature 2021-12-11 14:53:00 36.94 [facility] Respiratory rate 2021-12-11 14:53:00 20 /min [facility] Body height 2021-12-11 14:53:00 182.9 cm [facility] Body weight 2021-12-11 14:53:00 118.343 kg [facility] BMI 2021-12-11 14:53:00 35.38 kg/m2 [facility] Oxygen saturation in 2021-12-11 14:53:00 98 /min [facility]ial blood by [place] [facility] Systolic blood 2021-12-08 18:11:00 100 mm[Hg] [facility] pressure [facility] Diastolic blood 2021-12-08 18:11:00 71 mm[Hg] [facility] pressure [facility] Heart rate 2021-12-08 18:11:00 78 /min [facility] Body weight 2021-12-08 18:11:00 116.62 kg [facility] BMI 2021-12-08 18:11:00 35.86 kg/m2 [facility] Oxygen saturation in 2021-12-08 18:11:00 98 /min [facility] Arterial blood by [facility] Systolic blood 2021-12-03 17:47:00 132 mm[Hg] [facility] of pressure [facility] Diastolic blood 2021-12-03 17:47:00 91 mm[Hg] [facility] of pressure [facility] Heart rate 2021-12-03 17:47:00 81 /min [facility] Body temperature 2021-12-03 17:47:00 37.17 [facility] Respiratory rate 2021-12-03 17:47:00 18 /min [facility] Oxygen saturation in 2021-12-03 17:47:00 98 /min [facility] Arterial blood by [facility] Body weight 2021-12-03 10:22:00 118.026 kg [facility] BMI 2021-12-03 10:22:00 36.29 kg/m2 [facility] Body weight 2021-10-29 13:25:00 114.9 kg [facility] BMI 2021-10-29 13:25:00 36.29 kg/m2 [facility] Systolic blood 2021-12-01 14:21:00 118 mm[Hg] [facility] pressure [facility] Diastolic blood 2021-12-01 14:21:00 78 mm[Hg] [facility] pressure [facility] Heart rate 2021-12-01 14:17:00 84 /min [facility] Body temperature 2021-12-01 14:17:00 36.5 [facility] Respiratory rate 2021-12-01 14:17:00 18 /min [facility] Body weight 2021-12-01 14:17:00 115.667 kg [facility] BMI 2021-12-01 14:17:00 35.57 kg/m2 [facility] Oxygen saturation in 2021-12-01 14:17:00 97 /min [facility] Arterial blood by [facility] Systolic blood 2021-10-09 20:32:00 109 mm[Hg] Univer sity of pressure [facility] Diastolic blood 2021-10-09 20:32:00 78 mm[Hg] Unive rsity of pressure [facility] Heart rate 2021-10-09 20:32:00 77 /min [facility] Body temperature 2021-10-09 20:32:00 37.06 [facility] Respiratory rate 2021-10-09 20:32:00 20 /min [facility] Body height 2021-10-09 20:32:00 180.3 cm [facility] Body weight 2021-10-09 20:32:00 114.941 kg [facility] BMI 2021-10-09 20:32:00 35.34 kg/m2 [facility] Oxygen saturation in 2021-10-09 20:32:00 98 /min [facility] Arterial blood by [facility] Procedures Procedure Date / Time Performing Clinician Source Performed PHYSICIAN CERTIFICATION 2022-07-28 05:01:00 Doctor Unaanaigned, [facility] STATEMENT [facility] REFERRAL- REQUEST/RESPONSE 2022-06-26 05:01:00 Doctor Sherley , [facility] ASSIGNMENT OF BENEFITS 2022-05-06 16:53:37 Doctor Unabaylee, [facility] REFERRAL- REQUEST/RESPONSE 2022-04-23 06:01:00 Doctor Sherley [facility] REFERRAL- REQUEST/RESPONSE 2022-04-10 06:01:00 Doctor Sherley [facility] POCT URINALYSIS AUTO 2022-04-01 20:46:00 Ricky Beasley [facility] [place] PATIENT QUESTIONNAIRE 2022-04-01 06:01:00 Doctor Sherley, [facility] HB ECG ROUTINE & RHYTHM 2022-03-03 15:20:59 Ernestina Hidalgo [facility] REFERRAL- REQUEST/RESPONSE 2022-03-03 06:01:00 Doctor Sherley , [facility] PHYSICIAN CERTIFICATION 2021-12-18 05:01:00 [facility] VACCINATIONS - CONSENTS, 2021-12-10 05:01:00 Doctor Unassigned, [facility] ELIGIBILITY, HISTORY [facility] [place] [facility] MEDICAL RELEASE/CLEARANCE 2021-12-04 05:01:00 Doctor Unassigned, [facility] FORMS [facility] POCT GLUCOSE (AUTOMATED) 2021-12-03 16:51:00 Josselyn Perezf [facility] POCT GLUCOSE (AUTOMATED) 2021-12-03 16:51:00 Ana, Didier [facility] POCT GLUCOSE (AUTOMATED) 2021-12-03 13:47:00 Ana, Didier [facility] POCT GLUCOSE (AUTOMATED) 2021-12-03 13:47:00 [address]ier [address] Uni versity [facility] MAGNESIUM 2021-12-03 10:10:00 [facility]OL[facility] PANEL (NA, 2021-12-03 10:10:00 Gilberto [facility] K, CL, CO2, GLUCOSE, BUN, Medica l Branch CREATININE, CA) DIGOXIN 2021-12-03 10:10:00 Gilberto Duncan [facility] MAGNESIUM 2021-12-03 10:10:00 [facility] BASIC METABOLIC PANEL (NA, 2021-12-03 10:10:00 Gilberto [facility] K, CL, CO2, GLUCOSE, BUN, Medica l Branch CREATININE, CA) DIGOXIN 2021-12-03 10:10:00 Gilberto Duncan [facility] POCT GLUCOSE (AUTOMATED) 2021-12-03 01:22:00 Didier [address] Uni versity [facility] POCT GLUCOSE (AUTOMATED) 2021-12-03 01:22:[address] Uni vers[facility] XR CHEST 1 VW 2021-12-03 00:25:00 Gilberto Duncan [facility] XR CHEST 1 VW 2021-12-03 00:25:00 [facility] ELECTROPHYSI[facility] PROCEDURE 2021-12-02 21:07:21 Sewani, Didier [facility] POCT ACT HIGH RANGE 2021-12-02 20:36:00 Sewani, Didier [facility] POCT ACT HIGH RANGE 2021-12-02 20:36:00 Sewani, Didier [facility] POCT ACT HIGH RANGE 2021-12-02 20:20:00 Sewani, Didier [facility] POCT ACT HIGH RANGE 2021-12-02 20:20:00 Sewani, Didier [facility] POCT ACT HIGH RANGE 2021-12-02 19:15:00 Sewani, Didier [facility] POCT ACT HIGH RANGE 2021-12-02 19:15:00 Sewani, Didier [facility] POCT ACT HIGH RANGE 2021-12-02 18:51:00 Sewani, Didier [facility] POCT ACT HIGH RANGE 2021-12-02 18:51:00 Sewani, Didier [facility] POCT ACT HIGH RANGE 2021-12-02 18:33:00 Sewani, Didier [facility] POCT ACT HIGH RANGE 2021-12-02 18:33:00 Sewani, Didier [facility] POCT ACT HIGH RANGE 2021-12-02 18:13:00 Sewani, Didier [facility] POCT ACT HIGH RANGE 2021-12-02 18:13:00 Sewani, Didier [facility] POCT ACT HIGH RANGE 2021-12-02 17:50:00 Sewani, Didier [facility] POCT ACT HIGH RANGE 2021-12-02 17:50:00 Sewani, Didier [facility] POCT ACT HIGH RANGE 2021-12-02 17:30:00 Sewani, Didier [facility] POCT ACT HIGH RANGE 2021-12-02 17:30:00 Sewani, Didier [facility] POCT ACT HIGH RANGE 2021-12-02 17:10:00 Sewani, Didier [facility] POCT ACT HIGH RANGE 2021-12-02 17:10:00 Didier Perez [facility] [place] TRANSESOPHAGEAL ECHO (SUMEET) 2021-12-02 16:17:38 Chelly Jorgensen se [facility] COMPLETE W/ DOPPLER AND Medical Branch COLOR CT HEART W CONTRAST 2021-12-02 14:02:27 Didier Perez [facility] STRUCTURES ONLY (NON Medical Bra nch CORONARY) HB ECG ROUTINE & RHYTHM 2021-12-02 13:27:46 Ana [facility] HB ECG ROUTINE & RHYTHM 2021-12-02 13:27:46 [facility] FL[facility]ACC ([id number]), 6 2021-12-01 14:35:26 Ernestina Hidalgo [facility] MO-66 YRS, .5ML, IM, QUAD Medica l Branch (FLUCELVAX) COMP. METABOLIC PANEL 2021-11-20 21:28:00 Shirley Anders [facility] ([id number]) [facility] CBC WITH DIFF 2021-11-20 21:28:00 Martita [facility] o f [facility] PATIENT CORRESPONDENCE 2021-11-17 05:01:00 Doctor Unabaylee, [facility] (LETTERS, USPS [facility] DOCUMENTATION) INSURANCE CORRESPONDENCE 2021-10-29 05:01:00 Doctor Sherley, [facility] [place] [facility] MEDICATION CORRESPONDENCE 2021-10-09 05:01:00 Doctor Sherley, [facility] [place] [facility] MEDICATION CORRESPONDENCE 2021-10-09 05:01:00 Doctor Sherley, [facility] [place] [facility] [place] Encounters Start End Encounter Admission Attending Care Care Encounter Source Date/Time Date/Time Type Type Clinicians Facility Department ID 2022-12-31 2022-12-31 Outpatient R MARTITA [facility] [id number] Univers 14:30:00 14:30:[address] [facility] 2022-08-11 2022-08-11 Refill Aden MISTEPHANIE 1.2.840.114 [id number] Univers 00:00:00 00:00:00 Ernestina [facility] 350.1.13.10 priscila [facility] [place] [phone] Ga dicoh NAL 9 [facility] 2022-07-28 2022-07-28 Telephone [facility] 1.2.340.213 [id number] Univers 00:00:00 00:00:00 Ernestina [place] 350.1.13.10 ity of [place] [id number] [facility] NAL [address] [place] [address] 2022-07-28 2022-07-28 Orders Doctor MYAH 1.2.840.114 [id number] Univers 00:00:00 00:00:00 Only Unassigned, MOSHE 350.1.13.10 ity of [place] [facility] 4.2.7.2.686 David as [phone] [address] 2022-07-06 2022-07-06 Telephone [facility] 1.2.411.413 [id number] Univers 00:00:00 00:00:00 Shirley HEALTH 350.1.13.10 it y of [place] 4.2.7.2.686 David as KERA?BLEA [phone] [address] MEDICAL OFFICE [facility] 2022-06-26 2022-06-26 Orders Doctor MYAH 1.2.840.114 [id number] Univers 00:00:00 00:00:00 Only Unassigned, MOSHE 350.1.13.10 ity of [place] [facility] 4.2.7.2.686 David as [phone] [address] 2022-06-26 2022-06-26 Telephone [employer] 1.2.021.383 [id number] Univers 00:00:00 00:00:00 Shirley HEALTH 350.1.13.10 it y of [place] 4.2.7.2.686 David as KERA?BLEA [id number] [address] MEDICAL OFFICE [facility] 2022-06-25 2022-06-25 Mail Clerk Lab, Ang - Db [facility] 1.2.840.1 14 [id number] Univers 15:30:00 15:45:00 Visit Kinsey Andersthia HEALTH 350.1.13.10 ity of [place] 4.2.7.2.686 David as KERA?BLEA [id number] Ga christy GRAF 353 [facility] OFFICE BUILDING 2022-06-25 2022-06-25 Office [facility] 1.2.840.114 [id number] Univers 14:30:00 15:00:00 Visit Shirley ROCHA 350.1.13.10 it y of [place] 4.2.7.2.686 David as KERA?BLEA [phone] Ga christy [facility] 044 [facility] OFFICE [facility] 2022-06-25 2022-06-25 Outpatient R MARTITA [facility] [id number] Univers 14:30:00 14:30:[address] [facility] 2022-06-18 2022-06-18 Patient Valery Church 1.2.840.114 [id number] Univers 00:00:00 00:00:00 Outreach E GALICIA 350.1.13.10 [place] [id number] [address] 2022-06-17 2022-06-17 Outpatient R GAYLE HARDING [facility] [id number] Univers 10:30:00 10:30:[address] [facility] 2022-06-15 2022-06-15 Telephone [facility] 1.2.504.754 [id number] Univers 00:00:00 00:00:00 Ernestina LAUREANO 350.1.13.10 ity of [facility] 4.2.7.2.[place] [id number] Ga christy NAL 059 [facility] 2022-06-15 2022-06-15 Telephone [facility] 1.2.629.158 [id number] Univers 00:00:00 00:00:00 Shirley LAUREANO 350.1.13.10 i ty of [place] 4.2.7.2.[place] [id number] Ga dical NAL 044 [facility] 2022-06-14 2022-06-14 Refill [facility] 1.2.840.114 [id number] Univers 00:00:00 00:00:00 Shirley HEALTH 350.1.13.10 it y of [place] 4.2.7.2.686 David as KERA?BLEA [phone] Ga christy GRAF [address] [place] [address] MEDICAL OFFICE BUILDING 2022-06-11 2022-06-11 [facility] [id number] Univers 13:30:00 13:30:[address] [facility] 2022-06-10 2022-06-10 Telephone VENITA RodriguezJuju 1.2.840.114 [id number] Univers 00:00:00 00:00:00 Jolynn Latrice GALICIA 350.1.13.10 [place] [id number] [address] 2022-06-01 2022-06-01 Out[facility] [id number] Univers 09:20:00 09:20:00 ERNESTINA francois o f [facility] 2022-05-29 2022-05-29 Telephone [facility] 1.2.840.114 [id number] Univers 00:00:00 00:00:00 Ricky HEALTH 350.1.13.10 it y of [place]2.7.2.[place] - [phone] Med ica[address] 2022-05-17 2022-05-17 [facility] 1.2.840.114 [id number] Univers 00:00:00 00:00:00 Ricky HEALTH 350.1.13.10 it y of [place] 4[place]2.7.2.[place] - [phone] Med ica[address] 2022-05-14 2022-05-14 Outpatient [facility] [id number] Univers 14:12:09 23:59:[address] [facility] 2022-05-14 2022-05-14 [facility] 1.2.828.855 [id number] Univers 14:00:00 23:59:00 Encounter Ricky SPECIALTY 350.1.13.10 ity of [place]2.7.2.[place] C[place] AT [phone] Ga dical VICTORY 804 [facility] 2022-05-14 2022-05-14 Patient LILLIANA Pineda 1.2.840.114 [id number] Univers 00:00:00 00:00:00 Outreach Terri E GALICIA 350.1.13.10 [place].7.2.[place] [phone] [address] 2022-05-11 2022-05-11 Mail Clerk Chas, Adc Lab Main [facility] 1.2.8 40.114 [id number] Univers 13:30:00 13:45:00 Visit Ricky Beasley 350.1.13.10 ity of [place] 4.2.7.2.[place] [phone] Ga dical NAL 353 [facility] 2022-05-11 2022-05-11 Outpatient R FELIX [facility] [id number] Univers 13:30:00 13:30:00 RICKY ity of [facility] 2022-05-11 2022-05-11 Telephone [facility] 1.2.840.114 [id number] Univers 00:00:00 00:00:00 Ricky LAUREANO 350.1.13.10 i ty of [place] 4.2.7.2.[place] [phone] Ga dical NAL 188 [facility] 2022-05-07 2022-05-07 Patient Valery Church 1.2.840.114 [id number] Univers 00:00:00 00:00:00 Outreach E GALICIA 350.1.13.10 [place].2.[place] [id number] [address] 2022-05-06 2022-05-06 Mail Clerk Chas, Adc Lab Main [facility] 1.2.8 40.114 [id number] Univers 12:15:00 12:30:00 Visit Ricky Beasley 350.1.13.10 ity of [place] 4.2.7.2.686 [place] [phone] [facility] [address] BUILDING 2022-05-06 2022-05-06 Outpatient R FELIX [facility] [id number] Univers 12:15:00 12:15:00 RICKY ity of [facility] 2022-05-06 2022-05-06 Orders Doctor MYAH 1.2.840.114 [id number] Univers 00:00:00 00:00:00 Only Unassigned, MOSHE 350.1.13.10 ity of [place] [facility] 4.2.7.2.686 David as [phone] [facility] [address] [place] 2022-04-29 2022-04-29 Telephone LILLIANA Rodriguez 1.2.840.114 1 [id number] Univers 00:00:00 00:00:00 Jolynn GAILCIA 350.1.13.10 i ty [place]2.7.2.[place] [id number] [facility] [address] [place] 2022-04-23 2022-04-23 Mail Clerk Lab, [facility] 1.2.840.1 14 [id number] Univers 14:45:00 15:00:00 Visit Shirley Anders 350.1.13.10 ity of [place] 4.2.7.2.686 David as KERA?BLEA [phone] [address] MEDICAL OFFICE BUILDING 2022-04-23 2022-04-23 Outpatient R MARTITA [facility] [id number] Univers 14:45:00 14:45:[address] [facility] 2022-04-23 2022-04-23 Orders Doctor MYAH 1.2.840.114 [id number] Univers 00:00:00 00:00:00 Only Unassigned, MOSHE 350.1.13.10 ity of [place] [facility] 4.2.7.2.686 David as [phone] [address] 2022-04-15 2022-04-15 Mail Clerk [facility] UN[facility] 1.2.840.114 [id number] Univers 16:30:00 16:45:00 Visit Jose Becerra HEALTH 350.1.13.10 ity of CL[place] 4[place]2.[place].2.[place] [id number] [facility] [address] [place] 2022-04-15 2022-04-15 [facility] [id number] Univers 15:30:00 16:09:08 SHANCY ity of [facility] 2022-04-15 2022-04-15 Office Cherelle Parker [facility] 1.2.840. 114 [id number] Univers 15:30:00 16:09:08 Visit Jose Becerra Y HEALTH 350.1.13.10 ity of [place]2.7.2.[place] [phone] [facility] [address] [place] 2022-04-14 2022-04-14 Telephone [facility] 1.2.557.841 [id number] Univers 00:00:00 00:00:00 Ernestina LAUREANO 350.1.13.10 ity of [place] 4.2.7.2.686 [place] [id number] Ga christy OCHOA 059 [facility] 2022-04-13 2022-04-13 Outpatient SFA SFA [id number] Saroj 15:14:48 15:14:48 0213 F Ze 2022-04-10 2022-04-10 Outpatient R [facility] [id number] Univers 10:00:00 10:00:00 ity of [facility] 2022-04-10 2022-04-10 Orders Doctor MYAH 1.2.840.114 [id number] Univers 00:00:00 00:00:00 Only Unassigned, MOSHE 350.1.13.10 ity of [place] [facility] 4.2.7.2.686 David as [phone] [facility] [address] [place] 2022-04-10 2022-04-10 Telephone [facility] 1.2.774.205 [id number] Univers 00:00:00 00:00:00 Shirley HEALTH 350.1.13.10 it y of [place] 4.2.7.2.686 David as KERA?BLEA [id number] Ga dical KARIMEEY [address] [place] MEDICAL OFFICE [facility] 2022-04-07 2022-04-07 Telephone Eboni TIJERINA 1.2.737.097 [id number] Univers 00:00:00 00:00:00 GRAYSON Sotelo 350.1.13.10 ity of [place]2.[place] [phone] [facility] [address] 2022-04-07 2022-04-07 Telephone VANI Becerra 1.2.840.114 [id number] Univers 00:00:00 00:00:00 [facility] 350.1.13.10 ity of [place]2.7.2.[place] [id number] [facility] [address] 2022-04-01 2022-04-01 Mail Clerk 2, Adc Lab [facility] 1.2.840.114 [id number] Univers 15:15:00 15:30:00 Visit Ricky Beasley 350.1.13.10 ity of [place] 4.2.7.2.[place] [id number] Ga dical NAL 353 [facility] 2022-04-01 2022-04-01 Outpatient R FELIX [facility] [id number] Univers 14:30:00 15:05:[address] [facility] 2022-04-01 2022-04-01 Office [facility] 1.2.840.114 [id number] Univers 14:30:00 15:05:03 Visit Ricky LAUREANO 350.1.13.10 i ty of [place] 4.2.[place].2.[place] [id number] Ga dical NAL 204 [facility] 2022-04-01 2022-04-01 Patient Valery Church 1.2.840.114 [id number] Univers 00:00:00 00:00:00 Outreach E GRAYSON 350.1.13.10 i ty of [place]2.7.2.[place] [id number] [facility] [address] 2022-04-01 2022-04-01 Orders Doctor MYAH 1.2.840.114 [id number] Univers 00:00:00 00:00:00 Only Unassigned, MOSHE 350.1.13.10 [facility] 4.2.7.2.686 David as [id number] [facility] [address] [place] 2022-03-25 2022-03-25 Telephone LILLIANA Rodriguez 1.2.840.114 [id number] Univers 00:00:00 00:00:00 Jolynn GALICIA 350.1.13.10 i ty of [place] 4.2.7.2.686 [place] [id number] [facility] [address] [place] 2022-03-23 2022-03-23 Outpatient R GALYE HARDING [facility] [id number] Univers 12:00:00 12:00:00 GAYLE HARDING ity of [facility] 2022-03-09 2022-03-09 Telephone [facility] 1.2.840.114 [id number] Univers 00:00:00 00:00:00 Harpreet SPECIALTY 350.1.13.10 ity of [facility] 4.2.7.2.686 [place] CENTER AT [phone] Ga christy GRAVES 2 [facility] 2022-03-06 2022-03-06 Outpatient R [facility] [id number] Univers 13:15:00 13:15:00 HARPREET ity of [facility] 2022-03-06 2022-03-06 Telephone [facility] 1.2.126.253 [id number] Univers 00:00:00 00:00:00 Ernestina LAUREANO 350.1.13.10 ity of [place]2.7.2.[place] [id number] Ga christy OCHOA 059 [facility] 2022-03-06 2022-03-06 Telephone [facility] 1.2.316.077 [id number] Univers 00:00:00 00:00:00 Shirley HEALTH 350.1.13.10 it y of [place] 4.2.7.2.686 David as KERA?BLEA [phone] Ga christy GRAF [address] [place] MEDICAL OFFICE [facility] 2022-03-03 2022-03-03 Mail Clerk 2, Adc Lab [facility] 1.2.840.114 [id number] Univers 10:15:00 10:30:00 Visit Lina Hidalgokelle LAUREANO 350.1.13.10 ity of [facility] 4.2.7.2.686 [place] [phone] Ga dical NAL 353 [facility] 2022-03-03 2022-03-03 [facility] [id number] Univers 10:15:00 10:23:26 GUSAKBAR margarety o f [facility] 2022-03-03 2022-03-03 Outpatient R [facility] [id number] Univers 10:15:00 10:15:00 ity of [facility] 2022-03-03 2022-03-03 [facility] [id number] Univers 09:20:00 09:36:32 ERNESTINA priscila o [facility] 2022-03-03 2022-03-03 Office [facility] 1.2.840.114 [id number] Univers 09:20:00 09:36:32 Visit Ernestina LAUREANO 350.1.13.10 ity of [facility] 4.2.7.2.686 [place] [phone] Ga dical NAL 059 [facility] 2022-03-03 2022-03-03 Orders Doctor MYAH 1.2.840.114 [id number] Univers 00:00:00 00:00:00 Only Unassigned, MOSHE 350.1.13.10 ity of [place] [facility] 4.2.7.2.686 David as [phone] [address] 2022-03-02 2022-03-02 Outpatient R MAADO [facility] [id number] Univers 15:30:00 15:30:00 NAT itserina of [facility] 2022-02-13 2022-02-13 Telephone [facility] 1.2.195.747 [id number] Univers 00:00:00 00:00:00 Shirley HEALTH 350.1.13.10 it y of [place] 4.2.7.2.686 David as KERA?BLEA [id number] Ga christy KNEY 044 [facility] 2022-01-29 2022-01-29 Telephone [facility] 1.2.868.080 [id number] Univers 00:00:00 00:00:00 Shirley HEALTH 350.1.13.10 it y of [place] 4.2.7.2.686 David as KERA?BLEA [phone] [facility] 044 [facility] OFFICE [facility] 2022-01-26 2022-01-26 Outpatient R FELIX, [facility] [id number] Univers 16:00:00 16:00:00 RICKY ity of [facility] 2022-01-26 2022-01-26 Patient Valery Church LILLIANA 1.2.840.114 [id number] Univers 00:00:00 00:00:00 Outreach E GALICIA 350.1.13.10 i [place] [id number] [facility] [address] [place] 2022-01-12 2022-01-12 Outpatient [facility] [id number] Univers 14:15:00 14:15:00 AISHAT ity of [facility] 2022-01-02 2022-01-02 Refill [facility] 1.2.840.114 [id number] Univers 00:00:00 00:00:00 Ernestina LAUREANO 350.1.13.10 ity of [place] 4.2.7.2.[place] [id number] [facility] 059 [facility] 2022-01-01 2022-01-01 Telephone LILLIANA Rodriguez 1.2.840.114 [id number] Univers 00:00:00 00:00:00 Jolynn Latrice GALICIA 350.1.13.10 i ty of [place].2.[place] [id number] [facility] [address] [place] 2021-12-18 2021-12-18 Telephone [facility] 1.2.134.606 [id number] Univers 00:00:00 00:00:00 Shirley HEALTH 350.1.13.10 it y of [place] 4.2.7.2.686 David as KERA?BLEA [id number] [address] OFFICE [facility] 2021-12-18 2021-12-18 Orders Doctor MYAH 1.2.840.114 [id number] Univers 00:00:00 00:00:00 Only Unassigned, MOSHE 350.1.13.10 ity of [place] [facility] 4.2.7.2.686 David as [phone] [facility] [address] [place] 2021-12-17 2021-12-17 Patient Valery Church 1.2.840.114 [id number] Univers 00:00:00 00:00:00 Outreach E GALICIA 350.1.13.10 i [place] of [place].2.[place] [id number] [facility] [address] [place] 2021-12-11 2021-12-11 Outpatient R MARTITA [facility] [id number] Univers 09:30:00 10:28:[address] [facility] 2021-12-11 2021-12-11 Office Martita [facility] 1.2.840.114 [id number] Univers 09:30:00 10:28:16 Visit [facility] 350.1.13.10 it y of [place] 4.2.7.2.686 David as KERA?BLEA [phone] Ga christy [facility] 044 [facility] OFFICE [facility] 2021-12-10 2021-12-10 Orders Doctor MYAH 1.2.840.114 [id number] Univers 00:00:00 00:00:00 Only Unassigned, MOSHE [id number] ity of [place] [facility] [id number] David as [phone] [address] 2021-12-08 2021-12-08 Outpatient R GAYLE HARDING [facility] [id number] Univers 13:00:00 13:35:[address] [facility] 2021-12-08 2021-12-08 Office Mehdi [facility] 1.2.840.114 [id number] Univers 13:00:00 13:35:21 Visit HEALTH [id number] it y of [place] 4.2.7.2.686 David as KERA?BLEA [phone] Ga christy GRAF [address] [place] [facility] 2021-12-08 2021-12-08 Outpatient R GAYLE HARDING [facility] [id number] Univers 13:00:00 13:00:[address] [facility] 2021-12-08 2021-12-08 Outpatient R GAYLE HARDING [facility] [id number] Univers 08:30:00 08:30:[address] [facility] 2021-12-08 2021-12-08 Patient Valery Church 1.2.840.114 [id number] Univers 00:00:00 00:00:00 Outreach E GALICIA 350.1.13.10 i ty of [place] 4[place]2.7.2.[place] [phone] [facility] [address] 2021-12-04 2021-12-04 Orders Doctor MYAH 1.2.840.114 [id number] Univers 00:00:00 00:00:00 Only Unassigned, MOSHE 350.1.13.10 ity of [place] [facility] 4.2.7.2.686 David as [phone] [facility] [address] 2021-12-02 2021-12-03 Outpatient R [facility] [id number] Univers 07:39:00 14:30:00 [facility] 2021-12-02 2021-12-03 [facility] Ddiier Perez 1.2.840.114 [id number] Univers 07:39:00 14:30:00 Encounter Mariaa AmaroY 350.1.13. 10 ity [facility] 4.2.7.2.686 [place] [phone] [facility] [facility] [address] 2021-12-02 2021-12-02 Hospital RODGER Perez 1.2.840.114 [id number] Univers 08:00:00 23:59:00 Encounter Didier MOSHE 350.1.13.10 ity of [facility] 4.2.7.2.686 David as [phone] [facility] [address] 2021-12-02 2021-12-02 Surgery RODGER Perez 1.2.840.114 [id number] Univers 07:30:00 11:30:00 Didier MOSHE 350.1.13.10 it y of HOSPITAL 4.2.7.2.686 David as [phone] [place] [address] 2021-12-02 2021-12-02 Hospital GABBI PerezIT 1.2.840.114 [id number] Univers 07:45:57 07:59:00 Encounter Didier Y HEALTH 350.1.13.10 ity of [place] [phone] [place] [address] [place] 2021-12-01 2021-12-01 Mail Clerk Chas, Adc Lab Main [facility] 1.2.8 40.114 [id number] Univers 10:30:00 10:45:00 Visit Didier Perez 350.1.13.10 ity of [place] [phone] Ga dical NAL 353 [facility] 2021-12-01 2021-12-01 Outpatient R ANA [facility] [id number] Univers 10:30:00 10:30:00 DIDIER ity of [facility] 2021-12-01 2021-12-01 [facility] [id number] Univers 09:40:00 09:51:15 ERNESTINA itserina o f [facility] 2021-12-01 2021-12-01 Office [facility] 1.2.840.114 [id number] Univers 09:40:00 09:51:15 Visit Ernestina CONDEILIANA 350.1.13.10 ity of [place] [phone] Ga dical NAL 059 [facility] 2021-12-01 2021-12-01 Telephone Ana [facility] 1.2.280.309 [id number] Univers 00:00:00 00:00:00 Didier HEALTH 350.1.13.10 it y of [place].7.2.[place] IRV[place] [phone] [place] [address] Branch (CLC) 2021-12-01 2021-12-01 Telephone Nii [place] 1.2.973.872 [id number] Univers 00:00:00 00:00:00 Cantsteffany MOSHE 350.1.13.10 i ty of [facility] 4.2.7.2.686 David as [phone] [facility] [address] [place] 2021-11-27 2021-11-27 [facility] [id number] Univers 11:30:00 11:30:[address] [facility] 2021-11-20 2021-11-20 Mail Clerk Lab, Ang - [facility] 1.2.840.1 14 [id number] Univers 16:15:00 16:30:00 Visit Shirley Anders [facility] 350.1.13.10 ity of [place] 4.2.7.2.686 David as KERA?BLEA [phone] [address] MEDICAL OFFICE BUILDING 2021-11-20 2021-11-20 Outpatient R MARTITA [facility] [id number] Univers 16:15:00 16:15:00 [facility] 2021-11-20 2021-11-20 Telephone RODGER Perez 1.2.127.816 [id number] Univers 00:00:00 00:00:00 Didier MOSHE 350.1.13.10 it y of [facility] 4.2.7.2.686 David as [phone] [facility] [address] [place] 2021-11-17 2021-11-17 Orders Doctor GLAS[place]OW 1.2.840.114 [id number] Univers 00:00:00 00:00:00 Only Unassigned, MOSHE 350.1.13.10 ity of [place] [facility] 4.2.7.2.686 David as [phone] [facility] [address] [place] 2021-11-11 2021-11-11 Outpatient R ANA [facility] [id number] Univers 13:15:00 13:15:[address] [facility] 2021-11-05 2021-11-05 Telephone Ana [facility] 1.2.365.079 [id number] Univers 00:00:00 00:00:00 Didier GEORGI 350.1.13.10 i ty of [place] [phone] [place] 857739 [facility] 2021-11-04 2021-11-04 Refill Moreno [facility] 1.2.840.114 [id number] Univers 00:00:00 00:00:00 Sendil Charis LAUREANO 350.1.13.10 ity of [place].2.[place] [phone] [address] 2021-10-30 2021-10-30 Telephone Ana MISTEPHANIE 1.2.497.372 [id number] Univers 00:00:00 00:00:00 Didier GEORGI 350.1.13.10 i ty of [place].7.2.[place] [phone] [address] 2021-10-29 2021-10-29 Orders Doctor MYAH 1.2.840.114 [id number] Univers 00:00:00 00:00:00 Only Unassigned, MOSHE 350.1.13.10 ity of [place] [facility] 4.2.7.2.686 David as [phone] [facility] [address] [place] 2021-10-14 2021-10-14 Telephone RODGER Perez 1.2.147.932 [id number] Univers 00:00:00 00:00:00 Didier MOSHE 350.1.13.10 it y of HOSPITAL 4.2.7.2.686 [place] as [phone] [facility] [address] [place] 2021-10-13 2021-10-13 Outpatient R MARTITA [facility] [id number] Univers 09:30:00 09:30:[address] [facility] 2021-10-09 2021-10-09 [facility] [id number] Univers 15:30:00 16:18:[address] [facility] 2021-10-09 2021-10-09 Office [facility] 1.2.840.114 [id number] Univers 15:30:00 16:18:20 Visit Shirley HEALTH 350.1.13.10 it y of [place] 4.2.7.2.686 David as KERA?BLEA [phone] Ga christy GRAF 044 [facility] 2021-10-09 2021-10-09 Outpatient R MARTITA [facility] [id number] Univers 15:30:00 16:18:[address] [facility] 2021-10-07 2021-10-07 Outpatient R MARTITA [facility] [id number] Univers 16:00:00 16:00:[address] [facility] 2021-10-07 2021-10-07 Telephone Ana RODGER 1.2.404.625 [id number] Univers 00:00:00 00:00:00 Didier MOSHE 350.1.13.10 it y of [facility] 4.2.7.2.686 David as [phone] [address] 2021-10-02 2021-10-02 Mail Clerk Chas, Indira Lab Main [facility] 1.2.8 40.114 [id number] Univers 09:00:00 09:15:00 Visit Ana Didierlatesha LAUREANO 350.1.13.10 ity of [place]2.7.2.[place] E[place]AM[place] [phone] Ga christy OCHOA 353 [facility] 2021-10-02 2021-10-02 [facility] [id number] Univers 09:00:00 09:00:[address] [facility] 2021-10-02 2021-10-02 Outpatient R [facility] [id number] Univers 09:00:00 09:00:[address] [facility] 2021-10-02 2021-10-02 Telephone [facility] 1.2.892.672 [id number] Univers 00:00:00 00:00:00 Shirley HEALTH 350.1.13.10 it y of [place] 4.2.7.2.686 David as KERA?BLEA [phone] Ga christy GRAF 044 [facility] 2021-09-19 2021-09-19 [facility] [id number] Univers 11:40:00 11:40:[address] [facility] 2021-09-11 2021-09-11 Outpatient R MARTITA [facility] [id number] Univers 08:00:00 08:00:[address] [facility] 2021-09-11 2021-09-11 Outpatient R MARTITA [facility] [id number] Univers 08:00:00 08:00:[address] [facility] 2021-09-05 2021-09-05 [facility] [id number] Univers 08:40:00 09:04:[address] [facility] 2021-09-05 2021-09-05 Office [facility] 1.2.840.114 [id number] Univers 08:40:00 09:04:48 Visit [facility] 350.1.13.10 i ty of [place].2.[place] [phone] Ga christy OCHOA 059 [facility] 2021-09-04 2021-09-04 Telephone [facility] 1.2.088.775 [id number] Univers 00:00:00 00:00:00 [facility] 350.1.13.10 it y of [place] 4.2.7.2.686 David as KERA?BLEA [phone] Ga christy KNEY 044 [facility] OFFICE [facility] 2021-08-29 2021-08-29 Outpatient [facility] [id number] Univers 10:00:00 10:00:00 GUSAKBAR priscila o [facility] 2021-08-29 2021-08-29 Outpatient [facility] [id number] Univers 10:00:00 10:00:00 GUSAKBAR margarety o f [facility] 2021-08-29 2021-08-29 Office [facility] 1.2.840.114 [id number] Univers 10:00:00 10:00:00 Visit LinaFormerly [facility] 350.1.13.10 ity of [place] [phone] Ga dical NAL 059 [facility] 2021-08-29 2021-08-29 Outpatient R ADEN [facility] [id number] Univers 10:00:00 09:24:49 ERNESTINA ity o f [facility] 2021-08-29 2021-08-29 Mail Clerk Chas, Adc Lab Main [facility] 1.2.8 40.114 [id number] Univers 08:30:00 08:45:00 Visit Aden Erenstina LAUREANO 350.1.13.10 ity of [facility] 4.2.7.2.686 [place] [phone] Ga dical NAL 353 [facility] 2021-08-29 2021-08-29 Mail Clerk Chas, Adc Lab Main [facility] 1.2.8 40.114 [id number] [facility] 08:30:00 08:45:00 Visit Aden Ernestina CONDETON 350.1.13.10 ity of [facility] 4.2.7.2.[place] [phone] [facility] 353 [facility] 2021-08-29 2021-08-29 Telephone [facility] 1.2.372.029 [id number] Univers 00:00:00 00:00:00 Ernestina CONDETON 350.1.13.10 ity of [facility] 4.2.7.2.686 [place] [phone] [address] 2021-08-28 2021-08-28 Outpatient R [facility] [id number] Univers 10:00:00 10:00:00 ity of [facility] 2021-08-22 2021-08-22 Outpatient R ANA [facility] [id number] Univers 13:00:00 13:00:[address] [facility] 2021-08-22 2021-08-22 Telephone [facility] 1.2.972.871 [id number] Univers 00:00:00 00:00:00 Didier [place] 350.1.13.10 i ty of [facility] 4.2.7.2.686 [place] [phone] [address] 2021-08-20 2021-08-20 Orders Doctor MYAH 1.2.840.114 [id number] Univers 00:00:00 00:00:00 Only Unassigned, MOSHE 350.1.13.10 [facility] 4.2.7.2.686 David as [phone] [address] 2021-08-07 2021-08-07 Outpatient R MARTITA [facility] [id number] Univers 14:30:00 14:30:[address] [facility] 2021-08-07 2021-08-07 Telephone [facility] 1.2.996.081 [id number] Univers 00:00:00 00:00:00 Ernestina LAUREANO 350.1.13.10 ity [facility] 4.2.7.2.[place] [phone] [address] 2021-08-04 2021-08-04 Office [facility] 1.2.840.114 [id number] Univers 10:30:00 10:30:00 Visit [facility] 350.1.13.10 it y of [place] 4.2.7.2.686 David as KERA?BLEA [phone] Ga katelynnoh KARIME[address] 2021-08-04 2021-08-04 [facility] [id number] Univers 10:30:00 09:55:57 [facility] 2021-08-04 2021-08-04 Outpatient [facility] [id number] Univers 10:30:00 09:55:[address] [facility] [facility] 2021-08-04 2021-08-04 Telephone [facility] 1.2.182.250 [id number] Univers 00:00:00 00:00:00 Didier GEORGI 350.1.13.10 i ty of [place].2.[place] [id number] [address] 2021-08-01 2021-08-01 [facility] [id number] Univers 08:00:00 08:00:00 DIDIER ity of [facility] 2021-07-15 2021-07-15 Refill Martita [facility] 1.2.840.114 [id number] Univers 00:00:00 00:00:00 Shirley HEALTH 350.1.13.10 it y of [place] 4.2.7.2.686 David as KERA?BLEA [phone] [address] OFFICE [facility] 2021-07-15 2021-07-15 Refill [facility] 1.2.840.114 [id number] Univers 00:00:00 00:00:00 Qiangakbar [place] 350.1.13.10 ity of [facility] 4.2.7.2.686 [place] [id number] [address] 2021-07-07 2021-07-07 Orders Doctor MYAH 1.2.840.114 [id number] Univers 00:00:00 00:00:00 Only Unassigned, MOSHE 350.1.13.10 ity of [place] [facility] 4.2.7.2.686 David as [phone] [address] 2021-07-04 2021-07-04 Telephone [facility] 1.2.649.821 [id number] Univers 00:00:00 00:00:00 Shirley HEALTH 350.1.13.10 it y of [place] 4.2.7.2.686 David as KERA?BLEA [phone] [address] 2021-07-02 2021-07-02 Telephone [facility] 1.2.949.034 [id number] Univers 00:00:00 00:00:00 Qiafiorellajun [place] 350.1.13.10 ity of [facility] 4.2.7.2.686 [place] [phone] [address] 2021-07-01 2021-07-01 Telephone [facility] 1.2.398.665 [id number] Univers 00:00:00 00:00:00 Qiangjun [place] 350.1.13.10 ity of [place] 4.2.7.2.[place] [phone] Ga dical NAL 059 [facility] 2021-07-01 2021-07-01 Telephone Martita [facility] 1.2.013.180 [id number] Univers 00:00:00 00:00:00 Shirlye [facility] 350.1.13.10 it y of [place] 4.2.7.2.686 David as KERA?BLEA [phone] Ga dical HOMAR 044 [facility] OFFICE [facility] 2021-06-30 2021-06-30 Mail Clerk 2, Adc Lab [facility] 1.2.840.114 [id number] Univers 11:15:00 11:30:00 Visit Ernestina HidalgoBANNER 350.1.13.10 ity of [place] 4.2.7.2.[place] [id number] Ga dical NAL 353 [facility] 2021-06-30 2021-06-30 Outpatient Prem HIDALGO [facility] [id number] Univers 11:15:00 11:15:00 ERNESTINA roblesy o latesha [facility] 2021-06-30 2021-06-30 Office [facility] 1.2.840.114 [id number] Univers 10:00:00 10:44:27 Visit Ernestina CONDEBANNER 350.1.13.10 ity of [place] 4.2.7.2.[place] [phone] Ga dicsaad NAL 059 [facility] 2021-06-30 2021-06-30 Outpatient R ADEN [facility] [id number] Univers 10:00:00 10:00:00 GUSAKBAR margarety o latesha [facility] 2021-06-30 2021-06-30 [facility] [id number] Univers 10:00:00 10:00:00 ERNESTINA margarety o f [facility] 2021-06-26 2021-06-26 Orders Doctor [place]OW 1.2.840.114 [id number] Univers 00:00:00 00:00:00 Only Unassigned, MOSHE 350.1.13.10 ity of [place] [facility] 4.2.7.2.686 David as [phone] [facility] [address] [place] 2021-06-12 2021-06-12 Office Martita [facility] 1.2.840.114 [id number] Univers 15:00:00 16:12:39 Visit Shirley [facility] 350.1.13.10 it y of [place] 4.2.7.2.686 David as KERA?BLEA [phone] Ga christy [address] MEDICAL OFFICE BUILDING 2021-06-12 2021-06-12 [facility] [id number] Univers 15:00:00 16:12:[address] [facility] 2021-06-12 2021-06-12 Outpatient [facility] [id number] Univers 15:00:00 15:00:[address] [facility] 2021-06-12 2021-06-12 Orders Doctor MYAH 1.2.840.114 [id number] Univers 00:00:00 00:00:00 Only Unassigned, MOSHE 350.1.13.10 ity of [place] [facility] 4.2.7.2.686 David as [phone] [facility] [address] [place] 2021-06-10 2021-06-10 Transition LILLIANA Hilliard 1.2.840.114 [id number] Univers 00:00:00 00:00:00 of Care Moni GALICIA 350.1.13.10 ity of [place] 4.2.7.2.[place] [id number] [facility] [address] 2021-06-08 2021-06-09 Inpatient X [facility] [id number] Univers 13:49:00 16:46:[address] [facility] 2021-06-08 2021-06-[address] Vilchis [facility] 1.2.84 0.114 [id number] Univers 13:49:00 16:46:00 Encounter Rehan Macias 350.1.13.10 ity of [place] 4.2.7.2.686 [facility] [phone] [facility] [address] [place] 2021-06-08 2021-06-08 Orders Doctor MYAH 1.2.840.114 [id number] Univers 00:00:00 00:00:00 Only Unassigned, MOSHE 350.1.13.10 ity of [place] [facility] 4.2.7.2.686 David as [phone] [facility] [address] [place] 2021-05-28 2021-05-28 Telephone [facility] 1.2.690.355 [id number] Univers 00:00:00 00:00:00 Shirley HEALTH 350.1.13.10 it y of [place] 4.2.7.2.686 David as KERA?BLEA [phone] Ga dical KARIMEEY 044 [facility] OFFICE [facility] 2021-04-30 2021-04-30 Office [facility] 1.2.840.114 [id number] Univers 13:20:00 13:20:00 Visit Ernestina LAUREANO 350.1.13.10 ity of [place] 4[place]2.7.2.686 [place] [phone] Ga dical NAL 059 [facility] 2021-04-30 2021-04-30 Outpatient R [facility] [id number] Univers 13:20:00 11:51:01 ERNESTINA priscila o [facility] 2021-04-16 2021-04-16 Outpatient R [facility] [id number] Univers 09:07:27 23:59:00 LINAKELLE margarety o f [facility] 2021-04-16 2021-04-16 [facility] 1.2.840.114 [id number] Univers 09:07:27 23:59:00 Encounter Ernestina LAUREANO 350.1.13.10 ity of [facility] 4.2.7.2.686 [place] [phone] [facility] [address] [place] 2021-04-16 2021-04-16 Orders Doctor MYAH 1.2.840.114 [id number] Univers 00:00:00 00:00:00 Only Unassigned, MOSHE 350.1.13.10 ity of [place] [facility] 4.2.7.2.686 David as [phone] [address] 2021-04-08 2021-04-08 [facility] 1.2.400.147 [id number] Univers 00:00:00 00:00:00 Shirley HEALTH 350.1.13.10 it y of [place] 4.2.7.2.686 David as KERA?BLEA [id number] [address] OFFICE [facility] 2021-04-08 2021-04-08 [facility] 1.2.608.248 [id number] Univers 00:00:00 00:00:00 Shirley HEALTH 350.1.13.10 it y of [place] 4.2.7.2.686 David as KERA?BLEA [id number] [address] 2021-04-07 2021-04-07 Telephone [facility] 1.2.905.456 [id number] Univers 00:00:00 00:00:00 Ernestina LAUREANO 350.1.13.10 ity of [place].7.2.[place] [phone] [facility] NAL [address] [place] [address] 2021-04-04 2021-04-04 Telephone [facility] 1.2.337.674 [id number] Univers 00:00:00 00:00:00 Ernestina LAUREANO 350.1.13.10 ity of [place] 4.2.7.2.[place] [phone] [address] 2021-04-04 2021-04-04 Telephone Moreno [facility] 1.2.164.130 [id number] Univers 00:00:00 00:00:00 Lita LAUREANO 350.1.13.10 ity of [place] 4.2.7.2.[place] [phone] [facility] NAL [address] [place] [address] 2021-04-02 2021-04-02 Mail Clerk 2, Adc Lab [facility] 1.2.840.114 [id number] Univers 14:00:00 14:00:00 Visit Ernestina Hidalgo 350.1.13.10 ity of [place] 4.2.7.2.[place] [phone] Ga dical NAL 353 [facility] 2021-04-02 2021-04-02 Mail Clerk 2, Adc Lab [facility] 1.2.840.114 [id number] Univers 14:00:00 14:00:00 Visit Ernestina Hidalgo 350.1.13.10 ity of [place] 4.2.7.2.[place] [id number] Ga dical NAL 353 [facility] 2021-04-02 2021-04-02 Office [facility] 1.2.840.114 [id number] Univers 13:40:00 13:40:00 Visit Ernestina LAUREANO 350.1.13.10 ity [address] [facility] 4.2.7.2.686 [place] [phone] Ga dical NAL 059 [facility] 2021-04-02 2021-04-02 [facility] [id number] Univers 13:40:00 13:34:03 ERNESTINA francois o f [facility] 2021-03-06 2021-03-06 Outpatient R MARTITA [facility] [id number] Univers 08:30:00 09:12:[address] [facility] 2021-03-06 2021-03-06 Office [facility] 1.2.840.114 [id number] Univers 08:30:00 09:12:00 Visit Shirley [facility] 350.1.13.10 it y of [place] 4.2.7.2.686 David as KERA?BLEA [phone] Ga dicsaad KNEY 044 [facility] OFFICE [facility] 2021-03-06 2021-03-06 Outpatient R MARTITA [facility] [id number] Univers 08:30:00 08:30:00 SHIRLEY ity of [facility] 2021-03-04 2021-03-04 Office [facility] 1.2.840.114 [id number] Univers 10:00:00 10:20:00 Visit Ernestina LAUREANO 350.1.13.10 ity of [place] 4[place].7.2.[place] [phone] Ga dical NAL [address] BU[address]ING 2021-03-04 2021-03-04 Outpatient R ADEN, [facility] [id number] Univers 10:00:00 10:00:00 ERNESTINA roblesy o f [facility] 2021-03-04 2021-03-04 Outpatient R ADEN, [facility] [id number] Univers 10:00:00 10:00:00 ERNESTINA roblesy o f [facility] 2021-03-04 2021-03-04 Outpatient R ADEN, [facility] [id number] Univers 10:00:00 10:00:00 ERNESTINA francois o [facility] 2021-02-03 2021-02-03 Transition LILLIANA Mitchell 1.2.840.114 [id number] Univers 00:00:00 00:00:00 of Dana GALICIA 350.1.13.10 it y of [place] 4.2.7.2.686 [place] [phone] [facility] [address] 2021-01-29 2021-01-31 Inpatient X [facility] [id number] Univers 13:31:00 12:30:00 [facility] 2021-01-29 2021-01-31 [facility] Ramin [facility] 1.2.840.1 14 [id number] Univers 13:31:00 12:30:00 Encounter Rehan Macias 350.1.13.10 ity of [place] 4.2.7.2.686 [facility] [phone] [facility] [address] 2020-12-23 2020-12-23 Outpatient R ELVIN, [facility] [id number] Univers 13:00:00 13:00:[address] [facility] 2020-12-23 2020-12-23 Outpatient R ELVIN, [facility] [id number] Univers 13:00:00 13:00:[address] 2020-08-23 2020-08-23 Outpatient R YOGI, [facility] [id number] Univers 09:00:00 09:00:[address] [facility] 2020-08-23 2020-08-23 Outpatient R CALIX, [facility] [id number] Univers 09:00:00 09:00:[address] [facility] 2020-08-19 2020-08-19 Outpatient R ADEN, [facility] [id number] Univers 09:20:00 09:20:00 QIANGJUN ity o f [facility] 2020-08-19 2020-08-19 Outpatient R MY, [facility] [id number] Univers 09:00:00 09:00:00 [facility] 2020-07-09 Outpatient R ANA, [facility] [id number] [facility]:00[facility] 2020-07-09 Outpatient R TRAVEFREN [facility] [id number] Univers 13:00:00 13:00:00 [facility] 2020-06-17 2020-06-17 Outpatient R ADEN, [facility] [id number] Univers 08:40:00 08:40:00 QIANGJUN ity o f [facility] 2020-06-06 2020-06-06 Outpatient LUIS FERNANDO CASAS [facility] [id number] Univers 08:30:00 [facility]30[facility] 2020-05-29 Outpatient R ADEN [facility] [id number] Univers 13:00:00 13:00:00 QIANGJUN ity o f [facility] 2020-05-18 2020-05-18 Outpatient [facility] [id number] Univers 10:35:00 10:35:[address] [facility] 2020-05-16 2020-05-16 Outpatient LUIS FERNANDO CASAS [facility] [id number] Univers 10:30:00 10:30:[address] [facility] 2020-05-16 2020-05-16 Outpatient LUIS FERNANDO CASAS [facility] [id number] Univers 08:30:00 08:30:00 ity [facility] 2020-04-27 2020-04-27 Outpatient R ZORAIDA, [facility] [id number] Univers 11:20:00 11:20:[address] [facility] 2020-04-24 2020-04-24 Outpatient R ADEN, [facility] [id number] Univers 13:20:00 13:20:00 ERNESTINA francois o f [facility] 2020-04-23 2020-04-23 Outpatient R ADEN, [facility] [id number] Univers 15:20:00 15:20:00 ERNESTINA francois o f [facility] 2020-04-22 2020-04-22 Outpatient R MARTITA, [facility] [id number] Univers 10:20:00 10:20:[address] [facility] 2020-04-22 2020-04-22 Laboratory Lab, [facility] [id number] 09:42:08 10:02:08 Only Fam Pob I Health 350.1.13.10 [place] 4.2.7.2.686 Professio [id number] nal 044 Office Building One 2020-04-22 2020-04-22 Outpatient R ELVIN, [facility] [id number] Univers 09:30:00 09:30:00 [facility] 2020-04-22 2020-04-22 Letter Lab, [facility] 1.2.840.114 [id number] 00:00:00 00:00:00 (Out) [facility] 350.1.13.10 [place] 4.2.7.2.686 Professio [id number] nal 044 Office Building One 2020-04-22 2020-04-22 Letter Doctor [place] 1.2.840.114 [id number] 00:00:00 00:00:00 (Out) Unassigned, [place] 350.1.13.10 [place] [facility] 4.2.7.2.686 [id number] 2020-04-15 2020-04-15 Outpatient R ELVIN, [facility] [id number] Univers 09:30:00 09:30:[address] [facility] 2020-03-29 2020-03-29 Telephone Luis Fernando Smith 1.2.840.114 [id number] 00:00:00 00:00:00 [place] [id number] HEALTH 4.2.7.2.686 UNIT [id number] 2020-03-28 2020-03-28 Outpatient R MARY [facility] [id number] Univers 09:00:00 09:00:00 [facility] 2020-03-14 2020-03-14 Outpatient R MARY [facility] [id number] Univers 10:30:00 10:30:00 [facility] 2020-03-08 2020-03-08 Telephone Luis Fernando Smith 1.2.840.114 [id number] 00:00:00 00:00:00 [place] [address].1.13.10 HEALTH 4.2.7.2.686 UNIT [id number] 2020-02-07 2020-02-07 Outpatient R ADEN, [facility] [id number] Univers 13:00:00 13:00:00 ERNESTINA barragan [facility] 2020-01-22 2020-01-22 Outpatient Prem SMITHLUIS FERNANDO [facility] [id number] Univers 10:30:00 10:30:00 [facility] 2019-08-14 2019-08-14 Outpatient R ADEN, [facility] [id number] Univers 13:20:00 13:20:00 ERNESTINA barragan [facility] 2019-05-08 2019-05-08 Outpatient R ADEN, [facility] [id number] Univers 13:40:00 13:40:00 ERNESTINA francois o [facility] 2019-05-02 2019-05-02 Outpatient R ADEN, [facility] [id number] Univers 10:45:00 10:45:00 ERNESTINA francois o [facility] 2019-04-07 2019-04-07 Outpatient R ADEN, [facility] [id number] Univers 08:00:00 09:01:03 LINAKELLE barragan [facility] 2019-01-31 2019-01-31 Outpatient R YOANA [facility] [id number] Univers 09:23:42 23:59:[address] [facility] Results Test Description Test Time Test Comments Results Result Comments Source POCT URINALYSIS, INSTRUMENT 2022-04-01 20:46:00 Test Item Value Reference Range Interpretation Comme nts POCT U SP GRAV (test code = 3255) 1.020 mg/dl 1.005-1.025 POCT PH U (test code = 3254) 5.5 mg/dl 5-8 POCT U LEUK EST (test code = 3263) Negative Negative - Negative POCT U NIT (test code = 3262) Negative Negative - Negative POCT U PROT (test code = 3259) Negative Negative - Negative POCT U GLU (test code = 3256) 500 Negative - Negative A POCT U KETONE (test code = 3258) Negative Negative - Negative POCT U UROBILI (test code = 3260) 0.2 mg/dl 0.2-1 POCT U BILI (test code = 3261) Negative Negative - Negative POCT U BLD (test code = 3257) Negative Negative - Negative POCT U COLOR (test code = 3266) Yellow POCT U APPEAR (test code = 3267) Clear Lab Interpretation (test code = 23130-5) [facility]normal [facility] [id number] 20:46:00 Test Item Value Reference Range Interpretation Comments POCT U SP GRAV (test code = 1.020 mg/dl 1.005-1.025 3255) POCT PH U (test code = 3254) 5.5 mg/dl 5-8 POCT U LEUK EST (test code = Negative Negative - Negative 3263) POCT U NIT (test code = 3262) Negative Negative - Negative POCT U PROT (test code = Negative Negative - Negative 3259) POCT U GLU (test code = 3256) 500 Negative - Negative A POCT U KETONE (test code = Negative Negative - Negative 3258) POCT U UROBILI (test code = 0.2 mg/dl 0.2-1 3260) POCT U BILI (test code = Negative Negative - Negative 3261) POCT U BLD (test code = 3257) Negative Negative - Negative POCT U COLOR (test code = Yellow 3266) POCT U APPEAR (test code = Clear 3267) Lab Interpretation (test code Abnormal = 37869-7) [facility] URINALYSIS, [id number] 20:46:00 Test Item Value Reference Range Interpretation Comments POCT U SP GRAV (test code = 1.020 mg/dl 1.005-1.025 3255) POCT PH U (test code = 3254) 5.5 mg/dl 5-8 POCT U LEUK EST (test code = Negative Negative - Negative 3263) POCT U NIT (test code = 3262) Negative Negative - Negative POCT U PROT (test code = Negative Negative - Negative 3259) POCT U GLU (test code = 3256) 500 Negative - Negative A POCT U KETONE (test code = Negative Negative - Negative 3258) POCT U UROBILI (test code = 0.2 mg/dl 0.2-1 3260) POCT U BILI (test code = Negative Negative - Negative 3261) POCT U BLD (test code = 3257) Negative Negative - Negative POCT U COLOR (test code = Yellow 3266) POCT U APPEAR (test code = Clear 3267) Lab Interpretation (test code Abnormal = 40212-9) [facility] GLUCOSE (AUTOMATED)2021-12-03 16:58:57 Test Item Value Reference Range Interpretation Comments POCT GLU (test code = 4079268829) 176 mg/dL 70-110 H Lab Interpretation (test code = Abnormal 61638-3) [facility] GLUCOSE (AUTOMATED)2021-12-03 16:58:57 Test Item Value Reference Range Interpretation Comments POCT GLU (test code = 0119755493) 176 mg/dL 70-110 H Lab Interpretation (test code = Abnormal 26348-4) [facility] GLUCOSE (AUTOMATED)2021-12-03 13:57:52 Test Item Value Reference Range Interpretation Comments POCT GLU (test code = 5072107085) 141 mg/dL 70-110 H Lab Interpretation (test code = Abnormal 56594-8) [facility] GLUCOSE (AUTOMATED)2021-12-03 13:57:52 Test Item Value Reference Range Interpretation Comments POCT GLU (test code = 5674915828) 141 mg/dL 70-110 H Lab Interpretation (test code = Abnormal 14302-2) [facility]2022-10-05 11:35:18 Test Item Value Reference Range Interpretation Comments DIGOXIN (test code = 0.8-1.6 L 2471579842) JUSTA (test code = JUSTA) Arrythmias: ?1.5 - 2.0 ng/mLToxic Range: ? Greater than or equal to 2.4 ng/mL Lab Interpretation (test Abnormal code = 56282-9) [facility]2022-10-05 11:35:18 Test Item Value Reference Range Interpretation Comments DIGOXIN (test code = 0.8-1.6 L 7501369468) JUSTA (test code = JUSTA) Arrythmias: ?1.5 - 2.0 ng/mLToxic Range: ? Greater than or equal to 2.4 ng/mL Lab Interpretation (test Abnormal code = 01019-4) [facility] METABOLIC PANEL (NA, K, CL, CO2, GLUCOSE, BUN, CREATININE, CA)2021-12-03 11:34:58 Test Item Value Reference Range Interpretation Comments NA (test code = 139 mmol/L 135-145 3605643757) K (test code = 4.9 mmol/L 3.5-5 7918355476) CL (test code = 107 mmol/L 98-108 9882399382) CO2 TOTAL (test code = 20 mmol/L 23-31 L 8275209367) AGAP (test code = 2-16 8784799111) BUN (test code = 27 mg/dL 7-23 H 8642262996) GLUCOSE (test code = 132 mg/dL 70-110 H 2509630083) CREATININE (test code = 1.34 mg/dL 0.6-1.25 H 9227648063) CALCIUM (test code = 9.2 mg/dL 8.6-10.6 6838681866) eGFR (test code = mL/min/1.73m2 7593015349) JUSTA (test code = JUSTA) Association of Glomerular Filtration Rate (GFR) and Staging of Kidney Disease* + --+ --+ ------+| GFR (mL/min/1.73 m2) ?| With Kidney Damage ?| ?Without Kidney Damage+ --------+ --------+ +| ?>90 ?| ?Stage one ?| ? Normal ?+ ---+ ---+ -------+| ?60-89 ?| ?Stage two ?| ? Decreased GFR ? + --+ --+ ------+| ?30-59 ?| ?Stage three ?| ? Stage three ? + --+ --+ ------+| ?15-29 ?| ?Stage four ? | ? Stage four ?+ ---+ ---+ -------+| ?<15 (or dialysis) ? ?| ?Stage five ? | ? Stage five ?+ ---+ ---+ -------+ *Each stage assumes the associated GFR level has been in effect for at least three months. ?Stages 1 to 5, with or without kidney disease, indicate chronic kidney disease. Notes: Determination of stages one and two (with eGFR >59mL/min/1.73 m2) requires estimation of kidney damage for at least three months as defined by structural or functional abnormalities of the kidney, manifested by either:Pathological abnormalities or Markers of kidney damage (including abnormalities in the composition of the blood or urine or abnormalities in imaging tests). Lab Interpretation Abnormal (test code = 74006-4) [facility] 11:34:58 Test Item Value Reference Range Interpretation Comments MAGNESIUM (test code = 1545731147) 1.9 mg/dL 1.7-2.4 Lab Interpretation (test code = Normal 43575-0) [facility] METABOLIC PAN[facility] (NA, K, CL, CO2, GLUCOSE, BUN, CREATININE, CA)2021-12-03 11:34:58 Test Item Value Reference Range Interpretation Comments NA (test code = 139 mmol/L 135-145 9068479403) K (test code = 4.9 mmol/L 3.5-5 6176020719) CL (test code = 107 mmol/L 98-108 6077399483) CO2 TOTAL (test code = 20 mmol/L 23-31 L 6265961926) AGAP (test code = 2-16 9768163656) BUN (test code = 27 mg/dL 7-23 H 3795817820) GLUCOSE (test code = 132 mg/dL 70-110 H 4825097184) CREATININE (test code = 1.34 mg/dL 0.6-1.25 H 2360979495) CALCIUM (test code = 9.2 mg/dL 8.6-10.6 2139158725) eGFR (test code = mL/min/1.73m2 1016234077) JUSTA (test code = JUSTA) Association of Glomerular Filtration Rate (GFR) and Staging of Kidney Disease* + --+ --+ ------+| GFR (mL/min/1.73 m2) ?| With Kidney Damage ?| ?Without Kidney Damage+ --------+ --------+ +| ?>90 ?| ?Stage one ?| ? Normal ?+ ---+ ---+ -------+| ?60-89 ?| ?Stage two ?| ? Decreased GFR ? + --+ --+ ------+| ?30-59 ?| ?Stage three ?| ? Stage three ? + --+ --+ ------+| ?15-29 ?| ?Stage four ? | ? Stage four ?+ ---+ ---+ -------+| ?<15 (or dialysis) ? ?| ?Stage five ? | ? Stage five ?+ ---+ ---+ -------+ *Each stage assumes the associated GFR level has been in effect for at least three months. ?Stages 1 to 5, with or without kidney disease, indicate chronic kidney disease. Notes: Determination of stages one and two (with eGFR >59mL/min/1.73 m2) requires estimation of kidney damage for at least three months as defined by structural or functional abnormalities of the kidney, manifested by either:Pathological abnormalities or Markers of kidney damage (including abnormalities in the composition of the blood or urine or abnormalities in imaging tests). Lab Interpretation Abnormal (test code = 32576-5) [facility] 11:34:58 Test Item Value Reference Range Interpretation Comments MAGNESIUM (test code = 8572921220) 1.9 mg/dL 1.7-2.4 Lab Interpretation (test code = Normal 79399-2) [facility]2021-12-03 01:23:35 Test Item Value Reference Range Interpretation Comments POCT GLU (test code = 9148104901) 136 mg/dL 70-110 H Lab Interpretation (test code = Abnormal 54308-1) [facility] GLUCOSE (AUTOMATED)2021-12-03 01:23:35 Test Item Value Reference Range Interpretation Comments POCT GLU (test code = 7149544034) 136 mg/dL 70-110 H Lab Interpretation (test code = Abnormal 46500-7) [facility] ACT HIGH [id number] 21:36:20 Test Item Value Reference Range Interpretation Comments ACTHR (test code = See_Comment [Automat ed message] 4851339189) The system Adea generated this result transmitted ref erence range: 96 - 152 Seconds. The re ference range was not u sed to interpret this result as normal/abnor mal. Lab Interpretation (test Normal code = 98306-0) [facility] ACT HIGH [id number] 21:36:20 Test Item Value Reference Range Interpretation Comments ACTHR (test code = See_Comment [Automat ed message] ) The system Adea generated this result transmitted ref erence range: 96 - 152 Seconds. The re ference range was not u sed to interpret this result as normal/abnor mal. Lab Interpretation (test Normal code = 68876-6) [facility] ACT HIGH [id number] 21:22:21 Test Item Value Reference Range Interpretation Comments ACTHR (test code = See_Comment H [Automat ed message] ) The system Adea generated this result transmitted ref erence range: 96 - 152 Seconds. The reference range was not used to int erpret this result as normal/abnormal . Lab Interpretation (test Abnormal code = 07833-5) [facility] ACT HIGH [id number] 21:22:21 Test Item Value Reference Range Interpretation Comments ACTHR (test code = See_Comment H [Automat ed message] 1862994626) The system Adea generated this result transmitted ref erence range: 96 - 152 Seconds. The reference range was not used to int erpret this result as normal/abnormal . Lab Interpretation (test Abnormal code = 63404-0) [facility] (SUMEET)2021-12-02 21:15:11 Test Item Value Reference Range Interpretation Comments Height (test code = in 4677119415) Weight (test code = lbs 6093583072) Systolic BP (test mmHg code = 4209763756) Diastolic BP (test mmHg code = 1064020973) Heart Rate (test code bpm = 5450135076) BSA (test code = 2.36 m2 7903134431) Radiology Study observation (narrative) (test code = 03707-7) JUSTA (test code = JUSTA) ?Left?Ventricle: Left ventricle size is normal. Mildly reduced systolic function. ?Right?Ventricle: Right ventricle is mildly dilated. Normal systolic function. ?Left?Atrium: Left atrium is dilated. No PFO present by color Doppler . Normal sized appendage. Normal appendage flow velocity. No thrombus in left atrial appendage. ?Pericardium: No pericardial effusion. Left VentricleLeft ventricle size is normal. Mildly reduced systolic function.Right VentricleRight ventricle is mildly dilated. Normal systolic function.Left AtriumLeft atrium is dilated. No PFO present by color Doppler . Normal sized appendage. Normal appendage flow velocity. No thrombus in left atrial appendage.Right AtriumRight atrium size is normal.IVC/SVCIVC was not well visualized. SVC was not well visualized.Mitral ValveMitral valve structure is normal. Mild transvalvular regurgitation. No stenosis.Tricuspid ValveTricuspid valve structure is normal. Mild transvalvular regurgitation. No stenosis.Aortic ValveAortic valve structure is normal. Trace transvalvular regurgitation. No evidence of aortic stenosis.Pulmonic ValveValve structure is normal. Trace transvalvular regurgitation. No stenosis.Ascending AortaNormal sized annulus, ascending aorta, descending aorta and aortic root. Mild atherosclerosis of the ascending aorta, aortic arch and descending aorta with mild thickening.PericardiumTh e pericardium is normal. No pericardial effusion.Study DetailsA complete transesophageal echocardiogram was performed using complete 2D, color flow Doppler and spectral Doppler. During the study the esophageal, transgastric and descending thoracic views were captured. The probe was inserted by the manager r d. There was no probe insertion difficulty.There were 1 attempts to insert the probe. Probe in 1014. Probe out 1026. General sedation was given. 4% Lidocaine was used for local oropharyngeal anesthesia. There were no complications during the procedure. Based on abnormal findings of 2D echocardiogram, 3D was performed on an acquisition scanner, and was processed on an independent workstation. [facility] [employer] [id number] 20:16:46 Test Item Value Reference Range Interpretation Comments ACTHR (test code = See_Comment H [Automat ed message] 4136178996) The system Adea generated this result transmitted ref erence range: 96 - 152 Seconds. The reference range was not used to int erpret this result as normal/abnormal . Lab Interpretation (test Abnormal code = 47557-6) [facility] [employer] [id number] 20:16:46 Test Item Value Reference Range Interpretation Comments ACTHR (test code = See_Comment H [Automat ed message] 5568114773) The system Adea generated this result transmitted ref erence range: 96 - 152 Seconds. The reference range was not used to int erpret this result as normal/abnormal . Lab Interpretation (test Abnormal code = 35990-4) [facility] [employer] [id number] 19:52:42 Test Item Value Reference Range Interpretation Comments ACTHR (test code = See_Comment H [Automat ed message] 6676524591) The system Adea generated this result transmitted ref erence range: 96 - 152 Seconds. The reference range was not used to int erpret this result as normal/abnormal . Lab Interpretation (test Abnormal code = 56680-2) [facility] [employer] [id number] 19:52:42 Test Item Value Reference Range Interpretation Comments ACTHR (test code = See_Comment H [Automat ed message] 1740413342) The system Adea generated this result transmitted ref erence range: 96 - 152 Seconds. The reference range was not used to int erpret this result as normal/abnormal . Lab Interpretation (test Abnormal code = 23295-9) [facility] [employer] [id number] 19:34:09 Test Item Value Reference Range Interpretation Comments ACTHR (test code = See_Comment H [Automat ed message] 3414548853) The system Adea generated this result transmitted ref erence range: 96 - 152 Seconds. The reference range was not used to int erpret this result as normal/abnormal . Lab Interpretation (test Abnormal code = 73220-8) [facility] [employer] [id number] 19:34:09 Test Item Value Reference Range Interpretation Comments ACTHR (test code = See_Comment H [Automat ed message] 7715258704) The system Adea generated this result transmitted ref erence range: 96 - 152 Seconds. The reference range was not used to int erpret this result as normal/abnormal . Lab Interpretation (test Abnormal code = 84242-6) [facility] [employer] [id number] 19:15:04 Test Item Value Reference Range Interpretation Comments ACTHR (test code = See_Comment H [Automat ed message] 3700221469) The system Adea generated this result transmitted ref erence range: 96 - 152 Seconds. The reference range was not used to int erpret this result as normal/abnormal . Lab Interpretation (test Abnormal code = 79360-5) [facility] [employer] [id number] 19:15:04 Test Item Value Reference Range Interpretation Comments ACTHR (test code = See_Comment H [Automat ed message] 6490665400) The system Adea generated this result transmitted ref erence range: 96 - 152 Seconds. The reference range was not used to int erpret this result as normal/abnormal . Lab Interpretation (test Abnormal code = 72360-6) [facility] [employer] [id number] 18:52:17 Test Item Value Reference Range Interpretation Comments ACTHR (test code = See_Comment H [Automat ed message] 1824461122) The system Adea generated this result transmitted ref erence range: 96 - 152 Seconds. The reference range was not used to int erpret this result as normal/abnormal . Lab Interpretation (test Abnormal code = 07094-2) [facility] [employer] [id number] 18:52:17 Test Item Value Reference Range Interpretation Comments ACTHR (test code = See_Comment H [Automat ed message] 5773547585) The system Adea generated this result transmitted ref erence range: 96 - 152 Seconds. The reference range was not used to int erpret this result as normal/abnormal . Lab Interpretation (test Abnormal code = 85975-0) [facility] [employer] [id number] 18:30:57 Test Item Value Reference Range Interpretation Comments ACTHR (test code = See_Comment H [Automat ed message] ) The system Adea generated this result transmitted ref erence range: 96 - 152 Seconds. The reference range was not used to int erpret this result as normal/abnormal . Lab Interpretation (test Abnormal code = 36065-8) [facility] HIGH [id number] 18:30:57 Test Item Value Reference Range Interpretation Comments ACTHR (test code = See_Comment H [Automat ed message] ) The system Adea generated this result transmitted ref erence range: 96 - 152 Seconds. The reference range was not used to int erpret this result as normal/abnormal . Lab Interpretation (test Abnormal code = 35780-2) [facility] HIGH [id number] 18:10:52 Test Item Value Reference Range Interpretation Comments ACTHR (test code = See_Comment H [Automat ed message] ) The system Adea generated this result transmitted ref erence range: 96 - 152 Seconds. The reference range was not used to int erpret this result as normal/abnormal . Lab Interpretation (test Abnormal code = 58732-7) [facility] HIGH [id number] 18:10:52 Test Item Value Reference Range Interpretation Comments ACTHR (test code = See_Comment H [Automat ed message] ) The system Adea generated this result transmitted ref erence range: 96 - 152 Seconds. The reference range was not used to int erpret this result as normal/abnormal . Lab Interpretation (test Abnormal code = 69625-5) [facility] WITH [id number] 04:47:51 Test Item Value Reference Range Interpretation Comments WBC (test code = See_Comment [Automated 6690-2) message] The sy stem which generated this result transmitted reference range : 4.20 - 10.70 10*3/?L. The reference range was not used to interpret this result as normal/abnormal . RBC (test code = See_Comment L [Automated 789-8) message] The sy stem which generated this result transmitted reference range : 4.26 - 5.52 10*6/?L. The reference range was not used to interpret this result as normal/abnormal . HGB (test code = 12.5 g/dL 12.2-16.4 718-7) HCT (test code = 38.2 % 38.4-49.3 L 4544-3) MCV (test code = 95.7 fL 81.7-95.6 H 787-2) MCH (test code = 31.3 pg 26.1-32.7 785-6) MCHC (test code = 32.7 g/dL 31.2-35 786-4) RDW-SD (test code = 42.5 fL 38.5-51.6 02032-6) RDW-CV (test code = 12.1 % 12.1-15.4 788-0) PLT (test code = See_Comment [Automated 777-3) message] The sy stem which generated this result transmitted reference range : 150 - 328 10*3/ ?L. The reference r mahin was not used to interpret this result as normal/abnormal . MPV (test code = 11.0 fL 9.8-13 60836-7) NRBC/100 WBC (test See_Comment [Automat ed code = 3042570269) message] The system which generated this result transmitted reference range : 0.0 - 10.0 /100 WBCs. The refer ence range was not u sed to interpret th is result as normal/abnormal . NRBC x10^3 (test code See_Comment [Auto mated = 1595874454) message] The s ystem which generated this result transmitted reference range : 10*3/?L. The reference range was not used to interpret this result as normal/abnormal . GRAN MAT (NEUT) % 42.8 % (test code = 770-8) IMM GRAN % (test code 0.40 % = 9424472365) LYMPH % (test code = 44.0 % 736-9) MONO % (test code = 9.1 % 5905-5) EOS % (test code = 2.8 % 713-8) BASO % (test code = 0.9 % 706-2) GRAN MAT x10^3(ANC) 2.45 10*3/uL 1.99-6.95 (test code = 2987496881) IMM GRAN x10^3 (test 0-0.06 code = 8786953861) LYMPH x10^3 (test code 2.51 10*3/uL 1.09-3.23 = 731-0) MONO x10^3 (test code 0.52 10*3/uL 0.36-1.02 = 742-7) EOS x10^3 (test code = 0.16 10*3/uL 0.06-0.53 711-2) BASO x10^3 (test code 0.05 10*3/uL 0.01-0.09 = 704-7) Lab Interpretation Abnormal (test code = 49281-5) [facility] METABOLIC PANEL (31248)2021-11-21 04:20:09 Test Item Value Reference Range Interpretation Comments NA (test code = 139 mmol/L 135-145 6359295858) K (test code = 4.5 mmol/L 3.5-5 1560711442) CL (test code = 109 mmol/L 98-108 H 5627561850) CO2 TOTAL (test code = 20 mmol/L 23-31 L 2390734007) AGAP (test code = 2-16 8910055454) BUN (test code = 22 mg/dL 7-23 9357345313) GLUCOSE (test code = 103 mg/dL 70-110 9245053627) CREATININE (test code = 1.51 mg/dL 0.6-1.25 H 5405917472) TOTAL BILI (test code = 0.6 mg/dL 0.1-1.4 8535679703) CALCIUM (test code = 9.4 mg/dL 8.6-10.6 6028678781) T PROTEIN (test code = 6.7 g/dL 6.3-8.2 4102587194) ALBUMIN (test code = 4.3 g/dL 3.5-5 1304211012) ALK PHOS (test code = 49 U/L 34-122 1371944760) ALTv (test code = 23 U/L 5-50 1742-6) AST(SGOT) (test code = 24 U/L 13-40 3912169721) eGFR (test code = mL/min/1.73m2 1504131857) JUSTA (test code = JUSTA) Association of Glomerular Filtration Rate (GFR) and Staging of Kidney Disease* + --+ --+ ------+| GFR (mL/min/1.73 m2) ?| With Kidney Damage ?| ?Without Kidney Damage+ --------+ --------+ +| ?>90 ?| ?Stage one ?| ? Normal ?+ ---+ ---+ -------+| ?60-89 ?| ?Stage two ?| ? Decreased GFR ? + --+ --+ ------+| ?30-59 ?| ?Stage three ?| ? Stage three ? + --+ --+ ------+| ?15-29 ?| ?Stage four ? | ? Stage four ?+ ---+ ---+ -------+| ?<15 (or dialysis) ? ?| ?Stage five ? | ? Stage five ?+ ---+ ---+ -------+ *Each stage assumes the associated GFR level has been in effect for at least three months. ?Stages 1 to 5, with or without kidney disease, indicate chronic kidney disease. Notes: Determination of stages one and two (with eGFR >59mL/min/1.73 m2) requires estimation of kidney damage for at least three months as defined by structural or functional abnormalities of the kidney, manifested by either:Pathological abnormalities or Markers of kidney damage (including abnormalities in the composition of the blood or urine or abnormalities in imaging tests). Lab Interpretation Abnormal (test code = 14733-5) [facility]"
[2022-08-17] MEDS ORDERED: FAMOTIDINE 20 MG/2 ML VIAL IV ONE (12:46)
[2022-08-17] MEDS ORDERED: MORPHINE 4 MG/ML SYR ONE (12:46)
[2022-08-17] MEDS ORDERED: NA CHLORIDE 0.9% 1,000 ML ONE (12:46)
[2022-08-17 12:58] LABS: Absolute Lymphocytes (CBC) 1.4 K/uL (0.7-4.9); Hematocrit 41.3 % (39.6-49.0); Lymphocytes % 21.7 % (15.3-44.8); MCV 94.6 fL (80-100); MPV 7.7 fL (7.6-11.3); RBC Red Blood Cell Count 4.37 M/uL (4.33-5.43)
[2022-08-17 13:04] LABS: Protime INR 1.48
[2022-08-17 13:17] LABS: Albumin 3.9 g/dL (3.4-5.0); Bilirubin Direct 0.2 mg/dL (0-0.2); Bilirubin Indirect, Calculated 0.6 mg/dL (0.2-0.8); Bilirubin Total 0.8 mg/dL (0.2-1.0); Magnesium 2.1 mg/dL (1.6-2.4); Potassium 4.2 mEq/L (3.5-5.1); Protein, Total 7.4 g/dL (6.4-8.2); Troponin High Sensitivity 8.2 pg/mL (<58.9)
[2022-08-17] MEDS ORDERED: ONDANSETRON 4 MG/2 ML VIAL ONE (13:55)
--- NOTE | 2022-08-17 14:16 | RAD REPORT ---
EXAM DESCRIPTION: CT - Abdomen Pelvis W Contrast - 08/17/2022 1:37 pm CLINICAL HISTORY: ABD PAIN COMPARISON: No comparisons TECHNIQUE: Thin cut axial CT imaging of the abdomen and pelvis was performed following intravenous a dministration of 100 mL Isovue 300. Multiplanar reformats were generated and reviewed. All CT scans are performed using dose optimization technique as appropriate and may include automated exposure control or mA/KV adjustment according to patient size. FINDINGS: No suspicious findings in the lung bases. The liver, spleen, adrenal glands, and pancreas show no suspicious findings. Gallbladder and biliary tree are also without suspicious finding. Symmetric renal function is seen with no hydronephrosis or suspicious renal mass. No dilated bowel loops or bowel wall thickening. Few colonic diverticula. Appendix is unremarkable. U mbilical hernia containing fat, measuring 2.1 centimeter in transverse diameter at the neck. No free air, free fluid or inflammatory stranding. No suspicious mass or bulky lymphadenopathy. Prostatomegal y. The urinary bladder is suboptimally distended, without significant finding. No suspicious bony findings. IMPRESSION: No acute intra-abdominal process. Incidental findings as above.
--- NOTE | 2022-08-17 14:29 | ER ---
Nurse's Notes [facility] Name: Al Rawls Age: 51 yrs Sex: Male : 1970 Arrival Date: 08/17/2022 Time: 11:54 Bed 14 Private MD: Diagnosis: Abdominal tenderness;Nausea with vomiting, unspecified;Type 2 diabetes mellitus with hyperglycemia;Essential (primary) hypertension;[facility] (current) use of anticoagulants;Unspecified atrial fibrillation-history Presentation: 08/17 12:01 Chief complaint: EMS states: INTERMITTENT ABD PAIN WITH NAUSEA SINCE 0900, NOW bp RESOLVED. Coronavirus screen: At this time, the client does not indicate any symptoms associated with coronavirus-19. Ebola Screen: No symptoms or risks identified at this time. Initial Sepsis Screen: Does the patient meet any 2 criteria? No. Patient's initial sepsis screen is negative. Does the patient have a suspected source of infection? No. Patient's initial sepsis screen is negative. Risk Assessment: Do you want to hurt yourself or someone else? Patient reports no desire to harm self or others. Onset of symptoms was August 17, 2022 at 09:00. Care prior to arrival: Glucose check: 98. 12:01 Method Of Arrival: EMS: [facility] bp 12:01 Acuity: BRANDYN 3 bp Triage Assessment: 12:03 General: Appears distressed, Behavior is cooperative, appropriate for age. Pain: Denies bp pain. EENT: No deficits noted. Neuro: No deficits noted. Cardiovascular: No deficits noted. Respiratory: No deficits noted. GI: Reports upper abdominal pain, nausea. : No signs and/or symptoms were reported regarding the genitourinary system. Derm: No deficits noted. Musculoskeletal: No deficits noted. Historical: - Allergies: 12:03 Lisinopril; bp - PMHx: 12:03 Diabetes - NIDDM; Hypertension; Rheumatoid Arthritis; chronic bronchitis; Atrial Fib; bp - Immunization history:: Adult Immunizations up to date. - Social history:: Smoking status: unknown. - Family history:: not pertinent. Screenin:45 [facility] ED Fall Risk Assessment (Adult) History of falling in the last 3 months, bp including since admission No falls in past 3 months (0 pts). Abuse screen: Denies threats or abuse. Denies injuries from another. Nutritional screening: No deficits noted. Tuberculosis screening: No symptoms or risk factors identified. Assessment: 12:05 General: SEE TRIAGE NOTE. bp 12:54 Reassessment: No changes from previously documented assessment. Patient is alert, bp oriented x 3, equal unlabored respirations, skin warm/dry/pink. 14:00 Reassessment: DC ON HOLD FOR UA RESULTS. bp Vital Signs: 12:01 BP 144 / 95; Pulse 66; Resp 16; Temp 98; Pulse Ox 98% ; bp 12:45 BP 137 / 94; Pulse 71; Resp 15; Pulse Ox 100% ; bp 14:00 BP 132 / 85; Pulse 65; Resp 16; Pulse Ox 98% ; bp 15:00 BP 128 / 78; Pulse 67; Resp 16; Pulse Ox 100% ; bp ED Course: 12:01 Patient arrived in ED. bp 12:02 Stanley Hernandez MD is Attending Physician. abbi 12:02 Triage completed. bp 12:04 Jean Lombardo, KIRSTEN is Primary Nurse. bp 12:04 Arm band placed on. bp 12:16 XRAY Chest (1 view) In Process Unspecified. EDMS 12:45 Patient has correct armband on for positive identification. Bed in low position. Call bp light in reach. Side rails up X2. 12:45 Inserted saline lock: 20 gauge in right antecubital area, using aseptic technique. bp Blood collected. 13:39 CT Abd/Pelvis - IV Contrast Only In Process Unspecified. EDMS 14:28 Manisha Martins MD is Referral Physician. abbi 15:14 No provider procedures requiring assistance completed. IV discontinued, intact, bp bleeding controlled, No redness/swelling at site. Pressure dressing applied. Administered Medications: 12:45 Drug: NS 0.9% IV 1000 ml Route: IV; Rate: 1 bolus; Site: right antecubital; bp 15:15 Follow up: IV Status: Completed infusion; IV Intake: 1000ml bp 12:45 Drug: Famotidine IVP 20 mg Route: IVP; Site: right antecubital; bp 14:34 Follow up: Response: No adverse reaction bp 12:45 Drug: morphine IVP or IV 4 mg Route: IVP; Infused Over: 4 mins; Site: right antecubital;bp 14:34 Follow up: Response: No adverse reaction bp 13:55 Drug: Ondansetron IVP 4 mg Route: IVP; Site: right antecubital; bp 14:34 Follow up: Response: No adverse reaction bp Medication: 12:45 VIS not applicable for this client. bp Intake: 15:15 IV: 1000ml; Total: 1000ml. bp Outcome: 14:29 Discharge ordered by . abbi 15:14 Discharged to home ambulatory. bp 15:14 Condition: stable 15:14 Discharge instructions given to patient, Instructed on discharge instructions, follow up and referral plans. medication usage, Demonstrated understanding of instructions, follow-up care, medications, Prescriptions given X 3. 15:15 Patient left the ED. bp Signatures: Dispatcher [employer] EDMS Stanley Hernandez MD MD cha Peltier, Brian, RN RN bp Corrections: (The following items were deleted from the chart) 12:54 12:33 BP 137 / 94; Pulse 71bpm; Resp 15bpm; Pulse Ox 100%; bp bp
--- NOTE | 2022-08-17 14:29 | EDPHYS ---
Physician Documentation [facility] Name: Al Rawls Age: 51 yrs Sex: Male : 1970 Arrival Date: 08/17/2022 Time: 11:54 Bed 14 Private MD: ED Physician Stnaley Hernandez HPI: 08/17 14:12 This 51 yrs old Black Male presents to ER via EMS with complaints of Abdominal Pain. abbi 14:12 The patient presents with abdominal pain in the lower abdomen, abdominal distention in abbi the upper abdomen, in the lower abdomen. Onset: The symptoms/episode began/occurred 1 day(s) ago. The patient presents to the emergency department with nausea, vomiting, that is intermittent, described as bilious, clear fluid, abdominal pain, of the right lower quadrant and left lower quadrant. Onset: The symptoms/episode began/occurred 1 day(s) ago. Possible causes: unknown. The symptoms are aggravated by nothing. The symptoms are alleviated by nothing. Associated signs and symptoms: The patient has no apparent associated signs or symptoms. The symptoms do not radiate. Associated signs and symptoms: Pertinent positives: nausea and vomiting. Modifying factors: The symptoms are alleviated by nothing, the symptoms are aggravated by nothing. Historical: - Allergies: 12:03 Lisinopril; bp - PMHx: 12:03 Diabetes - NIDDM; Hypertension; Rheumatoid Arthritis; chronic bronchitis; Atrial Fib; bp - Immunization history:: Adult Immunizations up to date. - Social history:: Smoking status: unknown. - Family history:: not pertinent. ROS: 14:12 Constitutional: Negative for fever, chills, and weight loss, Eyes: Negative for injury, abbi pain, redness, and discharge, ENT: Negative for injury, pain, and discharge, Neck: Negative for injury, pain, and swelling, Cardiovascular: Negative for chest pain, palpitations, and edema, Respiratory: Negative for shortness of breath, cough, wheezing, and pleuritic chest pain, Back: Negative for injury and pain, : Negative for injury, bleeding, discharge, and swelling, MS/Extremity: Negative for injury and deformity, Skin: Negative for injury, rash, and discoloration, Neuro: Negative for headache, weakness, numbness, tingling, and seizure, Psych: Negative for depression, anxiety, suicide ideation, homicidal ideation, and hallucinations, Allergy/Immunology: Negative for hives, rash, and allergies, Endocrine: Negative for neck swelling, polydipsia, polyuria, polyphagia, and marked weight changes, Hematologic/Lymphatic: Negative for swollen nodes, abnormal bleeding, and unusual bruising. 14:12 Abdomen/GI: Positive for abdominal pain, nausea and vomiting, of the right lower quadrant and left lower quadrant. Exam: 14:12 Constitutional: This is a well developed, well nourished patient who is awake, alert, abbi and in no acute distress. Head/Face: Normocephalic, atraumatic. Eyes: Pupils equal round and reactive to light, extra-ocular motions intact. Lids and lashes normal. Conjunctiva and sclera are non-icteric and not injected. Cornea within normal limits. Periorbital areas with no swelling, redness, or edema. ENT: Nares patent. No nasal discharge, no septal abnormalities noted. Tympanic membranes are normal and external auditory canals are clear. Oropharynx with no redness, swelling, or masses, exudates, or evidence of obstruction, uvula midline. Mucous membranes moist. Neck: Trachea midline, no thyromegaly or masses palpated, and no cervical lymphadenopathy. Supple, full range of motion without nuchal rigidity, or vertebral point tenderness. No Meningismus. Chest/axilla: Normal chest wall appearance and motion. Nontender with no deformity. No lesions are appreciated. Cardiovascular: Regular rate and rhythm with a normal S1 and S2. No gallops, murmurs, or rubs. Normal PMI, no JVD. No pulse deficits. Respiratory: Lungs have equal breath sounds bilaterally, clear to auscultation and percussion. No rales, rhonchi or wheezes noted. No increased work of breathing, no retractions or nasal flaring. Abdomen/GI: Soft, non-tender, with normal bowel sounds. No distension or tympany. No guarding or rebound. No evidence of tenderness throughout. Back: No spinal tenderness. No costovertebral tenderness. Full range of motion. Skin: Warm, dry with normal turgor. Normal color with no rashes, no lesions, and no evidence of cellulitis. MS/ Extremity: Pulses equal, no cyanosis. Neurovascular intact. Full, normal range of motion. Neuro: Awake and alert, GCS 15, oriented to person, place, time, and situation. Cranial nerves II-XII grossly intact. Motor strength 5/5 in all extremities. Sensory grossly intact. Cerebellar exam normal. Normal gait. Psych: Awake, alert, with orientation to person, place and time. Behavior, mood, and affect are within normal limits. 14:12 ECG was reviewed by the Attending Physician. Vital Signs: 12:01 BP 144 / 95; Pulse 66; Resp 16; Temp 98; Pulse Ox 98% ; bp 12:45 BP 137 / 94; Pulse 71; Resp 15; Pulse Ox 100% ; bp 14:00 BP 132 / 85; Pulse 65; Resp 16; Pulse Ox 98% ; bp 15:00 BP 128 / 78; Pulse 67; Resp 16; Pulse Ox 100% ; bp MDM: 12:02 Patient medically screened. abbi 14:15 Differential diagnosis: Nonspecific abd pain, gastritis, cholecystitis, pancreatitis, abbi appendicitis, diverticulitis, viral gastroenteritis, gastroenteritis, bowel obstruction, coronary artery disease, Cholelithiasis, diverticulitis, gastritis, gastroesophageal reflux disease, GI Bleed, Hepatitis, myocardia ischemia or infarction, non-specific abd pain, pancreatitis, Peptic Ulcer Disease, Pyelonephritis, Ureterolithiasis, urinary tract infection. Data reviewed: vital signs, nurses notes, EMS record, lab test result(s), EKG, radiologic studies, CT scan, plain films. Consideration of Admission/Observation Escalation of care including admission/observation considered. Independent interpretation of the following test(s) in the Emergency Department Radiology Department Ultrasound: My interpretation is no abd usg. Test considered but Not performed: Ultrasound no abd usg. Care significantly affected by the following chronic conditions: Diabetes, Hypertension, rheumotoid, bronchitis. Counseling: I had a detailed discussion with the patient and/or guardian regarding: the historical points, exam findings, and any diagnostic results supporting the discharge/admit diagnosis, the presence of at least one elevated blood pressure reading (>120/80) during this emergency department visit, lab results, radiology results, the need for outpatient follow up, for definitive care, a family practitioner, a machine wiper. 08/17 12:03 Order name: Basic Metabolic Panel; Complete Time: 13:28 [facility] 08/17 12:03 Order name: CBC with Diff; Complete Time: 13:28 [facility] 08/17 12:03 Order name: LFT's; Complete Time: 13:28 08/17 12:03 Order name: Magnesium; Complete Time: 13:28 08/17 12:03 Order name: NT PRO-BNP; Complete Time: 13: [facility] 08/17 12:03 Order name: PT-INR; Complete Time: 13:28 08/17 12:03 Order name: Troponin HS; Complete Time: 13:28 08/17 12:03 Order name: Lipase; Complete Time: 13:28 08/17 12:03 Order name: Urinalysis w/ reflexes 08/17 12:03 Order name: XRAY Chest (1 view); Complete Time: 13:28 08/17 12:03 Order name: CT Abd/Pelvis - IV Contrast Only; Complete Time: 14:20 08/17 12:03 Order name: EKG; Complete Time: 12:04 [facility] 08/17 12:03 Order name: Cardiac monitoring; Complete Time: 12:25 08/17 12:03 Order name: EKG - Nurse/Tech; Complete Time: 12:08/17 12:03 Order name: IV Saline Lock; Complete Time: 12:08/17 12:03 Order name: Labs collected and sent; Complete Time: 12:08 08/17 12:03 Order name: O2 Per Protocol; Complete Time: 12:08/17 12:03 Order name: O2 Sat Monitoring; Complete Time: 12: abbi 08/17 14:27 Order name: Misc. Order: dc once ua is collected and negative; Complete Time: 15:04 [facility] EC:12 Rate is 66 beats/min. Rhythm is regular. QRS [place] is Normal. DC interval is normal. QRS abbi interval is normal. QT interval is normal. No Q waves. T waves are Normal. No ST changes noted. Clinical impression: Normal ECG and No evidence of ischemia. Interpreted by me. Reviewed by me. Administered Medications: 12:45 Drug: NS 0.9% IV 1000 ml Route: IV; Rate: 1 bolus; Site: right antecubital; bp 15:15 Follow up: IV Status: Completed infusion; IV Intake: 1000ml bp 12:45 Drug: Famotidine IVP 20 mg Route: IVP; Site: right antecubital; bp 14:34 Follow up: Response: No adverse reaction bp 12:45 Drug: morphine IVP or IV 4 mg Route: IVP; Infused Over: 4 mins; Site: right antecubital;bp 14:34 Follow up: Response: No adverse reaction bp 13:55 Drug: Ondansetron IVP 4 mg Route: IVP; Site: right antecubital; bp 14:34 Follow up: Response: No adverse reaction bp Disposition Summary: 08/17/22 14:29 Discharge Ordered Location: Home abbi Problem: new abbi Symptoms: have improved abbi Condition: Stable abbi Diagnosis - Abdominal tenderness abbi - Nausea with vomiting, unspecified abbi - Type 2 diabetes mellitus with hyperglycemia abbi - Essential (primary) hypertension abbi - 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 abbi - Unspecified atrial fibrillation - history abbi Followup: abbi - With: Private Physician - When: 2 - 3 days - Reason: Recheck today's complaints, Continuance of care, Re-evaluation by your physician Followup: abbi - With: Manisha Martins MD - When: 2 - 3 days - Reason: Recheck today's complaints, Re-evaluation by your physician Discharge Instructions: - Discharge Summary Sheet abbi - Abdominal Pain, Adult abbi - Hypertension, Adult abbi - Nausea and Vomiting, Adult abbi - Nausea and Vomiting, Adult, [id number] abbi - Abdominal Pain, Adult, [id number] abbi - Hypertension, Adult, [id number] abbi - Diabetes Mellitus and Nutrition, Adult abbi - Managing Your Hypertension abbi Forms: - Medication Reconciliation Form abbi - Thank You Letter abbi - Antibiotic Education abbi - Prescription Opioid Use [facility] Prescriptions: - Pepcid 20 mg Oral Tablet - take 1 tablet by ORAL route every 12 hours for 21 days; 42 tablet; Refills: 0, [facility] Product Selection Permitted - Zofran 4 mg Oral Tablet - take 1 tablet by ORAL route every 8 hours As needed; 24 tablet; Refills: 0, [facility] Product Selection Permitted - dicyclomine 20 mg Oral Tablet - take 1 tablet by ORAL route 4 times per day; 28 tablet; Refills: 0, Product [facility] Selection Permitted Signatures: Dispatcher [employer] Stanley Montalvo MD MD cha Peltier, Brian, RN RN bp
[2022-08-17 15:01] LABS: Specific Gravity 1.029 (1.005-1.030); Urine Bilirubin NEGATIVE (Negative); Urine Blood Negative (Negative); Urine Clarity Clear (Clear); Urine Color Colorless (Yellow); Urine Glucose NEGATIVE (Negative); Urine Protein NEGATIVE (Negative); Urine Urobilinogen Normal (Normal)
[2022-08-17 15:37] VITALS: TEMP 98
[2022-08-17 15:42] VITALS: BP 128/78; O2SAT 100
--- NOTE | 2022-08-19 19:16 | EKG ---
Test Date: 2022-08-17 Test Time: 12:17:28 Commissioning Engineer: SHE MEASUREMENT RESULTS: Intervals: Rate: 66 SC: 150 QRSD: 108 QT: 424 QTc: 444 Somis: P: 78 SC: 150 QRS: 37 T: 30 INTERPRETIVE STATEMENTS: Normal sinus rhythm Normal ECG Compared to ECG 04/23/2020 01:37:24 Atrial fibrillation no longer present T-wave abnormality no longer present Possible ischemia no longer present Prolonged QT interval no longer present Electronically Signed On 08-19-22 19:11:28 CDT by Charanjit Oneal
== END 2022-08-17 15:15 | disposition home or self-care (01) ==
LOC: ER 11:54
DX: E11.65 Type 2 diabetes mellitus with hyperglycemia (principal); R10.813 Right lower quadrant abdominal tenderness; I10 Essential (primary) hypertension; I48.91 Unspecified atrial fibrillation; Z79.01 Long term (current) use of anticoagulants; Z88.8 Allergy status to other drugs, medicaments and biological substances
CPT/HCPCS: 96361; 93005; 85025; 80048; 36415; 83735; 85610; 80076; 81003; 84484; 83690; 83880; 74177; 71045; 96375; 96374; 99284; Q9967; J2405; J7030

== ENCOUNTER 2024-05-15 00:05 | Emergency (ER) | payer OTHER, SELFPAY ==
--- OUTSIDE RECORDS SUMMARY | 2024-05-15 00:21 | XMS REPORT | Continuity of Care Document ---
Author Name Unknown Address [address] [facility] [address] [place] [address] [facility] [place] Address [address] [facility] [address] [place] [address] Care Team Providers Care Health Associate Name Role Phone Ana Maria Bony WAGNER Primary Care Physician DANNI OSWALD Attending Clinician Unavailable Doctor Unassigned, [place] Attending Clinician U navailable ERNESTINA SAMANIEGO Attending Clinician Unavailable ELIANA MACDONALD Attending Clinician Unavailable SHIRLEY MADISON Attending Clinician Unavailab CHRISS Marcelo Attending Clinician Unavailable LANEY SWANSON Attending Clinician Unavailab LANEY Rios Attending Clinician Unavailab Laney Rios DO Attending Clinician [phone] JAREK FARRIS Attending Clinician Unavailable JESS QUINTANA Attending Clinician Unava NAVI Nation Attending Clinician Unavailable BRINDA DIETRICH Attending Clinician Unavailable 39, HOLTER Attending Clinician Unavailable LAB90 Attending Clinician Unavailable Shirley Del Valle Attending Clinician [phone] SHIRLEY ANDERS Attending Clinician Unavailable Doctor Unassigned, [place] Attending Clinician U navailable Jordan MD, Carina Attending Clinician [phone] Morenita Rutledge MD Attending Clinician [phone] Aden MINOR, Ernestina Attending Clinician [phone] Lab, Ang - Db Attending Clinician Unavailable Valery Church RN Attending Clinician [phone] GAYLE HARDING Attending Clinician Unavailable GAYLE HARDING Attending Clinician Unavailable Jolynn Rodriguez Attending Clinician Unavaillatrice Washington MD, Ricky Attending Clinician [phone] RICKY WASHINGTON Attending Clinician Unavailable Terri Pineda Attending Clinician [phone] Po, Adc Lab Main Attending Clinician UnavailDOROTEO See Attending Clinician Unavailable DOROTEO CORDERO Attending Clinician Unavailable [facility] Unavailable Jose Olea DO Attending Clinician [phone] JOSE OLEA Attending Clinician Unavailable Cherelle Parker DO Attending Clinician [phone] Jessy Sarah Attending Clinician U maryam 2, Adc Lab Attending Clinician Unavailable Harpreet Laird MD Attending Clinician [phone] HARPREET LAIRD Attending Clinician Unavailable NAT FISCHER Attending Clinician Unavaila DAISHA Ruth Attending Clinician Josefa vailable WENDY CAMPOS Attending Clinician Unavailable Ana MINOR, Didier Attending Clinician [phone] Mariaa Amaro MD Attending Clinician [phone] Wendy Campos MD Attending Clinician [phone] DIDIER PEREZ Attending Clinician Unavailable Nii Rae MD, Emmanuel Attending Clinician + [phone] Moreno MINOR, Lita Vizcaino Attending Clinician + [phone] Katherine Oconnor MD Attending Clinician [phone] KATHERINE OCONNOR Attending Clinician Unavailable Moni Hilliard LVN Attending Clinician [phone] HERMES BELL Attending Clinician Unavailable Rehan Macias MD Attending Clinician [phone] Ceferino MINOR, Hermes Attending Clinician [phone] Stephen CURTIS, Yeny Hernandez Attending Clinician Unavailab DONAL Coe Attending Clinician Unavailable Ramin Guzman DO Attending Clinician [phone] Ramin MINOR, Donal Attending Clinician [phone] MAHSA CALIX Attending Clinician Unavaila yakelin PEPE, CALLY Attending Clinician Unavailable LUIS FERNANDO SMITH Attending Clinician Unavailable HERMINIO CONWAY Attending Clinician Unavailable Lab, Adc Fam Pob I Attending Clinician Unavailab dave Lab, Pcp Covid Attending Clinician Unavailable Luis Fernando Bolanos Attending Clinician [phone] COURTNEY HERNANDEZ Attending Clinician Unavailabl JESSICA Pereira Attending Clinician Unavaila LANEY Gotti Admitting Clinician Unavailab RICKY Sin Admitting Clinician Unavailable DIDIER PEREZ Admitting Clinician Unavailable Ana MINOR, Didier Admitting Clinician [phone] HERMES BELL Admitting Clinician Unavailable Ceferino MINOR, Hermes Admitting Clinician [phone] ERNESTINA SAMANIEGO Admitting Clinician Unavailable DONAL CHEN Admitting Clinician Unavailable Ramin MINOR, Donal Admitting Clinician [phone] JESSICA LEES Admitting Clinician Unavaila yakelin Payers Payer Name Policy Type Policy Number Effective Date Expirati on Date Source [employer] [place] [employer]PLICATION CONSULTANT 94 ON 9 [id number] 2023 00:00:00 [facility] [id number] 2024 00:00:00 [facility] [id number] 2020 00:00:00 Problems Condition Name Condition Details Condition Category Status Onset Date Resolution Date Last Treatment Date Treating Clinician Comments Source Encounter for screening for malignant neoplasm of colon Encounter for screening for malignant neoplasm of colon Disease Active 03-10 00:00: 00 Martha reeder Congestive heart failure (multi HCC) Congestive heart failure (multi HCC) Disease Active 03-10 00:00: 00 Martha reeder Chronic atrial fibrillati on (multi HCC) Chronic atrial fibrillati on (multi HCC) Disease Active 1- 00:00: 00 Martha reeder Diabetes mellitus (multi HCC) Diabetes mellitus (multi HCC) Disease Active 1- 00:00: 00 Martha reeder Family history of colon cancer Family history of colon cancer Disease Active 03-10 00:00: 00 Martha reeder Hypercoagu lable state due to atrial fibrillati on, unspecifie d type (multi HCC) Hypercoagu lable state due to atrial fibrillati on, unspecifie d type (multi HCC) Disease Active 03-10 00:00: 00 Martha reeder Type 2 diabetes mellitus with hyperglyce chika, with long-term current use of insulin (multi HCC) Type 2 diabetes mellitus with hyperglyce chika, with long-term current use of insulin (multi HCC) Disease Active 06-25 00:00: 00 Martha reeder AF (paroxysma l atrial fibrillati on) AF (paroxysma l atrial fibrillati on) Disease Active 2021-03 0-04 00:00: 00 [facility] Persistent atrial fibrillati on Persistent atrial fibrillati on Disease Active 2021-03 0-04 00:00: 00 [facility] Atrial fibrillati on with tachycardi c ventricula r rate Atrial fibrillati on with tachycardi c ventricula r rate Disease Active 06-08 00:00: 00 [facility] Chronic diastolic heart failure Chronic diastolic heart failure Disease Active 2020-03 00:00: 00 [facility] Acute right-side d CHF (congestiv e heart failure) Acute right-side d CHF (congestiv e heart failure) Disease Active 2020-03 00:00: 00 [facility] Morbid obesity with body mass index of 40.0-49.9 Morbid obesity with body mass index of 40.0-49.9 Disease Active 2020-03 2 00:00: 00 [facility] A-fib A-fib Disease Active 2021-0 3-31 00:00: 00 [facility] Hypertensi on Hypertensi on Disease Active 1-14 00:00: 00 [facility] Stage 3 chronic kidney disease Stage 3 chronic kidney disease Disease Active 17 00:00: 00 [facility] Stage 3a chronic kidney disease Stage 3a chronic kidney disease Disease Active 11-15 00:00: 00 [facility] Atrial fibrillati on with RVR Atrial fibrillati on with RVR Disease Active 11-14 00:00: 00 [facility] Cardiomyop athy Cardiomyop athy Disease Active 16 00:00: 00 [facility] Obesity (BMI 30-39.9) Obesity (BMI 30-39.9) Disease Active 11-14 00:00: 00 [facility] Ruptured patellar tendon, right, subsequent encounter Ruptured patellar tendon, right, subsequent encounter Disease Active 09-29 00:00: 00 Overview: Formattin g of this note might be different from the original. Added automatic ally from request for surgery [id number] [facility] Acquired hypothyroi dism Acquired hypothyroi dism Disease Active 07-05 00:00: 00 [facility] Essential hypertensi on Essential hypertensi on Disease Active 06-30 00:00: 00 [facility] Bilateral chronic knee pain Bilateral chronic knee pain Disease Active 06-30 00:00: 00 [facility] Umbilical hernia without obstructio n and without gangrene Umbilical hernia without obstructio n and without gangrene Disease Active 06-30 00:00: 00 [facility] Allergies, Adverse Reactions, Alerts Allergy Name Allergy Type Status Severity Reaction(s) Onset Date Inactive Date Treating Clinician Comments Source Lisinopr il Propensi ty to adverse reaction s Active Cough 06-30 00:00: 00 Marhta Scott - Externlatrice l LISINOPR [place] DRUG INGREDI Active COUGH 06-30 00:00: 00 [facility] Lisinopr il Propensi ty to adverse reaction s Active Cough 06-30 00:00: 00 [facility] Family History Family Member Diagnosis Comments Start Date Stop Date Sourc e Natural father Cancer Unive [facility] Natural [facility] Natural [facility] Hy[facility] Natural mother [place] (myocardial infarction) [facility] Natural mother Stroke Unive [facility] Social History Social Habit Start Date Stop Date Quantity Comments Source History of tobacco use Passive smoker [facility] History SDOH Alcohol Frequency [facility] History SDOH Alcohol Std [facility]inks [facility] History SDOH Alcohol Binge [facility] Gender identity [facility] Sexual orientation Brenda Scott - External Alcoholic beverage intake 2023-11-19 00:00:00 2023-11-19 00:00:00 Ex-drinker (finding) [facility] History of Social function 2023-10-20 00:00:00 2023-10-20 00:00:00 Martha Scott - External Alcohol intake 2023-03-10 00:00:00 2023-03-10 00:00:00 Lifetime non-drinker (finding) Martha Scott - External Exposure to SARS-CoV-2 (event) 2022-06-15 00:00:00 2022-06-25 13:43:00 Not sure [facility] Tobacco use and exposure 2021-12-02 00:00:00 2021-12-02 00:00:00 Former smokeless tobacco user [facility] Tobacco Comment 2021-10-09 00:00:00 2021-10-09 00:00:00 occasional smoker only when drinking [facility] History SDOH Financial 2019-03-14 00:00:00 2019-03-14 00:00:00 3 [facility] History SDOH Food Worry 2019-03-14 00:00:00 2019-03-14 00:00:00 1 [facility] History SDOH Food Scarcity 2019-03-14 00:00:00 2019-03-14 00:00:00 1 [facility] History SDOH Transport Med 2019-03-14 00:00:00 2019-03-14 00:00:00 2 [facility] History SDOH Transport Non-Med 2019-03-14 00:00:00 2019-03-14 00:00:00 2 [facility] Education 2019-03-14 00:00:00 2019-03-14 00:00:00 21 [facility] Alcohol Comment 2018-10-06 00:00:00 2018-10-06 00:00:00 Occasional Drinker [facility] Sex assigned at 1970 00:00:00 1970 00:00:00 Martha Sonia - External Smoking Status Start Date Stop Date Source Never smoked tobacco Martha Munguiamaulik - External Ex-smoker 2021-12-02 00:00:00 2021-12-02 00:00:00 [facility] Occasional tobacco smoker 2016-12-14 00:00:00 [facility] Medications Ordered Medication Name Filled Medication Name Start Date Stop Date Current Medication? Ordering Clinician Indication Dosage Frequency Signature (SIG) Comments Components Source azithromyci n 250 mg tablet 05-10 00:00: 00 Yes mg Saroj Kunz Zyrtec 10 mg tablet 05-10 00:00: 00 Yes 1mg Saroj Kunz metformin 1,000 mg tablet 03-08 00:00: 00 Yes 1mg Saroj Kunz furosemide 40 mg tablet 03-07 00:00: 00 Yes 1mg Saroj Kunz metoprolol succinate ER 100 mg tablet,exte nded release 24 hr 03-07 00:00: 00 Yes 1mg Saroj Kunz spironolact one 50 mg tablet 03-07 00:00: 00 Yes 1mg Saroj Kunz metformin ER 1,000 mg 24 hr tablet,exte nded release (gastric reten.) 03-07 00:00: 00 Yes 1mg Saroj Kunz duloxetine 60 mg capsule,del ayed release 03-07 00:00: 00 Yes 1mg Saroj Kunz Eliquis 5 mg tablet 03-07 00:00: 00 Yes 1mg Saroj Kunz HYDROcodone -acetaminop hen (NORCO 5) tablet 1 tablet 11-18 16:00: 00 11-18 16:30 :00 No 1{tbl} 1 tablet, Oral, ONCE, 1 dose, On Wed11/19/23 at 1100, [facility] methocarbam oL (ROBAXIN) tablet 1,000 mg 11-18 16:00: 00 11-18 16:30 :00 No 1000mg 1,000 mg, Oral, ONCE, 1 dose, On Wed11/19/23 at 1100, [facility] Apixaban (Eliquis) 5 MG oral Tablet 10-19 15:37: 45 Yes 5mg Q.5D Take 1 tablet (5 mg total) by mouth 2 times daily. Martha reeder Rosuvastati n Calcium (Crestor) 10 MG oral Tablet 10-19 00:00: 00 Yes [id number] 10mg QD Take 1 tablet (10 mg total) by mouth daily. Martha reeder Spironolact one 50 MG oral Tablet 10-19 00:00: 00 Yes [id number] 50mg QD Take 1 tablet (50 mg total) by mouth daily. Martha reeder Metformin HCl 1000 MG oral Tablet 10-19 00:00: 00 Yes [id number] 1000mg Take 1 tablet (1,000 mg total) by mouth in the morning and 1 tablet (1,000 mg total) in the evening. Take with meals. Martha reeder Metoprolol Succinate 100 MG oral TABLET SR 24 HR 10-19 00:00: 00 Yes [id number] 100mg QD Take 1 tablet (100 mg total) by mouth daily. Martha reeder Metoprolol Succinate 100 MG oral TABLET SR 24 HR 09-29 00:00: 00 10-19 00:00 :00 No 100mg QD Take 1 tablet by mouth once daily Martha reeder Diclofenac Sodium 75 MG oral Tablet Delayed Response 09-14 00:00: 00 Yes 75mg Q.5D Take 1 tablet (75 mg total) by mouth 2 times daily. Martha reeder Tramadol HCl (ULTRAM) 50 MG oral Tablet 17 00:00: 00 Yes 50mg Q.[id number] 3D Take 1 tablet (50 mg total) by mouth every 8 hours as needed. Martha reeder Furosemide 40 MG oral Tablet 06-23 00:00: 00 Yes [id number] 40mg QD Take 1 tablet (40 mg total) by mouth daily. Martha reeder Spironolact one 50 MG oral Tablet 06-23 00:00: 00 10-19 00:00 :00 No [id number] 50mg QD Take 1 tablet (50 mg total) by mouth daily. Martha reeder Rosuvastati n Calcium (Crestor) 10 MG oral Tablet 03-22 00:00: 00 10-19 00:00 :00 No 10mg QD Take 1 tablet (10 mg total) by mouth daily. Martha reeder Apixaban (Eliquis) 5 MG oral Tablet 03-10 09:44: 38 Yes 5mg Take 1 tablet (5 mg total) by mouth 2 times daily. Martha reeder Empaglifloz in (Jardiance) 10 MG oral Tablet 03-10 00:00: 00 Yes 10mg QD Take 1 tablet (10 mg total) by mouth daily. Martha reeder Ibuprofen (MOTRIN) 800 MG oral Tablet 03-09 00:00: 00 Yes Martha reeder Amlodipine Besylate 10 MG oral Tablet 03-09 00:00: 00 Yes Martha reeder Losartan Potassium (COZAAR) 50 MG oral Tablet 03-09 00:00: 00 Yes Martha reeder Amoxicillin (AMOXIL) 500 MG oral Capsule 03-09 00:00: 00 10-19 00:00 :00 No Martha reeder Apixaban (Eliquis) 5 MG oral Tablet 2022-03 08:59: 49 Yes 5mg Take 1 tablet (5 mg total) by mouth 2 times daily. Martha reeder Furosemide 40 MG oral Tablet 2022-03 00:00: 00 Yes [id number] 40mg Take 1 tablet (40 mg total) by mouth daily. Martha reeder Spironolact one 50 MG oral Tablet 2022-03 00:00: 00 Yes [id number] 50mg Take 1 tablet (50 mg total) by mouth daily. Martha reeder Furosemide 40 MG oral Tablet 2022-0316 00:00: 00 02-19 00:00 :00 No 40mg Take 1 tablet (40 mg total) by mouth daily. Martha reeder Metformin HCl 1000 MG oral Tablet 11-16 00:00: 00 10-19 00:00 :00 No 1000mg Take 1 tablet (1,000 mg total) by mouth in the morning and 1 tablet (1,000 mg total) in the evening. Take with meals. Martha reeder furosemide 40 mg tablet 11-16 00:00: 00 01-14 00:00 :00 No [id number] 40mg Take 1 tablet by mouth in the morning. [facility] Spironolact one 50 MG oral Tablet 08-12 00:00: 00 02-19 00:00 :00 No 50mg Take 1 tablet (50 mg total) by mouth daily. Martha reeder metFORMIN 1,000 mg tablet 08-12 00:00: 00 11-16 00:00 :00 No [id number] 1000mg Take 1 tablet by mouth in the morning and 1 tablet in the evening. Take with meals. [facility] Metoprolol Succinate 100 MG oral TABLET SR 24 HR 06-25 00:00: 00 Yes 100mg Take 1 tablet (100 mg total) by mouth daily. Martha reeder Empaglifloz in (Jardiance) 10 MG oral Tablet 06-25 00:00: 00 Yes 10mg Take 1 tablet (10 mg total) by mouth daily. Martha reeder furosemide 40 mg tablet 06-25 00:00: 00 11-16 00:00 :00 No [id number] 40mg Take 1 tablet by mouth in the morning. [facility] metFORMIN 1,000 mg tablet 06-25 00:00: 00 08-12 00:00 :00 No [id number] 1000mg Take 1 tablet by mouth in the morning and 1 tablet in the evening. Take with meals. [facility] metFORMIN 1,000 mg tablet 06-17 00:00: 00 06-25 00:00 :00 No [id number] 1000mg Take 1 tablet by mouth in the morning and 1 tablet in the evening. Take with meals. [facility] insulin NPH hum/reg insulin hm (INSULIN NPH/REG 70-30 INNOLET SC) 04-15 15:24: 11 Yes inject under the skin. [facility] furosemide 40 mg tablet 03-06 00:00: 00 06-25 00:00 :00 No [id number] 40mg Take 1 tablet by mouth in the morning. [facility] TAKE 1 TABLET BY MOUTH IN THE MORNING 03-03 00:00: 00 Yes Saroj Kunz metoprolol succinate XL 100 mg 24 hr tablet 03-03 00:00: 00 06-25 00:00 :00 No [id number] 100mg Take 1 tablet by mouth in the morning. [facility] TAKE 1 CAPSULE (100 MG) BY MOUTH DAILY NEEDED 2021-03 00:00: 00 Yes Saroj Kunz TAKE 1 TABLET (800 MG) BY MOUTH 3 TIMES PER DAY WITH FOOD OR MILK NEEDED 2021-03 00:00: 00 Yes Saroj Kunz TAKE 1 CAPSULE (500 MG) BY MOUTH EVERY 12 HOURS FOR 20 DAYS 2021-03 00:00: 00 Yes Latisha Kunz TAKE 1 TABLET BY MOUTH TWICE DAILY IN THE MORNING AND IN THE EVENING 2021-03 00:00: 00 Yes Saroj Kunz metFORMIN 1,000 mg tablet 2021-03 00:00: 00 06-17 00:00 :00 No [id number] 1000mg Take 1 tablet by mouth in the morning and 1 tablet in the evening. Take with meals. [facility] furosemide 40 mg tablet 2021-03 00:00: 00 03-06 00:00 :00 No [id number] 40mg Take 1 tablet by mouth every morning and evening. [facility] empaglifloz in (JARDIANCE) 10 mg 2021-03 00:00: 00 06-25 00:00 :00 No [id number] 10mg Take 1 tablet by mouth in the morning. [facility] metoprolol succinate XL (TOPROL XL) tablet 100 mg 2021-03 14:00: 00 Yes 100mg 100 mg, Oral, DAILY, First dose (after last modificati on) on Wed12/04/21 at 0900, Until Discontinu ed, Routine [facility] diltiazem XR (DILT-XR) capsule 120 mg 2021-03 01:00: 00 Yes 120mg 120 mg, Oral, BID, First dose (after last modificati on) on Wed12/03/21 at 2000, Until Discontinu ed, Routine [facility] metoprolol succinate XL 100 mg 24 hr tablet 2021-03 00:00: 00 02-03 05:59 :00 No [id number] 100mg Take 1 tablet by mouth in the morning for 60 days. [facility] omeprazole 40 mg capsule 2021-03 00:00: 00 01-04 04:59 :00 No [id number] 40mg Take 1 capsule by mouth in the morning for 30 days. [facility] spironolact one (ALDACTONE) tablet 50 mg 2021-03 14:00: 00 Yes 50mg 50 mg, Oral, DAILY, First dose on Wed12/03/21 at 0900, Until Discontinu ed, Routine [facility] sennosides- docusate sodium (SENOKOT-S) 8.6-50 mg per tablet 1 tablet 2021-03 14:00: 00 Yes 1{tbl} 1 tablet, Oral, DAILY, First dose on Wed12/03/21 at 0900, Until Discontinu ed, Routine [facility] digoxin (LANOXIN) tablet 125 mcg 2021-03 0 14:00: 00 12-03 13:48 :31 No 125ug 125 mcg, Oral, DAILY, First dose on Wed12/03/21 at 0900, Until Discontinu ed [facility] sucralfate (CARAFATE) tablet 1 g 2021-03 02:00: 00 Yes 1g 1 g, Oral, AC+HS, First dose on Wed12/02/21 at 2100, Until Discontinu ed, Routine [facility] Sliding Scale Insulin - Lispro (HumaLOG) + Fsbg Testing 2021-03 02:00: 00 Yes Subcutaneo us, TID MEALS+HS, First dose on Wed12/02/21 at 2100, Until Discontinu ed, Routine [facility] apixaban (ELIQUIS) tablet 5 mg 2021-03 02:00: 00 Yes [id number] 5mg 5 mg, Oral, BID, First dose on Wed12/02/21 at 2100, Until Discontinu ed, Routine
Indicatio ns: Non-Valvul ar Atrial Fibrillati on [facility] amiodarone (PACERONE) tablet 200 mg 2021-03 0-05 01:00: 00 Yes 200mg 200 mg, Oral, BID, First dose on Wed12/02/21 at 1999, Until Discontinu ed, Routine [facility] diltiazem XR (DILT-XR) capsule 180 mg 2021-03 0-05 01:00: 00 12-03 16:28 :22 No 180mg 180 mg, Oral, BID, First dose on Wed12/02/21 at 1999, Until Discontinu ed, Routine [facility] metoprolol succinate XL (TOPROL XL) tablet 125 mg 2021-03 0-05 01:00: 00 12-03 16:28 :22 No 125mg 125 mg, Oral, BID, First dose on Wed12/02/21 at 1999, Until Discontinu ed, Routine [facility] TAKE 1 CAPSULE BY MOUTH IN THE MORNING AND 1 CAPSULE IN THE EVENING 2021-03 0 00:00: 00 Yes Saroj Kunz TAKE 1 CAPSULE BY MOUTH IN THE MORNING FOR 30 DAYS 2021-03 0-05 00:00: 00 Yes Saroj Kunz TAKE 1 TABLET BY MOUTH IN THE MORNING FOR 30 DAYS 2021-03 0- 00:00: 00 Yes Saroj Kunz diltiazem XR 120 mg 24 hr capsule 2021-03 0-05 00:00: 00 02-02 05:59 :00 No [id number] 120mg Take 1 capsule by mouth in the morning and 1 capsule in the evening. Do all this for 60 days. [facility] insulin NPH and regular human 70-30 100 unit/mL (70-30) injection 2021-03 0 00:00: 00 01-03 04:59 :00 No [id number] 15U inject 15 Units under the skin 2 (two) times daily before breakfast and dinner for 30 days. [facility] amiodarone 200 mg tablet 2021-03 0 00:00: 00 01-03 04:59 :00 No [id number] 200mg Take 1 tablet by mouth in the morning for 30 days. [facility] sucralfate 1 gram tablet 2021-03 005 00:00: 00 01-03 04:59 :00 No [id number] 1g Take 1 tablet by mouth before meals and at bedtime for 30 days. [facility] furosemide 40 mg tablet 2021-03 0-05 00:00: 00 01-02 00:00 :00 No [id number] 40mg Take 1 tablet by mouth every morning and evening for 30 days. [facility] metoprolol succinate XL 100 mg 24 hr tablet 2021-03 0-05 00:00: 00 12-03 00:00 :00 No [id number] 100mg Take 1 tablet by mouth in the morning and 1 tablet in the evening. Do all this for 60 days. [facility] omeprazole (PRILOSEC) capsule 40 mg 2021-03 23:30: 00 Yes 40mg 40 mg, Oral, DAILY, First dose on Wed12/02/21 at 1830, Until Discontinu ed, Routine [facility] insulin NPH and regular human 70-30 (70-30 U-100 INSULIN) 100 unit/mL (70-30) injection 15 Units 2021-03 23:30: 00 Yes 15U 15 Units, Subcutaneo us, BIDAC, First dose (after last modificati on) on Wed12/02/21 at 1830, Until Discontinu ed, Routine [facility] furosemide (LASIX) tablet 40 mg 2021-03 23:30: 00 Yes 40mg 40 mg, Oral, QAM+PM, First dose on Wed12/02/21 at 1830, Until Discontinu ed, Routine [facility] dextrose 10% (D10W) bolus infusion 250 mL 2021-03 23:20: 32 Yes 250mL 250 mL, IV Infusion, PRN - SEE INSTRUCTIO NS, Administer over 60 Minutes, Other, If blood [...] blood glucose is < 80 mg/dL, repeat.
[facility] glucagon (GLUCAGEN DIAGNOSTIC KIT) injection 1 mg 2021-03 23:20: 30 Yes 1mg 1 mg, Intramuscu lar, PRN, Starting on Wed12/02/21 at 1820, Until Discontinu ed, EUSEBIO, Blood Glucose < or = 70 mg/dL and patient is unable to swallow or has mental changes. [facility] acetaminoph en (TYLENOL) tablet 650 mg 2021-03 23:13: 43 Yes 650mg 650 mg, Oral, Q6HPRN, Starting on Wed12/02/21 at 1813, Until Discontinu ed, Routine, Pain (scale 1-3) [facility] lidocaine 1% (PF) (XYLOCAINE) injection 2021-03 17:46: 08 12-02 22:10 :29 No ONCE INTRA PROCEDURE, Starting on Wed12/02/21 at 1246, Until Wed12/02/21 at 1710, Routine, CV Intraproce dure [facility] iopamidol (ISOVUE 370-500 mL) injection 80 mL 2021-03 13:49: 00 12-02 13:49 :00 No [id number] 80mL 80 mL, Intravenou s, ONCE, 1 dose, On Wed12/02/21 at 0915, Routine [facility] TAKE 1 TABLET BY MOUTH IN THE MORNING 11-04 00:00: 00 Yes Saroj Kunz digoxin 125 mcg tablet 11-04 00:00: 00 12-03 00:00 :00 No .125mg Take 1 tablet by mouth in the morning. [facility] TAKE 1 CAP (20 MG) BY MOUTH DAILY 30 MINUTES BEFORE MORNING MEAL 09-22 00:00: 00 Yes Saroj Kunz TAKE 1 TABLET (800 MG) BY MOUTH 3 TIMES PER DAY WITH FOOD OR MILK NEEDED 09-22 00:00: 00 Yes Saroj Kunz TAKE 1 CAPSULE (500 MG) BY MOUTH EVERY 8 HOURS FOR 10 DAYS 09-22 00:00: 00 Yes Saroj Kunz TAKE 1 TABLET BY MOUTH EVERY 6 HOURS NEEDED 08-20 00:00: 00 Yes Saroj Kunz TAKE 1 TABLET (350 MG) BY MOUTH 3 TIMES PER DAY NEEDED 08-20 00:00: 00 Yes Saroj Kunz metFORMIN 1,000 mg tablet 08-04 00:00: 00 01-02 00:00 :00 No [id number] 1000mg Take 1 tablet by mouth 2 (two) times daily with meals. [facility] TAKE 1 CAPSULE BY MOUTH TWICE DAILY 07-22 00:00: 00 Yes Saroj Kunz spironolact one 50 mg tablet 07-22 00:00: 00 08-12 00:00 :00 No [id number] 50mg Take 1 tablet by mouth daily. [facility] metoprolol succinate XL 50 mg 24 hr tablet 07-22 00:00: 00 12-03 00:00 :00 No [id number] 125mg Take 2.5 tablets by mouth 2 (two) times daily. [facility] diltiazem (CARDIZEM CD) 180 mg 24 hr capsule 07-22 00:00: 00 12-03 00:00 :00 No [id number] 180mg Take 1 capsule by mouth 2 (two) times daily. [facility] furosemide 40 mg tablet 07-22 00:00: 00 12-03 00:00 :00 No [id number] 02 40mg in AM 20mg in PM [facility] digoxin 125 mcg tablet 07-22 00:00: 00 11-04 00:00 :00 No .125mg Take 1 tablet by mouth daily. [facility] APPLY 2 GRAMS TOPICALLY TO AFFECTED AREA 4 TIMES PER DAY 07-21 00:00: 00 Yes Saroj Kunz TAKE 1 TABLET BY MOUTH EVERY 6 HOURS NEEDED 07-21 00:00: 00 Yes Saroj Kunz TAKE 1 TABLET BY MOUTH TWICE DAILY WITH MEALS 07-15 00:00: 00 Yes Saroj Sultana Ze insulin NPH and regular human 70-30 100 unit/mL (70-30) injection 07-15 00:00: 00 12-03 00:00 :00 No [id number] 10U inject 10 Units under the skin 2 (two) times daily before breakfast and dinner. [facility] TAKE 1 TABLET BY MOUTH TWICE DAILY 06-30 00:00: 00 Yes Saroj Sultana Ze APPLY 2 GRAMS TOPICALLY TO AFFECTED AREA 4 TIMES PER DAY 2022-0 4-20 00:00: 00 Yes Saroj Kunz TAKE 1 TABLET BY MOUTH IN THE MORNING AND IN THE EVENING 0 4-14 00:00: 00 Yes Saroj Kunz TAKE 1 TABLET BY MOUTH TWICE DAILY WITH MEALS 0 4-14 00:00: 00 Yes Saroj Kunz TAKE 2.5 (TWO & ONE-HALF) TABLETS BY MOUTH TWICE DAILY 0 4-11 00:00: 00 Yes Saroj Kunz TAKE 1 TABLET BY MOUTH TWICE DAILY 0 4-11 00:00: 00 Yes Saroj Kunz TAKE 1 CAPSULE (100 MG) BY MOUTH DAILY NEEDED 0 3-22 00:00: 00 Yes Saroj Kunz TAKE 1 TABLET (350 MG) BY MOUTH 3 TIMES PER DAY NEEDED 0 3-22 00:00: 00 Yes Saroj Kunz TAKE 1 TABLET (800 MG) BY MOUTH 3 TIMES PER DAY WITH FOOD OR MILK NEEDED 0 3-22 00:00: 00 Yes Saroj Kunz USE 1 APPLICATION TOPICALLY TO AFFECTED AREA 3 TIMES PER DAY NEEDED 0 3-22 00:00: 00 Yes Saroj Kunz USE 1 APPLICATION TOPICALLY TO AFFECTED AREA 3 TIMES PER DAY NEEDED 0 2-22 00:00: 00 Yes Saroj Kunz TAKE 1 TABLET (800 MG) BY MOUTH 3 TIMES PER DAY WITH FOOD OR MILK NEEDED 0 2-22 00:00: 00 Yes Saroj Kunz apixaban 5 mg tablet 2- 00:00: 00 Yes [id number] 5mg Take 1 tablet by mouth 2 (two) times daily. Indication s: atrial fibrillati on [facility] Dose Unknown 2020-03 2- 00:00: 00 Yes Saroj Kunz Dose Unknown 2020-03 2- 00:00: 00 Yes Saroj Kunz Dose Unknown 2020-03 2- 00:00: 00 Yes Saroj Kunz Dose Unknown 2020-03 2- 00:00: 00 Yes Saroj Kunz Dose Unknown 2020-03 2 00:00: 00 Yes Saroj Kunz furosemide 20 mg tablet 2020-03 0-08 00:00: 00 Yes 1mg Saroj Kunz metoprolol succinate ER 100 mg tablet,exte nded release 24 hr 2020-03 00:00: 00 Yes 1mg Saroj Kunz hydralazine 100 mg tablet 2020-03 00:00: 00 Yes 1mg Saroj Kunz digoxin 125 mcg (0.125 mg) tablet 2020-03 00:00: 00 Yes 1-300 mg Saroj Kunz diltiazem ER (XR/XT) 120 mg capsule,ext ended release 24 hr, controlled 2020-03 00:00: 00 Yes 1mg Saroj Kunz Dose Unknown 07-24 00:00: 00 Yes Saroj Kunz Dose Unknown 07-24 00:00: 00 Yes Saroj Kunz Dose Unknown 07-24 00:00: 00 Yes Saroj Kunz Dose Unknown 07-24 00:00: 00 Yes Saroj Kunz Dose Unknown 07-24 00:00: 00 Yes Saroj Kunz amlodipine 10 mg tablet 09-23 00:00: 00 Yes 1mg Saroj Kunz Coreg 6.25 mg tablet 09-23 00:00: 00 Yes 1mg Saroj Kunz naproxen 500 mg tablet 09-23 00:00: 00 Yes 1mg Saroj Kunz hydrochloro thiazide 12.5 mg capsule 09-23 00:00: 00 Yes 1mg Saroj Kunz amlodipine 10 mg tablet 04-28 00:00: 00 Yes 1mg Saroj Kunz Coreg 6.25 mg tablet 04-28 00:00: 00 Yes 1mg Saroj Kunz hydrochloro thiazide 12.5 mg capsule 04-28 00:00: 00 Yes 1mg Saroj Kunz amlodipine 10 mg tablet 2017-03 00:00: 00 Yes 1mg Saroj Kunz hydrochloro thiazide 12.5 mg capsule 2017-03 00:00: 00 Yes 1mg Saroj Kunz amlodipine 10 mg tablet 11-12 00:00: 00 Yes 1mg Saroj Kunz hydrochloro thiazide 12.5 mg capsule 11-12 00:00: 00 Yes 1mg Saroj Kunz Immunizations Ordered Immunization Name Filled Immunization Name Date Status Comments Source Influenza Virus Vaccine Quad IM, Preserv and ABX Free 6 MO-64 YRS 2021-12-01 00:00:00 Completed [facility] Influenza Virus Vaccine Quad IM, Preserv and ABX Free 6 MO-64 YRS 2021-12-01 00:00:00 Completed [facility] Influenza Virus Vaccine Quad IM, Preserv and ABX Free 6 MO-64 YRS 2021-12-01 00:00:00 Completed [facility] Influenza Virus Vaccine Quad IM, Preserv and ABX Free 6 MO-64 YRS 2021-12-01 00:00:00 Completed [facility] Influenza Virus Vaccine Quad IM, Preserv and ABX Free 6 MO-64 YRS 2021-12-01 00:00:00 Completed [facility] Influenza Virus Vaccine Quad IM, Preserv and ABX Free 6 MO-64 YRS 2021-12-01 00:00:00 Completed [facility] Influenza Virus Vaccine Quad IM, Preserv and ABX Free 6 MO-64 YRS 2021-12-01 00:00:00 Completed [facility] Influenza Virus Vaccine Quad IM, Preserv and ABX Free 6 MO-64 YRS 2021-12-01 00:00:00 Completed [facility] Influenza Virus Vaccine Quad IM, Preserv and ABX Free 6 MO-64 YRS 2021-12-01 00:00:00 Completed [facility] Influenza Virus Vaccine Quad IM, Preserv and ABX Free 6 MO-64 YRS 2021-12-01 00:00:00 Completed [facility] Influenza Virus Vaccine Quad IM, Preserv and ABX Free 6 MO-64 YRS 2021-12-01 00:00:00 Completed [facility] Influenza Virus Vaccine Quad IM, Preserv and ABX Free 6 MO-64 YRS 2021-12-01 00:00:00 Completed [facility] Influenza Virus Vaccine Quad IM, Preserv and ABX Free 6 MO-64 YRS 2021-12-01 00:00:00 Completed [facility] Influenza Virus Vaccine Quad IM, Preserv and ABX Free 6 MO-64 YRS 2021-12-01 00:00:00 Completed [facility] Influenza Virus Vaccine Quad IM, Preserv and ABX Free 6 MO-64 YRS 2021-12-01 00:00:00 Completed [facility] Influenza Virus Vaccine Quad IM, Preserv and ABX Free 6 MO-64 YRS 2021-12-01 00:00:00 Completed [facility] Influenza Virus Vaccine Quad IM, Preserv and ABX Free 6 MO-64 YRS 2021-12-01 00:00:00 Completed [facility] Influenza Virus Vaccine Quad IM, Preserv and ABX Free 6 MO-64 YRS 2021-12-01 00:00:00 Completed [facility] Influenza Virus Vaccine Quad IM, Preserv and ABX Free 6 MO-64 YRS 2021-12-01 00:00:00 Completed [facility] Influenza Virus Vaccine Quad IM, Preserv and ABX Free 6 MO-64 YRS 2021-12-01 00:00:00 Completed [facility] Influenza Virus Vaccine Quad IM, Preserv and ABX Free 6 MO-64 YRS 2021-12-01 00:00:00 Completed [facility] Influenza Virus Vaccine Quad IM, Preserv and ABX Free 6 MO-64 YRS 2021-12-01 00:00:00 Completed [facility] Influenza Virus Vaccine Quad IM, Preserv and ABX Free 6 MO-64 YRS 2021-12-01 00:00:00 Completed [facility] Influenza Virus Vaccine Quad IM, Preserv and ABX Free 6 MO-64 YRS 2021-12-01 00:00:00 Completed [facility] Influenza Virus Vaccine Quad IM, Preserv and ABX Free MO-64 YRS 2021-12-01 00:00:00 Completed [facility] Influenza Virus Vaccine Quad IM, Preserv and ABX Free 6 MO-64 YRS 2021-12-01 00:00:00 Completed [facility] Influenza Virus Vaccine Quad IM, Preserv and ABX Free 6 MO-64 YRS 2021-12-01 00:00:00 Completed [facility] Influenza Virus Vaccine Quad IM, Preserv and ABX Free 6 MO-64 YRS 2021-12-01 00:00:00 Completed [facility] Influenza Virus Vaccine Quad IM, Preserv and ABX Free 6 MO-64 YRS 2021-12-01 00:00:00 Completed [facility] Influenza Virus Vaccine Quad IM, Preserv and ABX Free 6 MO-64 YRS 2021-12-01 00:00:00 Completed [facility] Influenza Virus Vaccine Quad IM, Preserv and ABX Free 6 MO-64 YRS 2021-12-01 00:00:00 Completed [facility] Influenza Virus Vaccine Quad IM, Preserv and ABX Free 6 MO-64 YRS 2021-12-01 00:00:00 Completed [facility] Influenza Virus Vaccine Quad IM, Preserv and ABX Free 6 MO-64 YRS 2021-12-01 00:00:00 Completed [facility] Influenza Virus Vaccine Quad IM, Preserv and ABX Free 6 MO-64 YRS 2021-12-01 00:00:00 Completed [facility] Influenza Virus Vaccine Quad IM, Preserv and ABX Free 6 MO-64 YRS 2021-12-01 00:00:00 Completed [facility] Influenza Virus Vaccine Quad IM, Preserv and ABX Free 6 MO-64 YRS 2021-12-01 00:00:00 Completed [facility] Influenza Virus Vaccine Quad IM, Preserv and ABX Free 6 MO-64 YRS 2021-12-01 00:00:00 Completed [facility] Influenza Virus Vaccine Quad IM, Preserv and ABX Free 6 MO-64 YRS 2021-12-01 00:00:00 Completed [facility] Influenza Virus Vaccine Quad IM, Preserv and ABX Free 6 MO-64 YRS 2021-12-01 00:00:00 Completed [facility] Influenza Virus Vaccine Quad IM, Preserv and ABX Free 6 MO-64 YRS 2021-12-01 00:00:00 Completed [facility] Influenza Virus Vaccine Quad IM, Preserv and ABX Free 6 MO-64 YRS 2021-12-01 00:00:00 Completed [facility] Influenza Virus Vaccine Quad IM, Preserv and ABX Free 6 MO-64 YRS 2021-12-01 00:00:00 Completed [facility] Influenza Virus Vaccine Quad IM, Preserv and ABX Free 6 MO-64 YRS 2021-12-01 00:00:00 Completed [facility] Influenza Virus Vaccine Quad IM, Preserv and ABX Free 6 MO-64 YRS 2021-12-01 00:00:00 Completed [facility] Influenza Virus Vaccine Quad IM, Preserv and ABX Free 6 MO-64 YRS 2021-12-01 00:00:00 Completed [facility] Influenza Virus Vaccine Quad IM, Preserv and ABX Free 6 MO-64 YRS 2021-12-01 00:00:00 Completed [facility] Influenza Virus Vaccine Quad IM, Preserv and ABX Free 6 MO-64 YRS 2021-12-01 00:00:00 Completed [facility] Influenza Virus Vaccine Quad IM, Preserv and ABX Free 6 MO-64 YRS 2021-12-01 00:00:00 Completed [facility] Influenza Virus Vaccine Quad IM, Preserv and ABX Free 6 MO-64 YRS 2021-12-01 00:00:00 Completed [facility] Influenza Virus Vaccine Quad IM, Preserv and ABX Free 6 MO-64 YRS 2021-12-01 00:00:00 Completed [facility] Influenza Virus Vaccine Quad IM, Preserv and ABX Free 6 MO-64 YRS 2021-12-01 00:00:00 Completed [facility] Influenza Virus Vaccine Quad IM, Preserv and ABX Free 6 MO-64 YRS 2021-12-01 00:00:00 Completed [facility] Influenza Virus Vaccine Quad IM, Preserv and ABX Free 6 MO-64 YRS 2021-12-01 00:00:00 Completed [facility] Influenza Virus Vaccine Quad IM, Preserv and ABX Free 6 MO-64 YRS 2021-12-01 00:00:00 Completed [facility] Influenza Virus Vaccine Quad IM, Preserv and ABX Free 6 MO-64 YRS 2021-12-01 00:00:00 Completed [facility] Influenza Virus Vaccine Quad IM, Preserv and ABX Free 6 MO-64 YRS 2021-12-01 00:00:00 Completed [facility] Influenza Virus Vaccine Quad IM, Preserv and ABX Free 6 MO-64 YRS 2021-12-01 00:00:00 Completed [facility] Influenza Virus Vaccine Quad IM, Preserv and ABX Free 6 MO-64 YRS 2021-12-01 00:00:00 Completed [facility] Influenza Virus Vaccine Quad IM, Preserv and ABX Free 6 MO-64 YRS 2021-12-01 00:00:00 Completed [facility] Influenza Virus Vaccine Quad IM, Preserv and ABX Free 6 MO-64 YRS 2021-12-01 00:00:00 Completed [facility] Influenza Virus Vaccine Quad IM, Preserv and ABX Free 6 MO-64 YRS 2021-12-01 00:00:00 Completed [facility] Influenza Virus Vaccine Quad IM, Preserv and ABX Free 6 MO-64 YRS 2021-12-01 00:00:00 Completed [facility] Influenza Virus Vaccine Quad IM, Preserv and ABX Free 6 MO-64 YRS 2021-12-01 00:00:00 Completed [facility] Influenza Virus Vaccine Quad IM, Preserv and ABX Free 6 MO-64 YRS 2021-12-01 00:00:00 Completed [facility] Influenza Virus Vaccine Quad IM, Preserv and ABX Free 6 MO-64 YRS 2021-12-01 00:00:00 Completed [facility] Influenza Virus Vaccine Quad IM, Preserv and ABX Free 6 MO-64 YRS 2021-12-01 00:00:00 Completed [facility] Influenza Virus Vaccine Quad IM, Preserv and ABX Free 6 MO-64 YRS 2021-12-01 00:00:00 Completed [facility] Influenza Virus Vaccine Quad IM, Preserv and ABX Free 6 MO-64 YRS (FLUCELVAX) 2021-12-01 00:00:00 Completed [facility] Influenza Virus Vaccine Quad IM, Preserv and ABX Free 6 MO-64 YRS (FLUCELVAX) 2021-12-01 00:00:00 Completed [facility] Influenza Virus Vaccine Quad IM, Preserv and ABX Free 6 MO-64 YRS (FLUCELVAX) 2021-12-01 00:00:00 Completed [facility] Influenza Virus Vaccine Quad IM, Preserv and ABX Free 6 MO-64 YRS (FLUCELVAX) 2021-12-01 00:00:00 Completed [facility] Influenza Virus Vaccine Quad IM, Preserv and ABX Free 6 MO-64 YRS (FLUCELVAX) 2021-12-01 00:00:00 Completed [facility] Influenza Virus Vaccine Quad IM, Preserv and ABX Free 6 MO-64 YRS (FLUCELVAX) 2021-12-01 00:00:00 Completed [facility] DTAP 2021-06-04 00:00:00 Completed [facility] DTAP 2021-06-04 00:00:00 Completed [facility] DTAP 2021-06-04 00:00:00 Completed [facility] DTAP 2021-06-04 00:00:00 Completed [facility] DTAP 2021-06-04 00:00:00 Completed [facility] DTAP 2021-06-04 00:00:00 Completed [facility] DTAP 2021-06-04 00:00:00 Completed [facility] DTAP 2021-06-04 00:00:00 Completed [facility] DTAP 2021-06-04 00:00:00 Completed [facility] DTAP 2021-06-04 00:00:00 Completed [facility] DTAP 2021-06-04 00:00:00 Completed [facility] DTAP 2021-06-04 00:00:00 Completed [facility] DTAP 2021-06-04 00:00:00 Completed [facility] DTAP 2021-06-04 00:00:00 Completed [facility] DTAP 2021-06-04 00:00:00 Completed [facility] DTAP 2021-06-04 00:00:00 Completed [facility] DTAP 2021-06-04 00:00:00 Completed [facility] DTAP 2021-06-04 00:00:00 Completed [facility] DTAP 2021-06-04 00:00:00 Completed [facility] DTAP 2021-06-04 00:00:00 Completed [facility] DTAP 2021-06-04 00:00:00 Completed [facility] DTAP 2021-06-04 00:00:00 Completed [facility] DTAP 2021-06-04 00:00:00 Completed [facility] DTAP 2021-06-04 00:00:00 Completed [facility] DTAP 2021-06-04 00:00:00 Completed [facility] DTAP 2021-06-04 00:00:00 Completed [facility] DTAP 2021-06-04 00:00:00 Completed [facility] DTAP 2021-06-04 00:00:00 Completed [facility] DTAP 2021-06-04 00:00:00 Completed [facility] DTAP 2021-06-04 00:00:00 Completed [facility] DTAP 2021-06-04 00:00:00 Completed [facility] DTAP 2021-06-04 00:00:00 Completed [facility] DTAP 2021-06-04 00:00:00 Completed [facility] DTAP 2021-06-04 00:00:00 Completed [facility] DTAP 2021-06-04 00:00:00 Completed [facility] DTAP 2021-06-04 00:00:00 Completed [facility] DTAP 2021-06-04 00:00:00 Completed [facility] DTAP 2021-06-04 00:00:00 Completed [facility] DTAP 2021-06-04 00:00:00 Completed [facility] DTAP 2021-06-04 00:00:00 Completed [facility] DTAP 2021-06-04 00:00:00 Completed [facility] DTAP 2021-06-04 00:00:00 Completed [facility] DTAP 2021-06-04 00:00:00 Completed [facility] DTAP 2021-06-04 00:00:00 Completed [facility] DTAP 2021-06-04 00:00:00 Completed [facility] DTAP 2021-06-04 00:00:00 Completed [facility] DTAP 2021-06-04 00:00:00 Completed [facility] DTAP 2021-06-04 00:00:00 Completed [facility] DTAP 2021-06-04 00:00:00 Completed [facility] DTAP 2021-06-04 00:00:00 Completed [facility] DTAP 2021-06-04 00:00:00 Completed [facility] DTAP 2021-06-04 00:00:00 Completed [facility] DTAP 2021-06-04 00:00:00 Completed [facility] DTAP 2021-06-04 00:00:00 Completed [facility] DTAP 2021-06-04 00:00:00 Completed [facility] DTAP 2021-06-04 00:00:00 Completed [facility] DTAP 2021-06-04 00:00:00 Completed [facility] DTAP 2021-06-04 00:00:00 Completed [facility] DTAP 2021-06-04 00:00:00 Completed [facility] DTAP 2021-06-04 00:00:00 Completed [facility] DTAP 2021-06-04 00:00:00 Completed [facility] DTAP 2021-06-04 00:00:00 Completed [facility] DTAP 2021-06-04 00:00:00 Completed [facility] DTAP 2021-06-04 00:00:00 Completed [facility] DTAP 2021-06-04 00:00:00 Completed [facility] DTAP 2021-06-04 00:00:00 Completed [facility] DTAP 2021-06-04 00:00:00 Completed [facility] DTAP 2021-06-04 00:00:00 Completed [facility] DTAP 2021-06-04 00:00:00 Completed [facility] DTAP 2021-06-04 00:00:00 Completed [facility] DTAP 2021-06-04 00:00:00 Completed [facility] DTAP 2021-06-04 00:00:00 Completed [facility] DTAP 2021-06-04 00:00:00 Completed [facility] DTAP 2021-06-04 00:00:00 Completed [facility] DTAP 2021-06-04 00:00:00 Completed [facility] DTAP 2021-06-04 00:00:00 Completed [facility] DTAP 2021-06-04 00:00:00 Completed [facility] DTAP 2021-06-04 00:00:00 Completed [facility] DTAP 2021-06-04 00:00:00 Completed [facility] DTAP 2021-06-04 00:00:00 Completed [facility] DTAP 2021-06-04 00:00:00 Completed [facility] DTAP 2021-06-04 00:00:00 Completed [facility] DTAP 2021-06-04 00:00:00 Completed SARS-COV-2 COVID-19 PFIZER VACCINE 2021-02-04 00:00:00 Completed [facility] Pfizer COVID-19 Vaccine Pfizer COVID-19 Vaccine 2021-02-04 00:00:00 Completed Saroj Sultana Ze Influenza Virus Vaccine Quad IM, Preserv and ABX Free 6 MO-64 YRS 2021-01-31 00:00:00 Completed [facility] Influenza Virus Vaccine Quad IM, Preserv and ABX Free 6 MO-64 YRS 2021-01-31 00:00:00 Completed [facility] Influenza Virus Vaccine Quad IM, Preserv and ABX Free 6 MO-64 YRS 2021-01-31 00:00:00 Completed [facility] Influenza Virus Vaccine Quad IM, Preserv and ABX Free 6 MO-64 YRS 2021-01-31 00:00:00 Completed [facility] Influenza Virus Vaccine Quad IM, Preserv and ABX Free 6 MO-64 YRS 2021-01-31 00:00:00 Completed [facility] Influenza Virus Vaccine Quad IM, Preserv and ABX Free 6 MO-64 YRS 2021-01-31 00:00:00 Completed [facility] Influenza Virus Vaccine Quad IM, Preserv and ABX Free 6 MO-64 YRS 2021-01-31 00:00:00 Completed [facility] Influenza Virus Vaccine Quad IM, Preserv and ABX Free 6 MO-64 YRS 2021-01-31 00:00:00 Completed [facility] Influenza Virus Vaccine Quad IM, Preserv and ABX Free 6 MO-64 YRS 2021-01-31 00:00:00 Completed [facility] Influenza Virus Vaccine Quad IM, Preserv and ABX Free 6 MO-64 YRS 2021-01-31 00:00:00 Completed [facility] Influenza Virus Vaccine Quad IM, Preserv and ABX Free 6 MO-64 YRS 2021-01-31 00:00:00 Completed [facility] Influenza Virus Vaccine Quad IM, Preserv and ABX Free 6 MO-64 YRS 2021-01-31 00:00:00 Completed [facility] Influenza Virus Vaccine Quad IM, Preserv and ABX Free 6 MO-64 YRS 2021-01-31 00:00:00 Completed [facility] Influenza Virus Vaccine Quad IM, Preserv and ABX Free 6 MO-64 YRS 2021-01-31 00:00:00 Completed [facility] Influenza Virus Vaccine Quad IM, Preserv and ABX Free 6 MO-64 YRS 2021-01-31 00:00:00 Completed [facility] Influenza Virus Vaccine Quad IM, Preserv and ABX Free 6 MO-64 YRS 2021-01-31 00:00:00 Completed [facility] Influenza Virus Vaccine Quad IM, Preserv and ABX Free 6 MO-64 YRS 2021-01-31 00:00:00 Completed [facility] Influenza Virus Vaccine Quad IM, Preserv and ABX Free 6 MO-64 YRS 2021-01-31 00:00:00 Completed [facility] Influenza Virus Vaccine Quad IM, Preserv and ABX Free 6 MO-64 YRS 2021-01-31 00:00:00 Completed [facility] Influenza Virus Vaccine Quad IM, Preserv and ABX Free 6 MO-64 YRS 2021-01-31 00:00:00 Completed [facility] Influenza Virus Vaccine Quad IM, Preserv and ABX Free 6 MO-64 YRS 2021-01-31 00:00:00 Completed [facility] Influenza Virus Vaccine Quad IM, Preserv and ABX Free 6 MO-64 YRS 2021-01-31 00:00:00 Completed [facility] Influenza Virus Vaccine Quad IM, Preserv and ABX Free 6 MO-64 YRS 2021-01-31 00:00:00 Completed [facility] Influenza Virus Vaccine Quad IM, Preserv and ABX Free 6 MO-64 YRS 2021-01-31 00:00:00 Completed [facility] Influenza Virus Vaccine Quad IM, Preserv and ABX Free 6 MO-64 YRS 2021-01-31 00:00:00 Completed [facility] Influenza Virus Vaccine Quad IM, Preserv and ABX Free 6 MO-64 YRS 2021-01-31 00:00:00 Completed [facility] Influenza Virus Vaccine Quad IM, Preserv and ABX Free 6 MO-64 YRS 2021-01-31 00:00:00 Completed [facility] Influenza Virus Vaccine Quad IM, Preserv and ABX Free 6 MO-64 YRS 2021-01-31 00:00:00 Completed [facility] Influenza Virus Vaccine Quad IM, Preserv and ABX Free 6 MO-64 YRS 2021-01-31 00:00:00 Completed [facility] Influenza Virus Vaccine Quad IM, Preserv and ABX Free 6 MO-64 YRS 2021-01-31 00:00:00 Completed [facility] Influenza Virus Vaccine Quad IM, Preserv and ABX Free 6 MO-64 YRS 2021-01-31 00:00:00 Completed [facility] Influenza Virus Vaccine Quad IM, Preserv and ABX Free 6 MO-64 YRS 2021-01-31 00:00:00 Completed [facility] Influenza Virus Vaccine Quad IM, Preserv and ABX Free 6 MO-64 YRS 2021-01-31 00:00:00 Completed [facility] Influenza Virus Vaccine Quad IM, Preserv and ABX Free 6 MO-64 YRS 2021-01-31 00:00:00 Completed [facility] Influenza Virus Vaccine Quad IM, Preserv and ABX Free 6 MO-64 YRS 2021-01-31 00:00:00 Completed [facility] Influenza Virus Vaccine Quad IM, Preserv and ABX Free 6 MO-64 YRS 2021-01-31 00:00:00 Completed [facility] Influenza Virus Vaccine Quad IM, Preserv and ABX Free 6 MO-64 YRS 2021-01-31 00:00:00 Completed [facility] Influenza Virus Vaccine Quad IM, Preserv and ABX Free 6 MO-64 YRS 2021-01-31 00:00:00 Completed [facility] Influenza Virus Vaccine Quad IM, Preserv and ABX Free 6 MO-64 YRS 2021-01-31 00:00:00 Completed [facility] Influenza Virus Vaccine Quad IM, Preserv and ABX Free 6 MO-64 YRS 2021-01-31 00:00:00 Completed [facility] Influenza Virus Vaccine Quad IM, Preserv and ABX Free 6 MO-64 YRS 2021-01-31 00:00:00 Completed [facility] Influenza Virus Vaccine Quad IM, Preserv and ABX Free 6 MO-64 YRS 2021-01-31 00:00:00 Completed [facility] Influenza Virus Vaccine Quad IM, Preserv and ABX Free 6 MO-64 YRS 2021-01-31 00:00:00 Completed [facility] Influenza Virus Vaccine Quad IM, Preserv and ABX Free 6 MO-64 YRS 2021-01-31 00:00:00 Completed [facility] Influenza Virus Vaccine Quad IM, Preserv and ABX Free 6 MO-64 YRS 2021-01-31 00:00:00 Completed [facility] Influenza Virus Vaccine Quad IM, Preserv and ABX Free 6 MO-64 YRS 2021-01-31 00:00:00 Completed [facility] Influenza Virus Vaccine Quad IM, Preserv and ABX Free 6 MO-64 YRS 2021-01-31 00:00:00 Completed [facility] Influenza Virus Vaccine Quad IM, Preserv and ABX Free 6 MO-64 YRS 2021-01-31 00:00:00 Completed [facility] Influenza Virus Vaccine Quad IM, Preserv and ABX Free 6 MO-64 YRS 2021-01-31 00:00:00 Completed [facility] Influenza Virus Vaccine Quad IM, Preserv and ABX Free 6 MO-64 YRS 2021-01-31 00:00:00 Completed [facility] Influenza Virus Vaccine Quad IM, Preserv and ABX Free 6 MO-64 YRS 2021-01-31 00:00:00 Completed [facility] Influenza Virus Vaccine Quad IM, Preserv and ABX Free 6 MO-64 YRS 2021-01-31 00:00:00 Completed [facility] Influenza Virus Vaccine Quad IM, Preserv and ABX Free 6 MO-64 YRS 2021-01-31 00:00:00 Completed [facility] Influenza Virus Vaccine Quad IM, Preserv and ABX Free 6 MO-64 YRS 2021-01-31 00:00:00 Completed [facility] Influenza Virus Vaccine Quad IM, Preserv and ABX Free 6 MO-64 YRS 2021-01-31 00:00:00 Completed [facility] Influenza Virus Vaccine Quad IM, Preserv and ABX Free 6 MO-64 YRS 2021-01-31 00:00:00 Completed [facility] Influenza Virus Vaccine Quad IM, Preserv and ABX Free 6 MO-64 YRS 2021-01-31 00:00:00 Completed [facility] Influenza Virus Vaccine Quad IM, Preserv and ABX Free 6 MO-64 YRS 2021-01-31 00:00:00 Completed [facility] Influenza Virus Vaccine Quad IM, Preserv and ABX Free 6 MO-64 YRS 2021-01-31 00:00:00 Completed [facility] Influenza Virus Vaccine Quad IM, Preserv and ABX Free 6 MO-64 YRS 2021-01-31 00:00:00 Completed [facility] Influenza Virus Vaccine Quad IM, Preserv and ABX Free 6 MO-64 YRS 2021-01-31 00:00:00 Completed [facility] Influenza Virus Vaccine Quad IM, Preserv and ABX Free 6 MO-64 YRS 2021-01-31 00:00:00 Completed [facility] Influenza Virus Vaccine Quad IM, Preserv and ABX Free 6 MO-64 YRS 2021-01-31 00:00:00 Completed [facility] Influenza Virus Vaccine Quad IM, Preserv and ABX Free 6 MO-64 YRS 2021-01-31 00:00:00 Completed [facility] Influenza Virus Vaccine Quad IM, Preserv and ABX Free 6 MO-64 YRS 2021-01-31 00:00:00 Completed [facility] Influenza Virus Vaccine Quad IM, Preserv and ABX Free 6 MO-64 YRS 2021-01-31 00:00:00 Completed [facility] Influenza Virus Vaccine Quad IM, Preserv and ABX Free 6 MO-64 YRS 2021-01-31 00:00:00 Completed [facility] Influenza Virus Vaccine Quad IM, Preserv and ABX Free 6 MO-64 YRS 2021-01-31 00:00:00 Completed [facility] Influenza Virus Vaccine Quad IM, Preserv and ABX Free 6 MO-64 YRS 2021-01-31 00:00:00 Completed [facility] Influenza Virus Vaccine Quad IM, Preserv and ABX Free 6 MO-64 YRS 2021-01-31 00:00:00 Completed [facility] Influenza Virus Vaccine Quad IM, Preserv and ABX Free 6 MO-64 YRS 2021-01-31 00:00:00 Completed [facility] Influenza Virus Vaccine Quad IM, Preserv and ABX Free 6 MO-64 YRS 2021-01-31 00:00:00 Completed [facility] Influenza Virus Vaccine Quad IM, Preserv and ABX Free 6 MO-64 YRS 2021-01-31 00:00:00 Completed [facility] Influenza Virus Vaccine Quad IM, Preserv and ABX Free 6 MO-64 YRS 2021-01-31 00:00:00 Completed [facility] Influenza Virus Vaccine Quad IM, Preserv and ABX Free 6 MO-64 YRS 2021-01-31 00:00:00 Completed [facility] Influenza Virus Vaccine Quad IM, Preserv and ABX Free 6 MO-64 YRS 2021-01-31 00:00:00 Completed [facility] Influenza Virus Vaccine Quad IM, Preserv and ABX Free 6 MO-64 YRS 2021-01-31 00:00:00 Completed [facility] Influenza Virus Vaccine Quad IM, Preserv and ABX Free 6 MO-64 YRS (FLUCELVAX) 2021-01-31 00:00:00 Completed [facility] Influenza Virus Vaccine Quad IM, Preserv and ABX Free 6 MO-64 YRS (FLUCELVAX) 2021-01-31 00:00:00 Completed [facility] Influenza Virus Vaccine Quad IM, Preserv and ABX Free 6 MO-64 YRS (FLUCELVAX) 2021-01-31 00:00:00 Completed [facility] Influenza Virus Vaccine Quad IM, Preserv and ABX Free 6 MO-64 YRS (FLUCELVAX) 2021-01-31 00:00:00 Completed [facility] Influenza Virus Vaccine Quad IM, Preserv and ABX Free 6 MO-64 YRS (FLUCELVAX) 2021-01-31 00:00:00 Completed [facility] Influenza Virus Vaccine Quad IM, Preserv and ABX Free 6 MO-64 YRS (FLUCELVAX) 2021-01-31 00:00:00 Completed [facility] Pneumococcal Polysaccharide, PPSV23 (PNEUMOVAX) 2020-06-01 00:00:00 Completed [facility] Pneumococcal Polysaccharide, PPSV23 (PNEUMOVAX) 2020-06-01 00:00:00 Completed [facility] Pneumococcal Polysaccharide, PPSV23 (PNEUMOVAX) 2020-06-01 00:00:00 Completed [facility] Pneumococcal Polysaccharide, PPSV23 (PNEUMOVAX) 2020-06-01 00:00:00 Completed [facility] Pneumococcal Polysaccharide, PPSV23 (PNEUMOVAX) 2020-06-01 00:00:00 Completed [facility] Pneumococcal Polysaccharide, PPSV23 (PNEUMOVAX) 2020-06-01 00:00:00 Completed [facility] Pneumococcal Polysaccharide, PPSV23 (PNEUMOVAX) 2020-06-01 00:00:00 Completed [facility] Pneumococcal Polysaccharide, PPSV23 (PNEUMOVAX) 2020-06-01 00:00:00 Completed [facility] Pneumococcal Polysaccharide, PPSV23 (PNEUMOVAX) 2020-06-01 00:00:00 Completed [facility] Pneumococcal Polysaccharide, PPSV23 (PNEUMOVAX) 2020-06-01 00:00:00 Completed [facility] Pneumococcal Polysaccharide, PPSV23 (PNEUMOVAX) 2020-06-01 00:00:00 Completed [facility] Pneumococcal Polysaccharide, PPSV23 (PNEUMOVAX) 2020-06-01 00:00:00 Completed [facility] Pneumococcal Polysaccharide, PPSV23 (PNEUMOVAX) 2020-06-01 00:00:00 Completed [facility] Pneumococcal Polysaccharide, PPSV23 (PNEUMOVAX) 2020-06-01 00:00:00 Completed [facility] Pneumococcal Polysaccharide, PPSV23 (PNEUMOVAX) 2020-06-01 00:00:00 Completed [facility] Pneumococcal Polysaccharide, PPSV23 (PNEUMOVAX) 2020-06-01 00:00:00 Completed [facility] Pneumococcal Polysaccharide, PPSV23 (PNEUMOVAX) 2020-06-01 00:00:00 Completed [facility] Pneumococcal Polysaccharide, PPSV23 (PNEUMOVAX) 2020-06-01 00:00:00 Completed [facility] Pneumococcal Polysaccharide, PPSV23 (PNEUMOVAX) 2020-06-01 00:00:00 Completed [facility] Pneumococcal Polysaccharide, PPSV23 (PNEUMOVAX) 2020-06-01 00:00:00 Completed [facility] Pneumococcal Polysaccharide, PPSV23 (PNEUMOVAX) 2020-06-01 00:00:00 Completed [facility] Pneumococcal Polysaccharide, PPSV23 (PNEUMOVAX) 2020-06-01 00:00:00 Completed [facility] Pneumococcal Polysaccharide, PPSV23 (PNEUMOVAX) 2020-06-01 00:00:00 Completed [facility] Pneumococcal Polysaccharide, PPSV23 (PNEUMOVAX) 2020-06-01 00:00:00 Completed [facility] Pneumococcal Polysaccharide, PPSV23 (PNEUMOVAX) 2020-06-01 00:00:00 Completed [facility] Pneumococcal Polysaccharide, PPSV23 (PNEUMOVAX) 2020-06-01 00:00:00 Completed [facility] Pneumococcal Polysaccharide, PPSV23 (PNEUMOVAX) 2020-06-01 00:00:00 Completed [facility] Pneumococcal Polysaccharide, PPSV23 (PNEUMOVAX) 2020-06-01 00:00:00 Completed [facility] Pneumococcal Polysaccharide, PPSV23 (PNEUMOVAX) 2020-06-01 00:00:00 Completed [facility] Pneumococcal Polysaccharide, PPSV23 (PNEUMOVAX) 2020-06-01 00:00:00 Completed [facility] Pneumococcal Polysaccharide, PPSV23 (PNEUMOVAX) 2020-06-01 00:00:00 Completed [facility] Pneumococcal Polysaccharide, PPSV23 (PNEUMOVAX) 2020-06-01 00:00:00 Completed [facility] Pneumococcal Polysaccharide, PPSV23 (PNEUMOVAX) 2020-06-01 00:00:00 Completed [facility] Pneumococcal Polysaccharide, PPSV23 (PNEUMOVAX) 2020-06-01 00:00:00 Completed [facility] Pneumococcal Polysaccharide, PPSV23 (PNEUMOVAX) 2020-06-01 00:00:00 Completed [facility] Pneumococcal Polysaccharide, PPSV23 (PNEUMOVAX) 2020-06-01 00:00:00 Completed [facility] Pneumococcal Polysaccharide, PPSV23 (PNEUMOVAX) 2020-06-01 00:00:00 Completed [facility] Pneumococcal Polysaccharide, PPSV23 (PNEUMOVAX) 2020-06-01 00:00:00 Completed [facility] Pneumococcal Polysaccharide, PPSV23 (PNEUMOVAX) 2020-06-01 00:00:00 Completed [facility] Pneumococcal Polysaccharide, PPSV23 (PNEUMOVAX) 2020-06-01 00:00:00 Completed [facility] Pneumococcal Polysaccharide, PPSV23 (PNEUMOVAX) 2020-06-01 00:00:00 Completed [facility] Pneumococcal Polysaccharide, PPSV23 (PNEUMOVAX) 2020-06-01 00:00:00 Completed [facility] Pneumococcal Polysaccharide, PPSV23 (PNEUMOVAX) 2020-06-01 00:00:00 Completed [facility] Pneumococcal Polysaccharide, PPSV23 (PNEUMOVAX) 2020-06-01 00:00:00 Completed [facility] Pneumococcal Polysaccharide, PPSV23 (PNEUMOVAX) 2020-06-01 00:00:00 Completed [facility] Pneumococcal Polysaccharide, PPSV23 (PNEUMOVAX) 2020-06-01 00:00:00 Completed [facility] Pneumococcal Polysaccharide, PPSV23 (PNEUMOVAX) 2020-06-01 00:00:00 Completed [facility] Pneumococcal Polysaccharide, PPSV23 (PNEUMOVAX) 2020-06-01 00:00:00 Completed [facility] Pneumococcal Polysaccharide, PPSV23 (PNEUMOVAX) 2020-06-01 00:00:00 Completed [facility] Pneumococcal Polysaccharide, PPSV23 (PNEUMOVAX) 2020-06-01 00:00:00 Completed [facility] Pneumococcal Polysaccharide, PPSV23 (PNEUMOVAX) 2020-06-01 00:00:00 Completed [facility] Pneumococcal Polysaccharide, PPSV23 (PNEUMOVAX) 2020-06-01 00:00:00 Completed [facility] Pneumococcal Polysaccharide, PPSV23 (PNEUMOVAX) 2020-06-01 00:00:00 Completed [facility] Pneumococcal Polysaccharide, PPSV23 (PNEUMOVAX) 2020-06-01 00:00:00 Completed [facility] Pneumococcal Polysaccharide, PPSV23 (PNEUMOVAX) 2020-06-01 00:00:00 Completed [facility] Pneumococcal Polysaccharide, PPSV23 (PNEUMOVAX) 2020-06-01 00:00:00 Completed [facility] Pneumococcal Polysaccharide, PPSV23 (PNEUMOVAX) 2020-06-01 00:00:00 Completed [facility] Pneumococcal Polysaccharide, PPSV23 (PNEUMOVAX) 2020-06-01 00:00:00 Completed [facility] Pneumococcal Polysaccharide, PPSV23 (PNEUMOVAX) 2020-06-01 00:00:00 Completed [facility] Pneumococcal Polysaccharide, PPSV23 (PNEUMOVAX) 2020-06-01 00:00:00 Completed [facility] Pneumococcal Polysaccharide, PPSV23 (PNEUMOVAX) 2020-06-01 00:00:00 Completed [facility] Pneumococcal Polysaccharide, PPSV23 (PNEUMOVAX) 2020-06-01 00:00:00 Completed [facility] Pneumococcal Polysaccharide, PPSV23 (PNEUMOVAX) 2020-06-01 00:00:00 Completed [facility] Pneumococcal Polysaccharide, PPSV23 (PNEUMOVAX) 2020-06-01 00:00:00 Completed [facility] Pneumococcal Polysaccharide, PPSV23 (PNEUMOVAX) 2020-06-01 00:00:00 Completed [facility] Pneumococcal Polysaccharide, PPSV23 (PNEUMOVAX) 2020-06-01 00:00:00 Completed [facility] Pneumococcal Polysaccharide, PPSV23 (PNEUMOVAX) 2020-06-01 00:00:00 Completed [facility] Pneumococcal Polysaccharide, PPSV23 (PNEUMOVAX) 2020-06-01 00:00:00 Completed [facility] Pneumococcal Polysaccharide, PPSV23 (PNEUMOVAX) 2020-06-01 00:00:00 Completed [facility] Pneumococcal Polysaccharide, PPSV23 (PNEUMOVAX) 2020-06-01 00:00:00 Completed [facility] Pneumococcal Polysaccharide, PPSV23 (PNEUMOVAX) 2020-06-01 00:00:00 Completed [facility] Pneumococcal Polysaccharide, PPSV23 (PNEUMOVAX) 2020-06-01 00:00:00 Completed [facility] Pneumococcal Polysaccharide, PPSV23 (PNEUMOVAX) 2020-06-01 00:00:00 Completed [facility] Pneumococcal Polysaccharide, PPSV23 (PNEUMOVAX) 2020-06-01 00:00:00 Completed [facility] Pneumococcal Polysaccharide, PPSV23 (PNEUMOVAX) 2020-06-01 00:00:00 Completed [facility] Pneumococcal Polysaccharide, PPSV23 (PNEUMOVAX) 2020-06-01 00:00:00 Completed [facility] Pneumococcal Polysaccharide, PPSV23 (PNEUMOVAX) 2020-06-01 00:00:00 Completed [facility] Pneumococcal Polysaccharide, PPSV23 (PNEUMOVAX) 2020-06-01 00:00:00 Completed [facility] Pneumococcal Polysaccharide, PPSV23 (PNEUMOVAX) 2020-06-01 00:00:00 Completed [facility] Pneumococcal Polysaccharide, PPSV23 (PNEUMOVAX) 2020-06-01 00:00:00 Completed [facility] Pneumococcal Polysaccharide, PPSV23 (PNEUMOVAX) 2020-06-01 00:00:00 Completed [facility] Pneumococcal Polysaccharide, PPSV23 (PNEUMOVAX) 2020-06-01 00:00:00 Completed [facility] Pneumococcal Polysaccharide, PPSV23 (PNEUMOVAX) 2020-06-01 00:00:00 Completed [facility] SARS-COV-2 COVID-19 PFIZER VACCINE 2020-05-18 00:00:00 Completed [facility] SARS-COV-2 COVID-19 PFIZER VACCINE 2020-05-18 00:00:00 Completed [facility] SARS-COV-2 COVID-19 PFIZER VACCINE 2020-05-18 00:00:00 Completed [facility] SARS-COV-2 COVID-19 PFIZER VACCINE 2020-05-18 00:00:00 Completed [facility] SARS-COV-2 COVID-19 PFIZER VACCINE 2020-05-18 00:00:00 Completed [facility] SARS-COV-2 COVID-19 PFIZER VACCINE 2020-05-18 00:00:00 Completed [facility] SARS-COV-2 COVID-19 PFIZER VACCINE 2020-05-18 00:00:00 Completed [facility] SARS-COV-2 COVID-19 PFIZER VACCINE 2020-05-18 00:00:00 Completed [facility] SARS-COV-2 COVID-19 PFIZER VACCINE 2020-05-18 00:00:00 Completed [facility] SARS-COV-2 COVID-19 PFIZER VACCINE 2020-05-18 00:00:00 Completed [facility] SARS-COV-2 COVID-19 PFIZER VACCINE 2020-05-18 00:00:00 Completed [facility] SARS-COV-2 COVID-19 PFIZER VACCINE 2020-05-18 00:00:00 Completed [facility] SARS-COV-2 COVID-19 PFIZER VACCINE 2020-05-18 00:00:00 Completed [facility] SARS-COV-2 COVID-19 PFIZER VACCINE 2020-05-18 00:00:00 Completed [facility] SARS-COV-2 COVID-19 PFIZER VACCINE 2020-05-18 00:00:00 Completed [facility] SARS-COV-2 COVID-19 PFIZER VACCINE 2020-05-18 00:00:00 Completed [facility] SARS-COV-2 COVID-19 PFIZER VACCINE 2020-05-18 00:00:00 Completed [facility] SARS-COV-2 COVID-19 PFIZER VACCINE 2020-05-18 00:00:00 Completed [facility] SARS-COV-2 COVID-19 PFIZER VACCINE 2020-05-18 00:00:00 Completed [facility] SARS-COV-2 COVID-19 PFIZER VACCINE 2020-05-18 00:00:00 Completed [facility] SARS-COV-2 COVID-19 PFIZER VACCINE 2020-05-18 00:00:00 Completed [facility] SARS-COV-2 COVID-19 PFIZER VACCINE 2020-05-18 00:00:00 Completed [facility] SARS-COV-2 COVID-19 PFIZER VACCINE 2020-05-18 00:00:00 Completed [facility] SARS-COV-2 COVID-19 PFIZER VACCINE 2020-05-18 00:00:00 Completed [facility] SARS-COV-2 COVID-19 PFIZER VACCINE 2020-05-18 00:00:00 Completed [facility] SARS-COV-2 COVID-19 PFIZER VACCINE 2020-05-18 00:00:00 Completed [facility] SARS-COV-2 COVID-19 PFIZER VACCINE 2020-05-18 00:00:00 Completed [facility] SARS-COV-2 COVID-19 PFIZER VACCINE 2020-05-18 00:00:00 Completed [facility] SARS-COV-2 COVID-19 PFIZER VACCINE 2020-05-18 00:00:00 Completed [facility] SARS-COV-2 COVID-19 PFIZER VACCINE 2020-05-18 00:00:00 Completed [facility] SARS-COV-2 COVID-19 PFIZER VACCINE 2020-05-18 00:00:00 Completed [facility] SARS-COV-2 COVID-19 PFIZER VACCINE 2020-05-18 00:00:00 Completed [facility] SARS-COV-2 COVID-19 PFIZER VACCINE 2020-05-18 00:00:00 Completed [facility] SARS-COV-2 COVID-19 PFIZER VACCINE 2020-05-18 00:00:00 Completed [facility] SARS-COV-2 COVID-19 PFIZER VACCINE 2020-05-18 00:00:00 Completed [facility] SARS-COV-2 COVID-19 PFIZER VACCINE 2020-05-18 00:00:00 Completed [facility] SARS-COV-2 COVID-19 PFIZER VACCINE 2020-05-18 00:00:00 Completed [facility] SARS-COV-2 COVID-19 PFIZER VACCINE 2020-05-18 00:00:00 Completed [facility] SARS-COV-2 COVID-19 PFIZER VACCINE 2020-05-18 00:00:00 Completed [facility] SARS-COV-2 COVID-19 PFIZER VACCINE 2020-05-18 00:00:00 Completed [facility] SARS-COV-2 COVID-19 PFIZER VACCINE 2020-05-18 00:00:00 Completed [facility] SARS-COV-2 COVID-19 PFIZER VACCINE 2020-05-18 00:00:00 Completed [facility] SARS-COV-2 COVID-19 PFIZER VACCINE 2020-05-18 00:00:00 Completed [facility] SARS-COV-2 COVID-19 PFIZER VACCINE 2020-05-18 00:00:00 Completed [facility] SARS-COV-2 COVID-19 PFIZER VACCINE 2020-05-18 00:00:00 Completed [facility] SARS-COV-2 COVID-19 PFIZER VACCINE 2020-05-18 00:00:00 Completed [facility] SARS-COV-2 COVID-19 PFIZER VACCINE 2020-05-18 00:00:00 Completed [facility] SARS-COV-2 COVID-19 PFIZER VACCINE 2020-05-18 00:00:00 Completed [facility] SARS-COV-2 COVID-19 PFIZER VACCINE 2020-05-18 00:00:00 Completed [facility] SARS-COV-2 COVID-19 PFIZER VACCINE 2020-05-18 00:00:00 Completed [facility] SARS-COV-2 COVID-19 PFIZER VACCINE 2020-05-18 00:00:00 Completed [facility] SARS-COV-2 COVID-19 PFIZER VACCINE 2020-05-18 00:00:00 Completed [facility] SARS-COV-2 COVID-19 PFIZER VACCINE 2020-05-18 00:00:00 Completed [facility] SARS-COV-2 COVID-19 PFIZER VACCINE 2020-05-18 00:00:00 Completed [facility] SARS-COV-2 COVID-19 PFIZER VACCINE 2020-05-18 00:00:00 Completed [facility] SARS-COV-2 COVID-19 PFIZER VACCINE 2020-05-18 00:00:00 Completed [facility] SARS-COV-2 COVID-19 PFIZER VACCINE 2020-05-18 00:00:00 Completed [facility] SARS-COV-2 COVID-19 PFIZER VACCINE 2020-05-18 00:00:00 Completed [facility] SARS-COV-2 COVID-19 PFIZER VACCINE 2020-05-18 00:00:00 Completed [facility] SARS-COV-2 COVID-19 PFIZER VACCINE 2020-05-18 00:00:00 Completed [facility] SARS-COV-2 COVID-19 PFIZER VACCINE 2020-05-18 00:00:00 Completed [facility] SARS-COV-2 COVID-19 PFIZER VACCINE 2020-05-18 00:00:00 Completed [facility] SARS-COV-2 COVID-19 PFIZER VACCINE 2020-05-18 00:00:00 Completed [facility] SARS-COV-2 COVID-19 PFIZER VACCINE 2020-05-18 00:00:00 Completed [facility] SARS-COV-2 COVID-19 PFIZER VACCINE 2020-05-18 00:00:00 Completed [facility] SARS-COV-2 COVID-19 PFIZER VACCINE 2020-05-18 00:00:00 Completed [facility] SARS-COV-2 COVID-19 PFIZER VACCINE 2020-05-18 00:00:00 Completed [facility] SARS-COV-2 COVID-19 PFIZER VACCINE 2020-05-18 00:00:00 Completed [facility] SARS-COV-2 COVID-19 PFIZER VACCINE 2020-05-18 00:00:00 Completed [facility] SARS-COV-2 COVID-19 PFIZER VACCINE 2020-05-18 00:00:00 Completed [facility] SARS-COV-2 COVID-19 PFIZER VACCINE 2020-05-18 00:00:00 Completed [facility] SARS-COV-2 COVID-19 PFIZER VACCINE 2020-05-18 00:00:00 Completed [facility] SARS-COV-2 COVID-19 PFIZER VACCINE 2020-05-18 00:00:00 Completed [facility] SARS-COV-2 COVID-19 PFIZER VACCINE 2020-05-18 00:00:00 Completed [facility] SARS-COV-2 COVID-19 PFIZER VACCINE 2020-05-18 00:00:00 Completed [facility] SARS-COV-2 COVID-19 PFIZER VACCINE 2020-05-18 00:00:00 Completed [facility] SARS-COV-2 COVID-19 PFIZER VACCINE 2020-05-18 00:00:00 Completed [facility] SARS-COV-2 COVID-19 PFIZER VACCINE 2020-05-18 00:00:00 Completed [facility] SARS-COV-2 COVID-19 PFIZER VACCINE 2020-05-18 00:00:00 Completed [facility] SARS-COV-2 COVID-19 PFIZER VACCINE 2020-05-18 00:00:00 Completed [facility] SARS-COV-2 COVID-19 PFIZER VACCINE 2020-05-18 00:00:00 Completed [facility] SARS-COV-2 COVID-19 PFIZER VACCINE 2020-05-18 00:00:00 Completed [facility] SARS-COV-2 COVID-19 PFIZER VACCINE 2020-05-18 00:00:00 Completed [facility] Pfizer COVID-19 Vaccine Pfizer COVID-19 Vaccine 2020-05-18 00:00:00 Completed Saroj Kunz SARS-COV-2 COVID-19 PFIZER VACCINE 2020-04-27 00:00:00 Completed [facility] SARS-COV-2 COVID-19 PFIZER VACCINE 2020-04-27 00:00:00 Completed [facility] SARS-COV-2 COVID-19 PFIZER VACCINE 2020-04-27 00:00:00 Completed [facility] SARS-COV-2 COVID-19 PFIZER VACCINE 2020-04-27 00:00:00 Completed [facility] SARS-COV-2 COVID-19 PFIZER VACCINE 2020-04-27 00:00:00 Completed [facility] SARS-COV-2 COVID-19 PFIZER VACCINE 2020-04-27 00:00:00 Completed [facility] SARS-COV-2 COVID-19 PFIZER VACCINE 2020-04-27 00:00:00 Completed [facility] SARS-COV-2 COVID-19 PFIZER VACCINE 2020-04-27 00:00:00 Completed [facility] SARS-COV-2 COVID-19 PFIZER VACCINE 2020-04-27 00:00:00 Completed [facility] SARS-COV-2 COVID-19 PFIZER VACCINE 2020-04-27 00:00:00 Completed [facility] SARS-COV-2 COVID-19 PFIZER VACCINE 2020-04-27 00:00:00 Completed [facility] SARS-COV-2 COVID-19 PFIZER VACCINE 2020-04-27 00:00:00 Completed [facility] SARS-COV-2 COVID-19 PFIZER VACCINE 2020-04-27 00:00:00 Completed [facility] SARS-COV-2 COVID-19 PFIZER VACCINE 2020-04-27 00:00:00 Completed [facility] SARS-COV-2 COVID-19 PFIZER VACCINE 2020-04-27 00:00:00 Completed [facility] SARS-COV-2 COVID-19 PFIZER VACCINE 2020-04-27 00:00:00 Completed [facility] SARS-COV-2 COVID-19 PFIZER VACCINE 2020-04-27 00:00:00 Completed [facility] SARS-COV-2 COVID-19 PFIZER VACCINE 2020-04-27 00:00:00 Completed [facility] SARS-COV-2 COVID-19 PFIZER VACCINE 2020-04-27 00:00:00 Completed [facility] SARS-COV-2 COVID-19 PFIZER VACCINE 2020-04-27 00:00:00 Completed [facility] SARS-COV-2 COVID-19 PFIZER VACCINE 2020-04-27 00:00:00 Completed [facility] SARS-COV-2 COVID-19 PFIZER VACCINE 2020-04-27 00:00:00 Completed [facility] SARS-COV-2 COVID-19 PFIZER VACCINE 2020-04-27 00:00:00 Completed [facility] SARS-COV-2 COVID-19 PFIZER VACCINE 2020-04-27 00:00:00 Completed [facility] SARS-COV-2 COVID-19 PFIZER VACCINE 2020-04-27 00:00:00 Completed [facility] SARS-COV-2 COVID-19 PFIZER VACCINE 2020-04-27 00:00:00 Completed [facility] SARS-COV-2 COVID-19 PFIZER VACCINE 2020-04-27 00:00:00 Completed [facility] SARS-COV-2 COVID-19 PFIZER VACCINE 2020-04-27 00:00:00 Completed [facility] SARS-COV-2 COVID-19 PFIZER VACCINE 2020-04-27 00:00:00 Completed [facility] SARS-COV-2 COVID-19 PFIZER VACCINE 2020-04-27 00:00:00 Completed [facility] SARS-COV-2 COVID-19 PFIZER VACCINE 2020-04-27 00:00:00 Completed [facility] SARS-COV-2 COVID-19 PFIZER VACCINE 2020-04-27 00:00:00 Completed [facility] SARS-COV-2 COVID-19 PFIZER VACCINE 2020-04-27 00:00:00 Completed [facility] SARS-COV-2 COVID-19 PFIZER VACCINE 2020-04-27 00:00:00 Completed [facility] SARS-COV-2 COVID-19 PFIZER VACCINE 2020-04-27 00:00:00 Completed [facility] SARS-COV-2 COVID-19 PFIZER VACCINE 2020-04-27 00:00:00 Completed [facility] SARS-COV-2 COVID-19 PFIZER VACCINE 2020-04-27 00:00:00 Completed [facility] SARS-COV-2 COVID-19 PFIZER VACCINE 2020-04-27 00:00:00 Completed [facility] SARS-COV-2 COVID-19 PFIZER VACCINE 2020-04-27 00:00:00 Completed [facility] SARS-COV-2 COVID-19 PFIZER VACCINE 2020-04-27 00:00:00 Completed [facility] SARS-COV-2 COVID-19 PFIZER VACCINE 2020-04-27 00:00:00 Completed [facility] SARS-COV-2 COVID-19 PFIZER VACCINE 2020-04-27 00:00:00 Completed [facility] SARS-COV-2 COVID-19 PFIZER VACCINE 2020-04-27 00:00:00 Completed [facility] SARS-COV-2 COVID-19 PFIZER VACCINE 2020-04-27 00:00:00 Completed [facility] SARS-COV-2 COVID-19 PFIZER VACCINE 2020-04-27 00:00:00 Completed [facility] SARS-COV-2 COVID-19 PFIZER VACCINE 2020-04-27 00:00:00 Completed [facility] SARS-COV-2 COVID-19 PFIZER VACCINE 2020-04-27 00:00:00 Completed [facility] SARS-COV-2 COVID-19 PFIZER VACCINE 2020-04-27 00:00:00 Completed [facility] SARS-COV-2 COVID-19 PFIZER VACCINE 2020-04-27 00:00:00 Completed [facility] SARS-COV-2 COVID-19 PFIZER VACCINE 2020-04-27 00:00:00 Completed [facility] SARS-COV-2 COVID-19 PFIZER VACCINE 2020-04-27 00:00:00 Completed [facility] SARS-COV-2 COVID-19 PFIZER VACCINE 2020-04-27 00:00:00 Completed [facility] SARS-COV-2 COVID-19 PFIZER VACCINE 2020-04-27 00:00:00 Completed [facility] SARS-COV-2 COVID-19 PFIZER VACCINE 2020-04-27 00:00:00 Completed [facility] SARS-COV-2 COVID-19 PFIZER VACCINE 2020-04-27 00:00:00 Completed [facility] SARS-COV-2 COVID-19 PFIZER VACCINE 2020-04-27 00:00:00 Completed [facility] SARS-COV-2 COVID-19 PFIZER VACCINE 2020-04-27 00:00:00 Completed [facility] SARS-COV-2 COVID-19 PFIZER VACCINE 2020-04-27 00:00:00 Completed [facility] SARS-COV-2 COVID-19 PFIZER VACCINE 2020-04-27 00:00:00 Completed [facility] SARS-COV-2 COVID-19 PFIZER VACCINE 2020-04-27 00:00:00 Completed [facility] SARS-COV-2 COVID-19 PFIZER VACCINE 2020-04-27 00:00:00 Completed [facility] SARS-COV-2 COVID-19 PFIZER VACCINE 2020-04-27 00:00:00 Completed [facility] SARS-COV-2 COVID-19 PFIZER VACCINE 2020-04-27 00:00:00 Completed [facility] SARS-COV-2 COVID-19 PFIZER VACCINE 2020-04-27 00:00:00 Completed [facility] SARS-COV-2 COVID-19 PFIZER VACCINE 2020-04-27 00:00:00 Completed [facility] SARS-COV-2 COVID-19 PFIZER VACCINE 2020-04-27 00:00:00 Completed [facility] SARS-COV-2 COVID-19 PFIZER VACCINE 2020-04-27 00:00:00 Completed [facility] SARS-COV-2 COVID-19 PFIZER VACCINE 2020-04-27 00:00:00 Completed [facility] SARS-COV-2 COVID-19 PFIZER VACCINE 2020-04-27 00:00:00 Completed [facility] SARS-COV-2 COVID-19 PFIZER VACCINE 2020-04-27 00:00:00 Completed [facility] SARS-COV-2 COVID-19 PFIZER VACCINE 2020-04-27 00:00:00 Completed [facility] SARS-COV-2 COVID-19 PFIZER VACCINE 2020-04-27 00:00:00 Completed [facility] SARS-COV-2 COVID-19 PFIZER VACCINE 2020-04-27 00:00:00 Completed [facility] SARS-COV-2 COVID-19 PFIZER VACCINE 2020-04-27 00:00:00 Completed [facility] SARS-COV-2 COVID-19 PFIZER VACCINE 2020-04-27 00:00:00 Completed [facility] SARS-COV-2 COVID-19 PFIZER VACCINE 2020-04-27 00:00:00 Completed [facility] SARS-COV-2 COVID-19 PFIZER VACCINE 2020-04-27 00:00:00 Completed [facility] SARS-COV-2 COVID-19 PFIZER VACCINE 2020-04-27 00:00:00 Completed [facility] SARS-COV-2 COVID-19 PFIZER VACCINE 2020-04-27 00:00:00 Completed [facility] SARS-COV-2 COVID-19 PFIZER VACCINE 2020-04-27 00:00:00 Completed [facility] SARS-COV-2 COVID-19 PFIZER VACCINE 2020-04-27 00:00:00 Completed [facility] SARS-COV-2 COVID-19 PFIZER VACCINE 2020-04-27 00:00:00 Completed [facility] SARS-COV-2 COVID-19 PFIZER VACCINE 2020-04-27 00:00:00 Completed [facility] Pfizer COVID-19 Vaccine Pfizer COVID-19 Vaccine 2020-04-27 00:00:00 Completed Saroj Kunz Influenza Virus Vaccine 2020-01-19 00:00:00 Completed [facility] Influenza Virus Vaccine 2020-01-19 00:00:00 Completed [facility] Influenza Virus Vaccine 2020-01-19 00:00:00 Completed [facility] Influenza Virus Vaccine 2020-01-19 00:00:00 Completed [facility] Influenza Virus Vaccine 2020-01-19 00:00:00 Completed [facility] Influenza Virus Vaccine 2020-01-19 00:00:00 Completed [facility] Influenza Virus Vaccine 2020-01-19 00:00:00 Completed [facility] Influenza Virus Vaccine 2020-01-19 00:00:00 Completed [facility] Influenza Virus Vaccine 2020-01-19 00:00:00 Completed [facility] Influenza Virus Vaccine 2020-01-19 00:00:00 Completed [facility] Influenza Virus Vaccine 2020-01-19 00:00:00 Completed [facility] Influenza Virus Vaccine 2020-01-19 00:00:00 Completed [facility] Influenza Virus Vaccine 2020-01-19 00:00:00 Completed [facility] Influenza Virus Vaccine 2020-01-19 00:00:00 Completed [facility] Influenza Virus Vaccine 2020-01-19 00:00:00 Completed [facility] Influenza Virus Vaccine 2020-01-19 00:00:00 Completed [facility] Influenza Virus Vaccine 2020-01-19 00:00:00 Completed [facility] Influenza Virus Vaccine 2020-01-19 00:00:00 Completed [facility] Influenza Virus Vaccine 2020-01-19 00:00:00 Completed [facility] Influenza Virus Vaccine 2020-01-19 00:00:00 Completed [facility] Influenza Virus Vaccine 2020-01-19 00:00:00 Completed [facility] Influenza Virus Vaccine 2020-01-19 00:00:00 Completed [facility] Influenza Virus Vaccine 2020-01-19 00:00:00 Completed [facility] Influenza Virus Vaccine 2020-01-19 00:00:00 Completed [facility] Influenza Virus Vaccine 2020-01-19 00:00:00 Completed [facility] Influenza Virus Vaccine 2020-01-19 00:00:00 Completed [facility] Influenza Virus Vaccine 2020-01-19 00:00:00 Completed [facility] Influenza Virus Vaccine 2020-01-19 00:00:00 Completed [facility] Influenza Virus Vaccine 2020-01-19 00:00:00 Completed [facility] Influenza Virus Vaccine 2020-01-19 00:00:00 Completed [facility] Influenza Virus Vaccine 2020-01-19 00:00:00 Completed [facility] Influenza Virus Vaccine 2020-01-19 00:00:00 Completed [facility] Influenza Virus Vaccine 2020-01-19 00:00:00 Completed [facility] Influenza Virus Vaccine 2020-01-19 00:00:00 Completed [facility] Influenza Virus Vaccine 2020-01-19 00:00:00 Completed [facility] Influenza Virus Vaccine 2020-01-19 00:00:00 Completed [facility] Influenza Virus Vaccine 2020-01-19 00:00:00 Completed [facility] Influenza Virus Vaccine 2020-01-19 00:00:00 Completed [facility] Influenza Virus Vaccine 2020-01-19 00:00:00 Completed [facility] Influenza Virus Vaccine 2020-01-19 00:00:00 Completed [facility] Influenza Virus Vaccine 2020-01-19 00:00:00 Completed [facility] Influenza Virus Vaccine 2020-01-19 00:00:00 Completed [facility] Influenza Virus Vaccine 2020-01-19 00:00:00 Completed [facility] Influenza Virus Vaccine 2020-01-19 00:00:00 Completed [facility] Influenza Virus Vaccine 2020-01-19 00:00:00 Completed [facility] Influenza Virus Vaccine 2020-01-19 00:00:00 Completed [facility] Influenza Virus Vaccine 2020-01-19 00:00:00 Completed [facility] Influenza Virus Vaccine 2020-01-19 00:00:00 Completed [facility] Influenza Virus Vaccine 2020-01-19 00:00:00 Completed [facility] Influenza Virus Vaccine 2020-01-19 00:00:00 Completed [facility] Influenza Virus Vaccine 2020-01-19 00:00:00 Completed [facility] Influenza Virus Vaccine 2020-01-19 00:00:00 Completed [facility] Influenza Virus Vaccine 2020-01-19 00:00:00 Completed [facility] Influenza Virus Vaccine 2020-01-19 00:00:00 Completed [facility] Influenza Virus Vaccine 2020-01-19 00:00:00 Completed [facility] Influenza Virus Vaccine 2020-01-19 00:00:00 Completed [facility] Influenza Virus Vaccine 2020-01-19 00:00:00 Completed [facility] Influenza Virus Vaccine 2020-01-19 00:00:00 Completed [facility] Influenza Virus Vaccine 2020-01-19 00:00:00 Completed [facility] Influenza Virus Vaccine 2020-01-19 00:00:00 Completed [facility] Influenza Virus Vaccine 2020-01-19 00:00:00 Completed [facility] Influenza Virus Vaccine 2020-01-19 00:00:00 Completed [facility] Influenza Virus Vaccine 2020-01-19 00:00:00 Completed [facility] Influenza Virus Vaccine 2020-01-19 00:00:00 Completed [facility] Influenza Virus Vaccine 2020-01-19 00:00:00 Completed [facility] Influenza Virus Vaccine 2020-01-19 00:00:00 Completed [facility] Influenza Virus Vaccine 2020-01-19 00:00:00 Completed [facility] Influenza Virus Vaccine 2020-01-19 00:00:00 Completed [facility] Influenza Virus Vaccine 2020-01-19 00:00:00 Completed [facility] Influenza Virus Vaccine 2020-01-19 00:00:00 Completed [facility] Influenza Virus Vaccine 2020-01-19 00:00:00 Completed [facility] Influenza Virus Vaccine 2020-01-19 00:00:00 Completed [facility] Influenza Virus Vaccine 2020-01-19 00:00:00 Completed [facility] Influenza Virus Vaccine 2020-01-19 00:00:00 Completed [facility] Influenza Virus Vaccine 2020-01-19 00:00:00 Completed [facility] Influenza Virus Vaccine 2020-01-19 00:00:00 Completed [facility] Influenza Virus Vaccine 2020-01-19 00:00:00 Completed [facility] Influenza Virus Vaccine 2020-01-19 00:00:00 Completed [facility] Influenza Virus Vaccine 2020-01-19 00:00:00 Completed [facility] Influenza Virus Vaccine 2020-01-19 00:00:00 Completed [facility] Influenza Virus Vaccine 2020-01-19 00:00:00 Completed [facility] Influenza Virus Vaccine 2020-01-19 00:00:00 Completed [facility] Influenza Virus Vaccine 2020-01-19 00:00:00 Completed [facility] Influenza Virus Vaccine Unknown Completed [facility] SARS-COV-2 COVID-19 PFIZER VACCINE Unknown Completed [facility] Pneumococcal Polysaccharide, PPSV23 (PNEUMOVAX) Unknown Completed [facility] Influenza Virus Vaccine Quad IM, Preserv and ABX Free 6 MO-64 YRS (FLUCELVAX) Unknown Completed [facility] DTAP Unknown Completed [facility] Influenza Virus Vaccine Unknown Completed [facility] SARS-COV-2 COVID-19 PFIZER VACCINE Unknown Completed [facility] Pneumococcal Polysaccharide, PPSV23 (PNEUMOVAX) Unknown Completed [facility] Influenza Virus Vaccine Quad IM, Preserv and ABX Free 6 MO-64 YRS (FLUCELVAX) Unknown Completed [facility] DTAP Unknown Completed [facility] Influenza Virus Vaccine Unknown Completed [facility] SARS-COV-2 COVID-19 PFIZER VACCINE Unknown Completed [facility] Pneumococcal Polysaccharide, PPSV23 (PNEUMOVAX) Unknown Completed [facility] Influenza Virus Vaccine Quad IM, Preserv and ABX Free 6 MO-64 YRS (FLUCELVAX) Unknown Completed [facility] DTAP Unknown Completed [facility] Influenza Virus Vaccine Unknown Completed [facility] SARS-COV-2 COVID-19 PFIZER VACCINE Unknown Completed [facility] Pneumococcal Polysaccharide, PPSV23 (PNEUMOVAX) Unknown Completed [facility] Influenza Virus Vaccine Quad IM, Preserv and ABX Free 6 MO-64 YRS (FLUCELVAX) Unknown Completed [facility] DTAP Unknown Completed [facility] Influenza Virus Vaccine Unknown Completed [facility] SARS-COV-2 COVID-19 PFIZER VACCINE Unknown Completed [facility] Pneumococcal Polysaccharide, PPSV23 (PNEUMOVAX) Unknown Completed [facility] Influenza Virus Vaccine Quad IM, Preserv and ABX Free 6 MO-64 YRS (FLUCELVAX) Unknown Completed [facility] DTAP Unknown Completed [facility] Influenza Virus Vaccine Unknown Completed [facility] SARS-COV-2 COVID-19 PFIZER VACCINE Unknown Completed [facility] Pneumococcal Polysaccharide, PPSV23 (PNEUMOVAX) Unknown Completed [facility] Influenza Virus Vaccine Quad IM, Preserv and ABX Free 6 MO-64 YRS (FLUCELVAX) Unknown Completed [facility] DTAP Unknown Completed [facility] Influenza Virus Vaccine Unknown Completed [facility] SARS-COV-2 COVID-19 PFIZER VACCINE Unknown Completed [facility] Pneumococcal Polysaccharide, PPSV23 (PNEUMOVAX) Unknown Completed [facility] Influenza Virus Vaccine Quad IM, Preserv and ABX Free 6 MO-64 YRS (FLUCELVAX) Unknown Completed [facility] Influenza Virus Vaccine Unknown Completed [facility] SARS-COV-2 COVID-19 PFIZER VACCINE Unknown Completed [facility] Pneumococcal Polysaccharide, PPSV23 (PNEUMOVAX) Unknown Completed [facility] Influenza Virus Vaccine Quad IM, Preserv and ABX Free 6 MO-64 YRS (FLUCELVAX) Unknown Completed [facility] Influenza Virus Vaccine Unknown Completed [facility] SARS-COV-2 COVID-19 PFIZER VACCINE Unknown Completed [facility] Pneumococcal Polysaccharide, PPSV23 (PNEUMOVAX) Unknown Completed [facility] Influenza Virus Vaccine Quad IM, Preserv and ABX Free 6 MO-64 YRS (FLUCELVAX) Unknown Completed [facility] Influenza Virus Vaccine Unknown Completed [facility] SARS-COV-2 COVID-19 PFIZER VACCINE Unknown Completed [facility] Pneumococcal Polysaccharide, PPSV23 (PNEUMOVAX) Unknown Completed [facility] Influenza Virus Vaccine Quad IM, Preserv and ABX Free 6 MO-64 YRS (FLUCELVAX) Unknown Completed [facility] DTAP Unknown Completed [facility] Influenza Virus Vaccine Unknown Completed [facility] SARS-COV-2 COVID-19 PFIZER VACCINE Unknown Completed [facility] Pneumococcal Polysaccharide, PPSV23 (PNEUMOVAX) Unknown Completed [facility] Influenza Virus Vaccine Quad IM, Preserv and ABX Free 6 MO-64 YRS (FLUCELVAX) Unknown Completed [facility] DTAP Unknown Completed [facility] Influenza Virus Vaccine Unknown Completed [facility] SARS-COV-2 COVID-19 PFIZER VACCINE Unknown Completed [facility] Pneumococcal Polysaccharide, PPSV23 (PNEUMOVAX) Unknown Completed [facility] Influenza Virus Vaccine Quad IM, Preserv and ABX Free 6 MO-64 YRS (FLUCELVAX) Unknown Completed [facility] DTAP Unknown Completed [facility] DTaP Unknown Completed Martha Munguiay bold - External Influenza Virus Vaccine, Unspecified Formulation Unknown Completed Martha Seybold - External Influenza, Injectable, Mdck, Preservative Free, Quadrivalent Unknown Completed Martha Seybold - External Pneumococcal Vaccine, Polysaccharide Unknown Completed Martha Seybol d - External DTaP Unknown Completed Martha Munguiay bold - External Influenza Virus Vaccine, Unspecified Formulation Unknown Completed Martha Seybold - External Influenza, Injectable, Mdck, Preservative Free, Quadrivalent Unknown Completed Martha Seybold - External Pneumococcal Vaccine, Polysaccharide Unknown Completed Martha Seybol d - External DTaP Unknown Completed Martha Munguiay bold - External Influenza Virus Vaccine, Unspecified Formulation Unknown Completed Martha Seybold - External Influenza, Injectable, Mdck, Preservative Free, Quadrivalent Unknown Completed Martha Seybold - External Pneumococcal Vaccine, Polysaccharide Unknown Completed Martha Seybol d - External Vital Signs Vital Name Observation Time Observation Value Comments S ource Systolic blood pressure 2023-11-19 15:47:00 150 mm[Hg] [facility] Diastolic blood pressure 2023-11-19 15:47:00 97 mm[Hg] [facility] Heart rate 2023-11-19 15:47:00 86 /min [facility] Body temperature 2023-11-19 15:47:00 37.11 Cierra [facility] Respiratory rate 2023-11-19 15:47:00 18 /min [facility] Body height 2023-11-19 15:47:00 180.3 cm [facility] Body weight 2023-11-19 15:47:00 113.399 kg [facility] BMI 2023-11-19 15:47:00 34.87 kg/m2 [facility] Oxygen saturation in Arterial blood by Pulse oximetry 2023-11-19 15:47:00 100 /min [facility] Systolic blood pressure 2023-10-20 20:35:00 114 mm[Hg] Martha Seybo ld - External Diastolic blood pressure 2023-10-20 20:35:00 70 mm[Hg] Martha Seybo ld - External Heart rate 2023-10-20 20:35:00 88 /min Kelse y Seybold - External Body temperature 2023-10-20 20:35:00 37 Cierra Martha Seybold - External Respiratory rate 2023-10-20 20:35:00 20 /min Martha Seybold - External Body height 2023-10-20 20:35:00 180.3 cm Nahomi ey Seybold - External Body weight 2023-10-20 20:35:00 113.399 kg Nahomi ey Seybold - External BMI 2023-10-20 20:35:00 34.87 kg/m2 Nahomi ey Seybold - External Oxygen saturation in Arterial blood by Pulse oximetry 2023-10-20 20:35:00 96 /min Martha Seybo ld - External Systolic blood pressure 2023-03-10 15:43:00 128 mm[Hg] Martha Seybo ld - External Diastolic blood pressure 2023-03-10 15:43:00 78 mm[Hg] Martha Seybo ld - External Heart rate 2023-03-10 15:43:00 82 /min Kelse y Seybold - External Body temperature 2023-03-10 15:43:00 36.83 Cierra Martha Seybold - External Respiratory rate 2023-03-10 15:43:00 18 /min Martha Seybold - External Body height 2023-03-10 15:43:00 182.9 cm Nahomi ey Seybold - External Body weight 2023-03-10 15:43:00 119.013 kg Nahomi ey Seybold - External BMI 2023-03-10 15:43:00 35.58 kg/m2 Nahomi ey Seybold - External Oxygen saturation in Arterial blood by Pulse oximetry 2023-03-10 15:43:00 98 /min Martha Seybo ld - External Systolic blood pressure 2023-02-19 14:54:00 114 mm[Hg] Martha Owusuo ld - External Diastolic blood pressure 2023-02-19 14:54:00 80 mm[Hg] Martha Owusuo ld - External Heart rate 2023-02-19 14:54:00 84 /min Wade smalls Seybold - External Body temperature 2023-02-19 14:54:00 36.56 Cierra Martha Munguiaybold - External Respiratory rate 2023-02-19 14:54:00 20 /min Martha Munguiaybold - External Body height 2023-02-19 14:54:00 182.9 cm Nahomi oliver Seybold - External Body weight 2023-02-19 14:54:00 116.393 kg Nahomi oliver Seybold - External BMI 2023-02-19 14:54:00 34.80 kg/m2 Nahomi benito Seybold - External Systolic blood pressure 2022-06-25 19:19:00 111 mm[Hg] [facility] Diastolic blood pressure 2022-06-25 19:19:00 77 mm[Hg] [facility] Heart rate 2022-06-25 19:19:00 80 /min [facility] Body temperature 2022-06-25 19:19:00 36.56 Cierra [facility] Respiratory rate 2022-06-25 19:19:00 18 /min [facility] Body height 2022-06-25 19:19:00 180.3 cm [facility] Body weight 2022-06-25 19:19:00 114.352 kg [facility] BMI 2022-06-25 19:19:00 35.16 kg/m2 [facility] Oxygen saturation in Arterial blood by Pulse oximetry 2022-06-25 19:19:00 97 /min [facility] Systolic blood pressure 2022-04-15 21:02:00 114 mm[Hg] [facility] Diastolic blood pressure 2022-04-15 21:02:00 80 mm[Hg] [facility] Heart rate 2022-04-15 21:02:00 80 /min [facility] Body temperature 2022-04-15 21:00:00 36.17 Cierra [facility] Respiratory rate 2022-04-15 21:00:00 18 /min [facility] Body height 2022-04-15 21:00:00 182.9 cm [facility] Body weight 2022-04-15 21:00:00 112.492 kg [facility] BMI 2022-04-15 21:00:00 33.63 kg/m2 [facility] Oxygen saturation in Arterial blood by Pulse oximetry 2022-04-15 21:00:00 97 /min [facility] Systolic blood pressure 2022-04-01 20:16:00 114 mm[Hg] [facility] Diastolic blood pressure 2022-04-01 20:16:00 71 mm[Hg] [facility] Heart rate 2022-04-01 20:16:00 84 /min [facility] Body temperature 2022-04-01 20:16:00 36.17 Cierra [facility] Respiratory rate 2022-04-01 20:16:00 18 /min [facility] Body height 2022-04-01 20:16:00 182.9 cm [facility] Body weight 2022-04-01 20:16:00 110.269 kg [facility] BMI 2022-04-01 20:16:00 32.97 kg/m2 [facility] Oxygen saturation in Arterial blood by Pulse oximetry 2022-04-01 20:16:00 96 /min [facility] Systolic blood pressure 2022-03-03 15:11:00 117 mm[Hg] [facility] Diastolic blood pressure 2022-03-03 15:11:00 78 mm[Hg] [facility] Heart rate 2022-03-03 15:11:00 74 /min [facility] Respiratory rate 2022-03-03 15:11:00 18 /min [facility] Body height 2022-03-03 15:11:00 177.8 cm [facility] Body weight 2022-03-03 15:11:00 113.172 kg [facility] BMI 2022-03-03 15:11:00 35.80 kg/m2 [facility] Oxygen saturation in Arterial blood by Pulse oximetry 2022-03-03 15:11:00 98 /min [facility] Systolic blood pressure 2021-12-11 14:53:00 127 mm[Hg] [facility] Diastolic blood pressure 2021-12-11 14:53:00 85 mm[Hg] [facility] Heart rate 2021-12-11 14:53:00 68 /min [facility] Body temperature 2021-12-11 14:53:00 36.94 Cierra [facility] Respiratory rate 2021-12-11 14:53:00 20 /min [facility] Body height 2021-12-11 14:53:00 182.9 cm [facility] Body weight 2021-12-11 14:53:00 118.343 kg [facility] BMI 2021-12-11 14:53:00 35.38 kg/m2 [facility] Oxygen saturation in Arterial blood by Pulse oximetry 2021-12-11 14:53:00 98 /min [facility] Systolic blood pressure 2021-12-08 18:11:00 100 mm[Hg] [facility] Diastolic blood pressure 2021-12-08 18:11:00 71 mm[Hg] [facility] Heart rate 2021-12-08 18:11:00 78 /min [facility] Body weight 2021-12-08 18:11:00 116.62 kg [facility] BMI 2021-12-08 18:11:00 35.86 kg/m2 [facility] Oxygen saturation in Arterial blood by Pulse oximetry 2021-12-08 18:11:00 98 /min [facility] Systolic blood pressure 2021-12-03 17:47:00 132 mm[Hg] [facility] Diastolic blood pressure 2021-12-03 17:47:00 91 mm[Hg] [facility] Heart rate 2021-12-03 17:47:00 81 /min [facility] Body temperature 2021-12-03 17:47:00 37.17 Cierra [facility] Respiratory rate 2021-12-03 17:47:00 18 /min [facility] Oxygen saturation in Arterial blood by Pulse oximetry 2021-12-03 17:47:00 98 /min [facility] Body weight 2021-12-03 10:22:00 118.026 kg [facility] BMI 2021-12-03 10:22:00 36.29 kg/m2 [facility] Body weight 2021-10-29 13:25:00 114.9 kg [facility] BMI 2021-10-29 13:25:00 36.29 kg/m2 [facility] Systolic blood pressure 2021-12-01 14:21:00 118 mm[Hg] [facility] Diastolic blood pressure 2021-12-01 14:21:00 78 mm[Hg] [facility] Heart rate 2021-12-01 14:17:00 84 /min [facility] Body temperature 2021-12-01 14:17:00 36.5 Cierra [facility] Respiratory rate 2021-12-01 14:17:00 18 /min [facility] Body weight 2021-12-01 14:17:00 115.667 kg [facility] BMI 2021-12-01 14:17:00 35.57 kg/m2 [facility] Oxygen saturation in Arterial blood by Pulse oximetry 2021-12-01 14:17:00 97 /min [facility] Systolic blood pressure 2021-10-09 20:32:00 109 mm[Hg] [facility] Diastolic blood pressure 2021-10-09 20:32:00 78 mm[Hg] [facility] Heart rate 2021-10-09 20:32:00 77 /min [facility] Body temperature 2021-10-09 20:32:00 37.06 Cierra [facility] Respiratory rate 2021-10-09 20:32:00 20 /min [facility] Body height 2021-10-09 20:32:00 180.3 cm [facility] Body weight 2021-10-09 20:32:00 114.941 kg [facility] BMI 2021-10-09 20:32:00 35.34 kg/m2 [facility] Oxygen saturation in Arterial blood by Pulse oximetry 2021-10-09 20:32:00 98 /min [facility] BP Systolic 2024-05-10 08:40:00 126 mm[Hg] Step hen F Ze BP Diastolic 2024-05-10 08:40:00 84 mm[Hg] Valente phen F Ze Weight Measured 2024-05-10 08:40:00 255.00 pounds Saroj Kunz Height Measured 2024-05-10 08:40:00 72.10 inches Saroj Kunz Body Temperature 2024-05-10 08:40:00 97.20 degrees Saroj Sultana Ze Heart Rate 2024-05-10 08:40:00 67.00 /min Merly en F Malone Respiratory Rate 2024-05-10 08:40:00 18.00 /min Saroj F Ze Heart Rate 2024-03-07 16:11:00 102.00 /min Step hen F Ze Respiratory Rate 2024-03-07 16:11:00 Saroj Kayy Kunz BP Systolic 2024-03-07 16:11:00 126 mm[Hg] Step hen F Ze BP Diastolic 2024-03-07 16:11:00 77 mm[Hg] Valente phen Kayy Kunz Weight Measured 2024-03-07 16:11:00 255.40 pounds Saroj Kunz Height Measured 2024-03-07 16:11:00 72.10 inches Saroj Sultana Ze Body Temperature 2024-03-07 16:11:00 98.80 degrees Saroj F Malone Systolic blood pressure 2023-11-19 15:47:00 150 mm[Hg] [facility] Diastolic blood pressure 2023-11-19 15:47:00 97 mm[Hg] [facility] Heart rate 2023-11-19 15:47:00 86 /min [facility] Body temperature 2023-11-19 15:47:00 37.11 Cierra [facility] Respiratory rate 2023-11-19 15:47:00 18 /min [facility] Body height 2023-11-19 15:47:00 180.3 cm [facility] Body weight 2023-11-19 15:47:00 113.399 kg [facility] BMI 2023-11-19 15:47:00 34.87 kg/m2 [facility] Oxygen saturation in Arterial blood by Pulse oximetry 2023-11-19 15:47:00 100 /min [place] [facility] BP Systolic 2022-04-13 15:47:00 106 mm[Hg] Step hen F Ze BP Diastolic 2022-04-13 15:47:00 73 mm[Hg] Valente phen F Ze Weight Measured 2022-04-13 15:47:00 249.00 pounds Saroj F Ze Height Measured 2022-04-13 15:47:00 72.10 inches Saroj F Ze Body Temperature 2022-04-13 15:47:00 98.20 degrees Saroj F Ze Heart Rate 2022-04-13 15:47:00 73.00 /min Merly en F Ze Respiratory Rate 2022-04-13 15:47:00 18.00 /min Saroj F Ze BP Systolic 2022-04-13 15:18:00 106 mm[Hg] Step hen F Ze BP Diastolic 2022-04-13 15:18:00 73 mm[Hg] Valente phen F Ze Weight Measured 2022-04-13 15:18:00 249.00 pounds Saroj F Ze Height Measured 2022-04-13 15:18:00 72.10 inches Saroj F Ze Body Temperature 2022-04-13 15:18:00 98.20 degrees Saroj F Ze Heart Rate 2022-04-13 15:18:00 73.00 /min Merly en F Ze Respiratory Rate 2022-04-13 15:18:00 18.00 /min Saroj F Ze BP Systolic 2020-07-24 14:22:00 140 mm[Hg] Step hen F Ze BP Diastolic 2020-07-24 14:22:00 90 mm[Hg] Valente phen F Ze Weight Measured 2020-07-24 14:22:00 282.20 pounds Saroj F Ze Height Measured 2020-07-24 14:22:00 72.10 inches Saroj F Ze Body Temperature 2020-07-24 14:22:00 98.10 degrees Saroj F Ze Heart Rate 2020-07-24 14:22:00 93.00 /min Merly en F Ze Respiratory Rate 2020-07-24 14:22:00 17.00 /min Saroj F Ze BP Systolic 2018-09-23 15:27:00 134 mm[Hg] Step hen F Ze BP Diastolic 2018-09-23 15:27:00 94 mm[Hg] Valente phen F Ze Weight Measured 2018-09-23 15:27:00 285.00 pounds Saroj F Ze Height Measured 2018-09-23 15:27:00 72.10 inches Saroj F Ze Body Temperature 2018-09-23 15:27:00 98.20 degrees Saroj F Ze Heart Rate 2018-09-23 15:27:00 85.00 /min Merly en F Ze Respiratory Rate 2018-09-23 15:27:00 16.00 /min Saroj F Ze BP Systolic 2018-04-28 10:33:00 138 mm[Hg] Step hen F Ze BP Diastolic 2018-04-28 10:33:00 99 mm[Hg] Valente phen F Ze Weight Measured 2018-04-28 10:33:00 Saroj F Ze Height Measured 2018-04-28 10:33:00 Saroj F Ze Body Temperature 2018-04-28 10:33:00 Saroj F Ze Heart Rate 2018-04-28 10:33:00 Merly en F Ze Respiratory Rate 2018-04-28 10:33:00 Saroj F Ze BP Systolic 2018-04-28 09:14:00 160 mm[Hg] Step hen F Ze BP Diastolic 2018-04-28 09:14:00 114 mm[Hg] Valente phen F Ze Weight Measured 2018-04-28 09:14:00 281.20 pounds Saroj F Ze Height Measured 2018-04-28 09:14:00 72.10 inches Saroj F Ze Body Temperature 2018-04-28 09:14:00 98.40 degrees Saroj F Ze Heart Rate 2018-04-28 09:14:00 82.00 /min Merly en F Ze Respiratory Rate 2018-04-28 09:14:00 16.00 /min Saroj F Ze BP Systolic 2018-01-07 08:28:00 146 mm[Hg] Step hen Kayy Kunz BP Diastolic 2018-01-07 08:28:00 92 mm[Hg] Valente phen Kayy Kunz Weight Measured 2018-01-07 08:28:00 279.60 pounds Saroj Kunz Height Measured 2018-01-07 08:28:00 72.10 inches Saroj Kunz Body Temperature 2018-01-07 08:28:00 98.70 degrees Saroj Kunz Heart Rate 2018-01-07 08:28:00 76.00 /min Merly en F Ze Respiratory Rate 2018-01-07 08:28:00 18.00 /min Saroj Kunz BP Systolic 2017-11-12 09:32:00 158 mm[Hg] Step hen F Ze BP Diastolic 2017-11-12 09:32:00 118 mm[Hg] Valente phen Kayy Kunz Weight Measured 2017-11-12 09:32:00 277.20 pounds Saroj Kunz Height Measured 2017-11-12 09:32:00 72.10 inches Saroj Kunz Body Temperature 2017-11-12 09:32:00 98.50 degrees Saroj Kunz Heart Rate 2017-11-12 09:32:00 87.00 /min Merly en F Ze Respiratory Rate 2017-11-12 09:32:00 16.00 /min Saroj Kunz Procedures Procedure Date / Time Performed Performing Clinician Source CT TRAUMA HEAD WO CONTRAST 2023-11-19 16:20:44 Laney Aldana [facility] CT TRAUMA CERVICAL SPINE WO CONTRAST 2023-11-19 16:20:44 Laney Swanson [facility] CT TRAUMA THORACIC SPINE WO CONTRAST 2023-11-19 16:20:44 Laney Swanson [facility] CT TRAUMA LUMBAR SPINE WO CONTRAST 2023-11-19 16:20:44 Laney Swanson [facility] EXTERNAL PROVIDER RECORDS 2022-12-15 05:01:00 Do ctor Unassigned, [place] [facility] AUTHORIZATION FOR RELEASE OF PHI 2022-11-09 05:01:00 Doctor Unassigned, [place] [facility] EXTERNAL PROVIDER RECORDS 2022-09-11 05:01:00 Do ctor Unassigned, [place] [facility] PHYSICIAN CERTIFICATION STATEMENT 2022-07-28 05:01:00 Doctor Unassigned, [place] [facility] REFERRAL- REQUEST/RESPONSE 2022-06-26 05:01:00 D octor Unassigned, [place] [facility] ASSIGNMENT OF BENEFITS 2022-05-06 16:53:37 Docto r Unassigned, [place] [facility] REFERRAL- REQUEST/RESPONSE 2022-04-23 06:01:00 D octor Unassigned, [place] [facility] REFERRAL- REQUEST/RESPONSE 2022-04-10 06:01:00 D octor Unassigned, [place] [facility] POCT URINALYSIS AUTO 2022-04-01 20:46:00 Christopher Washington [facility] PATIENT QUESTIONNAIRE 2022-04-01 06:01:00 Doctor Unassigned, [place] [facility] HB ECG ROUTINE & RHYTHM STRIP 2022-03-03 15:20:59 Ernestina Samaniego [facility] REFERRAL- REQUEST/RESPONSE 2022-03-03 06:01:00 D octor Unassigned, [place] [facility] PHYSICIAN CERTIFICATION STATEMENT 2021-12-18 05:01:00 Doctor Unassigned, [place] [facility] VACCINATIONS - CONSENTS, ELIGIBILITY, HISTORY 2021-12-10 05:01:00 Doctor Unassigned, [place] [facility] MEDICAL RELEASE/CLEARANCE FORMS 2021-12-04 05:01:00 Doctor Unassigned, [place] [facility] POCT GLUCOSE (AUTOMATED) 2021-12-03 16:51:00 Ana, A [facility] POCT GLUCOSE (AUTOMATED) 2021-12-03 16:51:00 Ana, A [facility] POCT GLUCOSE (AUTOMATED) 2021-12-03 13:47:00 Ana, A [facility] POCT GLUCOSE (AUTOMATED) 2021-12-03 13:47:00 Ana, A [facility] MAGNESIUM 2021-12-03 10:10:00 Gilberto Duncan [facility] BASIC METABOLIC PANEL (NA, K, CL, CO2, GLUCOSE, BUN, CREATININE, CA) 2021-12-03 10:10:00 Gilberto Duncan [facility] DIGOXIN 2021-12-03 10:10:00 Gilberto Duncan [facility] MAGNESIUM 2021-12-03 10:10:00 Gilberto Duncan [facility] BASIC METABOLIC PANEL (NA, K, CL, CO2, GLUCOSE, BUN, CREATININE, CA) 2021-12-03 10:10:00 Gilberto Duncan [facility] DIGOXIN 2021-12-03 10:10:00 Gilberto Duncan [facility] POCT GLUCOSE (AUTOMATED) 2021-12-03 01:22:00 Latrice Perez [facility] POCT GLUCOSE (AUTOMATED) 2021-12-03 01:22:00 Latrice Perez [facility] XR CHEST 1 VW 2021-12-03 00:25:00 [facility] XR CHEST 1 VW 2021-12-03 00:25:00 Gilberto Duncan [facility] ELECTROPHYSIOLOGY PROCEDURE 2021-12-02 21:07:21 Ana , Didier [facility] POCT ACT HIGH RANGE 2021-12-02 20:36:00 Sewani, Didier [facility] POCT ACT HIGH RANGE 2021-12-02 20:36:00 Sewani, Didier [facility] POCT ACT HIGH RANGE 2021-12-02 20:20:00 Sewani, Didier [facility] POCT ACT HIGH RANGE 2021-12-02 20:20:00 Sewani, Didier [facility] POCT ACT HIGH RANGE 2021-12-02 19:15:00 Sewani, Didier [facility] POCT ACT HIGH RANGE 2021-12-02 19:15:00 Sewani, Didier [facility] POCT ACT HIGH RANGE 2021-12-02 18:51:00 Sewani, Didier [facility] POCT ACT HIGH RANGE 2021-12-02 18:51:00 Sewani, Didier [facility] POCT ACT HIGH RANGE 2021-12-02 18:33:00 Sewani, Didier [facility] POCT ACT HIGH RANGE 2021-12-02 18:33:00 Sewani, Didier [facility] POCT ACT HIGH RANGE 2021-12-02 18:13:00 Sewani, Didier [facility] POCT ACT HIGH RANGE 2021-12-02 18:13:00 Sewani, Didier [facility] POCT ACT HIGH RANGE 2021-12-02 17:50:00 Sewani, Didier [facility] POCT ACT HIGH RANGE 2021-12-02 17:50:00 Sewani, Didier [facility] POCT ACT HIGH RANGE 2021-12-02 17:30:00 Sewani, Didier [facility] POCT ACT HIGH RANGE 2021-12-02 17:30:00 Sewani, Didier [facility] POCT ACT HIGH RANGE 2021-12-02 17:10:00 Sewani, Didier [facility] POCT ACT HIGH RANGE 2021-12-02 17:10:00 Sewani, [facility] TRANSESOPH[facility]AL [facility]CHO (SUMEET) COMPLETE W/ DOPPLER AND COLOR 2021-12-02 16:17:38 Emmanuel Jorgensen [facility] CT HEART W CONTRAST STRUCTURES ONLY (NON CORONARY) 2021-12-02 14:02:27 Ana [facility] HB ECG ROUTINE & RHYTHM STRIP 2021-12-02 13:27:46 Ana [facility] HB ECG ROUTINE & RHYTHM STRIP 2021-12-02 13:27:46 Ana [facility] FLU VACC ([id number]), 6 MO-64 YRS, .5ML, IM, QUAD (FLUCELVAX) 2021-12-01 14:35:26 Ernestina Samaniego [facility] COMP. METABOLIC PANEL (23135) 2021-11-20 21:28:00 Shirley Anders [facility] CBC WITH DIFF 2021-11-20 21:28:00 Shirley Anders [facility] PATIENT CORRESPONDENCE (LETTERS, USPS DOCUMENTATION) 2021-11-17 05:01:00 Doctor Unassigned, [place] [facility] INSURANCE CORRESPONDENCE 2021-10-29 05:01:00 Doc tor Unassigned, [place] [facility] MEDICATION CORRESPONDENCE 2021-10-09 05:01:00 Do ctor Unassigned, [place] [facility] MEDICATION CORRESPONDENCE 2021-10-09 05:01:00 Do ctor Unassigned, [place] [facility] HCV ANTIBODY 2018-12-29 15:09:00 Jessica Lees [facility] Encounters Start Date/Time End Date/Time Encounter Type Admission Type Attending [facility] Care Department Encounter ID Source 2024-05-30 14:30:00 2024-05-30 14:30:00 Outpatient DANNI OSWALD [id number] [facility] 2024-05-10 08:39:51 2024-05-10 08:39:51 Outpatient SFA [facility] [id number] Sraoj Kunz 2024-05-10 00:00:00 2024-05-10 00:00:00 Outpatient Visit [facility] [id number] Saroj Kunz 2016-12-14 00:00:00 2024-04-15 03:36:09 Orders Only Doctor Unassigned, [place] Doctor Unassigned, [place] [facility] 1.2.840.114 350.1.13.10 4.2.7.2.686 [id number] [facility] 2024-03-29 13:20:00 2024-03-29 13:20:00 Outpatient ERNESTINA HACKETT [facility] [id number] [facility] 2024-03-29 00:00:00 2024-03-29 00:00:00 Travel 1.2.840.1 [id number] 350.1.13.10 4.2.7.3.698 [id number] [facility] 2024-03-16 14:20:11 2024-03-16 14:20:11 Outpatient SFA [facility] [id number] Saroj Kunz 2024-03-09 15:20:00 2024-03-09 15:20:00 Outpatient SFA [facility] [id number] Saroj Kunz 2024-03-08 09:17:08 2024-03-08 09:17:08 Outpatient SFA [facility] [id number] Saroj Sultana Ze 2024-03-07 15:58:53 2024-03-07 15:58:53 Outpatient SFA [facility] [id number] Saroj Kunz 2024-03-07 00:00:00 2024-03-07 00:00:00 Outpatient Visit [facility] [id number] Saroj Kunz 2024-01-31 14:00:00 2024-01-31 14:00:00 Outpatient MACDONALDELIANA [id number] [facility] 2024-01-20 11:00:00 2024-01-20 11:00:00 Outpatient LOSSHIRLEY [id number] [facility] 2023-12-17 09:00:00 2023-12-17 09:00:00 Outpatient CHRISS MATHEW [id number] [facility] 2023-11-29 14:15:00 2023-11-29 14:15:00 Outpatient DANNI OSWALD [id number] [facility] 2023-11-19 10:49:00 2023-11-19 12:29:00 Emergency X LANEY SWANSON SANDRA [facility] ERT [id number] [facility] 2023-11-19 10:49:00 2023-11-19 12:29:00 Emergency Laney Swanson [facility] .2.840.114 350.1.13.10 4.2.7.2.686 [id number] [facility] 2023-11-17 00:00:00 2023-11-17 00:00:00 Outpatient JAREK FARRIS MARTHA CASSIDY [id number] [facility] 2023-11-15 15:30:00 2023-11-15 15:30:00 Outpatient CHRISS MATHEW [facility] [id number] [facility] 2023-10-20 15:30:00 2023-10-20 15:30:00 Outpatient JESS QUINTANA [facility] [id number] [facility] 2023-10-20 14:45:00 2023-10-20 14:45:00 Outpatient JOSEFA NAVILISA CASSIDY [id number] [facility] 2023-10-20 14:00:00 2023-10-20 14:00:00 Outpatient SHIRLEY MADISON [id number] [facility] 2023-09-30 00:00:00 2023-09-30 00:00:00 Outpatient JAREK FARRIS MARTHA CASSIDY [id number] [facility] 2023-07-02 14:20:00 2023-07-02 14:20:00 Outpatient GHAZAL DIETRICHIA MARTH[facility] CASS[facility]Y [id number] [facility] 2023-06-23 00:00:00 2023-06-23 00:00:00 Outpatient JESSEJOEAnita JAREK MARTHA CASSIDY [id number] [facility] 2023-06-23 00:00:00 2023-06-23 00:00:00 Outpatient PRAMODAnita JARKE CASSIDY [id number] [facility] 2023-06-09 10:00:00 2023-06-09 10:00:00 Outpatient SHIRLEY MADISON [id number] [facility] 2023-05-18 00:00:00 2023-05-18 00:00:00 Outpatient SHIRLEY MADISON [id number] [facility] 2023-04-29 00:00:00 2023-04-29 00:00:00 Outpatient SHIRLEY MADISON MARTHA [id number] [facility] 2023-04-07 00:00:00 2023-04-07 00:00:00 Outpatient JAREK FARRIS MARTHA CASSIDY [id number] [facility] 2023-04-02 11:00:00 2023-04-02 11:00:00 Outpatient MARTHA CASSIDY [id number] [facility] 2023-03-22 14:10:00 2023-03-22 14:10:00 Outpatient NAVI RIVERO MARTHA CASSIDY [id number] [facility] 2023-03-22 14:00:00 2023-03-22 14:00:00 Outpatient 39SANDRA MARTHA CASSIDY [id number] [facility] 2023-03-11 00:00:00 2023-03-11 00:00:00 Outpatient SHIRLEY MADISON MARTHA CASSIDY [id number] [facility] 2023-03-11 00:00:00 2023-03-11 00:00:00 Outpatient SHIRLEY MADISON MARTHA [id number] [facility] 2023-03-10 10:45:00 2023-03-10 10:45:00 Outpatient LAB90 MARTHA MARTHA [id number] [facility] 2023-03-10 10:00:00 2023-03-10 10:00:00 Outpatient SHIRLEY MADISON MARTHA [id number] [facility] 2023-03-03 10:00:00 2023-03-03 10:00:00 Outpatient SHIRLEY MADISON MARTHA [id number] [facility] 2023-02-19 10:45:00 2023-02-19 10:45:00 Outpatient LAB90 MARTHA CASSIDY [id number] [facility] 2023-02-19 10:00:00 2023-02-19 10:00:00 Outpatient SHIRLEY MADISON MARTHA CASSIDY [id number] [facility] 2023-01-14 00:00:00 2023-01-14 00:00:00 [facility] 1.2840.114 350.1.13.10 4.2.7.2.686 [id number] [facility] 2022-12-31 14:30:00 2022-12-31 14:30:00 Outpatient R SHIRLEY ANDERS [facility] [id number] [facility] 2022-12-15 00:00:00 2022-12-15 00:00:00 Orders Only Doctor Unassigned, [place] [facility] 1.2.840.114 350.1.13.10 4.2.7.2.686 [id number] [facility] 2022-11-14 00:00:00 2022-11-14 00:00:00 Adela Martita Critical access hospital?[facility] 1.2840.114 350.1.13.10 4.2.7.2.686 [id number] [facility] 2022-11-09 00:00:00 2022-11-09 00:00:00 Orders Only Doctor Unassigned, [place] [facility] 1.2840.114 350.1.13.10 4.2.7.2.686 [id number] [facility] 2022-11-09 00:00:00 2022-11-09 00:00:00 [facility] 1.2840.114 350.1.13.10 4.2.7.2.686 [id number] [facility] 2022-11-03 00:00:00 2022-11-03 00:00:00 [facility] 1.2840.114 350.1.13.10 4.2.7.2.686 [id number] [facility] 2022-10-02 00:00:00 2022-10-02 00:00:00 Telephone Carina Ortega [facility] 1.2.840.114 350.1.13.10 4.2.7.2.686 [id number] [facility] 2022-09-29 00:00:00 2022-09-29 00:00:[address] [facility] 1.2.840.114 350.1.13.10 4.2.7.2.686 [id number] [facility] 2022-09-11 00:00:00 2022-09-11 00:00:00 Orders Only Doctor Unassigned, [place] [facility] 1.2.840.114 350.1.13.10 4.2.7.2.686 [id number] [facility] 2022-08-20 00:00:00 2022-08-20 00:00:00 [facility] 1.2.840.114 350.1.13.10 4.2.7.2.686 [id number] [facility] 2022-08-11 00:00:00 2022-08-11 00:00:00 Refill Ernestina Samaniego [facility] 1.2.840.114 350.1.13.10 4.2.7.2.686 [id number] [facility] 2022-07-28 00:00:00 2022-07-28 00:00:00 [facility] 1.2.840.114 350.1.13.10 4.2.7.2.686 [id number] [facility] 2022-07-28 00:00:00 2022-07-28 00:00:00 Orders Only Doctor Unassigned, [place] [facility] 1.2.840.114 350.1.13.10 4.2.7.2.686 [id number] [facility] 2022-07-06 00:00:00 2022-07-06 00:00:00 Telephone Martita [facility] KERA?[facility] 1.2840.114 350.1.13.10 4.2.7.2.686 [id number] [facility] 2022-06-26 00:00:00 2022-06-26 00:00:00 Orders Only Doctor Unassigned, [place] [facility] 1.2.840.114 350.1.13.10 4.2.7.2.686 [id number] [facility] 2022-06-26 00:00:00 2022-06-26 00:00:00 [facility]phone [facility] 1.2840.114 350.1.13.10 4.2.7.2.686 [id number] [facility] 2022-06-25 15:30:00 2022-06-25 15:45:00 Skin Installer Visit Lab, Dr[facility] - [facility] Kennedyrafael [facility] 1.2840.114 350.1.13.10 4.2.7.2.686 [id number] [facility] 2022-06-25 14:30:00 2022-06-25 15:00:00 Office Visit Martita [facility] KERA?[facility] 1.2840.114 350.1.13.10 4.2.7.2.686 [id number] [facility] 2022-06-25 14:30:00 2022-06-25 14:30:00 Outpatient [facility]IRLEY [facility]ELD [facility] [id number] [facility] 2022-06-18 00:00:00 2022-06-18 00:00:00 Patient Outreach Valery Church LILLIANA MOHAMUD 1.2.840.114 350.1.13.10 4.2.7.2.686 [id number] [facility] 2022-06-17 10:30:00 2022-06-17 10:30:00 Outpatient R GAYLE HARDING YU [facility] [id number] [facility] 2022-06-15 00:00:00 2022-06-15 00:00:00 Telephone Ernestina Samaniego [facility] 1.2.840.114 350.1.13.10 4.2.7.2.686 [id number] [id number] [facility] 2022-06-15 00:00:00 2022-06-15 00:00:00 Telephone Shirley Anders [facility] BUILDING 1.2.840.114 350.1.13.10 4.2.7.2.686 [id number] 044 [id number] [facility] 2022-06-14 00:00:00 2022-06-14 00:00:00 Refill Shirley Anders [facility] 1.2.840.114 350.1.13.10 4.2.7.2.686 [id number] [facility] 2022-06-11 13:30:00 2022-06-11 13:30:00 Outpatient SHIRLEY FIELD [facility] [id number] [facility] 2022-06-10 00:00:00 2022-06-10 00:00:00 Telephone Jolynn Rodriguez 1.2.840.114 350.1.13.10 4.2.7.2.686 [id number] [facility] 2022-06-03 00:00:00 2022-06-03 00:00:00 Patient Secure Msg [facility] 1.2840.114 350.1.13.10 4.2.7.2.686 [id number] [facility] 2022-06-01 09:20:00 2022-06-01 09:20:00 Outpatient R ERNESTINA SAMANIEGO [facility] [id number] [facility] 2022-05-29 00:00:00 2022-05-29 00:00:00 Telephone [facility] 1.2840.114 350.1.13.10 4.2.7.2.686 [id number] [facility] 2022-05-17 00:00:00 2022-05-17 00:00:00 Telephone [facility] 1.2840.114 350.1.13.10 4.2.7.2.686 [id number] [facility] 2022-05-14 14:12:09 2022-05-14 23:59:00 Outpatient R [facility] [id number] [facility] 2022-05-14 14:00:00 2022-05-14 23:59:00 Hospital Encounter [facility] 1.2840.114 350.1.13.10 4.2.7.2.686 [id number] [facility] 2022-05-14 00:00:00 2022-05-14 00:00:00 Patient Outreach Terri Pineda 1.2.840.114 350.1.13.10 4.2.7.2.686 [id number] [facility] 2022-05-11 13:30:00 2022-05-11 13:45:00 Skin Installer Visit Pob, [facility] 1.2.840.114 350.1.13.10 4.2.7.2.686 [id number] [facility] 2022-05-11 13:30:00 2022-05-11 13:30:00 Outpatient R FELIX [facility] [id number] [facility] 2022-05-11 00:00:00 2022-05-11 00:00:00 Telephone Felix [facility] BUILDING 1.2840.114 350.1.13.10 4.2.7.2.686 [id number] [facility] 2022-05-07 00:00:00 2022-05-07 00:00:00 Patient Outreach Valery Church [facility] 1.2.840.114 350.1.13.10 4.2.7.2.686 [id number] [facility] 2022-05-06 12:15:00 2022-05-06 12:30:00 Skin Installer Visit Pob, Adc Lab Main [facility] 1.2.840.114 350.1.13.10 4.2.7.2.686 [id number] [facility] 2022-05-06 12:15:00 2022-05-06 12:15:00 Outpatient R FELIX [facility] [id number] [facility] 2022-05-06 00:00:00 2022-05-06 00:00:00 Orders Only Doctor Unassigned, [place] [facility] 1..114 350.1.13.10 4.2.7.2.686 [id number] [id number] [facility] 2022-04-29 00:00:00 2022-04-29 00:00:00 Telephone Rodriguez Jolynn MOHAMUD 1.0.114 350.1.13.10 4.2.7.2.686 [id number] [id number] [facility] 2022-04-23 14:45:00 2022-04-23 15:00:00 Skin Installer [facility] 1..114 350.1.13.10 4.2.7.2.686 [id number] [facility] 2022-04-23 14:45:00 2022-04-23 14:45:00 [facility] [id number] [facility] 2022-04-23 00:00:00 2022-04-23 00:00:00 Orders Only Doctor Unassigned, [place] [facility] 1..114 350.1.13.10 4.2.7.2.686 [id number] [id number] [facility] 2022-04-15 16:30:00 2022-04-15 16:45:00 Skin Installer Visit [facility] Jose Olea [facility] 1.114 350.1.13.10 4.2.7.2.686 [id number] [facility] 2022-04-15 15:30:00 2022-04-15 16:09:08 Outpatient JOSE SINGH [facility] [id number] [facility] 2022-04-15 15:30:00 2022-04-15 16:09:08 Office Visit Cherelle Parker Shancy [facility] 1.2.840.114 350.1.13.10 4.2.7.2.686 [id number] [facility] 2022-04-14 00:00:00 2022-04-14 00:00:00 Telephone Ernestina Samaniego [facility] NAL BUILDING 1.840.114 350.1.13.10 4.2.7.2.686 [id number] [facility] 2022-04-13 15:14:48 2022-04-13 15:14:48 Outpatient [facility] [id number] Saroj Kunz 2022-04-10 10:00:00 2022-04-10 10:00:00 Outpatient R [facility] [id number] [facility] 2022-04-10 00:00:00 2022-04-10 00:00:00 Orders Only Doctor Unassigned, [place] [facility] 1.840.114 350.1.13.10 4.2.7.2.686 [id number] [facility] 2022-04-10 00:00:00 2022-04-10 00:00:00 Telephone Shirley Anders [facility] 1.840.114 350.1.13.10 4.2.7.2.686 [id number] 044 [id number] [facility] 2022-04-07 00:00:00 2022-04-07 00:00:00 Telephone Jessy Sarah [facility] 1.840.114 350.1.13.10 4.2.7.2.686 [id number] [facility] 2022-04-07 00:00:00 2022-04-07 00:00:00 Telephone Jose Olea [facility] 1.0.114 350.1.13.10 4.2.7.2.686 [id number] [facility] 2022-04-06 00:00:00 2022-04-06 00:00:00 Patient Secure Msg Doctor Unassigned, [place] [facility] 1.2840.114 350.1.13.10 4.2.7.2.686 [id number] [facility] 2022-04-01 15:15:00 2022-04-01 15:30:00 Skin Installer Visit 2, Adc Lab Felix [facility] 1.20.114 350.1.13.10 4.2.7.2.686 [id number] [facility] 2022-04-01 14:30:00 2022-04-01 15:05:03 Outpatient R FELIX [facility] [id number] [facility] 2022-04-01 14:30:00 2022-04-01 15:05:03 Office Visit Felix [facility] 1.20.114 350.1.13.10 4.2.7.2.686 [id number] [facility] 2022-04-01 00:00:00 2022-04-01 00:00:00 Patient Outreach Valery Church 1.20.114 350.1.13.10 4.2.7.2.686 [id number] [facility] 2022-04-01 00:00:00 2022-04-01 00:00:00 Orders Only Doctor Unassigned, [place] [facility] 1.20.114 350.1.13.10 4.2.7.2.686 [id number] [facility] 2022-03-25 00:00:00 2022-03-25 00:00:00 Telephone Jolynn Rodriguez [facility] 1.2.840.114 350.1.13.10 4.2.7.2.686 [id number] 086 [id number] [facility] 2022-03-23 12:00:00 2022-03-23 12:00:00 Outpatient GAYLE MCCOY YU [facility] [id number] [facility] 2022-03-09 00:00:00 2022-03-09 00:00:00 Telephone Eitan Harpreet [facility] 1.2.840.114 350.1.13.10 4.2.7.2.686 [id number] [facility] 2022-03-06 13:15:00 2022-03-06 13:15:00 Outpatient R EITAN HARPREET [facility] [id number] [facility] 2022-03-06 00:00:00 2022-03-06 00:00:00 Telephone Aden [facility] 1.2.840.114 350.1.13.10 4.2.7.2.686 [id number] [facility] 2022-03-06 00:00:00 2022-03-06 00:00:00 Telephone [facility] 1.2.840.114 350.1.13.10 4.2.7.2.686 [id number] [id number] [facility] 2022-03-03 10:15:00 2022-03-03 10:30:00 Skin Installer Visit 2, Adc Lab Aden [facility] BUILDING 1.2.840.114 350.1.13.10 4.2.7.2.686 [id number] [facility] 2022-03-03 10:15:00 2022-03-03 10:23:26 Outpatient R LINA SAMANIEGONGJUN [facility] [id number] [facility] 2022-03-03 10:15:00 2022-03-03 10:15:00 Outpatient R [facility] [id number] [facility] 2022-03-03 09:20:00 2022-03-03 09:36:32 Outpatient R ADEN [facility] [id number] [facility] 2022-03-03 09:20:00 2022-03-03 09:36:32 [facility] 1..840.114 350.1.13.10 4.2.7.2.686 [id number] [facility] 2022-03-03 00:00:00 2022-03-03 00:00:00 Orders Only Doctor Unassigned, [place] [facility] 1.840.114 350.1.13.10 4.2.7.2.686 [id number] [facility] 2022-03-02 15:30:00 2022-03-02 15:30:00 Outpatient R NAT FISCHER [facility] [id number] [facility] 2022-02-17 00:00:00 2022-02-17 00:00:00 Patient Secure Msg Doctor Unassigned, [place] [facility] 1.840.114 350.1.13.10 4.2.7.2.686 [id number] [facility] 2022-02-13 00:00:00 2022-02-13 00:00:00 Telephone Shirley Anders [facility] 1..840.114 350.1.13.10 4.2.7.2.686 [id number] 044 [id number] [facility] 2022-02-13 00:00:00 2022-02-13 00:00:00 Patient Secure Msg Doctor Unassigned, [place] [facility] 1..840.114 350.1.13.10 4.2.7.2.686 [id number] 044 [id number] [facility] 2022-01-29 00:00:00 2022-01-29 00:00:00 Telephone Shirley Anders [facility] 1.840.114 350.1.13.10 4.2.7.2.686 [id number] [id number] [facility] 2022-01-26 16:00:00 2022-01-26 16:00:00 Outpatient RICKY PÉREZ [facility] [id number] [facility] 2022-01-26 00:00:00 2022-01-26 00:00:00 Patient Outreach Valery Church 1.840.114 350.1.13.10 4.2.7.2.686 [id number] [facility] 2022-01-12 14:15:00 2022-01-12 14:15:00 Outpatient DAISHA MARTINEZ [facility] [id number] [facility] 2022-01-02 00:00:00 2022-01-02 00:00:00 Ernestina De La Tor[facility] BU[facility] 1..840.114 350.1.13.10 4.2.7.2.686 [id number] [facility] 2022-01-01 00:00:00 2022-01-01 00:00:00 Telephone Jolynn Rodriguez 1..840.114 350.1.13.10 4.2.7.2.686 [id number] [facility] 2021-12-18 00:00:00 2021-12-18 00:00:00 [facility] 1.2.840.114 350.1.13.10 4.2.7.2.686 [id number] 044 [id number] [facility] 2021-12-18 00:00:00 2021-12-18 00:00:00 Orders Only Doctor Unassigned, [place] [facility] 1.2.840.114 350.1.13.10 4.2.7.2.686 [id number] [facility] 2021-12-17 00:00:00 2021-12-17 00:00:00 Patient Outreach Ranjit Valery NATHANJuju GRAYSON MOHAMUD 1.2.840.114 350.1.13.10 4.2.7.2.686 [id number] [facility] 2021-12-11 09:30:00 2021-12-11 10:28:16 [facility] [id number] [facility] 2021-12-11 09:30:00 2021-12-11 10:28:16 [facility] 1.2.840.114 350.1.13.10 4.2.7.2.686 [id number] 044 [id number] [facility] 2021-12-10 00:00:00 2021-12-10 00:00:00 Orders Only Doctor Unassigned, [place] [facility] 1.2840.114 350.1.13.10 4.2.7.2.686 [id number] [facility] 2021-12-08 13:00:00 2021-12-08 13:35:21 Outpatient R GAYLE HARDING YU [facility] [id number] [facility] 2021-12-08 13:00:00 2021-12-08 13:35:21 Office Visit Mehdi, Araujo [facility] 1.2840.114 350.1.13.10 4.2.7.2.686 [id number] [facility] 2021-12-08 13:00:00 2021-12-08 13:00:00 Outpatient Prem [facility] [id number] [facility] 2021-12-08 08:30:00 2021-12-08 08:30:00 Outpatient Prem HARDING ARAUJO [facility] [id number] [facility] 2021-12-08 00:00:00 2021-12-08 00:00:00 Patient Outreach Ranjit YaniAleksandr TIJERINA GRAYSON MOHAMUD 1.2840.114 350.1.13.10 4.2.7.2.686 [id number] [facility] 2021-12-04 00:00:00 2021-12-04 00:00:00 Orders Only Doctor Unassigned, [place] [facility] 1.2840.114 350.1.13.10 4.2.7.2.686 [id number] [facility] 2021-12-02 07:39:00 2021-12-03 14:30:00 Outpatient Prem [facility] [id number] [facility] 2021-12-02 07:39:00 2021-12-03 14:30:00 Hospital Encounter [facility]ier [facility] 1.2840.114 350.1.13.10 4.2.7.2.686 [id number] [facility] 2021-12-02 08:00:00 2021-12-02 23:59:00 Hospital [facility] 1.2840.114 350.1.13.10 4.2.7.2.686 [id number] [facility] 2021-12-02 07:30:00 2021-12-02 11:30:00 Surgery Ana [facility] 1.2.840.114 350.1.13.10 4.2.7.2.686 [id number] [facility] 2021-12-02 07:45:57 2021-12-02 07:59:00 Hospital Encounter Ana [facility] 1.2.840.114 350.1.13.10 4.2.7.2.686 [id number] [facility] 2021-12-01 10:30:00 2021-12-01 10:45:00 Skin Installer Visit Pob, Adc Lab Main Ana [facility] BUILDING 1.2.840.114 350.1.13.10 4.2.7.2.686 [id number] [facility] 2021-12-01 10:30:00 2021-12-01 10:30:00 Outpatient R ANA [facility] [id number] [facility] 2021-12-01 09:40:00 2021-12-01 09:51:15 [facility] [id number] 2021-12-01 09:40:00 2021-12-01 09:51:15 [facility] 1.2.840.114 350.1.13.10 4.2.7.2.686 [id number] [facility] 2021-12-01 00:00:00 2021-12-01 00:00:00 Telephone Ana [facility] 1.2.840.114 350.1.13.10 4.2.7.2.686 [id number] [facility] 2021-12-01 00:00:00 2021-12-01 00:00:00 Telephone Larissachon RaeEmmanuel [facility] 1.2.840.114 350.1.13.10 4.2.7.2.686 [id number] [facility] 2021-11-29 00:00:00 2021-11-29 00:00:00 Patient Secure Msg Doctor Unassigned, [place] [facility] 1.2.840.114 350.1.13.10 4.2.7.2.686 [id number] [facility] 2021-11-27 11:30:00 2021-11-27 11:30:00 Outpatient HARPREET GUY [facility] [id number] [facility] 2021-11-20 16:15:00 2021-11-20 16:30:00 Skin Installer Visit Lab, [facility]ILD[facility] 1.2840.114 350.1.13.10 4.2.7.2.686 [id number] [facility] 2021-11-20 16:15:00 2021-11-20 16:15:00 Outpatient SHIRLEY FIELD [facility] [id number] [facility] 2021-11-20 00:00:00 2021-11-20 00:00:00 [facility] 1.2840.114 350.1.13.10 4.2.7.2.686 [id number] [facility] 2021-11-17 00:00:00 2021-11-17 00:00:00 Orders Only Doctor Unassigned, [place] [facility] 1.2.840.114 350.1.13.10 4.2.7.2.686 [id number] [facility] 2021-11-11 13:15:00 2021-11-11 13:15:00 Outpatient DIDIER CH [facility] [id number] [facility] 2021-11-05 00:00:00 2021-11-05 00:00:00 Telephone Ana [facility] 1.2.840.114 350.1.13.10 4.2.7.2.686 [id number] [facility] 2021-11-04 00:00:00 2021-11-04 00:00:00 Lita Chen [facility] 1.2.840.114 350.1.13.10 4.2.7.2.686 [id number] [facility] 2021-10-30 00:00:00 2021-10-30 00:00:00 Olena Perez [facility] 1.2.840.114 350.1.13.10 4.2.7.2.686 [id number] [facility] 2021-10-29 00:00:00 2021-10-29 00:00:00 Orders Only Doctor Unassigned, [place] [facility] 1.2.840.114 350.1.13.10 4.2.7.2.686 [id number] [facility] 2021-10-14 00:00:00 2021-10-14 00:00:00 Telephone Ana [facility] 1.2.840.114 350.1.13.10 4.2.7.2.686 [id number] [facility] 2021-10-13 09:30:00 2021-10-13 09:30:00 Outpatient SHIRLEY FIELD [facility] [id number] [facility] 2021-10-09 15:30:00 2021-10-09 16:18:20 Outpatient R SHIRLEY ANDERS [facility] [id number] [facility] 2021-10-09 15:30:00 2021-10-09 16:18:20 [facility] 1.2.840.114 350.1.13.10 4.2.7.2.686 [id number] [facility] 2021-10-09 15:30:00 2021-10-09 16:18:20 Outpatient R SHIRLEY ANDERS [facility] [id number] [facility] 2021-10-07 16:00:00 2021-10-07 16:00:00 Outpatient R SHIRLEY ANDERS [facility] [id number] [facility] 2021-10-07 00:00:00 2021-10-07 00:00:00 Telephone Ana [facility] 1..840.114 350.1.13.10 4.2.7.2.686 [id number] [facility] 2021-10-02 09:00:00 2021-10-02 09:15:00 Skin Installer Visit Pob, Adc Lab Main Ana [facility] 1.2.840.114 350.1.13.10 4.2.7.2.686 [id number] [facility] 2021-10-02 09:00:00 2021-10-02 09:00:00 Outpatient R ANA [facility] [id number] [facility] 2021-10-02 09:00:00 2021-10-02 09:00:00 Outpatient R ANA [facility] [id number] [facility] 2021-10-02 00:00:00 2021-10-02 00:00:00 [facility] 1.2.840.114 350.1.13.10 4.2.7.2.686 [id number] [facility] 2021-09-19 11:40:00 2021-09-19 11:40:00 Outpatient R DIDIER PEREZ [facility] [id number] [facility] 2021-09-11 08:00:00 2021-09-11 08:00:00 Outpatient R MARCIARAFAEL SHIRLEY [facility] [id number] [facility] 2021-09-11 08:00:00 2021-09-11 08:00:00 Outpatient R SHIRLEY ANDERS [facility] [id number] [facility] 2021-09-05 08:40:00 2021-09-05 09:04:48 Out[facility] [id number] [facility] 2021-09-05 08:40:00 2021-09-05 09:04:48 Office Visit Ana [facility] 1.2.840.114 350.1.13.10 4.2.7.2.686 [id number] [facility] 2021-09-04 00:00:00 2021-09-04 00:00:00 Telephone Shirley Anders [facility] 1.2.840.114 350.1.13.10 4.2.7.2.686 [id number] [facility] 2021-08-29 10:00:00 2021-08-29 10:00:00 Outpatient R ERNESTINA SAMANIEGO [facility] [id number] [facility] 2021-08-29 10:00:00 2021-08-29 10:00:00 Outpatient R ERNESTINA SAMANIEGO [facility] [id number] [facility] 2021-08-29 10:00:00 2021-08-29 10:00:00 Office Visit Ernestina Samaniego [facility] BUILDING 1.2.840.114 350.1.13.10 4.2.7.2.686 [id number] [facility] 2021-08-29 10:00:00 2021-08-29 09:24:49 Outpatient R GUS [facility] [id number] [facility] 2021-08-29 08:30:00 2021-08-29 08:45:00 Skin Installer Visit Pob, [facility] 1.2.840.114 350.1.13.10 4.2.7.2.686 [id number] [facility] 2021-08-29 08:30:00 2021-08-29 08:45:00 Skin Installer Visit Pob, Adc Lab Main [facility] BUILDING 1.2.840.114 350.1.13.10 4.2.7.2.686 [id number] [facility] 2021-08-29 00:00:00 2021-08-29 00:00:00 [facility] 1.2.840.114 350.1.13.10 4.2.7.2.686 [id number] [facility] 2021-08-28 10:00:00 2021-08-28 10:00:00 Outpatient R [facility] [id number] [facility] 2021-08-22 13:00:00 2021-08-22 13:00:00 Outpatient R DIDIER PEREZ [facility] [id number] [facility] 2021-08-22 00:00:00 2021-08-22 00:00:[address] [facility] BUILD[facility] 1.2840.114 350.1.13.10 4.2.7.2.686 [id number] [facility] 2021-08-20 00:00:00 2021-08-20 00:00:00 Orders Only Doctor Unassigned, [place] [facility] 1.2.840.114 350.1.13.10 4.2.7.2.686 [id number] [facility] 2021-08-07 14:30:00 2021-08-07 14:30:00 Outpatient R SHIRLYE ANDERS [facility] [id number] [facility] 2021-08-07 00:00:00 2021-08-07 00:00:00 Telephone Ernestina Samaniego [facility] BUILD[facility] 1.2.840.114 350.1.13.10 4.2.7.2.686 [id number] [facility] 2021-08-04 10:30:00 2021-08-04 10:30:00 Office Visit Elvin [facility] 1.2.840.114 350.1.13.10 4.2.7.2.686 [id number] [facility] 2021-08-04 10:30:00 2021-08-04 09:55:57 Outpatient R ELVIN [facility] [id number] [facility] 2021-08-04 10:30:00 2021-08-04 09:55:57 Outpatient R ELVIN [facility] [id number] [facility] 2021-08-04 00:00:00 2021-08-04 00:00:00 Telephone Didier Perez [facility] BUILD[facility] 1.2.840.114 350.1.13.10 4.2.7.2.686 [id number] [facility] 2021-08-04 00:00:00 2021-08-04 00:00:00 Patient Secure Katherine Martinez [facility] 1.2.840.114 350.1.13.10 4.2.7.2.686 [id number] [facility] 2021-08-01 08:00:00 2021-08-01 08:00:00 Outpatient R DIDIER PEREZ [facility] [id number] [facility] 2021-07-15 00:00:00 2021-07-15 00:00:00 [facility] 1.840.114 350.1.13.10 4.2.7.2.686 [id number] [facility] 2021-07-15 00:00:00 2021-07-15 00:00:00 [facility] 1.840.114 350.1.13.10 4.2.7.2.686 [id number] [facility] 2021-07-07 00:00:00 2021-07-07 00:00:00 Orders Only Doctor Unassigned, [place] [facility] 1.84.114 350.1.13.10 4.2.7.2.686 [id number] [facility] 2021-07-04 00:00:00 2021-07-04 00:00:00 [facility] 1.840.114 350.1.13.10 4.2.7.2.686 [id number] [facility] 2021-07-02 00:00:00 2021-07-02 00:00:00 Telephone Aden, [place] [facility] BUILDING 1.2.840.114 350.1.13.10 4.2.7.2.686 [id number] [id number] [facility] 2021-07-01 00:00:00 2021-07-01 00:00:00 [facility] 1.2.840.114 350.1.13.10 4.2.7.2.686 [id number] [facility] 2021-07-01 00:00:00 2021-07-01 00:00:00 [facility] 1.2.840.114 350.1.13.10 4.2.7.2.686 [id number] 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
[2024-05-15] MEDS ORDERED: KETOROLAC 30 MG/ML INJ ONE (00:35)
[2024-05-15 01:04] LABS: Anion Gap 11.3 mEq/L (5.0-15.0); Potassium 4.3 mEq/L (3.5-5.1)
[2024-05-15 01:07] LABS: Absolute Eosinophils 0.1 K/uL (0-0.5); Absolute Lymphocytes (CBC) 2.8 K/uL (0.7-4.9); Absolute Monocytes 0.7 K/uL (0.1-1.3); Absolute Neutrophil 3.7 K/uL (1.8-8.0); Basophils % 0.7 % (0-1.3); Eosinophils % 1.5 % (0-4.4); Hematocrit 42.2 % (39.6-49.0); Hemoglobin 14.4 g/dL (13.6-17.9); Lymphocytes % 38.3 % (15.3-44.8); MCH 31.7 pg (27.0-35.0); MCHC 34.1 g/dL (32.0-36.0); MCV 92.9 fL (80-100); MPV 7.6 fL (7.6-11.3); Monocytes % 9.1 % (3.3-12.3); Neutrophils % 50.4 % (41.7-73.7); Nucleated Red Blood Cells % 0.1 % (0-0); Platelets 347 thou/uL (152-406); RBC Red Blood Cell Count 4.54 M/uL (4.33-5.43)
[2024-05-15] MEDS ORDERED: NA CHLORIDE 0.9% 500 ML ONE (01:25)
--- NOTE | 2024-05-15 01:54 | EDPHYS ---
Physician Documentation [facility] Name: Al Rawls Age: 53 yrs Sex: Male : 1970 Arrival Date: 05/15/2024 Time: 00:05 Bed 17 Private MD: ED Physician Brock Da Silva HPI: 05/15 00:17 This 53 yrs old Black Male presents to ER via EMS with complaints of Abdominal Pain, ec2 Chest Pain. 00:17 Patient arrives today for evaluation of generalized bodyaches. Patient reports that he ec2 has whole body pain. Reports rheumatoid arthritis, and other joint pains as well. Patient reports no falls injuries or trauma.. Historical: - Allergies: 00:12 Lisinopril; rg5 - PMHx: 00:12 Atrial Fib; chronic bronchitis; Diabetes - NIDDM; Hypertension; Rheumatoid Arthritis; rg5 - Immunization history:: Adult Immunizations up to date. - Infectious Disease History:: Denies. - Social history:: Smoking status: Patient reports the use of cigarette tobacco products, denies chronic smoking, but will smoke occasionally. ROS: 00:17 Constitutional: as per hpi ec2 Exam: 00:17 Constitutional: GEN: NAD Head: atraumatic Eyes: EOMI Ears: External ears are ec2 normal. CV: regular rate LUNGS: no respiratory distress ABD: non-distended SKIN: no evidence of rashes MSK: no evidence of trauma Vital Signs: 00:12 BP 138 / 84; Pulse 86; Resp 18; Temp 98; Pulse Ox 99% on R/A; Weight 111.13 kg; Height rg5 6 ft. 0 in. ; Pain 8/10; 01:02 BP 111 / 78; Pulse 69; Resp 17; Pulse Ox 97% on R/A; Pain 0/10; rg5 02:00 BP 116 / 71; Pulse 68; Resp 18; Pulse Ox 97% ; Pain 0/10; rg5 00:12 Body Mass Index 33.23 (111.13 kg, 182.88 cm) rg5 00:12 Pain Scale: Adult rg5 01:02 Pain Scale: Adult rg5 02:00 Pain Scale: Adult rg5 MDM: 00:10 Medical Screening Exam initiated ec2 00:17 Data reviewed: vital signs, nurses notes. ED course: Patient arrives today for ec2 generalized body pain. Examination is unrevealing. Will obtain lab Work, evaluate for processes such as rhabdomyolysis, electrolyte disturbances, anemia and give the patient Toradol for pain.. 00:24 ED course: EKG independently reviewed and interpreted by me, shows normal sinus rhythm, ec2 rate of 82, no acute ST segment elevations, intervals are nonactionable.. 01:54 ED course: Patient lab work pertinent for slight CK elevation at 740. No marked renal ec2 abnormality, patient is tolerating p.o. Will discharge home, instructed him on continued fluid resuscitation. return precautions given . 05/15 00:15 Order name: CBC with Diff; Complete Time: 01:18 ec2 05/15 00:15 Order name: BMP; Complete Time: 01:18 ec2 05/15 00:15 Order name: CK; Complete Time: 01:18 ec2 05/15 00:15 Order name: IV; Complete Time: 00:32 ec2 05/15 00:24 Order name: EKG - Nurse/Tech; Complete Time: 00:45 ec2 05/15 01:19 Order name: PO challenge; Complete Time: 01:35 ec2 Administered Medications: 00:35 Drug: Ketorolac IVP 15 mg IVP once Route: IVP; Site: left forearm; rg5 00:57 Follow up: Response: No adverse reaction; Pain is decreased rg5 01:29 Drug: NS 0.9% IV 500 ml 500 ml IV at 1 bolus once; to be given as a bolus over 30 rg5 minutes Volume: 500 ml; Route: IV; Rate: 1 bolus; Site: right forearm; 02:19 Follow up: IV Status: Completed infusion; IV Intake: 500ml rg5 Disposition Summary: 05/15/24 01:54 Discharge Ordered Notes: Location: Home ec2 Condition: Stable ec2 Diagnosis - Myalgia ec2 Followup: ec2 - With: Private Physician - When: - Reason: Re-evaluation by your physician Discharge Instructions: - Discharge Summary Sheet ec2 - Muscle Cramps and Spasms, [id number] ec2 Forms: - Medication Reconciliation Form ec2 - Antibiotic Education ec2 - Prescription Opioid Use ec2 - Patient Portal Instructions ec2 - Leadership Thank You Letter ec2 Signatures: Dispatcher [employer] EDMS Brock Da Silva MD MD ec2 Blackwood, Ming, RN RN rg5
--- NOTE | 2024-05-15 01:54 | ER ---
Nurse's Notes [facility] Name: Al Rawls Age: 53 yrs Sex: Male : 1970 Arrival Date: 05/15/2024 Time: 00:05 Bed 17 [facility] MD: Diagnosis: Myalgia Presentation: 05/15 00:09 Chief complaint: EMS states: patient complaints of generalized body pain, muscle cramp, rg5 chest pain that has been on \T\ off for 2 wks. Coronavirus screen: Client denies travel out of the [place] in the last 14 days. Ebola Screen: Patient negative for fever greater than or equal to 101.5 degrees Fahrenheit, and additional compatible Ebola Virus Disease symptoms Patient denies exposure to infectious person. Patient denies travel to an Ebola-affected area in the 21 days before illness onset. Initial Sepsis Screen: Does the patient meet any 2 criteria? No. Patient's initial sepsis screen is negative. Does the patient have a suspected source of infection? No. Patient's initial sepsis screen is negative. Risk Assessment: Do you want to hurt yourself or someone else? Patient reports no desire to harm self or others. Onset of symptoms was May 15, 2024. 00:09 Method Of Arrival: EMS: [facility] rg5 00:09 Acuity: BRANDYN 3 rg5 Triage Assessment: 00:12 General: Appears in no apparent distress. comfortable, Behavior is calm, cooperative, rg5 appropriate for age. Pain: Complains of pain in abdomen and groin Pain radiates to groin Pain Quality of pain is described as aching, Pain began 1 hour ago. EENT: No deficits noted. Neuro: Level of Consciousness is awake, alert, obeys commands. Cardiovascular: Reports chest pain, Patient's skin is warm and dry. Respiratory: Airway is patent Trachea midline Respiratory effort is even, unlabored, Respiratory pattern is regular, symmetrical. GI: Abdomen is round non-distended, Abd is soft and non tender Reports lower abdominal pain, upper abdominal pain, cramping. : No signs and/or symptoms were reported regarding the genitourinary system. Derm: Skin is intact, Skin is dry, Skin is normal. Musculoskeletal: Circulation, motion, and sensation intact. Range of motion: intact in all extremities. Historical: - Allergies: 00:12 Lisinopril; rg5 - PMHx: 00:12 Atrial Fib; chronic bronchitis; Diabetes - NIDDM; Hypertension; Rheumatoid Arthritis; rg5 - Immunization history:: Adult Immunizations up to date. - Infectious Disease History:: Denies. - Social history:: Smoking status: Patient reports the use of cigarette tobacco products, denies chronic smoking, but will smoke occasionally. Screenin:00 [facility] ED Fall Risk Assessment (Adult) History of falling in the last 3 months, rg5 including since admission Yes- physiologic fall (2 pts) Confusion or Disorientation No (0 pts) Intoxicated or Sedated No (0 pts) Impaired Gait Yes (1 pt) Mobility Assist Device Used Yes (1 pt) Altered Elimination No (0 pt) Score/Fall Risk Level 0 - 2 = Low Risk Oriented to surroundings, Maintained a safe environment, Hourly rounding (assess needs \T\ fall precautionary measures) done. Abuse screen: Denies threats or abuse. Nutritional screening: No deficits noted. 00:00 Tuberculosis screening: No symptoms or risk factors identified. rg5 Assessment: 00:00 GI: Bowel sounds present in left upper quadrant. rg5 00:00 Respiratory: Airway is patent Respiratory effort is even, unlabored. rg5 01:00 Reassessment: Patient and/or family updated on plan of care and expected duration. Pain rg5 level reassessed. Patient is alert, oriented x 3, equal unlabored respirations, skin warm/dry/pink. Patient states feeling better. 02:00 Reassessment: Patient and/or family updated on plan of care and expected duration. Pain rg5 level reassessed. Patient is alert, oriented x 3, equal unlabored respirations, skin warm/dry/pink. Patient states feeling better. Patient states symptoms have improved. Vital Signs: 00:12 BP 138 / 84; Pulse 86; Resp 18; Temp 98; Pulse Ox 99% on R/A; Weight 111.13 kg; Height rg5 6 ft. 0 in. ; Pain 8/10; 01:02 BP 111 / 78; Pulse 69; Resp 17; Pulse Ox 97% on R/A; Pain 0/10; rg5 02:00 BP 116 / 71; Pulse 68; Resp 18; Pulse Ox 97% ; Pain 0/10; rg5 00:12 Body Mass Index 33.23 (111.13 kg, 182.88 cm) rg5 00:12 Pain Scale: Adult rg5 01:02 Pain Scale: Adult rg5 02:00 Pain Scale: Adult rg5 ED Course: 00:00 Patient has correct armband on for positive identification. Bed in low position. Call rg5 light in reach. Side rails up X 1. Door closed. Noise minimized. Warm blanket given. 00:00 No provider procedures requiring assistance completed. rg5 00:07 Patient arrived in ED. rv1 00:07 Ming Blackwood RN is Primary Nurse. rg5 00:09 Brock Da Silva MD is Attending Physician. ec2 00:12 Triage completed. rg5 00:12 Arm band placed on left wrist. EKG completed in triage. Results shown to MD. rg5 00:25 EKG done, by ED staff, reviewed by Brock Da Silva MD. sa1 00:45 Initial lab(s) drawn, by me, sent to lab. sa1 02:18 IV discontinued, bleeding controlled, No redness/swelling at site. Pressure dressing rg5 applied. 02:19 Provided Education on: post er care. rg5 Administered Medications: 00:35 Drug: Ketorolac IVP 15 mg IVP once Route: IVP; Site: left forearm; rg5 00:57 Follow up: Response: No adverse reaction; Pain is decreased rg5 01:29 Drug: NS 0.9% IV 500 ml 500 ml IV at 1 bolus once; to be given as a bolus over 30 rg5 minutes Volume: 500 ml; Route: IV; Rate: 1 bolus; Site: right forearm; 02:19 Follow up: IV Status: Completed infusion; IV Intake: 500ml rg5 Medication: 00:00 VIS not applicable for this client. rg5 Intake: 02:19 IV: 500ml; Total: 500ml. rg5 Outcome: 01:54 Discharge ordered by . ec2 02:18 Discharged to home rg5 02:18 Condition: stable 02:18 Discharge instructions given to patient, Instructed on discharge instructions, follow up and referral plans. Demonstrated understanding of instructions, follow-up care, 02:19 Patient left the ED. rg5 Signatures: Quigley Shari rv1 Brock Da Silva MD MD ec2 Ming Blackwood RN RN rg5 Sultan Gilberto [facility]
[2024-05-15 02:47] VITALS: TEMP 98
[2024-05-15 02:48] VITALS: BP 111/78; O2SAT 97
--- NOTE | 2024-05-17 12:40 | EKG ---
Test Date: 2024-05-15 Test Time: 00:19:30 Registration Clerk: MEASUREMENT RESULTS: Intervals: Rate: 82 NM: 144 QRSD: 104 QT: 380 QTc: 443 [place]: P: 66 NM: 144 QRS: 32 T: 59 INTERPRETIVE STATEMENTS: Normal sinus rhythm Normal ECG Compared to ECG 08/17/2022 12:17:28 No significant changes Electronically Signed On 05-17-24 12:29:35 CDT by Quinton Anderson
== END 2024-05-15 02:19 | disposition home or self-care (01) ==
LOC: ER 00:05
DX: M79.10 Myalgia, unspecified site (principal)
CPT/HCPCS: 36415; 80048; 82550; 85025; 93005; 96361; 96374; 99284; J7040

== ENCOUNTER 2024-12-20 15:53 | Emergency (ER) | payer OTHER ==
--- NOTE | 2024-12-20 16:34 | ER ---
Nurse's Notes [facility] Name: Al Rawls Age: 54 yrs Sex: Male : 1970 Arrival Date: 12/20/2024 Time: 15:53 Bed 17 Private MD: Diagnosis: Other depressive episodes Presentation: 12/20 16:31 Coronavirus screen: Client denies travel out of the [place] in the last 14 days. At this db time, the client does not indicate any symptoms associated with coronavirus-19. Ebola Screen: Patient negative for fever greater than or equal to 101.5 degrees Fahrenheit, and additional compatible Ebola Virus Disease symptoms Patient denies exposure to infectious person. Patient denies travel to an Ebola-affected area in the 21 days before illness onset. No symptoms or risks identified at this time. Initial Sepsis Screen: Does the patient meet any 2 criteria? No. Patient's initial sepsis screen is negative. Does the patient have a suspected source of infection? No. Patient's initial sepsis screen is negative. Risk Assessment: Do you want to hurt yourself or someone else? Patient reports no desire to harm self or others. 16:31 Method Of Arrival: Law Enforcement: Michel Steele db 16:31 Acuity: BRANDYN 3 db 16:50 Chief complaint: Patient states: Anxiety after being pulled over by police, has been ph out of his duloxetine for approx 5 days, picked up at pharmacy today. Onset of symptoms was December 20, 2024. Triage Assessment: 16:51 General: Appears in no apparent distress. comfortable, Behavior is calm, cooperative, ph appropriate for age. Pain: Denies pain. Neuro: Level of Consciousness is awake, alert, obeys commands, Oriented to person, place, time, situation. Cardiovascular: Capillary refill < 3 seconds in bilateral fingers Patient's skin is warm and dry. Respiratory: Airway is patent Respiratory effort is even, unlabored. Derm: Skin is pink, warm \T\ dry. Musculoskeletal: Circulation, motion, and sensation intact. Range of motion: intact in all extremities. Historical: - Allergies: 16:31 Lisinopril; db - PMHx: 16:31 Atrial Fib; chronic bronchitis; Diabetes - NIDDM; Hypertension; Rheumatoid Arthritis; db - Immunization history:: Adult Immunizations unknown. - Infectious Disease History:: Denies. - Social history:: Smoking status: unknown. Screenin:42 [facility] ED Fall Risk Assessment (Adult) History of falling in the last 3 months, db including since admission No falls in past 3 months (0 pts) Confusion or Disorientation No (0 pts) Intoxicated or Sedated No (0 pts) Impaired Gait No (0 pts) Mobility Assist Device Used No (0 pt) Altered Elimination No (0 pt) Score/Fall Risk Level 0 - 2 = Low Risk Oriented to surroundings, Maintained a safe environment. Abuse screen: Denies threats or abuse. Denies injuries from another. Nutritional screening: No deficits noted. Tuberculosis screening: No symptoms or risk factors identified. Assessment: 16:26 Reassessment: PT AMBULATORY TO ROOM. STEADY GATE. db 16:35 Reassessment: NAVEEN Read at bedside to speak w/ pt,. Pt reports that he has been out of ph his psychiatric medication for approx 5 days, picked up medications at pharmacy today. Took a dose of his duloxetine. States that he is contacting his psychiatrist tomorrow for a follow-up appointment, denies SI or HI. 16:42 Reassessment: Patient appears in no apparent distress at this time. Patient and/or db family updated on plan of care and expected duration. Pain level reassessed. Patient is alert, oriented x 3, equal unlabored respirations, skin warm/dry/pink. General: Appears in no apparent distress. comfortable, Behavior is calm, cooperative. Pain: Denies pain. Neuro: Level of Consciousness is awake, alert, obeys commands, Oriented to person, place, time, situation. Vital Signs: 16:37 BP 138 / 93; Pulse 66; Resp 16; Temp 97.9(O); Pulse Ox 96% ; db ED Course: 16:00 Patient arrived in ED. bd 16:06 Cat Huitron PA-C is PHCP. sb4 16:06 Stanley Hernandez MD is Attending Physician. sb4 16:18 police patrol officer Ravindra William said he had to go and left the suicidal pt sitting in the bd chair in pod 1 alone. 16:26 Kajal Stone, RN is Primary Nurse. db 16:28 Arm band placed on Patient placed. db 16:32 Triage completed. db 16:42 Patient has correct armband on for positive identification. Bed in low position. Call db light in reach. Side rails up X 1. Provided Education on: DISCHARGE AND FOLLOWUP. Pulse ox on. NIBP on. 16:42 No provider procedures requiring assistance completed. Patient did not have IV access db during this emergency room visit. Administered Medications: No medications were administered Medication: 16:42 VIS not applicable for this client. db Outcome: 16:33 Discharge ordered by . sb4 16:56 Discharged to home ambulatory, ph 16:56 Condition: good 16:56 Discharge instructions given to patient, Instructed on discharge instructions, follow up and referral plans. Demonstrated understanding of instructions, follow-up care, 16:56 Patient left the ED. ph Signatures: Inge Morales Patricia RN RN Kajal Amaya, RN RN Cat Quiroz PA-C PA-C sb4
--- NOTE | 2024-12-20 16:34 | EDPHYS ---
Physician Documentation [facility] Name: Al Rawls Age: 54 yrs Sex: Male : 1970 Arrival Date: 12/20/2024 Time: 15:53 Bed 17 Private MD: ED Physician Stanley Hernandez HPI: 12/20 18:22 This 54 yrs old Black Male presents to ER via Law Enforcement with complaints of sb4 Anxiety. 18:22 Patient presents today via PD with depression and anxiety. He states that he has been sb4 out of all of his medications for about 4 days now and had just filled them and was driving home when he was pulled over by police. He states that he got very worked up and mentioned having suicidal ideations. They told him he could go to detention or come to the hospital so he came to the ED. Patient states that he does not feel suicidal, he was just very overwhelmed and is not feeling right because he has been out of his medications. He states that now that he has his medications, he feels much better and is planning to see his psychiatrist tomorrow. Historical: - Allergies: 16:31 Lisinopril; db - PMHx: 16:31 Atrial Fib; chronic bronchitis; Diabetes - NIDDM; Hypertension; Rheumatoid Arthritis; db - Immunization history:: Adult Immunizations unknown. - Infectious Disease History:: Denies. - Social history:: Smoking status: unknown. ROS: 18:24 Constitutional: Negative for fever, chills, and weight loss, sb4 18:24 All other systems are negative, Exam: 18:24 Constitutional: This is a well developed, well nourished patient who is awake, alert, sb4 and in no acute distress. Head/Face: Normocephalic, atraumatic. Eyes: Extra-ocular motions intact. Periorbital areas with no swelling, redness, or edema. ENT: Mucous membranes moist. Cardiovascular: Regular rate and rhythm with a normal S1 and S2. Respiratory: No increased work of breathing, no retractions or nasal flaring. Abdomen/GI: Soft, non-tender, no distension. Skin: Warm, dry with normal turgor. Normal color with no rashes, no lesions, and no evidence of cellulitis. 18:24 Psych: Behavior/mood is pleasant, cooperative, appropriate for age, Affect is calm, Oriented to person, place, time, Patient has no thoughts/intents to harm self or others. Judgement / Insight is normal. Memory is normal. Delusions/hallucinations are not present. Vital Signs: 16:37 BP 138 / 93; Pulse 66; Resp 16; Temp 97.9(O); Pulse Ox 96% ; db MDM: 16:06 Medical Screening Exam initiated sb4 18:24 Differential diagnosis: depression, psychosis secondary to non-compliance. Data sb4 reviewed: vital signs, nurses notes, and as a result, I will discharge patient. Care significantly affected by the following chronic conditions: Diabetes, Hypertension, Congestive Heart Failure. Counseling: I had a detailed discussion with the patient and/or guardian regarding the historical points, exam findings, and any diagnostic results supporting the discharge/admit diagnosis, the presence of at least one elevated blood pressure reading (>120/80) during this emergency department visit, the need for outpatient follow up, a psychiatrist, to return to the emergency department if symptoms worsen or persist or if there are any questions or concerns that arise at home. ED course: Patient is not suicidal or homicidal. He denies any plan apartment itself. He has no weapons in the house. He has no intention of overdosing on his medications. He is going to call his psychiatrist in the morning. He took his normal dose of duloxetine while in the room with me. 12/20 16:12 Order name: Suicide Precautions; Complete Time: 16:36 sb4 12/20 16:12 Order name: Suicide Screening ([place]); Complete Time: 16:36 sb4 Administered Medications: No medications were administered Disposition Summary: 12/20/24 16:33 Discharge Ordered Notes: Location: Home sb4 Problem: new sb4 Symptoms: have improved sb4 Condition: Stable sb4 Diagnosis - Other depressive episodes sb4 Followup: sb4 - With: Emergency Department - When: As needed - Reason: If symptoms return Discharge Instructions: - Discharge Summary Sheet sb4 - Managing Depression, Adult sb4 Forms: - Patient Portal Instructions sb4 - Leadership Thank You Letter sb4 Signatures: Dispatcher [employer] Kajal Bryson RN RN Cat Quiroz PA-C PA-C sb4 Corrections: (The following items were deleted from the chart) 16:36 16:11 EKG - Nurse/Tech ordered. sb4 db 43 16:11 IV Saline Lock ordered. sb4 db 43 16:11 Labs collected and sent ordered. sb4 db
[2024-12-20 19:45] VITALS: BP 138/93; TEMP 97.9; O2SAT 96
== END 2024-12-20 16:56 | disposition home or self-care (01) ==
LOC: ER 15:53
DX: F32.89 Other specified depressive episodes (principal); F41.9 Anxiety disorder, unspecified; E11.9 Type 2 diabetes mellitus without complications; I10 Essential (primary) hypertension; I48.11 Longstanding persistent atrial fibrillation; J42 Unspecified chronic bronchitis
CPT/HCPCS: 99283